=== PATIENT | male | born 1960 | race Caucasian/White ===

== ENCOUNTER 2021-10-30 16:01 | Outpatient (REF) | payer OTHER, SELFPAY ==
--- NOTE | ~2021-10-30 | XR_ITS ---
EXAMINATION: XR CHEST 2 VIEW CLINICAL INFORMATION: Cough COMPARISON: 09/08/2018 TECHNIQUE: PA and lateral views of the chest obtained. FINDINGS: The lungs are hyperinflated with flattening of the diaphragms and in increase in the retrosternal airspace indicative of underlying COPD. The lungs are clear. There are no pleural effusions. The cardiomediastinal silhouette is normal. XR/XR chest 2V IMPRESSION: COPD. No acute disease or interval change otherwise.
== END 2021-10-30 16:02 | disposition home or self-care (01) ==
LOC: HO.HMGCX 16:01
DX: R05.9 Cough, unspecified (principal)
CPT/HCPCS: 71046

== ENCOUNTER → 2022-02-03 12:58 | Outpatient (BNVA) | payer SELFPAY | PROVIDERS: Visit Provider Physician Assistant Medical | DX: Z02.79 Encounter for issue of other medical certificate (principal) ==

== ENCOUNTER 2022-06-08 11:07 | Outpatient (REF) | payer OTHER, SELFPAY ==
[2022-06-08 11:32] LABS: MANUAL DIFF FLAG NO
[2022-06-08 11:42] LABS: Basophils Absolute Auto 0.1 X10*3/uL (0.0-0.2); Eosinophils Absolute Auto 0.5 X10*3/uL (0.0-0.4); Eosinophils Percent Auto 5.9 % (0-4); Hematocrit 46.1 % (42.0-52.0); Hemoglobin 15.1 g/dl (14.0-18.0); Imm Gran Abs Auto 0.04 X10*3/uL (0.00-0.03); Imm Gran Pct Auto 0.5 % (0.0-0.4); Lymphocytes Absolute Auto 1.7 X10*3/uL (1.2-4.9); Lymphocytes Percent Auto 21.6 % (20-40); Mean Corpuscular HGB Conc 32.8 g/dl (31.0-36.0); Mean Corpuscular Hemoglobin 30.3 pg (27.0-33.0); Mean Corpuscular Volume 92.6 fL (80.0-98.0); Mean Platelet Volume 9.5 fL (9.4-12.4); Monocytes Absolute Auto 0.8 X10*3/uL (0.1-1.2); Monocytes Percent Auto 9.9 % (2-11); Neutrophils Absolute Auto 4.7 x10*3/uL (2.0-8.3); Neutrophils Percent Auto 61.1 % (45-73); Platelet Count 235 X10*3/uL (160-400); Red Blood Count 4.98 X10*6/uL (4.60-5.80); Red Cell Distribution Width 13.7 % (11.0-16.0); White Blood Count 7.7 X10*3/uL (4.8-10.8)
[2022-06-08 12:21] LABS: Alanine Aminotransferase 31 U/L (0-40); Albumin Level 4.6 g/dL (3.5-5.0); Alkaline Phosphatase 55 U/L (39-117); Anion Gap 12 (12-20); Aspartate Amino Transferase 20 U/L (5-37); Bilirubin Total 0.7 mg/dL (0.0-1.0); Blood Urea Nitrogen 16 mg/dL (9-16); Carbon Dioxide 29 mmol/L (22-29); Chloride 105 mmol/L (96-108); Cholesterol 261 mg/dL; Estimated Glomerular Filt Rate > 60; Glucose Random 87 mg/dL (60-115); HDL Cholesterol 55 mg/dL; LDL Cholesterol Calculated 181 mg/dl; Potassium 4.9 mmol/L (3.3-5.1); Sodium 141 mmol/L (135-145); Total Protein 7.3 g/dL (6.5-8.0); Triglycerides 129 mg/dL
[2022-06-08 12:41] LABS: PSA,Total (Free>4and<10) 0.32 ng/mL (0.00-4.00); TSH reflex Free T4 0.86 uIU/mL (0.32-4.0)
== END 2022-06-08 11:08 | disposition home or self-care (01) ==
LOC: HO.LAB 11:07
PROVIDERS: Visit Provider Nurse Practitioner Family
DX: Z13.220 Encounter for screening for lipoid disorders (principal); Z13.29 Encounter for screening for other suspected endocrine disorder; Z13.0 Encounter for screening for diseases of the blood and blood-forming organs and certain disorders involving the immune mechanism; Z12.5 Encounter for screening for malignant neoplasm of prostate; J44.9 Chronic obstructive pulmonary disease, unspecified
CPT/HCPCS: 36415; 80053; 80061; 84153; 84443; 85025

== ENCOUNTER 2022-06-11 13:53 | Outpatient (REF) | payer OTHER, SELFPAY ==
[2022-06-14 04:44] LABS: HBS Num1 0.27 mIU/mL (0-7.99); HBc Num1 0.07 S/CO (0.00-0.79); HBsAGNum1 0.28 S/CO (0.00-0.99); Hepatitis A Antibody IgM 0.14 Index (0-0.79); Hepatitis B Core Antibody Nonreactive (Nonreactive); Hepatitis B Surface Antigen Negative (Negative); ~HepC Num1 0.07 S/CO (0.00-0.79); ~Hepatitis A Antibody IgM Nonreactive (Nonreactive); ~Hepatitis B Surface Antibody NONREACTIVE (Nonreactive); ~Hepatitis C Antibody Nonreactive (Nonreactive)
== END 2022-06-11 13:54 | disposition home or self-care (01) ==
LOC: HO.LAB 13:53
PROVIDERS: Visit Provider Nurse Practitioner Family
DX: Z11.59 Encounter for screening for other viral diseases (principal)
CPT/HCPCS: 36415; 86704; 86706; 86709; 86803; 87340

== ENCOUNTER 2022-06-17 14:19 | Outpatient (REF) | payer OTHER, SELFPAY ==
--- NOTE | ~2022-06-17 | XR_ITS ---
EXAMINATION: XR LUMBOSACRAL SPINE CLINICAL INFORMATION: Lower back pain. COMPARISON: None available. TECHNIQUE: AP and lateral views of the lumbar spine and lateral view of the lumbosacral junction. FINDINGS: There is bony demineralization. Vertebral body heights and alignment are normal. The lumbar disc spaces are well-maintained. No acute fracture or spondylolisthesis is seen. There is mild spondylosis at L3-L4 and L4-L5. The posterior elements are intact. There is facet arthropathy at L5-S1. The paravertebral soft tissues are unremarkable. XR/XR lumbar spine 2-3V IMPRESSION: 1. No acute fracture or spondylolisthesis is seen. 2. The lumbar disc spaces are well-maintained. 3. There is mild spondylosis at L3-L4 and L4-L5. 4. There is facet arthropathy at L5-S1.
[2022-06-17 14:56] LABS: Estimated Average Glucose 114 mg/dL; Hemoglobin A1c % 5.6 %
[2022-06-19 04:48] LABS: Lyme Abs Screen <0.90 index
== END 2022-06-17 14:20 | disposition home or self-care (01) ==
LOC: HO.LAB 14:19
PROVIDERS: Visit Provider Nurse Practitioner Family
DX: M54.50 Low back pain, unspecified (principal)
CPT/HCPCS: 36415; 72100; 83036; 86617; 86618

== ENCOUNTER 2022-07-09 14:11 | Outpatient (REF) | payer OTHER, SELFPAY ==
--- NOTE | ~2022-07-09 | CT_ITS ---
EXAMINATION: LUNG CANCER SCREENING CT CHEST WITHOUT CONTRAST CLINICAL INFORMATION: Current smoker with 47 pack year history COMPARISON: CT chest dated 04/25/2018 TECHNIQUE: Multidetector volumetric CT imaging of the chest was obtained noncontrast using low dose screening CT technique. Axial thin section 0.625 mm reformations in soft tissue and lung windows were obtained. Sagittal and coronal reformations were obtained. Axial MIP images were also created and reviewed. This CT examination was performed using dose optimization techniques as appropriate, variously including the following: *Automated exposure control *Adjustment of mA and/or kV according to patient size (this includes techniques or standardized protocols for targeted exams where dose is matched to indication/reason for exam; i.e. extremities or head) *Use of iterative reconstruction technique TOTAL EXAM DLP: 57 mGy-cm FINDINGS: PULMONARY NODULES (see valdes images): No suspicious pulmonary nodules. There are a couple punctate nodules in the left lower lobe. LUNGS / PLEURA: Minimal emphysema. Diffuse mild bronchial wall thickening without bronchiectasis. No pleural effusion or pneumothorax. MEDIASTINUM / KENDAL: Heart normal in size without pericardial effusion. Great vessels normal caliber. No lymphadenopathy. Coronary calcifications present. Imaged thyroid gland unremarkable. CHEST WALL / AXILLA: Unremarkable. UPPER ABDOMEN: Simple cyst in the upper pole of left kidney is benign. No follow-up imaging recommended. OSSEOUS STRUCTURES: No acute or suspicious osseous abnormalities. CT/CT lung screening IMPRESSION: * No evidence of pulmonary malignancy. * There are no pulmonary nodules that meet criteria for short interval follow-up at this time. ASSESSMENT: Lung RADS category: 2. Benign appearance or behavior. Nodules with a very low likelihood of becoming a clinically active cancer due to size or lack of growth. Continue annual screening with low-dose CT in 12 months. Probability of malignancy less than 1%. RECOMMENDATION: Follow up low dose CT chest in 1 year.
== END 2022-07-09 14:12 | disposition home or self-care (01) ==
LOC: HO.CT 14:11
PROVIDERS: PCP Internal Medicine; Visit Provider Physician Assistant Medical
DX: Z12.2 Encounter for screening for malignant neoplasm of respiratory organs (principal); F17.210 Nicotine dependence, cigarettes, uncomplicated
CPT/HCPCS: 71271; G0296

== ENCOUNTER → 2022-07-29 08:48 | Outpatient (BNVA) | payer OTHER, SELFPAY | PROVIDERS: PCP Nurse Practitioner Family; Visit Provider Internal Medicine | DX: J44.9 Chronic obstructive pulmonary disease, unspecified (principal); F41.9 Anxiety disorder, unspecified; F17.210 Nicotine dependence, cigarettes, uncomplicated | CPT/HCPCS: 99202 ==

== ENCOUNTER 2022-07-30 08:28 | Outpatient (REF) | payer OTHER, SELFPAY ==
--- NOTE | 2022-07-30 09:29 | PFT_ITS ---
INDICATION: COPD. SPIROMETRY: FEV1 to FVC of 47% with an FEV1 of 2.05 L which is 47% predicted and an FVC of 4.38 L which is 75% predicted with a significant response to bronchodilators noted. Maximum voluntary ventilation 27% predicted. LUNG VOLUMES: Total lung capacity of 114% predicted with a residual volume of 206% predicted. DIFFUSION CAPACITY: DLCO 63% predicted. COMPARISONS: None. INTERPRETATION: There was an obstructive ventilatory defect consistent with severe COPD. There was a significant response to bronchodilators noted and also severe decrease in the maximum voluntary ventilatory secondary to deconditioning and also worsening dynamic inspiratory capacity. Lung volumes demonstrate significant air tapping due to the COPD and there is a mild diffusion impairment likely secondary to emphysema and/or the parenchymal lung conditions. Clinical correlation warranted. MD RANDY Turner/MODAbdulkadir / [id number]
== END 2022-07-30 08:29 | disposition home or self-care (01) ==
LOC: HO.RESP 08:28
PROVIDERS: PCP Nurse Practitioner Family; Visit Provider Internal Medicine
DX: J44.9 Chronic obstructive pulmonary disease, unspecified (principal); F17.210 Nicotine dependence, cigarettes, uncomplicated
CPT/HCPCS: 94060; 94727; 94729

== ENCOUNTER 2022-08-19 11:33 | Outpatient (AMB) | payer OTHER, SELFPAY ==
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
[2022-08-19 13:12] VITALS: BP 132/86; PULSE 77; TEMP 36.6; O2SAT 98
== END 2022-08-19 16:34 | disposition home or self-care (01) ==
PROVIDERS: PCP Nurse Practitioner Family; Visit Provider Physician Assistant
DX: M54.16 Radiculopathy, lumbar region (principal); V89.2XXA Person injured in unspecified motor-vehicle accident, traffic, initial encounter
CPT/HCPCS: 99213

== ENCOUNTER 2022-08-24 11:13 | Outpatient (AMB) | payer OTHER, SELFPAY ==
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
[2022-08-24 11:15] VITALS: BP 138/88; PULSE 84; O2SAT 96; BMI 27.7
== END 2022-08-24 11:58 | disposition home or self-care (01) ==
PROVIDERS: PCP Nurse Practitioner Family; Visit Provider Physician Assistant
DX: M54.50 Low back pain, unspecified (principal); R06.02 Shortness of breath
CPT/HCPCS: 99214

== ENCOUNTER 2022-08-24 12:05 | Outpatient (REF) | payer OTHER, SELFPAY ==
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
== END 2022-08-24 12:06 | disposition home or self-care (01) ==
LOC: HO.XRAY 12:05
PROVIDERS: PCP Nurse Practitioner Family; Visit Provider Physician Assistant
DX: M54.50 Low back pain, unspecified (principal); R06.02 Shortness of breath
CPT/HCPCS: 72100

== ENCOUNTER → 2022-08-30 14:49 | Outpatient (REF) | payer OTHER, SELFPAY ==
--- NOTE | 2022-08-30 14:54 | CA_ITS ---
Transthoracic Echocardiogram Patient (Last, First, Middle): Shyam Soto E Gender: Male Date of : 1960 Age: 62 Procedure Date: 08/30/2022 Procedure Type: Transthoracic Echocardiogram Location: OP Height: 187.96 cm Weight: 95.26 kg BSA: 2.22 m2 Heart Rate: bpm BP: 124 / 80 mmHg Combustion Analyst: Referring MD: Elinor ZAVALA [employer] Architect: Yayo Swan MD Symptoms: R06.02 - Shortness of breath Study Quality: Adequate ECG Rhythm: Sinus Conclusions: - 1. Normal LV systolic function with grade 1 diastolic dysfunction 2. Normal cardiac valvular Dopplers 3. Normal RV systolic pressure 4. No gross pericardial effusion Findings Left Ventricle Normal left ventricular size, thickness, and systolic function. The visually estimated ejection fraction is between 60-65%. Spectral Doppler is indicative of an impaired relaxation filling pattern. E/E prime ratio is <8, consistent with normal filling pressures. Evidence suggests grade I (mild) diastolic dysfunction. Right Ventricle Normal right ventricular cavity size and systolic function. Atria Both atria are normal in size. Interatrial shunt cannot be excluded. Aortic Valve Normal aortic valve structure and function. There is no aortic valve stenosis. There is no aortic valve regurgitation. Mitral Valve Normal mitral valve structure and function. There is trace mitral valve regurgitation. There is no mitral valve stenosis. Pulmonic Valve The pulmonic valve is likely normal. Tricuspid Valve Normal tricuspid valve structure. There is trace tricuspid valve regurgitation. The right ventricular systolic pressure is normal. The right ventricular systolic pressure is 22 mmHg. Normal right atrial pressure. There is no evidence of pulmonary hypertension. Great Vessels All visible segments of the aorta are normal in size. The pulmonary artery was not well visualized. Venous The inferior vena cava is normal in size and collapses greater than 50% with inspiration. Pericardium/Pleural There is no evidence of pericardial effusion. Prior Study Comparison No prior study available for comparison. Measurements 2D Linear Measurements IVSd: 1.39 0.6-0.9/0.6-1.0 cm LVIDd: 3.95 3.9-5.3/4.2-5.9 cm LVIDd Index: 1.78 2.4-3.2/2.2-3.1 cm/m2 LVIDs: 2.73 2.0-3.6 cm LVPWd: 1.32 0.7-1.1 cm Ao Root: 3.70 2.1-3.5 cm LA Diam: 2.70 2.7-3.8/3.0-4.0 cm LAIDs Index: 1.22 1.5-2.3 cm/m2 LV Mass: 243.13 67-162/88-224 g LV Mass Index: 109.52 43-95/49-115 g/m2 LVOT Diam: 2.30 3.0+(-)1.3 cm Mitral Valve MV Pk E: 0.46 MV PK A: 0.68 MV Decel Time: 179.00 E/A: 0.70 E'Lateral: 5.22 E'Medial: 6.96 E/E' Med: 6.70 E/E' Lat: 8.90 PHT: 53.00 MVA PHT: 4.15 Decel Mckinley: 2.58 Aortic Valve AoV Pk Emir: 1.17 AoV Mn Emir: 0.74 AoV VTI: 0.21 AoV Pk Grad: 5.00 Aov Mn Grad: 3.00 JEAN-PAUL Cont.VTI: 3.93 LVOT LVOT Pk Emir: 1.01 LVOT Mn Emir: 0.68 LVOT VTI: 0.20 LVOT Pk Grad: 4.00 LVOT Mn Grad: 2.00 LVOT Diam: 2.30 LVOT Area: 4.15 Diastolic Function MV Pk E: 0.46 MV Pk A: 0.68 E/A: 0.70 E'Medial: 6.96 E/E' Med: 6.70 E' Laterial: 5.22 E/E' Lat: 8.90 Right Ventricle TAPSE (mm): 32.00 TVS' Emir: 14.00 Tricuspid Valve TR Pk Emir: 2.18 TR Pk Grad: 19.00 RA Press: 3.00 RVSP: 22.00 Great Vessels Aorta Ao Root-2D: 3.70 2.0-3.7 cm Ao Asc: 4.00 2.1-3.4 cm Pulmonary Valve PV Pk Emir: 1.13 Peak PV Grad: 5.00 Updated in Other Vendor System with Status of Final Yayo Swan MD electronically signed on 08/31/2022 10:17:16 AM with status of Final
== END ==
LOC: HO.CARD 14:49
PROVIDERS: PCP Nurse Practitioner Family; Visit Provider Nurse Practitioner Family
DX: R06.02 Shortness of breath (principal)
CPT/HCPCS: 93306

== ENCOUNTER → 2022-08-30 14:54 | Outpatient (BNV) | payer OTHER, SELFPAY | PROVIDERS: PCP Nurse Practitioner Family; Visit Provider Internal Medicine Cardiovascular Disease | DX: I51.9 Heart disease, unspecified (principal); R06.02 Shortness of breath | CPT/HCPCS: 93306 ==

== ENCOUNTER 2022-09-10 09:58 | Outpatient (AMB) | payer OTHER, SELFPAY ==
[2022-09-10 10:03] VITALS: BP 134/88; PULSE 81; O2SAT 96; BMI 27.1
--- NOTE | 2022-09-10 10:03 | MHC.PC.OV ---
Vital Signs 09/10/22 10:03 Height 6 ft 2.5 in Weight 214 lb BMI 27.1 BP 134/88 Blood Pressure Location Lt brachial Position Sitting Pulse 81 Pulse Source Pulse Oximeter Temp Source Skin Pulse Oximetry (%) 96 Oxygen Delivery Method Room Air Intake Visit Reasons: Right eye surgery 09/15/22 and Left eye 09/29/22 Intake Note: Patient is here for a Pre-op for cataract surgery scheduled with on right eye 09/15 and left 09/29. 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: No Allergies formoterol [Bevespi Aerosphere] Allergy (Unknown, Verified 09/10/22 10:03) headaches and toothaches glycopyrrolate [Bevespi Aerosphere] Allergy (Unknown, Verified 09/10/22 10:03) headaches and toothaches trazodone Allergy (Unknown, Verified 09/10/22 10:03) Unknown No Known Allergies [No Known Allergies*] Allergy (Verified 09/10/22 10:03) Motrin Allergy (Unknown, Uncoded 09/10/22 10:03) Stomach Upset Tobacco use date assessed: 09/10/22 HPI HPI Comments History of Present Illness Details 62-year-old male past medical history significant for hyperlipidemia, COPD, ADHD, anxiety and lumbar back pain. Patient of [facility] presents today for preop appointment. For bilateral cataract surgery patient scheduled have the right eye completed on 09/15/2022 and left eye completed on 09/29/22 under local anesthesia. Patient denies any chest pain, palpitations and syncope. Does report some ongoing shortness of breath for which she is on Spiriva daily and uses albuterol as a rescue inhaler. Laboratory Tests 06/08/22 06/08/22 06/17/22 11:31 11:31 14:38 WBC 7.7 RBC 4.98 Hgb 15.1 Hct 46.1 MCV 92.6 MCH 30.3 MCHC 32.8 RDW 13.7 Plt Count 235 MPV 9.5 Immature Gran % (A uto) 0.5 H Neut % (Auto) 61.1 Lymph % (Auto) 21.6 Ripley % (Auto) 9.9 Eos % (Auto) 5.9 H Baso % (Auto) 1.0 Lymph # (Auto) 1.7 [place]ipley # (Auto) 0.8 Eos # (Auto) 0.5 H Baso # (Auto) 0.1 Abs Immat Gran (au to) 0.04 H Absolute Neuts (au to) 4.7 Absolute Nucleated RBC 0.000 Nucleated RBC % (a uto) 0.0 Sodium 141 Potassium 4.9 Chloride 105 Carbon Dioxide 29 Anion Gap 12 BUN 16 Creatinine 0.89 Estimated GFR > 60 Random Glucose 87 Estimat Average Gl ucose 114 Hemoglobin A1c % 5.6 Total Bilirubin 0.7 AST 20 ALT 31 Alkaline Phosphata se 55 Total Protein 7.3 Albumin 4.6 TSH 0.86 PFSH Medical History COPD (chronic obstructive pulmonary disease) Nicotine dependence, cigarettes, uncomplicated Tubular adenoma of colon (~2019) Surgical History History of colonoscopy History of esophagogastroduodenoscopy (EGD) History of hemorrhoidectomy Family History Mother Diabetes Father No problems noted. Brother No problems noted. Social History Housing: House Patient Tobacco Use Status: Former Tobacco user Quit Date: 07/27/22 Tobacco use type: Cigarette Cigarette Packs Per Day: 20 Cigarettes Per Day: 1 Years Smoked: (current smoker, onset 17yo, 1ppd x 45yrs, 45pyh)// Packs Per Year: 0 Packs per year/per ci.00 e-Cigarette/Vaping Use: Never Used service: No Current occupational status: unemployed and disabled Cognitive needs: No Hearing needs: No Vision needs: No Questionnaire Thrive Questionnaire Date Thrive assessed: 08/24/22 AUDIT C Alcohol Use Questionnaire (AUDIT-C) 1. How often do you have a drink containing alcohol?: Never 3. How often do you have six or more drinks on one occasion?: Never Total Score: 0 MELINDA-7 AMB Questionnaire MELINDA-7 Date MELINDA - 7 assessed: 08/24/22 Source: Developed by Drs. Hudson Correa, Mami Cordova, Alberto Crockett and colleagues, with an educational bobbi from [employer]. Review of Systems Const Denies chills, Denies fatigue, Denies fever(s) and Denies poor appetite Eyes Denies no additional complaints ENT Reports Normal hearing present Card Denies chest pain, Denies syncope, Denies rapid heart rate and Denies dyspnea Resp Denies cough and Denies dyspnea GI Denies change in stool character, Denies constipation, Denies diarrhea, Denies nausea and Denies vomiting Denies dysuria, Denies urinary frequency and Denies urinary urgency Neuro Reports Normal hearing present, Denies confusion and Denies syncope Psych Denies confusion Endo Denies fatigue Physical exam (Primary Care) Vital Signs: Last Vital Signs Pulse 81 09/10/22 10:03 BP 134/88 09/10/22 10:03 Pulse Ox 96 09/10/22 10:03 Oxygen Delivery Method Room Air 09/10/22 10:03 BMI result Body Mass Index 27.1 Tobacco/Smoking Status: Tobacco use Status Tobacco use date assessed 09/10/22 09/10/22 10:12 Patient Tobacco Use Status Former Tobacco user 09/10/22 10:12 Tobacco use type Cigarette 09/10/22 10:12 e-Cigarette/Vaping Use Never Used 09/10/22 10:12 Thrive Assessment: Date of Thrive Assessment Date Thrive assessed 08/24/22 09/10/22 10:12 Const General: No confusion Orientation/consciousness: No confusion HENMT Head: Yes normocephalic and Yes atraumatic Eyes Conjunctivae: conjunctivae normal Chest Chest palpation & inspection: normal inspection of the chest Resp Effort & Inspection: normal respiratory effort Auscultation: clear to auscultation bilaterally, no crackles, no rhonchi and no wheezes Cardio Rate: regular rate Rhythm: regular rhythm Heart sounds: S1 normal heart sound present and S2 normal heart sound present GI Inspection: Yes normal to inspection Neuro General: No confusion Cranial nerves: Yes Normal hearing present Extrem General: No edema Assessment and Plan Assessment & Plan (1) Preop examination: Code(s): Z01.818 - Encounter for other preprocedural examination Plan: Based on above examination and review of lab work patient is of average risk to undergo schedule cataract surgery. No further workup is needed at this time in patient to proceed with scheduled surgery. (2) COPD (chronic obstructive pulmonary disease): Comment: HE DOES HAVE CLINICAL FEATURES OF CHRONIC OBSTRUCTIVE PULMONARY DISEASE. I DID NOT SEE, ANY PFTS IN OUR SYSTEM. SO PULMONARY FUNCTION TEST IS ORDERED, TX : SPIRIVA RESPIMAT 2 INHALATION DAILY, ALBUTEROL MDI 2 PUFFS Q 6 HOURS P.R.N., BUT ONLY IF ANY WHEEZING ATTACKS, NOT TO USE JUST FOR EXERTIONAL DYSPNEA. Code(s): J44.9 - Chronic obstructive pulmonary disease, unspecified Plan: Continue on Spiriva daily and albuterol inhaler as needed. Continue to follow-up pulmonology. Plan Keep scheduled follow up with pcp. Coding Level of Care Code Est Pt Level 3 (66257) Diagnoses Preop examination Z01.818 COPD (chronic obstructive pulmonary disease) J44.9
== END 2022-09-10 10:36 | disposition home or self-care (01) ==
PROVIDERS: PCP Nurse Practitioner Family; Visit Provider Nurse Practitioner Family
DX: Z01.818 Encounter for other preprocedural examination (principal); J44.9 Chronic obstructive pulmonary disease, unspecified
CPT/HCPCS: 99213

== ENCOUNTER 2022-10-14 08:49 | Outpatient (REF) | payer OTHER, SELFPAY ==
--- NOTE | ~2022-10-14 | MR_ITS ---
MR LUMBAR SPINE WITHOUT CONTRAST CLINICAL INFORMATION: Low back pain. COMPARISON: Lumbar spine radiographs 08/24/2022. TECHNIQUE: MRI of the lumbar spine was obtained using routine sequences without contrast. FINDINGS: There are 5 nonrib-bearing lumbar-type vertebral bodies. Hypoplastic ribs the lowermost thoracic type segment. Chronic endplate Schmorl's nodes within the lower thoracic spine at the L1-L3 levels. Vertebral body heights overall maintained. There is disc desiccation at the L1-L2 and L3-L4 levels. There is moderate disc volume loss at L1-L2. The remaining disc volumes are preserved. There is no bone marrow edema. There are no acute fractures. Conus terminates at the T12-L1 level. There is bilateral perinephric stranding. Simple left upper pole renal cyst and small right renal cyst for which no further imaging follow-up is warranted. L1-L2: Posterior disc contour is normal. There is no central canal stenosis and there is no foraminal stenosis. L2-L3: Small annular disc bulge and moderate bilateral hypertrophic facet arthropathy. No central canal stenosis and no foraminal stenosis. L3-L4: Diffuse annular disc bulge and mild bilateral hypertrophic facet arthropathy. No central canal stenosis. Mild foraminal encroachment bilaterally. L4-L5: There is a diffuse annular disc bulge and there is moderate bilateral facet arthropathy and ligamentum flavum thickening. Mild narrowing of the central canal. Mild to moderate bilateral foraminal stenosis. L5-S1: There is a diffuse annular disc bulge and there is moderate bilateral hypertrophic facet arthropathy. There is no central canal stenosis. There is mild foraminal encroachment bilaterally. MR/MR lumbar spine wo con IMPRESSION: Mild to moderate lumbar spondylosis. No severe central canal stenosis and no severe foraminal stenosis within the lumbar spine.
== END 2022-10-14 08:50 | disposition home or self-care (01) ==
LOC: HO.MRI 08:49
PROVIDERS: PCP Nurse Practitioner Family; Visit Provider Physician Assistant
DX: M54.50 Low back pain, unspecified (principal)
CPT/HCPCS: 72148

== ENCOUNTER → 2022-10-18 13:25 | Outpatient (BNVA) | payer OTHER, SELFPAY | PROVIDERS: PCP Nurse Practitioner Family; Visit Provider Internal Medicine | DX: J44.9 Chronic obstructive pulmonary disease, unspecified (principal); F41.9 Anxiety disorder, unspecified; F17.210 Nicotine dependence, cigarettes, uncomplicated | CPT/HCPCS: 99212 ==

== ENCOUNTER 2022-10-18 13:31 | Outpatient (AMB) | payer OTHER, SELFPAY ==
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
[2022-10-18 13:31] VITALS: BP 130/74; PULSE 92; O2SAT 96; BMI 27.6
== END 2022-10-18 14:10 | disposition home or self-care (01) ==
PROVIDERS: PCP Nurse Practitioner Family; Visit Provider Internal Medicine
DX: J44.9 Chronic obstructive pulmonary disease, unspecified (principal); F17.210 Nicotine dependence, cigarettes, uncomplicated; F41.9 Anxiety disorder, unspecified
CPT/HCPCS: 99214

== ENCOUNTER → 2022-10-21 08:07 | Outpatient (REF) | payer OTHER, SELFPAY ==
--- NOTE | 2022-10-21 08:11 | CA_ITS ---
Acquisition Time: 2022-10-21 08:40:33 Total Exercise Time: 00:01:35 Test Indications: SOB, PREOP Medications: SEE H Protocol: FAUSTINO Max HR: 114 BPM 71% of Pred: 159 BPM Max BP: 164/088 mmHG Max Work Load: 3.8 METS Exercise stress test exercise 1 min 35 sec of Faustino protocol achieving 71% MPHR, with request to stop due to breathing difficulties. with moderate SOB, without chest discomfort, with normotensive response to exercise, with nondiagnositic EKGs. Nuclear testing not performed due to decreased workload/capacity. Breathing returned to normal with rest. Test reviewed with Dr. Nava. Message sent to PCP Armani Avelar Referred By: Armani Avelar Overread By: Herminia Vallejo
== END ==
LOC: HO.CARD 08:07
PROVIDERS: PCP Nurse Practitioner Family; Visit Provider Physician Assistant
DX: R06.02 Shortness of breath (principal)
CPT/HCPCS: 93017

== ENCOUNTER → 2022-10-21 08:11 | Outpatient (BNV) | payer OTHER, SELFPAY | PROVIDERS: PCP Nurse Practitioner Family; Visit Provider Nurse Practitioner | DX: R06.02 Shortness of breath (principal); Z01.818 Encounter for other preprocedural examination | CPT/HCPCS: 93016; 93018 ==

== ENCOUNTER 2022-10-26 10:28 | Outpatient (AMB) | payer OTHER, SELFPAY ==
[2022-10-26 10:31] VITALS: BP 142/98; PULSE 82; RESP 17; O2SAT 98; BMI 27.5
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
== END 2022-10-26 11:15 | disposition home or self-care (01) ==
PROVIDERS: PCP Physician Assistant; Visit Provider Physician Assistant
DX: J41.0 Simple chronic bronchitis (principal); M51.9 Unspecified thoracic, thoracolumbar and lumbosacral intervertebral disc disorder; F17.210 Nicotine dependence, cigarettes, uncomplicated; E78.2 Mixed hyperlipidemia
CPT/HCPCS: 99214

== ENCOUNTER 2023-01-11 11:06 | Outpatient (AMB) | payer OTHER, SELFPAY ==
[2023-01-11 11:13] VITALS: BP 140/90; PULSE 90; O2SAT 96; BMI 28.8
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
== END 2023-01-11 11:54 | disposition home or self-care (01) ==
PROVIDERS: PCP Physician Assistant; Visit Provider Internal Medicine
DX: J41.0 Simple chronic bronchitis (principal); F17.210 Nicotine dependence, cigarettes, uncomplicated; F41.9 Anxiety disorder, unspecified
CPT/HCPCS: 99214

== ENCOUNTER → 2023-01-11 11:06 | Outpatient (BNVA) | payer OTHER, SELFPAY | PROVIDERS: PCP Physician Assistant; Visit Provider Internal Medicine | DX: J41.0 Simple chronic bronchitis (principal); F41.9 Anxiety disorder, unspecified; F17.210 Nicotine dependence, cigarettes, uncomplicated | CPT/HCPCS: 99212 ==

== ENCOUNTER 2023-02-22 11:20 | Outpatient (AMB) | payer OTHER, SELFPAY ==
[2023-02-22 11:21] VITALS: BP 130/84; PULSE 82; O2SAT 96; BMI 28.6
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
== END 2023-02-22 11:56 | disposition home or self-care (01) ==
PROVIDERS: PCP Physician Assistant; Visit Provider Physician Assistant
DX: J41.0 Simple chronic bronchitis (principal); M51.9 Unspecified thoracic, thoracolumbar and lumbosacral intervertebral disc disorder; E78.2 Mixed hyperlipidemia; Z87.891 Personal history of nicotine dependence
CPT/HCPCS: 99214

== ENCOUNTER 2023-05-03 15:19 | Outpatient (AMB) | payer OTHER, SELFPAY ==
[2023-05-03 15:26] VITALS: BP 120/62; PULSE 100; O2SAT 95; BMI 29.2
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
== END 2023-05-03 15:54 | disposition home or self-care (01) ==
PROVIDERS: PCP Physician Assistant; Visit Provider Internal Medicine
DX: J44.1 Chronic obstructive pulmonary disease with (acute) exacerbation (principal); F17.210 Nicotine dependence, cigarettes, uncomplicated; F41.9 Anxiety disorder, unspecified
CPT/HCPCS: 99213

== ENCOUNTER → 2023-05-03 15:19 | Outpatient (BNVA) | payer OTHER, SELFPAY | PROVIDERS: PCP Physician Assistant; Visit Provider Internal Medicine | DX: J44.1 Chronic obstructive pulmonary disease with (acute) exacerbation (principal); F41.9 Anxiety disorder, unspecified; F17.210 Nicotine dependence, cigarettes, uncomplicated | CPT/HCPCS: 99212 ==

== ENCOUNTER 2023-06-02 10:53 | Outpatient (AMB) | payer OTHER, SELFPAY ==
[2023-06-02 11:22] VITALS: BP 130/80; PULSE 79; O2SAT 95; BMI 28.8
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
== END 2023-06-02 11:47 | disposition home or self-care (01) ==
PROVIDERS: PCP Physician Assistant; Visit Provider Internal Medicine
DX: J41.0 Simple chronic bronchitis (principal); R06.02 Shortness of breath; F41.9 Anxiety disorder, unspecified
CPT/HCPCS: 99213

== ENCOUNTER → 2023-06-02 10:53 | Outpatient (BNVA) | payer OTHER, SELFPAY | PROVIDERS: PCP Physician Assistant; Visit Provider Internal Medicine | DX: J41.0 Simple chronic bronchitis (principal); R06.02 Shortness of breath; F41.9 Anxiety disorder, unspecified | CPT/HCPCS: 99212 ==

== ENCOUNTER 2023-07-13 08:59 | Outpatient (REF) | payer OTHER, SELFPAY ==
--- NOTE | ~2023-07-13 | CT_ITS ---
EXAMINATION: CT LUNG SCREENING CLINICAL INFORMATION: Nicotine dependence, cigarettes, uncomplicated. The patient is a current smoker with a 47 pack-year history of smoking. COMPARISON: CT chest 07/09/2022 and 04/25/2018. TECHNIQUE: Multidetector volumetric CT imaging of the chest is performed on a Siemens SOMATOM Definition scanner without contrast using low dose technique. Additional 2D coronal and sagittal reformatted images and axial 3D maximum intensity projection (MIP) images are generated on the CT workstation. This CT examination was performed using dose optimization techniques as appropriate, variously including the following: *Automated exposure control *Adjustment of mA and/or kV according to patient size (this includes techniques or standardized protocols for targeted exams where dose is matched to indication/reason for exam; i.e. extremities or head) *Use of iterative reconstruction technique TOTAL EXAM DLP: 57 mGy-cm. CTDIvol: 1.47 mGy. FINDINGS: PULMONARY NODULES: Some unchanged pulmonary nodules are seen including a 3 mm left apical nodule (5:75 compare prior 5:103), a 2 mm left upper lobe nodule (5:207 compare prior 5:231), a 3 mm left lower lobe nodule (5:393 compare prior 5:435) and a 2 mm punctate nodule right lower lobe (5:427 compare prior 5:478). There are no new, increasing-sized or suspicious pulmonary nodules. LUNGS: Lungs bilaterally symmetrically expanded. There is mild diffuse emphysema with diffuse bronchial thickening, without bronchiectasis. No effusion or pneumothorax. Central airways patent. MEDIASTINUM: No mediastinal, hilar or axillary adenopathy or free fluid collection. CORONARY ARTERY CALCIFICATION: None visualized on this study. THYROID GLAND: Unremarkable to the extent seen. CARDIOVASCULAR STRUCTURES: Aortic and heart size normal. No pericardial effusion. CHEST WALL/AXILLA: Unremarkable. UPPER ABDOMEN: Included portions of the solid organs in the upper abdomen unremarkable on noncontrast imaging. A benign left upper pole 3.8 cm Bosniak class I renal cyst is noted which requires no additional imaging or follow up. No solid renal masses are seen. OSSEOUS STRUCTURES: No suspicious focal findings. CT/CT lung screening IMPRESSION: 1. No new or suspicious pulmonary nodules. 2. Mild emphysema and bronchial thickening. 3. Incidental findings (s category): No significant new incidental findings. ASSESSMENT: 1. Lung-RADS Category 2: Benign appearance or behavior of nodules. N/A RECOMMENDATION: Continued routine annual low-dose CT lung screening in 1 year is recommended. An order for CT CHEST LOW DOSE CANCER SCREENING ([id number]) can be placed.
== END 2023-07-13 09:00 | disposition home or self-care (01) ==
LOC: HO.CT 08:59
PROVIDERS: PCP Physician Assistant; Visit Provider Physician Assistant Medical
DX: Z12.2 Encounter for screening for malignant neoplasm of respiratory organs (principal); F17.210 Nicotine dependence, cigarettes, uncomplicated
CPT/HCPCS: 71271

== ENCOUNTER 2023-08-04 10:07 | Outpatient (REF) | payer OTHER, SELFPAY ==
[2023-08-04 11:28] LABS: Prostate Specific Antigen Scr 0.83 ng/mL (<0.05-4.0)
[2023-08-04 11:34] LABS: HBS Num1 0.49 mIU/mL (0-7.99); HBc Num1 0.08 S/CO (0.00-0.79); HBsAGNum1 0.27 S/CO (0.00-0.99); Hepatitis B Core Antibody Nonreactive (Nonreactive); Hepatitis B Surface Antigen Negative (Negative); ~HepC Num1 0.07 S/CO (0.00-0.79); ~Hepatitis B Surface Antibody NONREACTIVE (Nonreactive); ~Hepatitis C Antibody Nonreactive (Nonreactive)
== END 2023-08-04 10:08 | disposition home or self-care (01) ==
LOC: HO.LAB 10:07
PROVIDERS: PCP Physician Assistant; Visit Provider Physician Assistant
DX: Z11.3 Encounter for screening for infections with a predominantly sexual mode of transmission (principal); Z12.5 Encounter for screening for malignant neoplasm of prostate
CPT/HCPCS: 36415; 84153; 86704; 86706; 86803; 87340

== ENCOUNTER 2023-08-08 11:11 | Outpatient (AMB) | payer OTHER, SELFPAY ==
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
[2023-08-08 11:19] VITALS: BP 122/82; PULSE 88; O2SAT 96; BMI 28.0
== END 2023-08-08 12:16 | disposition home or self-care (01) ==
PROVIDERS: PCP Physician Assistant; Visit Provider Physician Assistant
DX: J41.0 Simple chronic bronchitis (principal); M51.9 Unspecified thoracic, thoracolumbar and lumbosacral intervertebral disc disorder; E78.2 Mixed hyperlipidemia; Z87.891 Personal history of nicotine dependence; K62.5 Hemorrhage of anus and rectum; R13.13 Dysphagia, pharyngeal phase
CPT/HCPCS: 99214

== ENCOUNTER 2023-08-08 12:23 | Outpatient (REF) | payer OTHER, SELFPAY ==
[2023-08-08 13:07] LABS: Hematocrit 41.4 % (42.0-52.0); Hemoglobin 13.7 g/dl (14.0-18.0); Mean Corpuscular HGB Conc 33.1 g/dl (31.0-36.0); Mean Corpuscular Hemoglobin 29.5 pg (27.0-33.0); Mean Corpuscular Volume 89.2 fL (80.0-98.0); Mean Platelet Volume 9.1 fL (9.4-12.4); Platelet Count 311 X10*3/uL (160-400); Red Blood Count 4.64 X10*6/uL (4.60-5.80); White Blood Count 7.5 X10*3/uL (4.8-10.8)
[2023-08-08 13:21] LABS: Alanine Aminotransferase 20 U/L (0-40); Albumin Level 4.6 g/dL (3.5-5.0); Alkaline Phosphatase 66 U/L (39-117); Anion Gap 13 (12-20); Aspartate Amino Transferase 21 U/L (5-37); Bilirubin Total 0.4 mg/dL (0.0-1.0); Blood Urea Nitrogen 17 mg/dL (9-16); Calcium 9.9 mg/dL (8.4-10.2); Carbon Dioxide 26 mmol/L (22-29); Chloride 107 mmol/L (96-108); Cholesterol 236 mg/dL (<200); Estimated Glomerular Filt Rate > 60; Glucose Fasting 104 mg/dL (60-99); Glucose Random 104 mg/dL (60-115); HDL Cholesterol 51 mg/dL (>40); Iron 84 mcg/dL (45-160); LDL Cholesterol Calculated 160 mg/dL (<100); Magnesium 2.1 mg/dL (1.6-2.6); Percent Iron Saturation 29 % (15-50); Potassium 4.4 mmol/L (3.3-5.1); Sodium 142 mmol/L (135-145); Total Iron Binding Capacity 287 mcg/dL (228-428); Total Protein 7.8 g/dL (6.5-8.0); Triglycerides 126 mg/dL (<150); Unsaturated Iron Binding 203 ug/dL
== END 2023-08-08 12:24 | disposition home or self-care (01) ==
LOC: HO.LAB 12:23
PROVIDERS: PCP Physician Assistant; Visit Provider Physician Assistant
DX: G62.9 Polyneuropathy, unspecified (principal); K62.5 Hemorrhage of anus and rectum; E78.2 Mixed hyperlipidemia; D50.9 Iron deficiency anemia, unspecified
CPT/HCPCS: 36415; 80048; 80053; 80061; 83540; 83735; 85027

== ENCOUNTER 2023-08-15 14:38 | Outpatient (AMB) | payer OTHER, SELFPAY ==
[2023-08-15 14:43] VITALS: BMI 28.0
--- NOTE | 2023-08-15 14:43 | MHC.OFFVIS ---
Vital Signs 08/15/23 14:43 Height 6 ft 2.5 in Weight 221 lb 5.999 oz BMI 28.0 Intake Visit Reasons: STAT Referral. Hemorrhoidal hemorrhaging. Intake Note: This patient presents for an assessment for Hemorrhoidal hemorrhaging. Patient c/o; reports no Process Safety Engineering Technologist Required: No Accompanied by: Self / Same As Patient Allergies formoterol [Bevespi Aerosphere] Allergy (Intermediate, Verified 08/17/23 13:32) headaches and toothaches glycopyrrolate [Bevespi Aerosphere] Allergy (Intermediate, Verified 08/17/23 13:32) headaches and toothaches trazodone Allergy (Intermediate, Verified 08/18/23 11:08) Anxiety ibuprofen [From Motrin] Allergy (Mild, Verified 08/17/23 13:32) Gastrointestinal Upset Medication List - Last Reconciled 08/15/23 by Dre Kidd MD acetaminophen 650 mg PO Q6H PRN acetaminophen 650 mg (2 x 325 mg) PO Q6H PRN albuterol sulfate 90 mcg/actuation (Ventolin HFA) 2 puffs inhalation Q4-6H 30 days cholecalciferol (vitamin D3) 50 mcg PO DAILY 90 days clonazepam 1 mg PO BID PRN docusate sodium (Colace) 100 mg PO BID 30 days ferrous sulfate 325 mg PO DAILY fluticasone furoate 200 mcg/actuation (Arnuity Ellipta) 1 inh inhalation DAILY 30 days fluticasone propionate 250 mcg/actuation 1 inh inhalation BID guaifenesin ER (Mucinex) 600 mg PO Q12H PRN 10 days magnesium oxide 250 mg PO BID 30 days nicotine 1 patch transdermal DAILY 28 days omega 2-awu-lkg-fish oil 300-1,000 mg (Fish Oil) 1 cap PO DAILY 90 days tiotropium bromide 2.5 mcg/actuation (Spiriva Respimat) 2 puffs inhalation DAILY 30 days zolpidem ER 12.5 mg PO BEDTIME PRN HPI HPI STAT Referral. Hemorrhoidal hemorrhaging.: Details: 63-year-old male here for bleeding hemorrhoids. He says that he had hemorrhoid surgery about 15 years ago. He says that he had complications from the surgery with a bad infection. He said that since then, he has had frequent bleeding, pain and swelling in his anus. He also says that he has this chronic yellowish discharge. He has had multiple anal procedures since then. He has had regular colonoscopies through Dr. Parr. He said he has had worsening bleeding which is bright red blood. He wants to schedule another colonoscopy as he said he is due for this He denies a significant family history of colon cancer. He says that frequently, he would notice large amounts of fresh bright blood with bowel movements. He wants to proceed with his colonoscopy in view of this frequent bleeding. [facility] Medical History (Updated 08/18/23 @ 11:07 by Zari Xie RN) COPD exacerbation Back pain Peripheral neuropathy Anxiety ADHD (attention deficit hyperactivity disorder) Bronchitis Bleeding hemorrhoids COPD exacerbation Tubular adenoma of colon (~2019) Nicotine dependence, cigarettes, uncomplicated COPD (chronic obstructive pulmonary disease) Surgical History History of hemorrhoidectomy History of esophagogastroduodenoscopy (EGD) History of colonoscopy Family History Mother Diabetes Father No problems noted. Brother No problems noted. Social History (Updated 08/18/23 @ 11:08 by Zari Xie RN) Housing: House Are you a primary home health care respiratory therapist to a significant other at home: No Do you presently have visiting nurse or other home services: No Patient Tobacco Use Status: Former Tobacco user Tobacco use type: Cigarette Cigarette Packs Per Day: 1 Cigarettes Per Day: 20.0 Years Smoked: 45 e-Cigarette/Vaping Use: Never Used Use of substances other than those prescribed or required for medical reasons: No Have you been hit, kicked, punched, or otherwise hurt by someone within the past year? If so, by whom?: No Are you DNR?: No Advance Directives: No (son is primary contact) Advance Directives Information Provided: No Advance Directives on File: No Recently lost weight without trying: No Eating poorly because of decreased appetite: No Nutrition Risks: No Nutritional Risk Poor oral hygiene: No (extracted molars) service: No Current occupational status: unemployed and disabled Cognitive needs: No Hearing needs: No Vision needs: No Review of Systems Const Denies chills and Denies fever(s) Card Denies chest pain, Denies dyspnea and Denies dyspnea on exertion Resp Denies cough, Denies dyspnea and Denies dyspnea on exertion GI Reports hematochezia and Denies change in bowel habits Denies hematuria and Denies difficulty urinating Musc Denies back pain and Denies limited range of motion Neuro Denies focal weakness and Denies convulsions Psych Denies depression and Denies mood swings Physical Exam Vital Signs: BMI result Body Mass Index 28.0 Const General: comfortable and no acute distress Orientation/consciousness: patient oriented x3 Neck Neck: Yes no lymphadenopathy Resp Auscultation: clear to auscultation bilaterally Cardio Rhythm: regular rhythm GI Other: Refusing anoscopy at this time Palpation (GI): Soft to palpation, nontender and no guarding Neuro General: patient oriented x3 Assessment & Plan Assessment & Plan (1) Bleeding hemorrhoids: Code(s): K64.9 - Unspecified hemorrhoids Category: Medical Plan: He states he has had a long history of bleeding hemorrhoids after a complicated hemorrhoid surgery about 15 years ago He says that this has been getting heavier the past 2 years. He also says he has due for a repeat colonoscopy. He says that the last [address] Parr but he does not want to return to the GI office He says he just want to proceed with a colonoscopy at this time. He refused anoscopy. I had a long discussion with him about the technique of colonoscopy. I reviewed the risks including but not limited to bleeding and perforation, as well as the benefits and alternatives He says he understands and wants to proceed. Review of his records from 2019 shows he had small polyps, hemorrhoids, and diverticulosis on colonoscopy. Coding Level of Care Code New Pt Level 3 (12035) Diagnoses Bleeding hemorrhoids K64.9
== END 2023-08-15 15:08 | disposition home or self-care (01) ==
PROVIDERS: PCP Physician Assistant; Visit Provider Surgery
DX: K64.9 Unspecified hemorrhoids (principal)
CPT/HCPCS: 99203

== ENCOUNTER → 2023-08-15 14:38 | Outpatient (BNVA) | payer OTHER, SELFPAY | PROVIDERS: PCP Physician Assistant; Visit Provider Surgery | DX: K64.9 Unspecified hemorrhoids (principal) | CPT/HCPCS: 99202 ==

== ENCOUNTER 2023-08-17 11:08 | Outpatient (AMB) | payer OTHER, SELFPAY ==
[2023-08-17 11:15] VITALS: BP 130/70; PULSE 85; O2SAT 96; BMI 28.1
--- NOTE | 2023-08-17 11:15 | A.OFFVIS_ITS ---
Vital Signs 08/17/23 11:15 Height 6 ft 2.5 in Weight 221 lb 9.033 oz BMI 28.1 BP 130/70 Blood Pressure Location Lt brachial Position Sitting Pulse 85 Pulse Source Pulse Oximeter Pulse Oximetry (%) 96 Oxygen Delivery Method Room Air Intake Visit Reasons: COPD Intake Note: pt is here for pre-op clearance but is stating he is having congested in chest that he cannot get it out, and sweats at night. Hotel Service Supervisor Required: No Allergies formoterol [Bevespi Aerosphere] Allergy (Unknown, Verified 08/17/23 11:20) headaches and toothaches glycopyrrolate [Bevespi Aerosphere] Allergy (Unknown, Verified 08/17/23 11:20) headaches and toothaches trazodone Allergy (Unknown, Verified 08/17/23 11:20) Unknown No Known Allergies [No Known Allergies*] Allergy (Verified 08/17/23 11:20) Motrin Allergy (Unknown, Uncoded 08/17/23 11:20) Stomach Upset Do you need a note to return to daycare/school/sports/work: No HPI HPI COPD: Details: This 63 years old gentleman a known case of chronic obstructive pulmonary disease with frequent bouts of acute bronchitis, Comes today for pulmonary evaluation as he would be undergoing colonoscopy on 08/25 . At this time he complains that for the last few weeks he is having increased chest congestion causing frequent cough, and urge to expectorates. He becomes short of breath after the bouts of cough. He is having rattling. Sounds in the chest He has no fever chills or chest pain. Currently using Flovent, and Serevent, with frequent use of Ventolin inhaler. He is still smoking 1-2 cigarettes a day. [facility] Medical History (Updated 08/17/23 @ 12:06 by Vargas Vega MD) Bronchitis Bleeding hemorrhoids COPD exacerbation Tubular adenoma of colon (~2019) Nicotine dependence, cigarettes, uncomplicated COPD (chronic obstructive pulmonary disease) Surgical History History of hemorrhoidectomy History of esophagogastroduodenoscopy (EGD) History of colonoscopy Family History Mother Diabetes Father No problems noted. Brother No problems noted. Social History Housing: House Patient Tobacco Use Status: Former Tobacco user Tobacco use type: Cigarette Cigarette Packs Per Day: 20 Cigarettes Per Day: 1 Years Smoked: (current smoker, onset 17yo, 1ppd x 45yrs, 45pyh)// e-Cigarette/Vaping Use: Never Used service: No Current occupational status: unemployed and disabled Cognitive needs: No Hearing needs: No Vision needs: No Review of Systems Const All systems reviewed & are unremarkable except as noted in HPI and below Eyes Reports no additional complaints ENT Reports no additional complaints Card Denies chest pain, Denies irregular heart rhythm, Denies leg edema and Denies lightheadedness Resp Reports as per HPI GI Reports no additional complaints Reports no additional complaints Musc Reports no additional complaints Skin/Breast Reports system reviewed and no additional complaints, except as documented Neuro Reports no additional complaints Psych Reports anxiety Endo Reports no additional complaints Chandra/Lymph Reports no additional complaints Aller/Immun Reports no additional complaints Physical Exam Vital Signs: Last Vital Signs Pulse 85 08/17/23 11:15 BP 130/70 08/17/23 11:15 Pulse Ox 96 08/17/23 11:15 Oxygen Delivery Method Room Air 08/17/23 11:15 BMI result Body Mass Index 28.1 Const General: healthy appearing, comfortable, no acute distress, alert and awake Orientation/consciousness: patient oriented x3 HEENT Head: Yes normal to inspection General nose exam: No nasal polyps present and No nasal discharge present Face and sinus: Yes sinuses nontender Mouth: oropharynx normal Throat: Yes posterior oropharynx normal Eyes General: appearance normal, both eyes and all related structures Neck Neck: Yes normal visual inspection, Yes no lymphadenopathy, Yes trachea midline and Yes no JVD Thyroid: Thyroid normal Chest Chest palpation & inspection: normal inspection of the chest and normal palpation of entire chest wall Resp Other: PERCUSSION NOTE IS RESONANT, BREATH SOUNDS ARE DISTANT WITH PROLONGED EXPIRATORY PHASE. HE DOES HAVE SCATTERED WHEEZES ON BOTH SIDES ESPECIALLY AT MID CHEST LEVEL. HE DOES GET BOUTS OF COUGH ON TAKING DEEP BREATH.. Cardio Palpation: normal PMI Rate: regular rate Rhythm: regular rhythm Heart sounds: no gallops and no murmurs Peripheral pulses: Peripheral pulses 2+ throughout GI Palpation (GI): Soft to palpation, nontender, No hepatosplenomegaly present and no masses Auscultation: normal bowel sounds Back/Spine/Pelvis Thoracic/Lumbar Spine: thoracic and lumbar spine normal to inspection Skin General skin exam: no rashes or lesions noted Neuro General: patient oriented x3 and no focal motor deficits Cranial nerves: Yes CN's II-XII intact bilaterally Extrem General: Yes normal to inspection, Yes no clubbing, cyanosis or edema and Yes no calf tenderness Psych Speech and movement: Normal speech and movement present Assessment & Plan Assessment & Plan (1) COPD exacerbation: Comment: THIS 63 YEARS OLD GENTLEMAN DOES HAVE HISTORY OF ASTHMA/COPD. PREVIOUSLY HAS BEEN TREATED WITH FLUVENT DISKUS 250 1 INHALATION B.I.D., AND VENTOLIN ON A P.R.N. BASIS. HE WAS DOING BETTER FOR A WHILE BUT NOW HE SEEMS TO HAVE ANOTHER ACUTE EXACERBATION, DUE TO BRONCHITIS. Code(s): J44.1 - Chronic obstructive pulmonary disease with (acute) exacerbation Category: Medical Plan: I WILL CHANGE FLOVENT DISKUS TO ADVAIR DISKUS 250-51 INHALATION B.I.D.. CONTINUE SPIRIVA RESPIMAT 2 INHALATIONS DAILY. PREDNISONE 20 MG B.I.D. FOR 5 DAYS. DOXYCYCLINE 100 B.I.D. FOR 10 DAYS . VENTOLIN 2 PUFFS Q 6 HOURS P.R.N. WILL RECHECK HIM IN 1 WEEK BEFORE I COULD CLEAR HIM FOR THE SURGICAL PROCEDURE. (2) Bronchitis: Comment: HE IS PRONE TO HAVE ACUTE BRONCHITIS FREQUENTLY, WHICH MAY BE DUE TO EPISODES OF ACUTE INFLAMMATORY PROCESS. Code(s): J40 - Bronchitis, not specified as acute or chronic Category: Medical Plan: WILL TREAT WITH A COURSE OF DOXYCYCLINE 100 B.I.D., EMPIRICALLY, SO THAT HE CAN BE CLEARED FOR ENDOSCOPY. (3) Nicotine dependence, cigarettes, uncomplicated: Comment: HISTORY OF SMOKING 1-2 PACKS A DAY FOR LAST 40-45 YEARS. He had try to quit, but went back to smoking. Claims that he smokes 1-2 cigarettes a day at present . Code(s): F17.210 - Nicotine dependence, cigarettes, uncomplicated Category: Medical Plan: Again counseled that he must quit completely, otherwise he will continue to. Have acute exacerbations He does participate in annual lung screening program . Medications: New fluticasone propion-salmeterol 250-50 mcg/dose 1 inh inhalation Q12H 60 ea 3RF copd 30 days prednisone 20 mg PO BID 10 tabs 0RF ac excerbation of copd 5 days doxycycline hyclate 100 mg PO BID 20 tabs 0RF bronchitis 10 days Coding Level of Care Code Est Pt Level 4 (02810) Diagnoses COPD exacerbation J44.1 Bronchitis J40 Nicotine dependence, cigarettes, uncomplicated F17.210
== END 2023-08-17 11:52 | disposition home or self-care (01) ==
PROVIDERS: PCP Physician Assistant; Visit Provider Internal Medicine
DX: J44.1 Chronic obstructive pulmonary disease with (acute) exacerbation (principal); J40 Bronchitis, not specified as acute or chronic; F17.210 Nicotine dependence, cigarettes, uncomplicated
CPT/HCPCS: 99214

== ENCOUNTER → 2023-08-17 11:08 | Outpatient (BNVA) | payer OTHER, SELFPAY | PROVIDERS: PCP Physician Assistant; Visit Provider Internal Medicine | DX: J44.1 Chronic obstructive pulmonary disease with (acute) exacerbation (principal); F17.210 Nicotine dependence, cigarettes, uncomplicated | CPT/HCPCS: 99212 ==

== ENCOUNTER 2023-08-24 15:22 | Outpatient (AMB) | payer OTHER, SELFPAY ==
[2023-08-24 15:29] VITALS: BP 120/72; PULSE 102; O2SAT 95; BMI 28.0
--- NOTE | 2023-08-24 15:29 | A.OFFVIS_ITS ---
Vital Signs 08/24/23 15:29 Height 6 ft 2.5 in Weight 221 lb BMI 28.0 BP 120/72 Blood Pressure Location Lt brachial Position Sitting Pulse 102 H Pulse Source Pulse Oximeter Pulse Oximetry (%) 95 Oxygen Delivery Method Room Air Intake Visit Reasons: copd Intake Note: pt is here for follow up to be cleared from colonoscopy. Bilingual Sales Consultant Required: No Allergies formoterol [Bevespi Aerosphere] Allergy (Intermediate, Verified 08/24/23 15:44) headaches and toothaches glycopyrrolate [Bevespi Aerosphere] Allergy (Intermediate, Verified 08/24/23 15:44) headaches and toothaches trazodone Allergy (Intermediate, Verified 08/24/23 15:44) Anxiety ibuprofen [From Motrin] Allergy (Mild, Verified 08/24/23 15:44) Gastrointestinal Upset Medication List - Last Reconciled 08/24/23 by Vargas Vega MD acetaminophen 650 mg PO Q6H PRN albuterol sulfate 90 mcg/actuation (Ventolin HFA) 2 puffs inhalation Q4-6H 30 days cholecalciferol (vitamin D3) 50 mcg PO DAILY 90 days clonazepam 1 mg PO BID PRN docusate sodium (Colace) 100 mg PO BID 30 days ferrous sulfate 325 mg PO DAILY fluticasone propion-salmeterol 250-50 mcg/dose 1 inh inhalation Q12H 30 days guaifenesin ER (Mucinex) 600 mg PO Q12H PRN 10 days magnesium oxide 250 mg PO BID 30 days nicotine 1 patch transdermal DAILY 28 days omega 0-vbs-whj-fish oil 300-1,000 mg (Fish Oil) 1 cap PO DAILY 90 days tiotropium bromide 2.5 mcg/actuation (Spiriva Respimat) 2 puffs inhalation DAILY 30 days zolpidem ER 12.5 mg PO BEDTIME PRN HPI HPI copd: Details: THIS 63 YEARS OLD GENTLEMAN WITH ASTHMA/COPD OVERLAP SYNDROME. HAS BEEN TREATED FOR THE ACUTE EXACERBATION PROBABLY DUE TO LOW-GRADE RHINOSINUSITIS, WITH A COURSE OF PREDNISONE AND DOXYCYCLINE. HE COMES TODAY FOR FOLLOW-UP . SAYS, THAT HE IS FEELING LIKE A MILLION DOLLAR, ( MUCH BETTER) HE USUALLY RESPONDS VERY QUICKLY TO PREDNISONE. TODAY HE CAME RUNNING. TO THE OFFICE WITHOUT ANY SHORTNESS OF BREATH HE HAS NO COUGH OR WHEEZING. PFSH Medical History (Updated 08/24/23 @ 15:52 by Vargas Vega MD) Asthma-COPD overlap syndrome COPD exacerbation Back pain Peripheral neuropathy Anxiety ADHD (attention deficit hyperactivity disorder) Bronchitis Bleeding hemorrhoids COPD exacerbation Tubular adenoma of colon (~2019) Nicotine dependence, cigarettes, uncomplicated COPD (chronic obstructive pulmonary disease) Surgical History History of hemorrhoidectomy History of esophagogastroduodenoscopy (EGD) History of colonoscopy Family History Mother Diabetes Father No problems noted. Brother No problems noted. Social History Housing: House Are you a primary respiratory care practitioner to a significant other at home: No Do you presently have visiting nurse or other home services: No Patient Tobacco Use Status: Former Tobacco user Tobacco use type: Cigarette Cigarette Packs Per Day: 1 Cigarettes Per Day: 20.0 Years Smoked: 45 e-Cigarette/Vaping Use: Never Used service: No Current occupational status: unemployed and disabled Cognitive needs: No Hearing needs: No Vision needs: No Review of Systems Const All systems reviewed & are unremarkable except as noted in HPI and below Eyes Reports no additional complaints ENT Reports no additional complaints Card Denies chest pain, Denies irregular heart rhythm, Denies leg edema and Denies lightheadedness Resp Reports as per HPI GI Reports no additional complaints Reports no additional complaints Musc Reports no additional complaints Skin/Breast Reports system reviewed and no additional complaints, except as documented Neuro Reports no additional complaints Psych Reports anxiety Endo Reports no additional complaints Chandra/Lymph Reports no additional complaints Aller/Immun Reports no additional complaints Physical Exam Vital Signs: Last Vital Signs Pulse 102 H 08/24/23 15:29 BP 120/72 08/24/23 15:29 Pulse Ox 95 08/24/23 15:29 Oxygen Delivery Method Room Air 08/24/23 15:29 BMI result Body Mass Index 28.0 Const General: healthy appearing, comfortable, no acute distress, alert and awake Orientation/consciousness: patient oriented x3 HEENT Head: Yes normal to inspection General nose exam: No nasal polyps present and No nasal discharge present Face and sinus: Yes sinuses nontender Mouth: oropharynx normal Throat: Yes posterior oropharynx normal Eyes General: appearance normal, both eyes and all related structures Neck Neck: Yes normal visual inspection, Yes no lymphadenopathy, Yes trachea midline and Yes no JVD Thyroid: Thyroid normal Chest Chest palpation & inspection: normal inspection of the chest and normal palpation of entire chest wall Resp Other: PERCUSSION NOTE IS RESONANT, BREATH SOUNDS ARE DISTANT WITH PROLONGED EXPIRATORY PHASE. BOTH LUNGS ARE VERY CLEAR TODAY AN WELL AERATED. NO WHEEZES OR CREPITATIONS ARE HEARD. Cardio Palpation: normal PMI Rate: regular rate Rhythm: regular rhythm Heart sounds: no gallops and no murmurs Peripheral pulses: Peripheral pulses 2+ throughout GI Palpation (GI): Soft to palpation, nontender, No hepatosplenomegaly present and no masses Auscultation: normal bowel sounds Back/Spine/Pelvis Thoracic/Lumbar Spine: thoracic and lumbar spine normal to inspection Skin General skin exam: no rashes or lesions noted Neuro General: patient oriented x3 and no focal motor deficits Cranial nerves: Yes CN's II-XII intact bilaterally Extrem General: Yes normal to inspection, Yes no clubbing, cyanosis or edema and Yes no calf tenderness Psych Speech and movement: Normal speech and movement present Assessment & Plan Assessment & Plan (1) Asthma-COPD overlap syndrome: Comment: HE HAS LONGSTANDING HISTORY OF COMBINATION OF ASTHMA AND COPD. ASTHMA IS MAINLY ALLERGIC IN TYPE. AND HIS COPD IS SECONDARY TO HIS LONG-TERM SMOKING. HE HAS BEEN TREATED FOR AN ACUTE EXACERBATION. HE FEELS MUCH BETTER. LUNGS ARE VERY CLEAR AT THIS TIME. Code(s): J44.89 - Other specified chronic obstructive pulmonary disease Category: Medical Plan: TX TO CONTINUE : FLUTICASONE-SALMETEROL 250-50 1 INHALATION B.I.D.. SPIRIVA RESPIMAT 2.5 2 INHALATIONS DAILY VENTOLIN HFA 2 PUFFS Q 4-6 HOURS ONLY P.R.N. MUCINEX 600 MG B.I.D. P.R.N. FOR COUGH (2) Anxiety: Comment: HE HAS AN, ANXIOUS PERSONALITY , ALSO HAS ADHD. RELATIVELY CALMER TODAY AND HAPPY. Code(s): F41.9 - Anxiety disorder, unspecified Category: Medical Plan: REASSURED ABOUT HIS LUNG CONDITION HE IS VERY POSITIVE AND HAPPY TODAY. (3) Nicotine dependence, cigarettes, uncomplicated: Comment: HISTORY OF SMOKING 1-2 PACKS A DAY FOR LAST 40-45 YEARS. He had try to quit, but went back to smoking. Claims that he smokes 1-2 cigarettes a day at present . Code(s): F17.210 - Nicotine dependence, cigarettes, uncomplicated Category: Medical Plan: AGAIN STRESSED THAT HE SHOULD QUIT SMOKING COMPLETELY. Plan CLEARANCE NOTE : THIS GENTLEMAN IS TO UNDERGO COLONOSCOPY. BECAUSE HE HAS HAD A VERY GOOD RESPONSE TO HIS TREATMENT, HIS RESPIRATORY STATUS IS GOOD AND STABLE. FROM PULMONARY POINT OF VIEW HE IS CLEARED FOR HIS PROCEDURE. IF HE DOES NEED DURING OR AFTER THE PROCEDURE THEN HE CAN USE VENTOLIN HFA 2 PUFFS OR CAN BE TREATED WITH THE NEBULIZED ALBUTEROL Q 4-6 HOURS P.R.N. Coding Level of Care Code Est Pt Level 3 (07209) Diagnoses Asthma-COPD overlap syndrome J44.89 Anxiety F41.9 Nicotine dependence, cigarettes, uncomplicated F17.210
== END 2023-08-24 15:43 | disposition home or self-care (01) ==
PROVIDERS: PCP Physician Assistant; Visit Provider Internal Medicine
DX: J44.89 Other specified chronic obstructive pulmonary disease (principal); F41.9 Anxiety disorder, unspecified; F17.210 Nicotine dependence, cigarettes, uncomplicated
CPT/HCPCS: 99213

== ENCOUNTER → 2023-08-24 15:22 | Outpatient (BNVA) | payer OTHER, SELFPAY | PROVIDERS: PCP Physician Assistant; Visit Provider Internal Medicine | DX: J44.89 Other specified chronic obstructive pulmonary disease (principal); F41.9 Anxiety disorder, unspecified; F17.210 Nicotine dependence, cigarettes, uncomplicated | CPT/HCPCS: 99212 ==

== ENCOUNTER 2023-08-26 09:24 | Day surgery (SDC) | payer OTHER, SELFPAY ==
[2023-08-18 11:03] VITALS: BMI 28.0
--- NOTE | 2023-08-24 13:12 | HO.ANESPROP2 ---
Documented by User: Chanda Sargent NP 08/25/23 08:53 HPI - Anesthesia Eval Consult details Narrative: 63yo M for Colonoscopy with possible polypectomy Pulmo cleared. Seen by pulmo 08/17/23 with acute bronchitis/copd exac and started on abx, prednisone. Re-eval by pulmo 08/24/23 with resolved symptoms. PMFSH Active Problems Active Problems: All Active Problems Dysphagia (Acute) Myalgia (Acute) Blood per rectum (Acute) Former smoker (Acute) Lumbar disc disease (Acute) SOB (shortness of breath) on exertion (Acute) Hyperlipidemia (Acute) Peripheral neuropathy (Acute) Lumbar back pain (Acute) ADHD (Acute) Anxiety (Acute) Bronchitis (Acute) Bleeding hemorrhoids (Acute) COPD exacerbation (Acute) COPD (chronic obstructive pulmonary disease) (Acute) Nicotine dependence, cigarettes, uncomplicated (Acute) Past Medical History Medical History (Updated 08/24/23 @ 15:52 by Vargas Vega MD) Asthma-COPD overlap syndrome COPD exacerbation Back pain Peripheral neuropathy Anxiety ADHD (attention deficit hyperactivity disorder) Bronchitis Bleeding hemorrhoids COPD exacerbation Tubular adenoma of colon (~2019) Nicotine dependence, cigarettes, uncomplicated COPD (chronic obstructive pulmonary disease) Family History Family History Mother Diabetes Father No problems noted. Brother No problems noted. Surgical History Surgical History History of hemorrhoidectomy History of esophagogastroduodenoscopy (EGD) History of colonoscopy Social History Social History Housing: House Are you a primary resident care provider to a significant other at home: No Do you presently have visiting nurse or other home services: No Patient Tobacco Use Status: Former Tobacco user Tobacco use type: Cigarette Cigarette Packs Per Day: 1 Cigarettes Per Day: 20.0 Years Smoked: 45 e-Cigarette/Vaping Use: Never Used Use of substances other than those prescribed or required for medical reasons: No Have you been hit, kicked, punched, or otherwise hurt by someone within the past year? If so, by whom?: No Are you DNR?: No Advance Directives: No Advance Directives Information Provided: Yes Advance Directives on File: No Recently lost weight without trying: No Eating poorly because of decreased appetite: No Nutrition Risks: No Nutritional Risk Poor oral hygiene: No (extracted molars) service: No Current occupational status: unemployed and disabled Cognitive needs: No Hearing needs: No Vision needs: No Meds Allergies Allergy/AdvReac Type Severity Reaction Status Date / Time formoterol Allergy Intermediate headaches Verified 08/24/23 15:44 [Bevespi Aerosphere] and toothaches glycopyrrolate Allergy Intermediate headaches Verified 08/24/23 15:44 [Bevespi Aerosphere] and toothaches trazodone Allergy Intermediate Anxiety Verified 08/24/23 15:44 ibuprofen [From Motrin] Allergy Mild Gastrointestinal Verified 08/24/23 15:44 Upset Home Medications ?Medication ?Instructions ?Recorded ?Confirmed ?Last Taken ?Type clonazepam 1 mg tablet 1 mg PO BID PRN Anxiety 10/30/21 08/18/23 08/26/23 History acetaminophen 325 mg tablet 650 mg PO Q6H PRN pain 08/08/23 08/18/23 Unknown History Exam Height,Weight and Vital Signs: Height 6 ft 2.5 in Weight 100.244 kg Pertinent Lab Results Pertinent Lab Results: Laboratory Tests 08/08/23 12:38 WBC 7.5 Hgb 13.7 L Hct 41.4 L Plt Count 311 D Sodium 142 Potassium 4.4 Chloride 107 Carbon Dioxide 26 BUN 17 H Creatinine 1.12 Narrative Narrative: CT lung screening 07/2023 IMPRESSION: 1. No new or suspicious pulmonary nodules. 2. Mild emphysema and bronchial thickening. 3. Incidental findings (s category): No significant new incidental findings. ECHO 2022 Conclusions: - 1. Normal LV systolic function with grade 1 diastolic dysfunction 2. Normal cardiac valvular Dopplers 3. Normal RV systolic pressure 4. No gross pericardial effusion Assessment and Plan Assessment Anesthesia Assessment: Chart Reviewed Documented by User: Dawit Malone MD 08/26/23 12:48 [facility] Past Medical History Medical History (Updated 08/24/23 @ 15:52 by Vargas Vega MD) Asthma-COPD overlap syndrome COPD exacerbation Back pain Peripheral neuropathy Anxiety ADHD (attention deficit hyperactivity disorder) Bronchitis Bleeding hemorrhoids COPD exacerbation Tubular adenoma of colon (~2019) Nicotine dependence, cigarettes, uncomplicated COPD (chronic obstructive pulmonary disease) Family History Family History Mother Diabetes Father No problems noted. Brother No problems noted. Family history of problems with anesthesia: No Surgical History Surgical History History of hemorrhoidectomy History of esophagogastroduodenoscopy (EGD) History of colonoscopy History of Problems with Anesthesia: No Social History Social History Housing: House Are you a primary resident care provider to a significant other at home: No Do you presently have visiting nurse or other home services: No Patient Tobacco Use Status: Former Tobacco user Tobacco use type: Cigarette Cigarette Packs Per Day: 1 Cigarettes Per Day: 20.0 Years Smoked: 45 e-Cigarette/Vaping Use: Never Used Use of substances other than those prescribed or required for medical reasons: No Have you been hit, kicked, punched, or otherwise hurt by someone within the past year? If so, by whom?: No Are you DNR?: No Advance Directives: No Advance Directives Information Provided: Yes Advance Directives on File: No Recently lost weight without trying: No Eating poorly because of decreased appetite: No Nutrition Risks: No Nutritional Risk Poor oral hygiene: No (extracted molars) service: No Current occupational status: unemployed and disabled Cognitive needs: No Hearing needs: No Vision needs: No Meds Allergies Allergy/AdvReac Type Severity Reaction Status Date / Time formoterol Allergy Intermediate headaches Verified 08/24/23 15:44 [Bevespi Aerosphere] and toothaches glycopyrrolate Allergy Intermediate headaches Verified 08/24/23 15:44 [Bevespi Aerosphere] and toothaches trazodone Allergy Intermediate Anxiety Verified 08/24/23 15:44 ibuprofen [From Motrin] Allergy Mild Gastrointestinal Verified 08/24/23 15:44 Upset Home Medications ?Medication ?Instructions ?Recorded ?Confirmed ?Last Taken ?Type clonazepam 1 mg tablet 1 mg PO BID PRN Anxiety 10/30/21 08/18/23 08/26/23 History acetaminophen 325 mg tablet 650 mg PO Q6H PRN pain 08/08/23 08/18/23 Unknown History Exam Airway Mallampati Class: II TM Dist: >3cm Neck ROM: Full Heart: ok. Lungs: ok. Signif COPD Assessment and Plan Assessment Anesthesia Assessment: Anesthesia Plan Discussed Final Anesthetic Review Family History of Problems with Anesthesia: No History of Problems with Anesthesia: No NPO: Yes ASA Class: III Final Preanesthetic Review: No Changes in Pt Med Stat, Meds/Allgs Chart Reviewed, Consent Obtained/Reviewed and Anes Risks/Benef Reviewed Patient Risk: Intermediate Procedure Risk: Low Anesthetic Plan Anesthetic Plan: MAC: and Agree w/ Assess. and Plan Disposition: Standard PACU
[2023-08-26 10:15] VITALS: BP 136/82; PULSE 78; RESP 20; TEMP 36.4; O2SAT 94; BMI 28.3
[2023-08-26] MEDS: Lactated Ringers 1,000 ML 100 ML IVCONT (10:40)
--- NOTE | 2023-08-26 11:54 | MHC.SHP ---
Pre-Procedural Eval Section A - 24 Hr Update-Section A only Date of Service: 08/26/23 The patient is an INPATIENT: No Changes since office visit: No Cold of Flu in the past 2 weeks, No New Medical Problems, No Changes in Medication and No Patient answered all questions The patient has been examined within 24 hours of the surgical procedure. The History & Physical has been completed within 30 days and I have reviewed it.: Yes Section B - Complete if H&P > 30 days Chief Complaint: Unspecified hemorrhoids Allergies: Allergies Allergy/AdvReac Type Severity Reaction Status Date / Time formoterol Allergy Intermediate headaches Verified 08/24/23 15:44 [Bevespi Aerosphere] and toothaches glycopyrrolate Allergy Intermediate headaches Verified 08/24/23 15:44 [Bevespi Aerosphere] and toothaches trazodone Allergy Intermediate Anxiety Verified 08/24/23 15:44 ibuprofen [From Motrin] Allergy Mild Gastrointestinal Verified 08/24/23 15:44 Upset Plan I have reviewed the history and physical and performed a pertinent physical examination on my patient. No changes have occurred unless specified. Time Spent With Patient Time: Total time managing care of this patient today ____ minutes.
--- NOTE | 2023-08-26 12:56 | P.OP_ITS ---
Operative Note Operative Note Date of Service: 08/26/23 Narrative: Preop diagnosis: Rectal bleeding Postop diagnosis: 1. Large internal external hemorrhoids 2. Occasional diverticulosis, diffusely Procedure: Colonoscopy Surgeon: Dre Kidd MD The patient is a 63-year-old male with frequent passage of bright blood per rectum. He does have known hemorrhoids. He wanted to proceed with a hemorrhoidectomy but I told him that it would be best to proceed with a colonoscopy 1st to rule out a more proximal source as his last colonoscopy had been relatively the while back He understood the technique of the planned procedure as well as the risks, b enefits, and alternatives The patient was brought to the operating room and placed in left lateral decubitus position under monitored anesthesia care. A surgical time-out was done. A full digital rectal exam was done and this did not reveal any significant anal lesions. The tip of the Olympus colonoscope was gently introduced through the anal orifice advanced with insufflation all the way to t he cecum. The cecum was intubated. The cecum was identified by visualization of the ileocecal valve as well as the appendiceal orifice. The cecal mucosa was unremarkable. The scope was gradually withdrawn with careful examination of the entire colonic mucosa being done with scope withdrawal. The patient had some segments of the colon with small amounts of formed stools. It was however unlikely that any lesion may have been missed. The rectum was reached and there were no lesions seen. There was note of large internal external hemorrhoids anal canal that appeared to bleed easily. The scope was then withdrawn completely with desufflation The patient tolerated procedure well. There were no immediate complications. In view of his suboptimal bowel prep, I would recommend a repeat colonoscopy in 5 years.
[2023-08-26 13:04] VITALS: BP 89/47; PULSE 58; RESP 18; TEMP 36.5; O2SAT 94
[2023-08-26 13:19] VITALS: BP 107/69; PULSE 61; RESP 18; TEMP 36.1; O2SAT 99
== END 2023-08-26 13:55 | disposition home or self-care (01) ==
PROVIDERS: PCP Physician Assistant; Visit Provider Surgery
PROC: 0DJD8ZZ Inspection of Lower Intestinal Tract, Via Natural or Artificial Opening Endoscopic (ICD-10-PCS; CPT 45378; principal; 2023-08-26 10:00)
DX: K62.5 Hemorrhage of anus and rectum (principal); Z86.010 Personal history of colon polyps; K57.30 Diverticulosis of large intestine without perforation or abscess without bleeding; K64.8 Other hemorrhoids; K64.4 Residual hemorrhoidal skin tags; J44.9 Chronic obstructive pulmonary disease, unspecified; Z79.51 Long term (current) use of inhaled steroids; Z79.899 Other long term (current) drug therapy; Z88.5 Allergy status to narcotic agent; Z88.8 Allergy status to other drugs, medicaments and biological substances; Z88.6 Allergy status to analgesic agent; Z79.890 Hormone replacement therapy; Z87.891 Personal history of nicotine dependence; Z56.0 Unemployment, unspecified
CPT/HCPCS: 45378; J2704; J3010

== ENCOUNTER → 2023-08-26 09:24 | Outpatient (BNV) | payer OTHER, SELFPAY | PROVIDERS: PCP Physician Assistant; Visit Provider Surgery | DX: K62.5 Hemorrhage of anus and rectum (principal); K64.9 Unspecified hemorrhoids; K57.90 Diverticulosis of intestine, part unspecified, without perforation or abscess without bleeding | CPT/HCPCS: 45378 ==

== ENCOUNTER 2023-09-08 09:37 | Outpatient (AMB) | payer OTHER, SELFPAY ==
--- NOTE | 2023-09-08 09:44 | A.OFFVIS_ITS ---
Vital Signs 09/08/23 09:48 Height 6 ft 2.5 in Weight 223 lb 5.252 oz BMI 28.3 Intake Visit Reasons: S/P colonoscopy Intake Note: This patient presents for a post-op follow-up status post colonoscopy. Pt c/o; reports no complaints. Colonoscopy-08/26/2023 Fishing Tool Operator Required: No Accompanied by: Self / Same As Patient Allergies formoterol [Bevespi Aerosphere] Allergy (Intermediate, Verified 09/08/23 09:48) headaches and toothaches glycopyrrolate [Bevespi Aerosphere] Allergy (Intermediate, Verified 09/08/23 09:48) headaches and toothaches trazodone Allergy (Intermediate, Verified 09/08/23 09:48) Anxiety ibuprofen [From Motrin] Allergy (Mild, Verified 09/08/23 09:48) Gastrointestinal Upset HPI HPI S/P colonoscopy: Details: He underwent colonoscopy because of rectal bleeding last 08/26/2023. He tolerated procedure well he currently denies significant complaints. He does have chronic problems with his hemorrhoids from swelling and discomfort and bleeding. He says that he had hemorrhoid surgery about 15 years ago which he described as ?botched?. He says that he needed another emergency surgery about 2 weeks after that because of sepsis. He says that his anus has not been the same since then he has had this chronic swelling, pain and bleeding from his other hemorrhoids. [facility] Medical History Asthma-COPD overlap syndrome COPD exacerbation Back pain Peripheral neuropathy Anxiety ADHD (attention deficit hyperactivity disorder) Bronchitis Bleeding hemorrhoids COPD exacerbation Tubular adenoma of colon (~2019) Nicotine dependence, cigarettes, uncomplicated COPD (chronic obstructive pulmonary disease) Surgical History History of colonoscopy (~08/26/23) History of hemorrhoidectomy History of esophagogastroduodenoscopy (EGD) History of colonoscopy Family History Mother Diabetes Father No problems noted. Brother No problems noted. Social History Housing: House Are you a primary memory care program resident to a significant other at home: No Do you presently have visiting nurse or other home services: No Patient Tobacco Use Status: Former Tobacco user Tobacco use type: Cigarette Cigarette Packs Per Day: 1 Cigarettes Per Day: 20.0 Years Smoked: 45 e-Cigarette/Vaping Use: Never Used service: No Current occupational status: unemployed and disabled Cognitive needs: No Hearing needs: No Vision needs: No Review of Systems Const Denies chills and Denies fever(s) Card Denies chest pain, Denies dyspnea and Denies dyspnea on exertion Resp Denies cough, Denies dyspnea and Denies dyspnea on exertion GI Reports hematochezia and Denies change in bowel habits Denies hematuria and Denies difficulty urinating Musc Denies back pain and Denies limited range of motion Neuro Denies focal weakness and Denies convulsions Psych Denies depression and Denies mood swings Physical Exam Const General: comfortable and no acute distress Resp Effort & Inspection: normal respiratory effort Cardio Rate: regular rate GI Other: Rectal exam shows external hemorrhoids as appear mildly edematous Palpation (GI): Soft to palpation and not firm Assessment & Plan Assessment & Plan (1) Bleeding hemorrhoids: Code(s): K64.9 - Unspecified hemorrhoids Category: Medical Plan: Status post colonoscopy. This showed external and external hemorrhoids. He has mild diffuse diverticulosis. His bleeding is likely from an outlet source with this hemorrhoids. He did reiterate that he had a bad hemorrhoid surgery about 15 years ago and had complications from this. I am going to try him on a steroid suppositories to help with the edema from his hemorrhoids. I am going to send him a prescription for Metamucil as well as he does complain of some very bowel movements. I have recommended repeating his colonoscopy in about 5 years because of the suboptimal bowel prep. Coding Level of Care Code Est Pt Level 2 (80044) Diagnoses Bleeding hemorrhoids K64.9
[2023-09-08 09:48] VITALS: BMI 28.3
== END 2023-09-08 09:56 | disposition home or self-care (01) ==
PROVIDERS: PCP Physician Assistant; Visit Provider Surgery
DX: K64.9 Unspecified hemorrhoids (principal)
CPT/HCPCS: 99213

== ENCOUNTER → 2023-09-08 09:37 | Outpatient (BNVA) | payer OTHER, SELFPAY | PROVIDERS: PCP Physician Assistant; Visit Provider Surgery | DX: K64.9 Unspecified hemorrhoids (principal) | CPT/HCPCS: 99212 ==

== ENCOUNTER 2023-09-28 10:52 | Outpatient (AMB) | payer OTHER, SELFPAY ==
--- NOTE | 2023-09-28 10:53 | A.OFFPC_ITS ---
Vital Signs 09/28/23 10:54 Height 6 ft 2.5 in Weight 220 lb 4 oz BMI 27.9 BP 112/82 Blood Pressure Location Lt brachial Position Sitting Pulse 87 Pulse Source Pulse Oximeter Pulse Oximetry (%) 98 Oxygen Delivery Method Room Air Intake Visit Reasons: follow up Intake Note: Pt is here to discuss medications. Silver Recovery Operator Required: No Accompanied by: Self / Same As Patient Allergies formoterol [Bevespi Aerosphere] Allergy (Intermediate, Verified 09/28/23 11:26) headaches and toothaches glycopyrrolate [Bevespi Aerosphere] Allergy (Intermediate, Verified 09/28/23 11:26) headaches and toothaches trazodone Allergy (Intermediate, Verified 09/28/23 11:26) Anxiety ibuprofen [From Motrin] Allergy (Mild, Verified 09/28/23 11:26) Gastrointestinal Upset Medication List - Last Reconciled 09/28/23 by Armani Avelar PA-C acetaminophen 650 mg PO Q6H PRN albuterol sulfate 90 mcg/actuation (Ventolin HFA) 2 puffs inhalation Q4-6H 30 days cholecalciferol (vitamin D3) 50 mcg PO DAILY 90 days clonazepam 1 mg PO BID PRN docusate sodium (Colace) 100 mg PO BID 30 days ferrous sulfate 325 mg PO DAILY fluticasone propion-salmeterol 250-50 mcg/dose 1 inh inhalation Q12H 30 days hydrocortisone 2.5% 1 appl MS TID 14 days hydrocortisone acetate (Anucort-HC) 25 mg MS BID PRN magnesium oxide 250 mg PO BID 30 days omega 7-zvd-tgq-fish oil 300-1,000 mg (Fish Oil) 1 cap PO DAILY 90 days psyllium husk (Metamucil) 1 tbsp PO DAILY tiotropium bromide 2.5 mcg/actuation (Spiriva Respimat) 2 puffs inhalation DAILY 30 days Tobacco use date assessed: 02/22/23 Dental Screening Dental Screen Date: 02/22/23 HPI follow up HPI Details Patient is a 63-year-old male with a past medical history asthma, COPD, hyperlipidemia, ADHD, anxiety and insomnia. Patient here today for follow-up visit. Recently had a falling out with his psych provider and now needs PCP to manage his mental health medications until he is able to reestablish care with a new psych provider. Also patient reports having daily allergies and would like to be evaluated by an medical lab director and get allergy testing. [facility] Medical History Asthma-COPD overlap syndrome COPD exacerbation Back pain Peripheral neuropathy Anxiety ADHD (attention deficit hyperactivity disorder) Bronchitis Bleeding hemorrhoids COPD exacerbation Tubular adenoma of colon (~2018) Nicotine dependence, cigarettes, uncomplicated COPD (chronic obstructive pulmonary disease) Surgical History History of colonoscopy (~08/26/23) History of hemorrhoidectomy History of esophagogastroduodenoscopy (EGD) History of colonoscopy Family History Mother Diabetes Father No problems noted. Brother No problems noted. Social History Housing: House Are you a primary home child care provider to a significant other at home: No Do you presently have visiting nurse or other home services: No Patient Tobacco Use Status: Former Tobacco user Tobacco use type: Cigarette Cigarette Packs Per Day: 1 Cigarettes Per Day: 20.0 Years Smoked: 45 e-Cigarette/Vaping Use: Never Used service: No Current occupational status: unemployed and disabled Cognitive needs: No Hearing needs: No Vision needs: No Questionnaire Thrive Questionnaire Date Thrive assessed: 02/22/23 MELINDA-7 AMB Questionnaire MELINDA-7 Date MELINDA - 7 assessed: 02/22/23 Source: Developed by Drs. Hudson Correa, Mami Cordova, Alberto Crockett and colleagues, with an educational bobbi from [employer]. Review of Systems Const Denies headache(s) Eyes Denies loss of vision ENT Denies vertigo, Denies dizziness, Denies headache(s) and Denies sore throat Card Denies chest pain, Denies leg edema and Denies lightheadedness Resp Denies cough, Denies hemoptysis and Denies wheezing GI Denies abdominal pain, Denies melena, Denies constipation, Denies diarrhea and Denies vomiting Denies dysuria, Denies urinary frequency and Denies urinary urgency Musc Denies arthralgias, Denies joint swelling, Denies numbness and Denies tingling Neuro Denies Abnormal speech present, Denies behavioral changes, Denies vertigo, Denies dizziness, Denies headache(s), Denies loss of vision, Denies memory loss, Denies numbness and Denies tingling Psych Denies anxiety, Denies behavioral changes, Denies depression, Denies memory loss and Denies panic attacks Chandra/Lymph Denies easy bleeding and Denies easy bruising Aller/Immun Denies wheezing Physical exam (Primary Care) Vital Signs: Last Vital Signs Pulse 87 09/28/23 10:54 BP 112/82 09/28/23 10:54 Pulse Ox 98 09/28/23 10:54 Oxygen Delivery Method Room Air 09/28/23 10:54 BMI result Body Mass Index 27.9 Tobacco/Smoking Status: Tobacco use Status Tobacco use date assessed 02/22/23 09/28/23 10:56 Patient Tobacco Use Status Former Tobacco user 09/28/23 10:56 Tobacco use type Cigarette 09/28/23 10:56 e-Cigarette/Vaping Use Never Used 09/28/23 10:56 Thrive Assessment: Date of Thrive Assessment Date Thrive assessed 02/22/23 09/28/23 10:56 Const General: healthy appearing, no acute distress, alert and awake Nutritional Appearance: well nourished Orientation/consciousness: oriented to person, oriented to place and oriented to time HENMT Ears: TM's normal bilaterally General nose exam: Normal nasal mucous membranes and turbinates present Eyes Conjunctivae: conjunctivae normal Sclerae: sclerae normal Pupils: Equal, round and reactive pupils present Neck Neck: Yes no lymphadenopathy and Yes no JVD Thyroid: Thyroid normal Carotids: no bruits Resp Effort & Inspection: normal respiratory effort and not tachypneic Auscultation: no crackles, no rales, no rhonchi and no wheezes Cardio Rate: regular rate Rhythm: regular rhythm Heart sounds: no murmurs and normal S1 and S2 GI Palpation (GI): Soft to palpation, nontender, no hepatomegaly and no splenomegaly Auscultation: normal bowel sounds Skin General skin exam: no rashes or lesions noted and dry skin Neuro General: oriented to person, oriented to place and oriented to time Cranial nerves: Yes Equal, round and reactive pupils present Speech: No Abnormal speech present Gait exam (Neuro): Normal gait present Motor exam (neuro): no tremor noted Extrem Right upper extremity: full ROM Left upper extremity: full ROM Right lower extremity: full ROM; no edema Left lower extremity: full ROM; no edema Psych Mental Status: mental status grossly normal Speech and movement: Normal speech and movement present Affect: normal affect Attitude: cooperative Thought process: Normal thought process present Assessment and Plan Assessment & Plan (1) Allergies: Code(s): T78.40XA - Allergy, unspecified, initial encounter Qualifiers: Encounter type: subsequent encounter Qualified Code(s): T78.40XD - Allergy, unspecified, subsequent encounter Plan: Patient interested in seeing an medical lab director for allergy testing. He feels at some of his pulmonary issues are related to allergies. He is interested in starting a new allergy medication as well thus will start Singulair daily. (2) Anxiety: Comment: HE HAS AN, ANXIOUS PERSONALITY , ALSO HAS ADHD. RELATIVELY CALMER TODAY AND HAPPY. Code(s): F41.9 - Anxiety disorder, unspecified Plan: Patient has a long history of anxiety and has been seeing psychiatric providers for many years. Has been on clonazepam 1 mg b.i.d. for quite some time. Unfortunately lost follow-up with his psych provider and now needs PCP to manage his mental health medication until he is able to establish care once again with a psych provider. (3) Insomnia: Code(s): G47.00 - Insomnia, unspecified Qualifiers: Insomnia type: primary Qualified Code(s): F51.01 - Primary insomnia Plan: As above Orders: Orders Resp Allergy Profile [facility] I 09/28/23 R05.9 - Cough, unspecified, T78.40XD - Allergy, unspecified, subsequent encounter IgE Antibody (Anti-IgE IgG) Today T78.40XD - Allergy, unspecified, subsequent encounter Referrals Allergy & Immunology Referral J40 - Bronchitis, not specified as acute or chronic, T78.40XD - Allergy, unspecified, subsequent encounter Medications: New montelukast 10 mg PO DAILY 90 days 90 tabs 1RF T78.40XD - Allergy, unspecified, subsequent encounter zolpidem ER 12.5 mg PO BEDTIME 30 days 30 tabs 1RF F51.01 - Primary insomnia Changed From clonazepam 1 mg PO BID PRN Anxiety F41.9 - Anxiety disorder, unspecified To clonazepam 1 mg PO BID 30 days 60 tabs 1RF Anxiety F41.9 - Anxiety disorder, unspecified Coding Level of Care Code Est Pt Level 4 (80954) Diagnoses Allergy, subsequent encounter T78.40XD Encounter type: subsequent encounter Anxiety F41.9 Primary insomnia F51.01 Insomnia type: primary
[2023-09-28 10:54] VITALS: BP 112/82; PULSE 87; O2SAT 98; BMI 27.9
== END 2023-09-28 11:50 | disposition home or self-care (01) ==
PROVIDERS: PCP Physician Assistant; Visit Provider Physician Assistant
DX: F51.01 Primary insomnia (principal); T78.40XD Allergy, unspecified, subsequent encounter; F41.9 Anxiety disorder, unspecified
CPT/HCPCS: 99214

== ENCOUNTER 2023-09-29 15:01 | Outpatient (REF) | payer OTHER, SELFPAY ==
[2023-10-01 04:23] LABS: Class Alternaria alternata 0; Class Aspergillus fumigatus 0; Class Bermuda Grass 0; Class Birch 0; Class Cat Dander 0; Class Cladosporium herbarum 0; Class Cockroach 2; Class Common Ragweed 0/1; Class Cottonwood 0; Class Derm. pterony 2; Class Dermatophagoides farinae 2; Class Dog Dander 0; Class Elm 0; Class Maple Box Elder 0; Class Mountain Cedar 0; Class Mouse Urine Protein 0; Class Mugwort 0; Class Oak 0; Class Penicillium crysogenum 0; Class Rough Pigweed 0; Class Sheep Sorrel 0; Class Sycamore 0; Class Timothy Grass 0; Class Walnut Tree 0; Class White Ash 0; Class White Mulberry 0; D001 IgE D pteronyssinus 1.04 kU/L; D002 - IgE D farinae 0.75 kU/L; E001 - IgE Cat Dander <0.10 kU/L; E005 - IgE Dog Dander <0.10 kU/L; E072-IgE Mouse Urine <0.10 kU/L; G002 IgE Bermuda Grass <0.10 kU/L; G006 - IgE Timothy Grass <0.10 kU/L; I006-IgE Cockroach, German 0.75 kU/L; Immunoglobulin E 1566 kU/L (<OR=114); M001 IgE Penicillium chrysogen <0.10 kU/L; M002 - IgE Cladosporium herbar <0.10 kU/L; M003 - IgE Aspergillus fumigat <0.10 kU/L; M006 - IgE Alternaria alternat <0.10 kU/L; T001 IgE Maple/Box Elder <0.10 kU/L; T003 IgE Common Silver Birch <0.10 kU/L; T006 - IgE Cedar, Mountain <0.10 kU/L; T007 - IgE Oak, White <0.10 kU/L; T008 IgE Elm, American <0.10 kU/L; T010 - IgE Walnut <0.10 kU/L; T011 - IgE Maple Leaf Sycamore <0.10 kU/L; T014 - IgE Cottonwood <0.10 kU/L; T015 - IgE Ash, White <0.10 kU/L; T070 - IgE White Mulberry <0.10 kU/L; W001 - IgE Ragweed, Short 0.11 kU/L; W006 - IgE Mugwort <0.10 kU/L; W014 IgE Pigweed, Common <0.10 kU/L; W018 IgE Sheep Sorrel <0.10 kU/L
[2023-10-11 18:19] LABS: IgE Antibody (Anti-IgE IgG) 90 ng/mL (<168)
== END 2023-09-29 15:02 | disposition home or self-care (01) ==
LOC: HO.LAB 15:01
PROVIDERS: PCP Physician Assistant; Visit Provider Physician Assistant
DX: R05.9 Cough, unspecified (principal); T78.40XD Allergy, unspecified, subsequent encounter
CPT/HCPCS: 36415; 82785; 83520; 86003

== ENCOUNTER 2023-10-18 11:36 | Outpatient (AMB) | payer OTHER, SELFPAY ==
[2023-10-18 11:43] VITALS: BP 136/80; PULSE 86; O2SAT 98
--- NOTE | 2023-10-18 11:43 | A.OFFPC_ITS ---
Vital Signs 10/18/23 11:43 Weight 215 lb 4 oz BP 136/80 Blood Pressure Location Lt brachial Position Sitting Pulse 86 Pulse Source Pulse Oximeter Pulse Oximetry (%) 98 Oxygen Delivery Method Room Air Intake Visit Reasons: 2 Month F/U Allergies formoterol [Bevespi Aerosphere] Allergy (Intermediate, Verified 10/18/23 11:55) headaches and toothaches glycopyrrolate [Bevespi Aerosphere] Allergy (Intermediate, Verified 10/18/23 11:55) headaches and toothaches trazodone Allergy (Intermediate, Verified 10/18/23 11:55) Anxiety ibuprofen [From Motrin] Allergy (Mild, Verified 10/18/23 11:55) Gastrointestinal Upset ferrous sulfate Adverse Reaction (Intermediate, Verified 10/18/23 12:01) Constipation Medication List - Last Reconciled 10/18/23 by Armani Avelar PA-C acetaminophen 650 mg PO Q6H PRN albuterol sulfate 90 mcg/actuation (Ventolin HFA) 2 puffs inhalation Q4-6H 30 days cholecalciferol (vitamin D3) 50 mcg PO DAILY 90 days clonazepam 1 mg PO BID 30 days docusate sodium (Colace) 100 mg PO BID 30 days fluticasone propion-salmeterol 250-50 mcg/dose 1 inh inhalation Q12H 30 days hydrocortisone 2.5% 1 appl LA TID 14 days hydrocortisone acetate (Anucort-HC) 25 mg LA BID PRN magnesium oxide 250 mg PO BID 30 days omega 8-rie-lvm-fish oil 300-1,000 mg (Fish Oil) 1 cap PO DAILY 90 days psyllium husk (Metamucil) 1 tbsp PO DAILY tiotropium bromide 2.5 mcg/actuation (Spiriva Respimat) 2 puffs inhalation DAILY 30 days zolpidem ER 12.5 mg PO BEDTIME 30 days Tobacco use date assessed: 02/22/23 Dental Screening Dental Screen Date: 02/22/23 HPI 2 Month F/U HPI Details Patient is a 63-year-old male with a past medical history asthma, COPD, hyperlipidemia, ADHD, anxiety and insomnia. Patient here today for follow-up visit. Recently had a falling out with his psych provider and now needs PCP to manage his mental health medications until he is able to reestablish care with a new psych provider. Asthma COPD overlap syndrome: Followed by pulmonology here in [place]. Patient continues on Spiriva and as needed use of albuterol inhaler with decent affect. Patient was also send for allergy testing which did show positive allergens to environmental allergies. He was started on Singulair 10 mg. Anemia: Likely secondary to GI blood loss. Has continuing bleeding hemorrhoids Reports having side effects for Iron supplement and has stopped the medication. He has been having some constipation and already deals with diverticulosis and bleeding internal hemorrhoids. .. Symptomatic hemorrhoids: Continues to report bleeding per rectum. Has seen rectal surgeon whom did do scope noting internal easily bleeding hemorrhoids. Advised on continuing stool softener, fiber supplementation. Will supply patient with rectal cream. Laboratory Tests 06/08/22 08/04/23 09/29/23 11:31 10:17 15:14 Eos # (Auto) 0.5 H PSA Screen 0.83 D. farinae Allrgen IgE 0.75 H D. pteronyssinus I gE Cl 1.04 H Common Ragweed All ergen 0.11 H IgE 1566 H [facility] Medical History Asthma-COPD overlap syndrome COPD exacerbation Back pain Peripheral neuropathy Anxiety ADHD (attention deficit hyperactivity disorder) Bronchitis Bleeding hemorrhoids COPD exacerbation Tubular adenoma of colon (~2018) Nicotine dependence, cigarettes, uncomplicated COPD (chronic obstructive pulmonary disease) Surgical History History of colonoscopy (~08/26/23) History of hemorrhoidectomy History of esophagogastroduodenoscopy (EGD) History of colonoscopy Family History Mother Diabetes Father No problems noted. Brother No problems noted. Social History Housing: House Are you a primary animal care attendant to a significant other at home: No Do you presently have visiting nurse or other home services: No Patient Tobacco Use Status: Former Tobacco user Tobacco use type: Cigarette Cigarette Packs Per Day: 1 Cigarettes Per Day: 20.0 Years Smoked: 45 e-Cigarette/Vaping Use: Never Used service: No Current occupational status: unemployed and disabled Cognitive needs: No Hearing needs: No Vision needs: No Questionnaire Thrive Questionnaire Date Thrive assessed: 02/22/23 MELINDA-7 AMB Questionnaire MELINDA-7 Date MELINDA - 7 assessed: 02/22/23 Source: Developed by Drs. Hudson Correa, Mami Cordova, Alberto Crockett and colleagues, with an educational bobbi from [employer]. Review of Systems Const Denies headache(s) Eyes Denies loss of vision ENT Denies vertigo, Denies dizziness, Denies headache(s) and Denies sore throat Card Denies chest pain, Denies leg edema and Denies lightheadedness Resp Denies cough, Denies hemoptysis and Denies wheezing GI Denies abdominal pain, Denies melena, Denies constipation, Denies diarrhea and Denies vomiting Denies dysuria, Denies urinary frequency and Denies urinary urgency Musc Denies arthralgias, Denies joint swelling, Denies numbness and Denies tingling Neuro Denies Abnormal speech present, Denies behavioral changes, Denies vertigo, Denies dizziness, Denies headache(s), Denies loss of vision, Denies memory loss, Denies numbness and Denies tingling Psych Denies anxiety, Denies behavioral changes, Denies depression, Denies memory loss and Denies panic attacks Chandra/Lymph Denies easy bleeding and Denies easy bruising Aller/Immun Denies wheezing Physical exam (Primary Care) Vital Signs: Last Vital Signs Pulse 86 10/18/23 11:43 BP 136/80 10/18/23 11:43 Pulse Ox 98 10/18/23 11:43 Oxygen Delivery Method Room Air 10/18/23 11:43 Tobacco/Smoking Status: Tobacco use Status Tobacco use date assessed 02/22/23 10/18/23 11:45 Patient Tobacco Use Status Former Tobacco user 10/18/23 11:45 Tobacco use type Cigarette 10/18/23 11:45 e-Cigarette/Vaping Use Never Used 10/18/23 11:45 Thrive Assessment: Date of Thrive Assessment Date Thrive assessed 02/22/23 10/18/23 11:45 Const General: healthy appearing, no acute distress, alert and awake Nutritional Appearance: well nourished Orientation/consciousness: oriented to person, oriented to place and oriented to time HENMT Ears: TM's normal bilaterally General nose exam: Normal nasal mucous membranes and turbinates present Eyes Conjunctivae: conjunctivae normal Sclerae: sclerae normal Pupils: Equal, round and reactive pupils present Neck Neck: Yes no lymphadenopathy and Yes no JVD Thyroid: Thyroid normal Carotids: no bruits Resp Effort & Inspection: normal respiratory effort and not tachypneic Auscultation: no crackles, no rales, no rhonchi and no wheezes Cardio Rate: regular rate Rhythm: regular rhythm Heart sounds: no murmurs and normal S1 and S2 GI Palpation (GI): Soft to palpation, nontender, no hepatomegaly and no splenomegaly Auscultation: normal bowel sounds Skin General skin exam: no rashes or lesions noted and dry skin Neuro General: oriented to person, oriented to place and oriented to time Cranial nerves: Yes Equal, round and reactive pupils present Speech: No Abnormal speech present Gait exam (Neuro): Normal gait present Motor exam (neuro): no tremor noted Extrem Right upper extremity: full ROM Left upper extremity: full ROM Right lower extremity: full ROM; no edema Left lower extremity: full ROM; no edema Psych Mental Status: mental status grossly normal Speech and movement: Normal speech and movement present Affect: normal affect Attitude: cooperative Thought process: Normal thought process present Assessment and Plan Assessment & Plan (1) Allergies: Code(s): T78.40XA - Allergy, unspecified, initial encounter Qualifiers: Encounter type: subsequent encounter Qualified Code(s): T78.40XD - Allergy, unspecified, subsequent encounter Plan: He does report having a mold issue in his apartment that he has been trying to get rid of. Patient has tried Singulair though felt too much of a dry mouth and lethargy. Does not use a allergy nasal spray at this time and is willing to try. He has been using [id number] allergy medication that he reports help some. Allergy testing does show environmental allergies and IgE testing is elevated. (2) Anemia: Code(s): D64.9 - Anemia, unspecified Qualifiers: Anemia type: iron deficiency Iron deficiency anemia type: chronic blood loss Qualified Code(s): D50.0 - Iron deficiency anemia secondary to blood loss (chronic) Plan: His anemia likely secondary to GI blood loss from his internal bleeding hemorrhoids. Advised on continuing Sitz baths, stool softening and fiber supplementation. Will supply patient with rectal cream to try to heal it external hemorrhoids. Did get a rectal suppository of steroid medication though reports it was much too expensive for him. (3) Bleeding hemorrhoids: Code(s): K64.9 - Unspecified hemorrhoids Plan: Has a above Orders: Orders Lipid Panel Today E78.2 - Mixed hyperlipidemia Comprehensive [place]. Panel Fast Today E78.2 - Mixed hyperlipidemia Complete Blood Count no Diff Today K62.5 - Hemorrhage of anus and rectum Medications: New triamcinolone acetonide administer into each nostril 1 spray intranasal BID 16.9 mL 2RF 30 days T78.40XD - Allergy, unspecified, subsequent encounter menthol-zinc oxide 0.44-20.6 % (Calmoseptine) 1 appl topical QID PRN 113 grams 3RF skin irritation 15 days D50.0 - Iron deficiency anemia secondary to blood loss (chronic), K64.9 - Unspecified hemorrhoids Refilled magnesium oxide 250 mg PO BID 60 tabs 4RF 30 days M79.10 - Myalgia, unspecified site tiotropium bromide 2.5 mcg/actuation (Spiriva Respimat) 2 puffs inhalation DAILY 4 grams 5RF COPD 30 days R06.02 - Shortness of breath Discontinued ferrous sulfate Discontinued Reason: Doctor's Order 325 mg PO DAILY 30 tabs 0RF D50.9 - Iron deficiency anemia, unspecified hydrocortisone acetate (Anucort-HC) Discontinued Reason: Doctor's Order 25 mg LA BID PRN 24 ea 2RF hemorrhoids Coding Level of Care Code Est Pt Level 4 (62737) Diagnoses Allergy, subsequent encounter T78.40XD Encounter type: subsequent encounter Iron deficiency anemia due to chronic blood loss D50.0 Anemia type: iron deficiency Iron deficiency anemia type: chronic blood loss Bleeding hemorrhoids K64.9
== END 2023-10-18 12:38 | disposition home or self-care (01) ==
PROVIDERS: PCP Physician Assistant; Visit Provider Physician Assistant
DX: J44.9 Chronic obstructive pulmonary disease, unspecified (principal); D50.0 Iron deficiency anemia secondary to blood loss (chronic); K64.9 Unspecified hemorrhoids
CPT/HCPCS: 99214

== ENCOUNTER 2024-01-17 11:28 | Outpatient (AMB) | payer OTHER, SELFPAY ==
[2024-01-17 11:33] VITALS: BP 126/80; PULSE 74; O2SAT 96; BMI 27.9
--- NOTE | 2024-01-17 11:33 | A.OFFPC_ITS ---
Vital Signs 01/17/24 11:33 Height 6 ft 2.5 in Weight 220 lb BMI 27.9 BP 126/80 Blood Pressure Location Lt brachial Position Sitting Pulse 74 Pulse Source Pulse Oximeter Pulse Oximetry (%) 96 Oxygen Delivery Method Room Air Intake Visit Reasons: 3 Month F/U Information Director Required: No Accompanied by: Self / Same As Patient Allergies formoterol [Bevespi Aerosphere] Allergy (Intermediate, Verified 01/17/24 12:17) headaches and toothaches glycopyrrolate [Bevespi Aerosphere] Allergy (Intermediate, Verified 01/17/24 12:17) headaches and toothaches trazodone Allergy (Intermediate, Verified 01/17/24 12:17) Anxiety ibuprofen [From Motrin] Allergy (Mild, Verified 01/17/24 12:17) Gastrointestinal Upset ferrous sulfate Adverse Reaction (Intermediate, Verified 01/17/24 12:17) Constipation Medication List - Last Reconciled 01/17/24 by Armani Avelar PA-C acetaminophen 650 mg PO Q6H PRN albuterol sulfate 90 mcg/actuation (Ventolin HFA) 2 puffs inhalation Q4-6H 30 days cholecalciferol (vitamin D3) 50 mcg PO DAILY 90 days clonazepam 1 mg PO BID 30 days docusate sodium (Colace) 100 mg PO BID 30 days fluticasone propion-salmeterol 250-50 mcg/dose 1 inh inhalation Q12H 90 days hydrocortisone 2.5% 1 appl MD TID 14 days magnesium oxide 250 mg PO BID 30 days menthol-zinc oxide 0.44-20.6 % (Calmoseptine) 1 appl topical QID PRN 15 days omega 9-gjt-vfh-fish oil 300-1,000 mg (Fish Oil) 1 cap PO DAILY 90 days psyllium husk (Metamucil) 1 tbsp PO DAILY tiotropium bromide 2.5 mcg/actuation (Spiriva Respimat) 2 puffs inhalation DAILY 30 days triamcinolone acetonide 1 spray intranasal BID 30 days zolpidem ER 12.5 mg PO BEDTIME 30 days Tobacco use date assessed: 02/22/23 Dental Screening Dental Screen Date: 02/22/23 HPI 3 Month F/U HPI Details Patient is a 63-year-old male with a past medical history asthma, COPD, hyperlipidemia, ADHD, anxiety and insomnia. Patient here today for follow-up visit. .. Asthma COPD overlap syndrome: He reports over the last week having a cough at times productive of sputum. Has not been able to clear lot of his sputum recently. He denies any fevers or chills.. Followed by pulmonology here in [place]. Patient continues on Spiriva and as needed use of albuterol inhaler with decent affect. Patient was also send for allergy testing which did show positive allergens to environmental allergies. He was started on Singulair 10 mg. .. Symptomatic hemorrhoids: Continues to report bleeding per rectum. Has seen rectal surgeon whom did do scope noting internal easily bleeding hemorrhoids. Advised on continuing stool softener, fiber supplementation. Will supply patient with rectal cream. .. Anxiety: Has establish care with a new mental health psych provider whom will take over prescribing his benzodiazepines. [facility] Medical History Asthma-COPD overlap syndrome COPD exacerbation Back pain Peripheral neuropathy Anxiety ADHD (attention deficit hyperactivity disorder) Bronchitis Bleeding hemorrhoids COPD exacerbation Tubular adenoma of colon (~2018) Nicotine dependence, cigarettes, uncomplicated COPD (chronic obstructive pulmonary disease) Surgical History History of colonoscopy (~08/26/23) History of hemorrhoidectomy History of esophagogastroduodenoscopy (EGD) History of colonoscopy Family History Mother Diabetes Father No problems noted. Brother No problems noted. Social History Housing: House Are you a primary medical care manager to a significant other at home: No Do you presently have visiting nurse or other home services: No Patient Tobacco Use Status: Former Tobacco user Tobacco use type: Cigarette Cigarette Packs Per Day: 1 Cigarettes Per Day: 20.0 Years Smoked: 45 e-Cigarette/Vaping Use: Never Used service: No Current occupational status: unemployed and disabled Cognitive needs: No Hearing needs: No Vision needs: No Questionnaire Thrive Questionnaire Date Thrive assessed: 02/22/23 MELINDA-7 AMB Questionnaire MELINDA-7 Date MELINDA - 7 assessed: 01/16/24 Source: Developed by Drs. Hudson Correa, Mami Cordova, Alberto Crockett and colleagues, with an educational bobbi from [employer]. Review of Systems Const Denies headache(s) Eyes Denies loss of vision ENT Denies vertigo, Denies dizziness, Denies headache(s) and Denies sore throat Card Denies chest pain, Denies leg edema and Denies lightheadedness Resp Reports cough, Denies hemoptysis and Denies wheezing GI Denies abdominal pain, Denies melena, Denies constipation, Denies diarrhea and Denies vomiting Denies dysuria, Denies urinary frequency and Denies urinary urgency Musc Denies arthralgias, Denies joint swelling, Denies numbness and Denies tingling Neuro Denies Abnormal speech present, Denies behavioral changes, Denies vertigo, Denies dizziness, Denies headache(s), Denies loss of vision, Denies memory loss, Denies numbness and Denies tingling Psych Denies anxiety, Denies behavioral changes, Denies depression, Denies memory loss and Denies panic attacks Chandra/Lymph Denies easy bleeding and Denies easy bruising Aller/Immun Denies wheezing Physical exam (Primary Care) Vital Signs: Last Vital Signs Pulse 74 01/17/24 11:33 BP 126/80 01/17/24 11:33 Pulse Ox 96 01/17/24 11:33 Oxygen Delivery Method Room Air 01/17/24 11:33 BMI result Body Mass Index 27.9 Tobacco/Smoking Status: Tobacco use Status Tobacco use date assessed 02/22/23 01/17/24 11:33 Patient Tobacco Use Status Former Tobacco user 01/17/24 11:33 Tobacco use type Cigarette 01/17/24 11:33 e-Cigarette/Vaping Use Never Used 01/17/24 11:33 Thrive Assessment: Date of Thrive Assessment Date Thrive assessed 02/22/23 01/17/24 11:33 Const General: healthy appearing, no acute distress, alert and awake Nutritional Appearance: well nourished Orientation/consciousness: oriented to person, oriented to place and oriented to time HENMT Ears: TM's normal bilaterally General nose exam: Normal nasal mucous membranes and turbinates present Eyes Conjunctivae: conjunctivae normal Sclerae: sclerae normal Pupils: Equal, round and reactive pupils present Neck Neck: Yes no lymphadenopathy and Yes no JVD Thyroid: Thyroid normal Carotids: no bruits Resp Effort & Inspection: normal respiratory effort and not tachypneic Auscultation: no crackles, no rales, no rhonchi and no wheezes Cardio Rate: regular rate Rhythm: regular rhythm Heart sounds: no murmurs and normal S1 and S2 GI Palpation (GI): Soft to palpation, nontender, no hepatomegaly and no splenomegaly Auscultation: normal bowel sounds Skin General skin exam: no rashes or lesions noted and dry skin Neuro General: oriented to person, oriented to place and oriented to time Cranial nerves: Yes Equal, round and reactive pupils present Speech: No Abnormal speech present Gait exam (Neuro): Normal gait present Motor exam (neuro): no tremor noted Extrem Right upper extremity: full ROM Left upper extremity: full ROM Right lower extremity: full ROM; no edema Left lower extremity: full ROM; no edema Psych Mental Status: mental status grossly normal Speech and movement: Normal speech and movement present Affect: normal affect Attitude: cooperative Thought process: Normal thought process present Coding Level of Care Code Est Pt Level 4 (06428) Diagnoses Asthma-COPD overlap syndrome J44.89 Anxiety F41.9 Assessment & Plan Assessment & Plan (1) Asthma-COPD overlap syndrome: Comment: HE HAS LONGSTANDING HISTORY OF COMBINATION OF ASTHMA AND COPD. ASTHMA IS MAINLY ALLERGIC IN TYPE. AND HIS COPD IS SECONDARY TO HIS LONG-TERM SMOKING. HE HAS BEEN TREATED FOR AN ACUTE EXACERBATION. HE FEELS MUCH BETTER. LUNGS ARE VERY CLEAR AT THIS TIME. Code(s): J44.89 - Other specified chronic obstructive pulmonary disease Category: Medical Plan: Seems to be having a COPD exacerbation due to his increased sputum production. Will supply patient with azithromycin to help clear secretions. --> of note he does admit to smoking cigarettes from time to time though in [facility] has stopped smoking. (2) Anxiety: Comment: HE HAS AN, ANXIOUS PERSONALITY , ALSO HAS ADHD. RELATIVELY CALMER TODAY AND HAPPY. Code(s): F41.9 - Anxiety disorder, unspecified Category: Medical Plan: As per HPI has establish with a mental health med provider whom will be taking over prescribing his mental health medications. He has some stress in his life due to personal issues and some financial issues as well. Medications: New azithromycin For 250 mg dose pack: take 500 mg today (day 1), then 250 mg for 4 days (days 2-5) PO 6 tabs 0RF J41.0 - Simple chronic bronchitis nicotine 1 patch transdermal DAILY 14 ea 0RF 14 days F17.200 - Nicotine depend ence, unspecified, uncomplicated, F17.210 - Nicotine dependence, cigarettes, uncomplicated nicotine 1 patch transdermal DAILY 14 ea 0RF 14 days F17.200 - Nicotine dependence, unspecified, uncomplicated, F17.210 - Nicotine dependence, cigarettes, uncomplicated miscellaneous medical supply 1 ea miscellaneous DAILY 1 ea 0RF 99 days J44.89 - Other specified chronic obstructive pulmonary disease
== END 2024-01-17 12:31 | disposition home or self-care (01) ==
PROVIDERS: PCP Physician Assistant; Visit Provider Physician Assistant
DX: J44.89 Other specified chronic obstructive pulmonary disease (principal); F41.9 Anxiety disorder, unspecified

== ENCOUNTER → 2024-01-17 11:28 | Outpatient (BNVA) | payer OTHER, SELFPAY | PROVIDERS: PCP Physician Assistant; Visit Provider Physician Assistant | DX: J44.89 Other specified chronic obstructive pulmonary disease (principal); F41.9 Anxiety disorder, unspecified | CPT/HCPCS: 99212 ==

== ENCOUNTER 2024-02-26 18:01 | Inpatient (IN) | payer OTHER, SELFPAY ==
--- NOTE | ~2024-02-26 | XR_ITS ---
CLINICAL HISTORY: dyspnea 1 view chest x-ray Comparison: 10/30/2021 Findings: No consolidation or effusion. Normal size heart. No acute fracture. IMPRESSION: 1. No acute findings. This document has been electronically signed by: Billy Beasley MD on 02/26/2024 20:12:04
--- NOTE | 2024-02-26 18:21 | ECG_ITS ---
Test Reason : dyspnea Blood Pressure : */* mmHG Vent. Rate : 90 BPM Atrial Rate : 90 BPM P-R Int : 154 ms QRS Dur : 98 ms QT Int : 368 ms P-R-T Axes : 80 52 75 degrees QTcB Int : 450 ms Normal sinus rhythm Normal ECG No previous ECGs available Referred By: Generic ED Physician Electronically Signed By: SUKH HORNE MD
[2024-02-26 18:23] VITALS: BP 162/91; BP 165/80; PULSE 89; PULSE 93; RESP 19; TEMP 37.1; O2SAT 93; O2SAT 95; BMI 29.5
[2024-02-26 18:36] VITALS: BP 165/80; PULSE 89; RESP 19; TEMP 37.1; O2SAT 95
[2024-02-26 18:37] LABS: MANUAL DIFF FLAG NO
[2024-02-26 18:38] LABS: Basophils Percent Auto 0.6 % (0-2); Eosinophils Percent Auto 0.3 % (0-4); Hematocrit 38.9 % (42.0-52.0); Hemoglobin 13.3 g/dl (14.0-18.0); Lymphocytes Absolute Auto 0.4 X10*3/uL (1.2-4.9); Lymphocytes Percent Auto 11.4 % (20-40); Mean Corpuscular HGB Conc 34.2 g/dl (31.0-36.0); Mean Corpuscular Hemoglobin 30.2 pg (27.0-33.0); Mean Corpuscular Volume 88.2 fL (80.0-98.0); Mean Platelet Volume 8.9 fL (9.4-12.4); Monocytes Absolute Auto 0.7 X10*3/uL (0.1-1.2); Monocytes Percent Auto 19.5 % (2-11); Neutrophils Absolute Auto 2.5 x10*3/uL (2.0-8.3); Neutrophils Percent Auto 68.2 % (45-73); Platelet Count 173 X10*3/uL (160-400); Red Blood Count 4.41 X10*6/uL (4.60-5.80); Red Cell Distribution Width 13.7 % (11.0-16.0); White Blood Count 3.6 X10*3/uL (4.8-10.8)
[2024-02-26 18:55] LABS: Alanine Aminotransferase 25 U/L (0-40); Albumin Level 4.5 g/dL (3.5-5.0); Alkaline Phosphatase 65 U/L (39-117); Anion Gap 13 (12-20); Aspartate Amino Transferase 35 U/L (5-37); Bilirubin Total 0.5 mg/dL (0.0-1.0); Blood Urea Nitrogen 12 mg/dL (9-16); Calcium 8.8 mg/dL (8.4-10.2); Carbon Dioxide 25 mmol/L (22-29); Chloride 104 mmol/L (96-108); Creatinine Clr Calc Pharmacy 115.4; Estimated Glomerular Filt Rate > 60; Glucose Random 110 mg/dL (60-115); Magnesium 1.9 mg/dL (1.6-2.6); Potassium 4.2 mmol/L (3.3-5.1); Sodium 138 mmol/L (135-145); Total Protein 7.6 g/dL (6.5-8.0)
--- NOTE | 2024-02-26 18:59 | ED_ITS ---
HPI - General Adult General Chief complaint: Dyspnea Stated complaint: diff breathing Time Seen by Provider: 02/26/24 18:31 Source: patient and EMS Mode of arrival: EMS Limitations: no limitations History of Present Illness ED Provider: Chuyita Byrne PA-C HPI narrative: Patient is a 64 year old assigned male at with a history of COPD, ADHD, anxiety, HLD, and anemia presenting to the emergency department today with increased shortness of breath. Patient states that over the last 3 days he has had worsening shortness of breath / difficulty breathing. Patient denies any dizziness, lightheadedness, abdominal pain, nausea, vomiting, fever, chills, blurry vision, double vision, loss of vision, chest pain, back pain, night sweats, pain with urination, increased urinary frequency, increased urinary urgency, blood in his urine or stool, syncope or a near syncopal episode, recent trauma or falls, bowel incontinence, bladder incontinence, or any other complaints at this time. Onset (ago): day(s) (3) Relieving factors: none Exacerbating factors: movement Associated symptoms: cough and shortness of breath Treatments prior to arrival: other (patient given 120mg Solu-Medrol, oxygen, and a breathing treatment by EMS [employer]) Related Data Previous Rx's ?Medication ?Instructions ?Recorded hydrocortisone 2.5 % topical cream 1 appl WI TID hemorrhoids 14 days 09/08/23 with perineal applicator #30 grams psyllium husk 3.4 gram/5.4 gram 1 tbsp PO DAILY #660 grams 09/08/23 oral powder (Metamucil) omega 5-xku-gzo-fish oil 300 1 cap PO DAILY 90 days #90 caps 09/24/23 mg-1,000 mg capsule,delayed release (Fish Oil) magnesium oxide 250 mg PO BID 30 days #60 tabs 10/18/23 menthol 0.44 %-zinc oxide 20.6 % 1 appl topical QID PRN skin 10/18/23 topical ointment (Calmoseptine) irritation 15 days #113 grams tiotropium bromide 2.5 2 puff inhalation DAILY COPD 30 10/18/23 mcg/actuation mist for inhalation days #4 grams (Spiriva Respimat) triamcinolone acetonide 55 mcg 1 spray intranasal BID 30 days 10/18/23 nasal spray aerosol #16.9 mL clonazepam 1 mg tablet 1 mg PO BID Anxiety 30 days #60 12/06/23 tabs zolpidem 12.5 mg tablet,extended 12.5 mg PO BEDTIME 30 days #30 tabs 12/06/23 release,multiphase fluticasone 250 mcg-salmeterol 50 1 inh inhalation Q12H copd 90 days 01/03/24 mcg/dose blistr powdr for #180 ea inhalation azithromycin 250 mg tablet See Rx Instructions PO .COMPLEX #6 01/17/24 tabs miscellaneous medical supply 1 ea miscellaneous DAILY 99 days 01/17/24 #1 ea nicotine 21 mg/24 hr daily 1 patch transdermal DAILY 14 days 01/17/24 transdermal patch #14 ea cholecalciferol (vitamin D3) 50 50 mcg PO DAILY 90 days #90 caps 01/25/24 mcg (2,000 unit) capsule docusate sodium 100 mg capsule 100 mg PO BID 90 days #180 caps 01/26/24 (Colace) albuterol sulfate 90 mcg/actuation 2 puff inhalation Q4-6H for 02/04/24 aerosol inhaler (Ventolin HFA) wheezing 30 days #18 ea acetaminophen 325 mg tablet 650 mg (2 x 325 mg) PO Q6H pain 30 02/13/24 days #240 tabs nicotine 14 mg/24 hr daily 1 patch transdermal DAILY 14 days 02/24/24 transdermal patch #14 ea Allergies Allergy/AdvReac Type Severity Reaction Status Date / Time formoterol Allergy Intermediate headaches Verified 02/26/24 18:36 [Bevespi Aerosphere] and toothaches glycopyrrolate Allergy Intermediate headaches Verified 02/26/24 18:36 [Bevespi Aerosphere] and toothaches trazodone Allergy Intermediate Anxiety Verified 02/26/24 18:36 ibuprofen [From Motrin] Allergy Mild Gastrointestinal Verified 02/26/24 18:36 Upset ferrous sulfate AdvReac Intermediate Constipatio Verified 02/26/24 18:36 n Review of Systems 2 Constitutional: Constitutional: Reports no additional constitutional complaints, Denies chills, Denies fever(s) and Denies night sweats Eyes: Eyes: Reports no additional eye complaints, Denies blurry vision, Denies change in vision, Denies diplopia, Denies eye discharge, Denies loss of vision and Denies eye pain ENT: Denies dizziness Cardiovascular: Cardiovascular: Reports no additional cardiovascular complaints, Denies chest pain, Denies lightheadedness, Denies Loss of Consciousness and Reports dyspnea Respiratory: Respiratory: Reports no additional respiratory complaints, Reports cough and Reports dyspnea Gastrointestinal: Gastrointestinal: Reports no additional gastrointestinal complaints, Denies abdominal pain, Denies melena, Denies hematochezia, Denies change in bowel habits and Denies change in stool character Genitourinary: Genitourinary: Reports no additional male genitourinary complaints, Denies hematuria, Denies oliguria, Denies difficulty urinating, Denies dysuria, Denies urinary frequency, Denies urinary hesitancy, Denies urinary incontinence and Denies urinary urgency Musculoskeletal: Musculoskeletal: Reports no additional musculoskeletal complaints, Denies numbness and Denies tingling Neurologic: Denies dizziness, Denies loss of vision, Denies numbness and Denies tingling Psychiatric: Psychiatric: Reports no additional psychiatric complaints Endocrine: Endocrine: Reports no additional endocrine complaints Hematologic/Lymphatic: Hematologic/Lymphatic: Reports no additional hematologic/lymphatic complaints Allergic/Immunologic: Allergic/Immunologic: Reports no additional allergic/immunologic complaints [facility] Past Medical History Attestation statement: The following information was validated with the patient. Source: old records reviewed and nursing notes reviewed Medical History Asthma-COPD overlap syndrome COPD exacerbation Back pain Peripheral neuropathy Anxiety ADHD (attention deficit hyperactivity disorder) Bronchitis Bleeding hemorrhoids COPD exacerbation Tubular adenoma of colon (~2018) Nicotine dependence, cigarettes, uncomplicated COPD (chronic obstructive pulmonary disease) Surgical History History of colonoscopy (~08/26/23) History of hemorrhoidectomy History of esophagogastroduodenoscopy (EGD) History of colonoscopy Family History Family History Mother Diabetes Father No problems noted. Brother No problems noted. Social History Social History Housing: House Are you a primary primary care pediatrician to a significant other at home: No Do you presently have visiting nurse or other home services: No Alcohol intake: current Alcohol intake frequency: holidays/special occasions only Patient Tobacco Use Status: Former Tobacco user Tobacco use type: Cigarette Cigarette Packs Per Day: 1 Cigarettes Per Day: 20.0 Years Smoked: 45 Smoked in Last 30 Days: Yes e-Cigarette/Vaping Use: Never Used Use of substances other than those prescribed or required for medical reasons: No Advance Directives: No Advance Directives Information Provided: No Do you have a plan to hurt others: No Plan service: No Current occupational status: unemployed and disabled Cognitive needs: No Hearing needs: No Vision needs: No Physical Exam ED Vital Signs: Vital Signs - 24 hr 02/26/24 18:23 02/26/24 18:36 02/26/24 19:59 Temperature 98.7 F 98.7 F Pulse Rate 89 89 Respiratory Rate 19 19 Blood Pressure 165/80 H 165/80 H Pulse Oximetry 95 95 86 L Oxygen Delivery Method Room Air Room Air 02/26/24 20:29 Temperature Pulse Rate 100 Respiratory Rate 20 Blood Pressure Pulse Oximetry Oxygen Delivery Method BMI result Body Mass Index 29.5 Const General: cooperative, no acute distress, alert and awake Nutritional Appearance: well nourished Orientation/consciousness: patient oriented x3 Limitations: no limitations HENMT Head: Yes normal to inspection and Yes atraumatic Ears: hearing grossly normal bilaterally and external ears normal General nose exam: Normal external nose present, no nasal discharge noted and no epistaxis Face and sinus: Yes normal facial exam, No abrasion and No laceration Mouth: Normal oral and palatal mucosa present, no drooling and no muffled voice Eyes General: appearance normal, both eyes and all related structures Periorbital: periorbital findings normal Eyelids: Yes eyelids normal Conjunctivae: conjunctivae normal Pupils: Equal, round and reactive pupils present EOM: EOMs intact bilaterally Neck Neck: Yes normal visual inspection, Yes full ROM and Yes no lymphadenopathy Chest Chest palpation & inspection: normal inspection of the chest Resp Effort & Inspection: able to speak in complete sentences and labored Auscultation: wheezes expiratory wheezes and scattered wheezes GI Inspection: Yes normal to inspection Neuro General: patient oriented x3 and moves all extremities Cranial nerves: Yes Equal, round and reactive pupils present Cognition (Neuro): normal cognition Extrem General: Yes normal to inspection, Yes full ROM and Yes capillary refill normal Psych Appearance: grossly normal Mental Status: mental status grossly normal Affect: normal affect Attitude: cooperative Thought process: Normal thought process present Thought content: Normal thought content present Insight: Good insight present (Psych) Medications Administered Generic Name Dose Route Start Last Admin Trade Name Aristeoq PRN Reason Stop Dose Admin Benzonatate 100 mg 02/26/24 20:31 02/26/24 21:41 Benzonatate 100 Mg Capsule PO 100 mg TID PRN Administration Cough Enoxaparin Sodium 40 mg 02/26/24 20:45 02/26/24 21:41 Enoxaparin Sodium 40 Mg/0.4 Ml Syringe SUBCUT 40 mg Q24H DIPAK Administration Azithromycin 500 mg/ Sodium 250 mls @ 125 mls/hr 02/26/24 20:10 02/26/24 20:34 Chloride IV 02/26/24 22:09 125 mls/hr ONCE ONE Administration Nicotine 14 mg 02/26/24 21:20 02/26/24 21:42 Nicotine 14 Mg Patch.Td24 TRANSDERMA Not Given DAILY DIPAK Oseltamivir Phosphate 75 mg 02/26/24 20:30 02/26/24 21:40 Oseltamivir Phosphate 75 Mg Capsule PO 03/02/24 08:31 75 mg Q12H DIPAK Administration Prednisone 40 mg 02/26/24 20:35 02/26/24 21:41 Prednisone 20 Mg Tablet PO 40 mg DAILY DIPAK Administration Discontinued Medications Generic Name Dose Route Start Last Admin Trade Name Alvarado PRN Reason Stop Dose Admin Acetaminophen 975 mg 02/26/24 19:40 02/26/24 19:48 Acetaminophen 325 Mg Tablet PO 02/26/24 19:41 975 mg ONCE ONE Administration Ceftriaxone Sodium 1 gm 02/26/24 20:10 02/26/24 20:35 Ceftriaxone Sodium 1 Gm Vial IVPUSH 02/26/24 20:11 1 gm ONCE ONE Administration Clonazepam 1 mg 02/26/24 21:14 02/26/24 21:40 Clonazepam 1 Mg Tablet PO 02/26/24 21:15 1 mg ONCE ONE Administration Albuterol Sulfate 5 mg/ 0 mg 02/26/24 20:25 02/26/24 20:28 Albuterol/Ipratropium 3 ml INHALE 02/26/24 20:26 7.5 each ONCE ONE Administration Magnesium Sulfate/Dextrose 1 gm in 100 mls @ 100 mls/hr 02/26/24 19:18 02/26/24 19:36 Magnesium Sulfate/D5w IV 02/26/24 20:17 100 mls/hr ONCE ONE Administration Medical Decision Making Medical Decision Making [facility] Narrative: Patient is a 64 year old assigned male at with a history of COPD, ADHD, anxiety, HLD, and anemia presenting to the emergency department today with increased shortness of breath. Patient's physical exam was as noted in the physical exam portion of this note. Patient's blood work was unremarkable. Patient's EKG was unremarkable. Patient's chest x-ray showed no acute process. Patient's Influenza test was positive. Patient was ambulated and desaturated down to 86% on room air. Patient was already given a breathing treatment and 120mg of Solu-medrol by EMS prior to arrival. I gave a gram of magnesium and had respiratory therapy implement the bronchodilator protocol. I spoke to the hospitalist who agreed to admission. Patient was given IV ceftriaxone and azithromycin. Patient's clinical presentation is most consistent with Influenza causing hypoxia in the setting of COPD. Patient's clinical presentation is not consistent with sepsis (@2009). I explained my physical exam findings as well as all test results to the patient. I answered all questions asked by the patient. Patient verbalized agreement and understanding with this treatment plan and admission. Differential Diagnosis Differential Diagnoses: The differential diagnosis associated with the presentation includes PNA Hypoxia Influenza Admission/Observation Consideration of admission/observation: Escalation of care including admission/observation considered Patient admitted as noted in the MDM Rationale portion of this note. Consult Healthcare Provider Management of the patient was discussed with: Hospitalist (agreed to admission as noted in the MDM Rationale portion of this note. ) Lab Data [facility] Lab Attestation statement: I reviewed the patient's lab results. My interpretation of these results are in the MDM Rationale portion of this note. 02/26/24 18:31 02/26/24 18:31 Labs: Lab Results 02/26/24 Range/Units 18:31 WBC 3.6 L (4.8-10.8) X10*3/uL RBC 4.41 L (4.60-5.80) X10*6/uL Hgb 13.3 L (14.0-18.0) g/dl Hct 38.9 L (42.0-52.0) % MCV 88.2 (80.0-98.0) fL MCH 30.2 (27.0-33.0) pg MCHC 34.2 (31.0-36.0) g/dl RDW 13.7 (11.0-16.0) % Plt Count 173 D (160-400) X10*3/uL MPV 8.9 L (9.4-12.4) fL Immature Gran % (Auto) 0.0 (0.0-0.4) % Neut % (Auto) 68.2 (45-73) % Lymph % (Auto) 11.4 L (20-40) % B[place] % (Auto) 19.5 H (2-11) % Eos % (Auto) 0.3 (0-4) % Baso % (Auto) 0.6 (0-2) % Lymph # (Auto) 0.4 L (1.2-4.9) X10*3/uL [place] # (Auto) 0.7 (0.1-1.2) X10*3/uL Eos # (Auto) 0.0 (0.0-0.4) X10*3/uL Baso # (Auto) 0.0 (0.0-0.2) X10*3/uL Abs Immat Gran (auto) 0.00 (0.00-0.03) X10*3/uL Absolute Neuts (auto) 2.5 (2.0-8.3) x10*3/uL Absolute Nucleated RBC 0.000 (0.0-0.012) X10*3/uL Nucleated RBC % (auto) 0.0 (0.0-0.2) /100WBC Sodium 138 (135-145) mmol/L Potassium 4.2 (3.3-5.1) mmol/L Chloride 104 (96-108) mmol/L Carbon Dioxide 25 (22-29) mmol/L Anion Gap 13 (12-20) BUN 12 (9-16) mg/dL Creatinine 0.89 (0.5-1.4) mg/dL Estim Creat Clear Calc 115.4 Estimated GFR > 60 Random Glucose 110 (60-115) mg/dL Calcium 8.8 D (8.4-10.2) mg/dL Magnesium 1.9 (1.6-2.6) mg/dL Total Bilirubin 0.5 (0.0-1.0) mg/dL AST 35 (5-37) U/L ALT 25 (0-40) U/L Alkaline Phosphatase 65 (39-117) U/L Troponin I High Sens < 2.7 (<3.5-35.0) ng/L B-Natriuretic Peptide 22 (<100) pg/mL Total Protein 7.6 (6.5-8.0) g/dL Albumin 4.5 (3.5-5.0) g/dL Influenza Type A (PCR) POSITIVE A (Negative) Influenza Type B (PCR) NEGATIVE (Negative) RSV RNA Qual (PCR) NEGATIVE (Negative) SARS-CoV-2 RNA (RT-PCR) NEGATIVE (Negative) Independent Interpretation I performed an independent interpretation of an: EKG and Plain X-Ray Interpretation: My interpretation is in agreement with the radiologist's impression of this imaging study. L CLINICAL HISTORY: dyspnea 1 view chest x-ray Comparison: 10/30/2021 Findings: No consolidation or effusion. Normal size heart. No acute fracture. IMPRESSION: 1. No acute findings. This document has been electronically signed by: Billy Beasley MD on 02/26/2024 20:12:04 Dictated By: Billy Beasley MD Signed By: Electronically signed by Billy Beasley MD 02/26/242012 Vent. Rate: 90 BPM Atrial Rate: 90 BPM P-R Int: 154 ms QRS Dur: 98 ms QT Int: 368 ms P-R-T Axes: 80 52 75 degrees QTcB Int: 450 ms Normal sinus rhythm Normal ECG No previous ECGs available DD/ 38 Radiology Impression Discussion of test interpretation with radiology: I have reviewed the radiologist's reading. Independent Historian Clinical information obtained from an independent historian. History obtained from or confirmed by: EMS (EMS provided additional history and confirmed the history provided by the patient.) Critical Care Time Critical Care Time Critical Care Time: Yes Total Critical Care Time: 36 Attestation: I spent 36 minutes of Critical Care Time with this patient. This does not include time spent on separately reported billable procedures. Discharge Plan Discharge Clinical Impression: Influenza, Hypoxia Patient Disposition: Admitted As Inpatient
[2024-02-26 19:01] LABS: B Type Natriuretic Peptide 22 pg/mL (<100)
[2024-02-26 19:03] LABS: Troponin-I High Sensitivity < 2.7 ng/L (<3.5-35.0)
[2024-02-26 19:16] LABS: Influenza A PCR POSITIVE (Negative); Influenza B PCR NEGATIVE (Negative); Resp Syncy Virus RNA Qual PCR NEGATIVE (Negative); SARS COV2 PCR INHOUSE NEGATIVE (Negative)
[2024-02-26] MEDS: Magnesium Sulfate/D5W 1 GM/100 ML PIGGYBACK IV (19:36)
[2024-02-26] MEDS: Acetaminophen 325 MG TABLET 975 MG PO (19:48)
[2024-02-26 19:59] VITALS: O2SAT 86
--- NOTE | 2024-02-26 20:02 | PC.NURSE ---
ELAINE Boogie saw patient at bedside. discussed flu positive status. ambulation trial performed with desaturation to 86% SpO2 and increased respiratory rate to 26. pt placed on 2L nasal cannula with improvement to 92%. pt sitting in bed in fowlers position eating sandwich. acetaminophen given for 8/10 headachr. call harrison in reach. IV Mg running
[2024-02-26] MEDS: Albuterol Sulfate 5 MG, Albuterol/Iprat 2.5/0.5MG 3 ML 3 ML INHALE (20:28)
[2024-02-26 20:29] VITALS: PULSE 100; RESP 20; O2SAT 93
[2024-02-26] MEDS: Azithromycin 500 MG in 0.9 % Sodium Chloride 250 ML 125 MG IV (20:34)
[2024-02-26] MEDS: cefTRIAXone sodium 1 GM VIAL IVPUSH (20:35)
[2024-02-26 20:45] VITALS: BP 113/75; PULSE 100; RESP 20; TEMP 36.9; O2SAT 93
--- NOTE | 2024-02-26 20:55 | MHC.EDTECH ---
This tech took over care of pt at 1900,rounded and introduced self to pt,vitals taken,lab drawn and sent to lab,belongings list completed,copy placed in chart,call harrison in reach
[2024-02-26 20:58] LABS: VBG Base Excess 0.1 mmol/L; VBG HCO3 23 mmol/L (22-26); VBG pCO2 33 mmHg; VBG pH 7.45 (7.32-7.43); VBG pO2 76 mmHg
[2024-02-26 21:02] LABS: Venous Blood Gas Refer to POC result
--- NOTE | 2024-02-26 21:12 | PM.IMHP ---
History of Present Illness Date of Service: 02/26/24 Chief Complaint: Dyspnea This is a 64-year-old male with pertinent history of asthma-COPD overlap syndrome not on home oxygen, mood disorder, insomnia, tobacco use disorder who presents to the emergency department for evaluation of dyspnea. Patient states his symptoms began 3 days prior to presentation. He has been having dyspnea which is worse with exertion. Also has been having wheezing which is not relieved with his home inhaler. The cough is with intermittent clear sputum production. No sick contacts. No fever, chills, chest pain, palpitations, abdominal pain, changes in urinary or bowel habits. In the emergency department, patient tested positive for influenza a infection. Wheezing despite multiple DuoNeb treatments. Also requiring 2 L supplemental oxygen. Review of Systems Constitutional: Constitutional: Reports fatigue, Reports malaise and Reports weakness Cardiovascular: Cardiovascular: Reports dyspnea on exertion Respiratory: Respiratory: Reports cough, Reports dyspnea on exertion and Reports wheezing Gastrointestinal: Gastrointestinal: Reports no additional gastrointestinal complaints Genitourinary: Genitourinary: Reports no additional male genitourinary complaints Neurologic: Reports weakness Endocrine: Endocrine: Reports fatigue Allergic/Immunologic: Allergic/Immunologic: Reports wheezing [facility] Medical History Asthma-COPD overlap syndrome COPD exacerbation Back pain Peripheral neuropathy Anxiety ADHD (attention deficit hyperactivity disorder) Bronchitis Bleeding hemorrhoids COPD exacerbation Tubular adenoma of colon (~2018) Nicotine dependence, cigarettes, uncomplicated COPD (chronic obstructive pulmonary disease) Family History Mother Diabetes Father No problems noted. Brother No problems noted. Surgical History History of colonoscopy (~08/26/23) History of hemorrhoidectomy History of esophagogastroduodenoscopy (EGD) History of colonoscopy Social History Housing: House Are you a primary career development director to a significant other at home: No Do you presently have visiting nurse or other home services: No Alcohol intake: current Alcohol intake frequency: holidays/special occasions only Patient Tobacco Use Status: Former Tobacco user Tobacco use type: Cigarette Cigarette Packs Per Day: 1 Cigarettes Per Day: 20.0 Years Smoked: 45 Smoked in Last 30 Days: Yes e-Cigarette/Vaping Use: Never Used Use of substances other than those prescribed or required for medical reasons: No Advance Directives: No Advance Directives Information Provided: No Do you have a plan to hurt others: No Plan service: No Current occupational status: unemployed and disabled Cognitive needs: No Hearing needs: No Vision needs: No Meds Allergies Allergy/AdvReac Type Severity Reaction Status Date / Time formoterol Allergy Intermediate headaches Verified 02/26/24 18:36 [Bevespi Aerosphere] and toothaches glycopyrrolate Allergy Intermediate headaches Verified 02/26/24 18:36 [Bevespi Aerosphere] and toothaches trazodone Allergy Intermediate Anxiety Verified 02/26/24 18:36 ibuprofen [From Motrin] Allergy Mild Gastrointestinal Verified 02/26/24 18:36 Upset ferrous sulfate AdvReac Intermediate Constipatio Verified 02/26/24 18:36 n Active Medications: Current Medications Acetaminophen (Acetaminophen 325 Mg Tablet) 650 mg PO Q6H PRN PRN Reason: Pain, Mild 1-3,fever,headache Albuterol/Ipratropium (Albuterol/Iprat 2.5/0.5mg 3 Ml Ampul.Neb) 3 ml INHALE Q4H PRN PRN Reason: Shortness of Breath/Wheezing Albuterol/Ipratropium (Albuterol/Iprat 2.5/0.5mg 3 Ml Ampul.Neb) 3 ml INHALE RQ4H WHILE AWAKE DIPAK Benzonatate (Benzonatate 100 Mg Capsule) 100 mg PO TID PRN PRN Reason: Cough Calcium Carbonate (Calcium Carbonate 750 Mg Tab.Chew) 750 mg PO Q4H PRN PRN Reason: Heartburn Enoxaparin Sodium (Enoxaparin Sodium 40 Mg/0.4 Ml Syringe) 40 mg SUBCUT Q24H DIPAK Azithromycin 500 mg/ Sodium (Chloride) 250 mls @ 125 mls/hr IV ONCE ONE Stop: 02/26/24 22:09 Last Admin: 02/26/24 20:34 Dose: 125 mls/hr Azithromycin 500 mg/ Sodium (Chloride) 250 mls @ 125 mls/hr IV Q24H DIPAK Magnesium Hydroxide (Milk Of Magnesia 30 Ml Oral.Susp) 30 ml PO DAILY PRN PRN Reason: Constipation Melatonin (Melatonin 3 Mg Tablet) 6 mg PO BEDTIME PRN PRN Reason: Insomnia Ondansetron HCl (Ondansetron Hcl 4 Mg/2 Ml Vial) 4 mg IVPUSH Q8H PRN PRN Reason: Nausea and Vomiting Oseltamivir Phosphate (Oseltamivir Phosphate 75 Mg Capsule) 75 mg PO Q12H DIPAK Stop: 03/02/24 08:31 Prednisone (Prednisone 20 Mg Tablet) 40 mg PO DAILY [facility] Sodium Chloride (0.9 % Sodium Chloride Flush 3 Ml Syringe) 3 ml IVFLUSH QSHIFT DIPAK Physical Exam Vital Signs and Narrative: Vital Signs: Last Vital Signs Temp 98.5 F 02/26/24 20:45 Pulse 100 02/26/24 20:45 Resp 20 02/26/24 20:45 BP 113/75 02/26/24 20:45 Pulse Ox 93 02/26/24 20:45 O2 Del Method Nasal Cannula 02/26/24 20:45 O2 Flow Rate 2 02/26/24 20:45 BMI result Body Mass Index 29.5 Middle-aged male lying in bed in mild distress on supplemental oxygen Neck supple, no JVD Regular rate and rhythm, S1-S2 heard Bilateral wheezing present Abdomen soft nontender, no guarding, no rigidity Patient is awake, alert and oriented to self, place, time and person ; no focal motor deficit Psych: Normal mood No pedal edema Results Labs 02/26/24 18:31 02/26/24 18:31 Labs: Laboratory Results - last 24 hr 02/26/24 02/26/24 18:31 20:53 MCV 88.2 MCH 30.2 MCHC 34.2 RDW 13.7 Plt Count 173 D MPV 8.9 L Immature Gran % (Auto) 0.0 Neut % (Auto) 68.2 Lymph % (Auto) 11.4 L [place] % (Auto) 19.5 H Eos % (Auto) 0.3 Baso % (Auto) 0.6 Lymph # (Auto) 0.4 L [place] # (Auto) 0.7 Eos # (Auto) 0.0 Baso # (Auto) 0.0 Abs Immat Gran (auto) 0.00 Absolute Neuts (auto) 2.5 Absolute Nucleated RBC 0.000 Nucleated RBC % (auto) 0.0 VBG pH 7.45 H VBG pCO2 33 VBG pO2 76 VBG HCO3 23 VBG O2 Saturation 97.0 VBG Base Excess 0.1 Anion Gap 13 Estim Creat Clear Calc 115.4 Estimated GFR > 60 Random Glucose 110 Calcium 8.8 D Magnesium 1.9 Total Bilirubin 0.5 AST 35 ALT 25 Alkaline Phosphatase 65 Troponin I High Sens < 2.7 B-Natriuretic Peptide 22 Total Protein 7.6 Albumin 4.5 Influenza Type A (PCR) POSITIVE A Influenza Type B (PCR) NEGATIVE RSV RNA Qual (PCR) NEGATIVE SARS-CoV-2 RNA (RT-PCR) NEGATIVE Assessment and Plan (1) Acute respiratory failure with hypoxia: Status: Acute (2) Asthma-COPD overlap syndrome: Status: Acute (3) Influenza A: Status: Acute Plan This is a 64-year-old male with pertinent history of asthma-COPD overlap syndrome not on home oxygen, mood disorder, insomnia, tobacco use disorder who presents to the emergency department for evaluation of dyspnea. #. Acute hypoxemic respiratory failure due to acute exacerbation of asthma-COPD overlap syndrome in the setting of Influenza A infection: Will admit patient with supplemental oxygen. Initiating scheduled and p.r.n. DuoNebs. Continue home inhalers. Initiating azithromycin for pleiotropic effect. Ordered systemic steroids and Tamiflu. #. Mood disorder: Continue home mood stabilizers #. Tobacco use disorder: NRT while in the hospital Med rec pending DVT prophylaxis: Lovenox Full code Admit as inpatient and will require two night minimum hospital stay for supplemental oxygen, systemic steroids (as above), which is not possible in a lesser acute setting. Quality Stroke Does the patient have a stroke diagnosis?: No VTE Prior VTE?: No VTE Risk Level:: Medical - moderate - high VTE Device Contraindication: Treatment Not Indicated VTE Drug Contraindication: N/A - Med Ordered
[2024-02-26] MEDS: clonazePAM 1 MG TABLET PO (21:40)
[2024-02-26] MEDS: Oseltamivir Phosphate 75 MG CAPSULE PO (21:40)
[2024-02-26] MEDS: Benzonatate 100 MG CAPSULE PO (21:41)
[2024-02-26] MEDS: predniSONE 20 MG TABLET 40 MG PO (21:41)
[2024-02-26] MEDS: Enoxaparin Sodium 40 MG/0.4 ML SYRINGE SUBCUT (21:41)
[2024-02-26] MEDS: Nicotine Polacrilex 2 MG GUM BUCCAL (22:14)
[2024-02-26] MEDS: traMADoL HCL 50 MG TABLET 25 MG PO (22:14)
[2024-02-26] MEDS: Albuterol/Iprat 2.5/0.5MG 3 ML AMPUL.NEB INHALE (22:28)
[2024-02-26 22:29] VITALS: PULSE 95; RESP 18; O2SAT 92
[2024-02-27] VITALS (15 sets, daily range): BP systolic 121–168; BP diastolic 68–80; PULSE 86–100; RESP 16–22; TEMP 36.3–37.3; O2SAT 89–95
--- NOTE | 2024-02-27 00:26 | PC.NURSE ---
pt adamntly refused using urinal or bedside commode. education attempted on wheezing, supplemental O2 requirement, and dypnsea. desat to 83% SpO2 on assessment. returned to bed and recovered back to 92% SpO2 on 2L
[2024-02-27] MEDS: 0.9 % Sodium Chloride Flush 3 ML SYRINGE IVFLUSH ×4 (00:31→20:19)
[2024-02-27] MEDS: Albuterol/Iprat 2.5/0.5MG 3 ML AMPUL.NEB INHALE ×6 (01:01→20:32)
[2024-02-27 05:25] LABS: Hematocrit 38.4 % (42.0-52.0); Hemoglobin 13.1 g/dl (14.0-18.0); Imm Gran Abs Auto 0.01 X10*3/uL (0.00-0.03); Imm Gran Pct Auto 0.4 % (0.0-0.4); Lymphocytes Absolute Auto 0.2 X10*3/uL (1.2-4.9); MANUAL DIFF FLAG SCAN; Mean Corpuscular HGB Conc 34.1 g/dl (31.0-36.0); Mean Corpuscular Volume 88.1 fL (80.0-98.0); Monocytes Absolute Auto 0.1 X10*3/uL (0.1-1.2); Monocytes Percent Auto 5.4 % (2-11); Neutrophils Absolute Auto 1.9 x10*3/uL (2.0-8.3); Neutrophils Percent Auto 85.2 % (45-73); Platelet Count 178 X10*3/uL (160-400); Red Blood Count 4.36 X10*6/uL (4.60-5.80); Red Cell Distribution Width 13.7 % (11.0-16.0); SCAN SMEAR FLAG 1
[2024-02-27 05:27] LABS: White Blood Count 2.2 X10*3/uL (4.8-10.8)
[2024-02-27] MEDS: Nicotine 14 MG PATCH.TD24 TRANSDERMA (05:39)
[2024-02-27 05:40] LABS: Anion Gap 15 (12-20); Blood Urea Nitrogen 14 mg/dL (9-16); Calcium 9.1 mg/dL (8.4-10.2); Carbon Dioxide 20 mmol/L (22-29); Chloride 106 mmol/L (96-108); Estimated Glomerular Filt Rate > 60; Glucose Random 172 mg/dL (60-115); Potassium 4.3 mmol/L (3.3-5.1); Sodium 137 mmol/L (135-145)
[2024-02-27 05:44] LABS: SLIDE REVIEW VERIFIED
--- NOTE | 2024-02-27 08:26 | PHA.MEDREC ---
Pharmacy Consult ? Medication Reconciliation Pharmacy has completed the medication reconciliation.
--- NOTE | 2024-02-27 09:45 | HO.PM.IMPN ---
Subjective Subjective Date of Service: 02/27/24 Interval History: seen and examined still feeling wheezy and sob CHING with min movement reports cough, headache, sinus pain Review of Systems Negative except HPI/interval history. Physical Exam Vital Signs: Vital Signs: Last Vital Signs Temp 99.1 F 02/27/24 09:42 Pulse 97 02/27/24 09:42 Resp 20 02/27/24 09:42 BP 151/70 H 02/27/24 09:42 Pulse Ox 94 02/27/24 09:42 O2 Del Method Nasal Cannula 02/27/24 09:42 O2 Flow Rate 2 02/27/24 09:42 BMI result Body Mass Index 29.5 Const: Other: General - no acute distress, appears comfortable Cardiovascular - regular rate and rhythm, S1-S2 Lungs - diffuse wheezing and rhonchi Abdomen - soft, nontender, no rebound or guarding Extremities - no edema bilaterally Neuro - awake and alert, no focal deficits Objective Data Active Medications Acetaminophen (Acetaminophen 325 Mg Tablet) 975 mg PO Q6H PRN PRN Reason: Pain, Mild 1-3,fever,headache Albuterol/Ipratropium (Albuterol/Iprat 2.5/0.5mg 3 Ml Ampul.Neb) 3 ml INHALE Q4H PRN PRN Reason: Shortness of Breath/Wheezing Last Admin: 02/27/24 05:24 Dose: 3 ml Documented By: VICKY Albuterol/Ipratropium (Albuterol/Iprat 2.5/0.5mg 3 Ml Ampul.Neb) 3 ml INHALE RQ4H WHILE AWAKE [facility] Last Admin: 02/27/24 07:29 Dose: 3 ml Documented By: AZEEM Benzonatate (Benzonatate 100 Mg Capsule) 100 mg PO TID PRN PRN Reason: Cough Last Admin: 02/26/24 21:41 Dose: 100 mg Documented By: KRISHNA Calcium Carbonate (Calcium Carbonate 750 Mg Tab.Chew) 750 mg PO Q4H PRN PRN Reason: Heartburn Enoxaparin Sodium (Enoxaparin Sodium 40 Mg/0.4 Ml Syringe) 40 mg SUBCUT Q24H [facility] Last Admin: 02/26/24 21:41 Dose: 40 mg Documented By: KRISHNA Azithromycin 500 mg/ Sodium (Chloride) 250 mls @ 125 mls/hr IV Q24H [facility] Magnesium Hydroxide (Milk Of Magnesia 30 Ml Oral.Susp) 30 ml PO DAILY PRN PRN Reason: Constipation Melatonin (Melatonin 3 Mg Tablet) 6 mg PO BEDTIME PRN PRN Reason: Insomnia Nicotine (Nicotine 14 Mg Patch.Td24) 14 mg TRANSDERMA DAILY [facility] Last Admin: 02/27/24 05:39 Dose: 14 mg Documented By: KRISHNA Nicotine Polacrilex (Nicotine Polacrilex 2 Mg Gum) 2 mg BUCCAL Q2H PRN PRN Reason: Nicotine Cravings Last Admin: 02/26/24 22:14 Dose: 2 mg Documented By: KRISHNA Ondansetron HCl (Ondansetron Hcl 4 Mg/2 Ml Vial) 4 mg IVPUSH Q8H PRN PRN Reason: Nausea and Vomiting Oseltamivir Phosphate (Oseltamivir Phosphate 75 Mg Capsule) 75 mg PO Q12H [facility] Stop: 03/02/24 08:31 Last Admin: 02/26/24 21:40 Dose: 75 mg Documented By: KRISHNA Prednisone (Prednisone 20 Mg Tablet) 40 mg PO DAILY [facility] Last Admin: 02/26/24 21:41 Dose: 40 mg Documented By: KRISHNA Sodium Chloride (0.9 % Sodium Chloride Flush 3 Ml Syringe) [facility] Last Admin: 02/27/24 00:31 Dose: 3 ml Documented By: BLADIMIR Tramadol HCl (Tramadol Hcl 50 Mg Tablet) 25 mg PO Q6H PRN PRN Reason: Pain, Severe (Pain Scale 7-10) Last Admin: 02/26/24 22:14 Dose: 25 mg Documented By: KRISHNA Labs 02/27/24 05:04 02/27/24 05:04 Labs: Laboratory Results - last 24 hr 02/26/24 02/26/24 02/27/24 18:31 20:53 05:04 MCV 88.2 88.1 MCH 30.2 30.0 MCHC 34.2 34.1 RDW 13.7 13.7 Plt Count 173 D 178 MPV 8.9 L 9.0 L Immature Gran % (Auto) 0.0 0.4 Neut % (Auto) 68.2 85.2 H Lymph % (Auto) 11.4 L 9.0 L [place] % (Auto) 19.5 H 5.4 Eos % (Auto) 0.3 0.0 Baso % (Auto) 0.6 0.0 Lymph # (Auto) 0.4 L 0.2 L [place] # (Auto) 0.7 0.1 Eos # (Auto) 0.0 0.0 Baso # (Auto) 0.0 0.0 Abs Immat Gran (auto) 0.00 0.01 Absolute Neuts (auto) 2.5 1.9 L Absolute Nucleated RBC 0.000 0.000 Nucleated RBC % (auto) 0.0 0.0 Smear Tech's Comments VERIFIED Smear Path Review SEE NOTE VBG pH 7.45 H VBG pCO2 33 VBG pO2 76 VBG HCO3 23 VBG O2 Saturation 97.0 VBG Base Excess 0.1 Anion Gap 13 15 Estim Creat Clear Calc 115.4 107.0 Estimated GFR > 60 > 60 Random Glucose 110 172 H Calcium 8.8 D 9.1 Magnesium 1.9 Total Bilirubin 0.5 AST 35 ALT 25 Alkaline Phosphatase 65 Troponin I High Sens < 2.7 B-Natriuretic Peptide 22 Total Protein 7.6 Albumin 4.5 Influenza Type A (PCR) POSITIVE A Influenza Type B (PCR) NEGATIVE RSV RNA Qual (PCR) NEGATIVE SARS-CoV-2 RNA (RT-PCR) NEGATIVE Assessment and Plan (1) Hypoxia: Status: Acute (2) Influenza: Status: Acute Plan This is a 64-year-old male with pertinent history of asthma-COPD overlap syndrome not on home oxygen, mood disorder, insomnia, tobacco use disorder who presents to the emergency department for evaluation of dyspnea. Acute hypoxemic respiratory failure due to acute exacerbation of asthma-COPD overlap syndrome due to Influenza A infection still with significant wheezing and O2 requirement solu-medrol 40mg BID updrafts PRN/scheduled zithromax tamiflu Mood continue baseline meds Tobacco use disorder: NRT while in the hospital DVT pptx - lovenox Full Code reason for continued hospitalization:pt with diffuse wheezing + supplemental oxygen requirement + dyspnea/hypoxia with min exertion Quality Stroke Does the patient have a stroke diagnosis?: No VTE Prior VTE?: No VTE Risk Level:: Medical - moderate - high VTE Device Contraindication: Treatment Not Indicated VTE Drug Contraindication: N/A - Med Ordered
[2024-02-27] MEDS: clonazePAM 1 MG TABLET PO ×2 (10:32→22:21)
[2024-02-27] MEDS: methylPREDNISolone Sod Succ 40 MG/ML VIAL IVPUSH ×2 (10:32→22:21)
[2024-02-27] MEDS: Oseltamivir Phosphate 75 MG CAPSULE PO ×2 (10:33→20:20)
[2024-02-27] MEDS: Acetaminophen 325 MG TABLET 975 MG PO (10:33)
--- NOTE | 2024-02-27 11:04 | MHC.CM.PN ---
Male 64 DX FLU A requiring 3LO2 via NC. Patient does not have supplemental oxygen at home. He is independent with ADLs. He has a cane uses it PRN. A referral has been sent to [facility] for home health rn and [employer]. DP New [facility] referral. Patient will arrange for transportation home.
[2024-02-27] MEDS: Benzonatate 100 MG CAPSULE PO (12:05)
[2024-02-27] MEDS: Azithromycin 500 MG in 0.9 % Sodium Chloride 250 ML 125 MG IV (20:19)
[2024-02-27] MEDS: Enoxaparin Sodium 40 MG/0.4 ML SYRINGE SUBCUT (20:20)
[2024-02-27] MEDS: Magnesium Oxide 400 MG TABLET 250 MG PO (20:21)
[2024-02-27] MEDS: Zolpidem Tartrate 5 MG TABLET PO (22:26)
[2024-02-28] VITALS (8 sets, daily range): BP systolic 123–133; BP diastolic 55–92; PULSE 69–98; RESP 16–20; TEMP 36.2–36.6; O2SAT 93–96; BMI 25.7
[2024-02-28] MEDS: Albuterol/Iprat 2.5/0.5MG 3 ML AMPUL.NEB INHALE ×2 (05:54→19:10)
[2024-02-28] MEDS: Nicotine 14 MG PATCH.TD24 TRANSDERMA (08:16)
[2024-02-28] MEDS: Magnesium Oxide 400 MG TABLET 250 MG PO ×2 (08:17→21:08)
[2024-02-28] MEDS: guaiFENesin LA 600 MG TAB.ER.12H 1200 MG PO ×2 (08:17→21:07)
[2024-02-28] MEDS: Cholecalciferol (Vitamin D3) 25 MCG TABLET 50 MCG PO (08:17)
[2024-02-28] MEDS: Oseltamivir Phosphate 75 MG CAPSULE PO ×2 (08:18→21:08)
[2024-02-28] MEDS: methylPREDNISolone Sod Succ 40 MG/ML VIAL IVPUSH ×2 (08:18→21:06)
[2024-02-28] MEDS: 0.9 % Sodium Chloride Flush 3 ML SYRINGE IVFLUSH ×2 (08:18→21:08)
[2024-02-28] MEDS: clonazePAM 1 MG TABLET PO ×2 (08:18→21:08)
[2024-02-28] MEDS: Benzonatate 100 MG CAPSULE PO ×2 (09:04→21:08)
--- NOTE | 2024-02-28 11:54 | P.PNIM_ITS ---
Subjective Subjective Date of Service: 02/28/24 Interval History: seen and examined slight improvement compared to yesterday stll with severe cough and wheezing reports lung pain from coughing Review of Systems Negative except HPI/interval history. Physical Exam 2 Vital Signs: Vital Signs: Last Vital Signs Temp 97.2 F 02/28/24 07:24 Pulse 80 02/28/24 07:24 Resp 16 02/28/24 07:24 BP 127/55 L 02/28/24 07:24 Pulse Ox 96 02/28/24 07:24 O2 Del Method Nasal Cannula 02/28/24 07:24 O2 Flow Rate 2 02/28/24 07:24 BMI result Body Mass Index 29.5 Const: Other: General - no acute distress, appears comfortable at rest, tachypnea with min exertion Cardiovascular - regular rate and rhythm, S1-S2 Lungs - diffuse wheezing Abdomen - soft, nontender, no rebound or guarding Extremities - no edema bilaterally Neuro - awake and alert, no focal deficits Objective Data Active Medications Acetaminophen (Acetaminophen 325 Mg Tablet) 975 mg PO Q6H PRN PRN Reason: Pain, Mild 1-3,fever,headache Last Admin: 02/27/24 10:33 Dose: 975 mg Documented By: ROBERT Albuterol/Ipratropium (Albuterol/Iprat 2.5/0.5mg 3 Ml Ampul.Neb) 3 ml INHALE Q4H PRN PRN Reason: Shortness of Breath/Wheezing Last Admin: 02/28/24 05:54 Dose: 3 ml Documented By: KASH Albuterol/Ipratropium (Albuterol/Iprat 2.5/0.5mg 3 Ml Ampul.Neb) 3 ml INHALE RQ4H WHILE AWAKE [facility] Last Admin: 02/28/24 11:20 Dose: Not Given Documented By: BRYANT Non-Admin Reason: Patient Refused Benzonatate (Benzonatate 100 Mg Capsule) 100 mg PO TID PRN PRN Reason: Cough Last Admin: 02/28/24 09:04 Dose: 100 mg Documented By: BURT Calcium Carbonate (Calcium Carbonate 750 Mg Tab.Chew) 750 mg PO Q4H PRN PRN Reason: Heartburn Clonazepam (Clonazepam 1 Mg Tablet) 1 mg PO BID PRN PRN Reason: Anxiety Last Admin: 02/28/24 08:18 Dose: 1 mg Documented By: BURT Enoxaparin Sodium (Enoxaparin Sodium 40 Mg/0.4 Ml Syringe) 40 mg SUBCUT Q24H [facility] Last Admin: 02/27/24 20:20 Dose: 40 mg Documented By: JERRY Guaifenesin (Guaifenesin La 600 Mg Tab.Er.12h) 1,200 mg PO BID [facility] Last Admin: 02/28/24 08:17 Dose: 1,200 mg Documented By: BURT Azithromycin 500 mg/ Sodium (Chloride) 250 mls @ 125 mls/hr IV Q24H [facility] Last Infusion: 02/27/24 22:34 Dose: Infused Documented By: JERRY Magnesium Hydroxide (Milk Of Magnesia 30 Ml Oral.Susp) 30 ml PO DAILY PRN PRN Reason: Constipation Magnesium Oxide (Magnesium Oxide 400 Mg Tablet) 250 mg PO BID [facility] Last Admin: 02/28/24 08:17 Dose: 250 mg Documented By: BURT Melatonin (Melatonin 3 Mg Tablet) 6 mg PO BEDTIME PRN PRN Reason: Insomnia Methylprednisolone Sodium Succinate (Methylprednisolone Sod Succ 40 Mg/Ml Vial) 40 mg IVPUSH Q12H [facility] Last Admin: 02/28/24 08:18 Dose: 40 mg Documented By: BURT Nicotine (Nicotine 14 Mg Patch.Td24) 14 mg TRANSDERMA DAILY [facility] Last Admin: 02/28/24 08:16 Dose: 14 mg Documented By: BURT Nicotine Polacrilex (Nicotine Polacrilex 2 Mg Gum) 2 mg BUCCAL Q2H PRN PRN Reason: Nicotine Cravings Last Admin: 02/26/24 22:14 Dose: 2 mg Documented By: KRISHNA Ondansetron HCl (Ondansetron Hcl 4 Mg/2 Ml Vial) 4 mg IVPUSH Q8H PRN PRN Reason: Nausea and Vomiting Oseltamivir Phosphate (Oseltamivir Phosphate 75 Mg Capsule) 75 mg PO Q12H [facility] Stop: 03/02/24 08:31 Last Admin: 02/28/24 08:18 Dose: 75 mg Documented By: BURT Sodium Chloride (0.9 % Sodium Chloride Flush 3 Ml Syringe) 3 ml IVFLUSH QSHIFT [facility] Last Admin: 02/28/24 08:18 Dose: 3 ml Documented By: BURT Tramadol HCl (Tramadol Hcl 50 Mg Tablet) 25 mg PO Q6H PRN PRN Reason: Pain, Severe (Pain Scale 7-10) Last Admin: 02/26/24 22:14 Dose: 25 mg Documented By: KRISHNA Vitamin D (Cholecalciferol (Vitamin D3) 25 Mcg Tablet) 50 mcg PO DAILY [facility] Last Admin: 02/28/24 08:17 Dose: 50 mcg Documented By: BURT Zolpidem Tartrate (Zolpidem Tartrate 5 Mg Tablet) 5 mg PO BEDTIME PRN PRN Reason: Insomnia Last Admin: 02/27/24 22:26 Dose: 5 mg Documented By: JERRY Labs 02/27/24 05:04 02/27/24 05:04 Assessment and Plan (1) Hypoxia: Status: Acute (2) Influenza: Status: Acute Plan This is a 64-year-old male with pertinent history of asthma-COPD overlap syndrome not on home oxygen, mood disorder, insomnia, tobacco use disorder who presents to the emergency department for evaluation of dyspnea. Acute hypoxemic respiratory failure due to acute exacerbation of asthma-COPD overlap syndrome due to Influenza A infection wean o2 as tolerated, on 2L this AM solu-medrol 40mg BID updrafts PRN/scheduled zithromax tamiflu cough meds Mood continue baseline meds Tobacco use disorder: NRT while in the hospital DVT pptx - lovenox Full Code reason for continued hospitalization:weaning of oxygen, transition to oral meds; if able to wean off o2, d/c anticipated next 24 hours Quality Stroke Does the patient have a stroke diagnosis?: No VTE Prior VTE?: No VTE Risk Level:: Medical - moderate - high VTE Device Contraindication: Treatment Not Indicated VTE Drug Contraindication: N/A - Med Ordered
[2024-02-28] MEDS: Azithromycin 500 MG in 0.9 % Sodium Chloride 250 ML 125 MG IV (21:03)
[2024-02-28] MEDS: Enoxaparin Sodium 40 MG/0.4 ML SYRINGE SUBCUT (21:06)
[2024-02-28] MEDS: Zolpidem Tartrate 5 MG TABLET PO (21:12)
[2024-02-29] MEDS: Benzonatate 100 MG CAPSULE PO (05:49)
[2024-02-29 07:04] VITALS: PULSE 69; RESP 16; O2SAT 96
[2024-02-29] MEDS: Albuterol/Iprat 2.5/0.5MG 3 ML AMPUL.NEB INHALE ×2 (07:04→11:15)
[2024-02-29] MEDS: Magnesium Oxide 400 MG TABLET 250 MG PO (07:34)
[2024-02-29] MEDS: clonazePAM 1 MG TABLET PO (07:34)
[2024-02-29] MEDS: Nicotine 14 MG PATCH.TD24 TRANSDERMA (07:34)
[2024-02-29] MEDS: guaiFENesin LA 600 MG TAB.ER.12H 1200 MG PO (07:34)
[2024-02-29] MEDS: Oseltamivir Phosphate 75 MG CAPSULE PO (07:35)
[2024-02-29] MEDS: Cholecalciferol (Vitamin D3) 25 MCG TABLET 50 MCG PO (07:35)
[2024-02-29] MEDS: 0.9 % Sodium Chloride Flush 3 ML SYRINGE IVFLUSH (07:40)
[2024-02-29 08:00] VITALS: BP 121/75; PULSE 87; RESP 18; TEMP 36.8; O2SAT 95
--- NOTE | 2024-02-29 10:39 | PC.RT ---
Pt set up with home nebulizer unit. signed and paperwork sent to [employer].
[2024-02-29] MEDS: methylPREDNISolone Sod Succ 40 MG/ML VIAL IVPUSH (10:43)
[2024-02-29 11:15] VITALS: PULSE 87; RESP 18; O2SAT 98
[2024-02-29 11:20] VITALS: BP 138/76; PULSE 81; RESP 18; TEMP 36.6; O2SAT 96
--- NOTE | 2024-02-29 11:48 | P.DS_ITS ---
DS: Providers Provider Date of Service: 02/29/24 Date of admission: 02/26/24 20:31 Date of discharge: 02/29/24 Primary care physician: Armani Avelar PA-C DS: Diagnosis Discharge Diagnosis (1) Hypoxia: Status: Acute (2) Influenza: Status: Acute (3) Acute respiratory failure with hypoxia: Status: Acute (4) Asthma-COPD overlap syndrome: Status: Acute DS: Summary Hospital Course Hospital Course: Admission note HPI This is a 64-year-old male with pertinent history of asthma-COPD overlap syndrome not on home oxygen, mood disorder, insomnia, tobacco use disorder who presents to the emergency department for evaluation of dyspnea. Patient states his symptoms began 3 days prior to presentation. He has been having dyspnea which is worse with exertion. Also has been having wheezing which is not relieved with his home inhaler. The cough is with intermittent clear sputum production. No sick contacts. No fever, chills, chest pain, palpitations, abdominal pain, changes in urinary or bowel habits. In the emergency department, patient tested positive for influenza a infection. Wheezing despite multiple DuoNeb treatments. Also requiring 2 L supplemental oxygen. Hospital course The patient was admitted for treatment of COPD exacerbation and acute hypoxemia secondary to Influenza A infection treated with IV steroids, Bronchodilator nebulizers and cough medicine along with Tamiflu and Azithromycin with good response over the course of hospital stay as patient was weaned off Oxygen and was able to ambulate on RA with no reported dyspnea. To be discharged home on Tamifle and new nebulizer machine with nebulizer treatment to use as needed along with tapering dose Prednisone and advised to quit smoking. Discharge plan Use nebulizer 3-4 times daily for the next 3 days then as needed Continue Tapering dose Prednisone as prescribed Finish 3 more days of Tamiflu Cough medicine as needed Quit smoking Time Attestation Discharge Coordination Time (in mins): 42 Quality: Safe Use of Opioids Does Pt have an Active Cancer Diagnosis on the Problem List?: No Quality: Stroke Does the patient have a stroke diagnosis?: No Physical Exam Vital Signs: Vital Signs: Last Vital Signs Temp 97.9 F 02/29/24 11:20 Pulse 81 02/29/24 11:20 Resp 18 02/29/24 11:20 BP 138/76 02/29/24 11:20 Pulse Ox 96 02/29/24 11:20 O2 Del Method Room Air 02/29/24 11:20 O2 Flow Rate 2 02/28/24 07:24 BMI result Body Mass Index 25.7 Const: Other: Constitutional : Awake, interactive, not in distress Neck : Normal inspection, Supple Cardiovascular : RRR, no JVP, no lower extremity edema Respiratory : good bilateral air entry, no crackles, scattered fine wheezes bilaterally Gastrointestinal: soft, lax, Normal bowel sounds, Non tender Skin : Warm, Dry Neurological : Alert & oriented x3, No focal deficit Discharge Plan Discharge Anticipated Discharge Date/Time: 02/29/24 11:42 Patient Disposition: Home, Self-Care Discharge Diagnosis: Influenza infection COPD exacerbation Referrals: Armani Avelar PA-C [Primary Care Provider] - 1 Week Discharge Medications: New ipratropium-albuterol 0.5 mg-3 mg(2.5 mg base)/3 mL Solution For Nebulization 3 ml inhalation Q4H PRN (Reason: Shortness Of Breath/Wheezing) Qty: 90 0RF oseltamivir [Tamiflu] 75 mg Capsule 75 mg PO Q12H Qty: 4 0RF Cough Relief 15 mg/5 mL liquid 15 mg PO Q8H PRN (Reason: cough) Qty: 118 1RF guaifenesin [Expectorant] 200 mg tablet 200 mg PO Q4H PRN (Reason: cough) Qty: 20 0RF prednisone 10 mg tablet See Taper PO DIRECTED Qty: 30 0RF Taper: Prednisone 40 mg daily for 3 Days and 0 Hour 30 mg daily for 3 Days and 0 Hour 20 mg daily for 3 Days and 0 Hour 10 mg daily for 3 Days and 0 Hour Rx Instructions: see taper instructions Continued omega 2-sow-syx-fish oil [Fish Oil] 300-1,000 mg capsule,delayed release(DR/EC) 1 cap PO DAILY 90 Days Qty: 90 1RF fluticasone propion-salmeterol 250-50 mcg/dose blister with device 1 inh inhalation Q12H 90 Days Qty: 180 3RF cholecalciferol (vitamin D3) 50 mcg (2,000 unit) capsule 50 mcg PO DAILY 90 Days Qty: 90 1RF albuterol sulfate [Ventolin HFA] 90 mcg/actuation HFA aerosol inhaler 2 puff inhalation Q4-6H 30 Days Qty: 18 3RF acetaminophen 325 mg tablet 650 mg PO Q6H 30 Days Qty: 240 3RF clonazepam 1 mg tablet 1 mg PO BID PRN (Reason: Anxiety) zolpidem 12.5 mg tablet,ext release multiphase 12.5 mg PO BEDTIME PRN (Reason: Insomnia) magnesium oxide 250 mg magnesium tablet 250 mg PO BID 30 Days Qty: 60 4RF menthol-zinc oxide [Calmoseptine] 0.44-20.6 % ointment 1 appl topical QID PRN (Reason: skin irritation) 15 Days Qty: 113 3RF Spiriva Respimat 2.5 mcg/actuation mist 2 puff inhalation DAILY 30 Days Qty: 4 5RF Discharge Orders: Discharge Order (Routine); Ordered 02/29/24 Ordered By: Alison Washington Diet: Advance to usual diet Activity on Discharge: As tolerated Stand Alone Forms: Patient Portal Discharge page Print Language: Setswana Care Plan Goals: Use nebulizer 3-4 times daily for the next 3 days then as needed Continue Tapering dose Prednisone as prescribed Finish 3 more days of Tamiflu Cough medicine as needed Quit smoking Health Concerns: Influenza COPD Plan of Treatment: Tamiflu nebulizer Assessment: as above
--- NOTE | 2024-02-29 11:53 | MHC.CM.PN ---
Addendum entered by Tamara Santos 02/29/24 13:33: Patient was not able to arrange transportation home. [facility] will provide transportation home via shuttle. A coupon was given to the patient. The trip is scheduled for 2pm. Original Note: Patient is discharged to home self care. He has arranged for private transport home.
--- NOTE | 2024-02-29 16:20 | PC.NURSE ---
Pt called the unit screaming at this life underwriter through the phone that his insurance will not pay for his cough syrup that was ordered. Attempted to calm and redirect patient that he needs to call his insurance company for his drug coverages. Pt appears manic on the phone call and can't not understand this life underwriter. He states that he only has three dollars to his name and can't afford mediations. This patient continues to yell and scream on the phone and threatened his primary RN today with his radio interference investigator. Then he abruptly hung up the phone.
== END 2024-02-29 13:52 | disposition home or self-care (01) | DRG 113 ==
LOC: HO.ED 19:05 → HO.EDOVER 20:52 → HO.S3 02-27 05:31
PROVIDERS: Physician Assistant Medical; Admitting Provider Student in an Organized Health Care Education/Training Program; Emergency Provider Internal Medicine; PCP Physician Assistant; Visit Provider Student in an Organized Health Care Education/Training Program
DX: J10.1 Influenza due to other identified influenza virus with other respiratory manifestations (principal); J44.1 Chronic obstructive pulmonary disease with (acute) exacerbation; F39 Unspecified mood [affective] disorder; J45.901 Unspecified asthma with (acute) exacerbation; F17.210 Nicotine dependence, cigarettes, uncomplicated; Z71.6 Tobacco abuse counseling; Z79.51 Long term (current) use of inhaled steroids; Z79.899 Other long term (current) drug therapy
CPT/HCPCS: 0241U; 36415; 71045; 80048; 80053; 82803; 83735; 83880; 84484; 85025; 93005; 94640; 99285; J0456; J0696; J1650; J2919; J3475

== ENCOUNTER → 2024-02-26 18:21 | Outpatient (BNV) | payer OTHER, SELFPAY | PROVIDERS: Admitting Provider Student in an Organized Health Care Education/Training Program; Emergency Provider Internal Medicine; PCP Physician Assistant; Visit Provider Internal Medicine Cardiovascular Disease | DX: R06.09 Other forms of dyspnea (principal) | CPT/HCPCS: 93010 ==

== ENCOUNTER → 2024-02-26 18:21 | Outpatient (BNV) | payer OTHER, SELFPAY | PROVIDERS: Admitting Provider Student in an Organized Health Care Education/Training Program; Emergency Provider Internal Medicine; PCP Physician Assistant; Visit Provider Radiology Diagnostic Radiology | DX: R06.00 Dyspnea, unspecified (principal) | CPT/HCPCS: 71045 ==

== ENCOUNTER → 2024-02-26 20:31 | Outpatient (BNV) | payer OTHER, SELFPAY | PROVIDERS: Admitting Provider Student in an Organized Health Care Education/Training Program; Emergency Provider Internal Medicine; PCP Physician Assistant; Visit Provider Student in an Organized Health Care Education/Training Program | DX: J96.01 Acute respiratory failure with hypoxia (principal); J44.89 Other specified chronic obstructive pulmonary disease; J10.1 Influenza due to other identified influenza virus with other respiratory manifestations | CPT/HCPCS: 99222; 99232; 99239 ==

== ENCOUNTER 2024-03-05 10:28 | Outpatient (AMB) | payer OTHER, SELFPAY ==
--- NOTE | 2024-03-05 10:45 | MHC.OFFVIS ---
Vital Signs 03/05/24 10:47 Height 6 ft 4 in Weight 219 lb 5.759 oz BMI 26.7 BP 140/80 H Blood Pressure Location Lt brachial Position Sitting Pulse 92 Pulse Source Pulse Oximeter Pulse Oximetry (%) 96 Oxygen Delivery Method Room Air Intake Visit Reasons: f/u HH Intake Note: pt is here for HH follow up and states he feels like he needs oxygen,, he cannot breath, stairs are a real challenge, if lying down, this causes an issue also. Steamtable Worker Required: No Allergies formoterol [Bevespi Aerosphere] Allergy (Intermediate, Verified 03/05/24 16:48) headaches and toothaches glycopyrrolate [Bevespi Aerosphere] Allergy (Intermediate, Verified 03/05/24 16:48) headaches and toothaches trazodone Allergy (Intermediate, Verified 03/05/24 16:48) Anxiety ibuprofen [From Motrin] Allergy (Mild, Verified 03/05/24 16:48) Gastrointestinal Upset ferrous sulfate Adverse Reaction (Intermediate, Verified 03/05/24 16:48) Constipation Medication List - Last Reconciled 03/05/24 by Vargas Vega MD acetaminophen 650 mg (2 x 325 mg) PO Q6H 30 days albuterol sulfate 90 mcg/actuation (Ventolin HFA) 2 puffs inhalation Q4-6H 30 days cholecalciferol (vitamin D3) 50 mcg PO DAILY 90 days clonazepam 1 mg PO BID PRN dextromethorphan HBr (Cough Relief) 15 mg (5 mL) PO Q8H PRN fluticasone propion-salmeterol 250-50 mcg/dose 1 inh inhalation Q12H 90 days guaifenesin (Expectorant) 200 mg PO Q4H PRN ipratropium-albuterol 0.5 mg-3 mg(2.5 mg base)/3 mL 3 mL inhalation Q4H PRN magnesium oxide 250 mg PO BID 30 days menthol-zinc oxide 0.44-20.6 % (Calmoseptine) 1 appl topical QID PRN 15 days nicotine (polacrilex) 2 mg buccal Q8H PRN 15 days omega 0-dlr-mcm-fish oil 300-1,000 mg (Fish Oil) 1 cap PO DAILY 90 days oseltamivir (Tamiflu) 75 mg PO Q12H prednisone See Taper mg PO DIRECTED tiotropium bromide 2.5 mcg/actuation (Spiriva Respimat) 2 puffs inhalation DAILY 30 days zolpidem ER 12.5 mg PO BEDTIME PRN Do you need a note to return to daycare/school/sports/work: No HPI HPI f/u HH: Details: THIS 64 YEARS OLD GENTLEMAN WITH ADVANCED CHRONIC OBSTRUCTIVE PULMONARY DISEASE, HAS BEEN TREATED FOR AN ACUTE EXACERBATION OF COPD, IN [facility] ON DISCHARGED ONLY 3 DAYS AGO. HE HAD INFLUENZA TYPE A INFECTION , WAS TREATED WITH A COURSE OF IV SOLU-MEDROL, OXYGEN SUPPLEMENTATION AND AT THE TIME OF DISCHARGE HE WAS WEANED OFF OXYGEN, 6 MINUTES WALK TEST TO WAS NEGATIVE FOR EXERCISE INDUCED HYPOXEMIA. HE WAS DISCHARGED ON A TAPERING DOSE OF PREDNISONE, 5 MG . HE IS DOWN TO 3 TABLETS A DAY TODAY. COMES IN TO THE OFFICE FOR FOLLOW-UP. FULL OF COMPLAINTS ABOUT THE RAMESH OF MEDICATION. COMPLAINS OF STILL BEING CONGESTED, HE THINKS HE NEEDS OXYGEN. BUT HE DENIES ANY FEVER OR CHILLS AND COUGH IS MOSTLY NONPRODUCTIVE. [facility] Medical History Asthma-COPD overlap syndrome COPD exacerbation Back pain Peripheral neuropathy Anxiety ADHD (attention deficit hyperactivity disorder) Bronchitis Bleeding hemorrhoids COPD exacerbation Tubular adenoma of colon (~2018) Nicotine dependence, cigarettes, uncomplicated COPD (chronic obstructive pulmonary disease) Surgical History History of colonoscopy (~08/26/23) History of hemorrhoidectomy History of esophagogastroduodenoscopy (EGD) History of colonoscopy Family History Mother Diabetes Father No problems noted. Brother No problems noted. Social History Household Members: None Housing: Apartment Are you a primary home care nurse to a significant other at home: No Do you presently have visiting nurse or other home services: No Alcohol intake: current Alcohol intake frequency: holidays/special occasions only Patient Tobacco Use Status: Current everyday Tobacco user Tobacco use type: Cigarette Cigarette Packs Per Day: 1 Cigarettes Per Day: 10 Years Smoked: 45 e-Cigarette/Vaping Use: Never Used service: No Current occupational status: unemployed and disabled Cognitive needs: No Hearing needs: No Vision needs: No Review of Systems Const All systems reviewed & are unremarkable except as noted in HPI and below Eyes Reports no additional complaints ENT Reports no additional complaints Card Denies chest pain, Denies irregular heart rhythm, Denies leg edema and Denies lightheadedness Resp Reports as per HPI GI Reports no additional complaints Reports no additional complaints Musc Reports no additional complaints Skin/Breast Reports system reviewed and no additional complaints, except as documented Neuro Reports no additional complaints Psych Reports anxiety Endo Reports no additional complaints Chandra/Lymph Reports no additional complaints Aller/Immun Reports no additional complaints Physical Exam Vital Signs: Last Vital Signs Pulse 92 03/05/24 10:47 BP 140/80 H 03/05/24 10:47 Pulse Ox 96 03/05/24 10:47 Oxygen Delivery Method Room Air 03/05/24 10:47 BMI result Body Mass Index 26.7 Const General: healthy appearing, comfortable, no acute distress, alert and awake Orientation/consciousness: patient oriented x3 HEENT Head: Yes normal to inspection General nose exam: No nasal polyps present and No nasal discharge present Face and sinus: Yes sinuses nontender Mouth: oropharynx normal Throat: Yes posterior oropharynx normal Eyes General: appearance normal, both eyes and all related structures Neck Neck: Yes normal visual inspection, Yes no lymphadenopathy, Yes trachea midline and Yes no JVD Thyroid: Thyroid normal Chest Chest palpation & inspection: normal inspection of the chest and normal palpation of entire chest wall Resp Other: PERCUSSION NOTE IS RESONANT, BREATH SOUNDS ARE DISTANT WITH PROLONGED EXPIRATORY PHASE. BOTH LUNGS ARE CLEAR EXCEPT A FEW SCATTERED INSPIRATORY WHEEZES IN THE UPPER PART OF THE CHEST. Cardio Palpation: normal PMI Rate: regular rate Rhythm: regular rhythm Heart sounds: no gallops and no murmurs Peripheral pulses: Peripheral pulses 2+ throughout GI Palpation (GI): Soft to palpation, nontender, No hepatosplenomegaly present and no masses Auscultation: normal bowel sounds Back/Spine/Pelvis Thoracic/Lumbar Spine: thoracic and lumbar spine normal to inspection Skin General skin exam: no rashes or lesions noted Neuro General: patient oriented x3 and no focal motor deficits Cranial nerves: Yes CN's II-XII intact bilaterally Extrem General: Yes normal to inspection, Yes no clubbing, cyanosis or edema and Yes no calf tenderness Psych Appearance: grossly normal and well kempt Speech and movement: Normal speech and movement present Affect: Anxious affect present Results Reviewed Results Reviewed: COURSE IN THE HOSPITAL IS REVIEWED. CHEST X-RAY WAS NEGATIVE FOR PNEUMONIA. Assessment & Plan Assessment & Plan (1) Asthma-COPD overlap syndrome: Comment: HE HAS LONGSTANDING HISTORY OF COMBINATION OF ASTHMA AND COPD. ASTHMA IS MAINLY ALLERGIC IN TYPE. AND HIS COPD IS SECONDARY TO HIS LONG-TERM SMOKING. HE HAS BEEN TREATED FOR AN ACUTE EXACERBATION. STILL NOT FEELING BETTER, CLAIMS OF FEELING CONGESTED. HE WAS INSISTENT THAT HE WAS LOW ON OXYGEN. HOWEVER THE O2 SAT IN THE OFFICE WAS BETWEEN 94-96%. WHEN HE CAME WALKING TO THE OFFICE THE O2 SAT WAS STILL IN MID 90S. Code(s): J44.89 - Other specified chronic obstructive pulmonary disease Category: Medical Plan: EXPLAINED TO HIM THAT HIS O2 SAT WAS OKAY. ADVISED TO CONTINUE PREDNISONE TAPER PRESCRIBED FROM THE HOSPITAL. NO NEED OF ANY. ADDITIONAL ANTIBIOTIC AT THIS TIME CONTINUE IPRATROPIUM-ALBUTEROL SOLUTION IN THE NEBULIZER 3 TIMES A DAY FLUTICASONE-SALMETEROL 250-51 INHALATION B.I.D.. MAY USE GUAIFENESIN EXPECTORANT 200 MG Q.4 HOURS P.R.N. (2) Influenza A: Comment: HE CHECKED POSITIVE FOR INFLUENZA A SO HIS ACUTE EXACERBATION WAS THOUGHT TO BE DUE TO ACUTE VIRAL INFECTION Code(s): J10.1 - Influenza due to other identified influenza virus with other respiratory manifestations Category: Medical Plan: HE HAS BEEN TREATED WITH A COURSE OF TAMIFLU. (3) COPD (chronic obstructive pulmonary disease): Comment: HE DOES HAVE RELATIVELY SEVERE OBSTRUCTIVE AIRWAY DISORDER, WITH GOOD RESPONSe to 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 SEE UNDER ASTHMA COPD OVERLAP SYNDROME Code(s): J44.9 - Chronic obstructive pulmonary disease, unspecified Category: Medical Qualifiers: COPD type: chronic bronchitis Chronic bronchitis type: simple Qualified Code(s): J41.0 - Simple chronic bronchitis Plan: ABOVE (4) Nicotine dependence, cigarettes, uncomplicated: Comment: HISTORY OF SMOKING 1-2 PACKS A DAY FOR LAST 40-45 YEARS. He had tried to quit, but went back to smoking. Claims that he smokes 1-2 cigarettes a day at present . Code(s): F17.210 - Nicotine dependence, cigarettes, uncomplicated Category: Medical Plan: Again advise that he should try to quit completely Coding Level of Care Code Est Pt Level 3 (05248) Diagnoses Asthma-COPD overlap syndrome J44.89 Influenza A J10.1 Simple chronic bronchitis J41.0 COPD type: chronic bronchitis Chronic bronchitis type: simple Nicotine dependence, cigarettes, uncomplicated F17.210
[2024-03-05 10:47] VITALS: BP 140/80; PULSE 92; O2SAT 96; BMI 26.7
--- OUTSIDE RECORDS SUMMARY | 2024-03-05 15:11 | XMS_ITS | Encounter Summary ---
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
--- OUTSIDE RECORDS SUMMARY | 2024-03-05 15:11 | XMS_ITS | Encounter Summary ---
Author Organization [facility] Address [facility] [place] [address] Care Team Providers Care Virtual Assistant Name Role Phone Lobito Garcia MD Primary Care Provider Soledad vailable Encounter Details Date Type Department Care Team Description 12/26/2018 Release of Information Medical Records [address] [place] [id number] Abstract, Provider Social History Tobacco Use Types Packs/Day Years Used Date Smoking Tobacco: Never Assessed Sex Assigned at Date Recorded Not on file documented as of this encounter Plan of Treatment Not on file documented as of this encounter Visit Diagnoses Not on filedocumented in this encounter Care Teams Virtual Assistant Relationship Specialty Start Date End Date Lobito Garcia MD PCP - General Internal Medicine 11/22/18 documented as of this encounter
== END 2024-03-05 11:26 | disposition home or self-care (01) ==
PROVIDERS: PCP Physician Assistant; Visit Provider Internal Medicine
DX: J44.89 Other specified chronic obstructive pulmonary disease (principal); J10.1 Influenza due to other identified influenza virus with other respiratory manifestations; F17.210 Nicotine dependence, cigarettes, uncomplicated
CPT/HCPCS: 99213

== ENCOUNTER → 2024-03-05 10:28 | Outpatient (BNVA) | payer OTHER, SELFPAY | PROVIDERS: PCP Physician Assistant; Visit Provider Internal Medicine | DX: J41.0 Simple chronic bronchitis (principal); J10.1 Influenza due to other identified influenza virus with other respiratory manifestations; F17.210 Nicotine dependence, cigarettes, uncomplicated; Z99.81 Dependence on supplemental oxygen | CPT/HCPCS: 99212 ==

== ENCOUNTER 2024-03-08 14:42 | Outpatient (AMB) | payer OTHER, SELFPAY ==
--- NOTE | 2024-03-08 14:44 | MHC.OFFVIS ---
Vital Signs 03/08/24 14:47 Height 6 ft 4 in Weight 219 lb 5.759 oz BMI 26.7 BP not taken reason Medical Reason Intake Visit Reasons: Bleeding hemorrhoids, lots of pain Intake Note: This patient presents for bleeding hemorrhoids, pain. Pt c/o; pain, unable to sit, rectal bleeding. Solicitor Patent Required: No Accompanied by: Self / Same As Patient Allergies formoterol [Bevespi Aerosphere] Allergy (Intermediate, Verified 03/08/24 14:48) headaches and toothaches glycopyrrolate [Bevespi Aerosphere] Allergy (Intermediate, Verified 03/08/24 14:48) headaches and toothaches trazodone Allergy (Intermediate, Verified 03/08/24 14:48) Anxiety ibuprofen [From Motrin] Allergy (Mild, Verified 03/08/24 14:48) Gastrointestinal Upset ferrous sulfate Adverse Reaction (Intermediate, Verified 03/08/24 14:48) Constipation HPI HPI Bleeding hemorrhoids, lots of pain: Details: 64-year-old male here for follow-up for bleeding hemorrhoids. He is well known to me. I had done his colonoscopy last August, because of his bleeding hemorrhoids. He does have a history of hemorrhoidectomy in the remote past says this was ?botched? and had to go back to the operating room because of sepsis. He did not want the surgery last year. However, he mentioned that he has been having more bleeding the past few months. He also says that his hemorrhoids have been progressively getting worse with regards to pain. She says that they were very swollen a few weeks ago and he was in severe pain. He says that this has improved some although he describes pain still especially with sitting down He had describes frequent bleeding with his bowel movements. He said he has been miserable for the past few weeks. He does have significant COPD and was in the hospital because of exacerbation from February 25 to February 28. He says he follows Dr. Vega for his lung issues. [facility] Medical History Asthma-COPD overlap syndrome COPD exacerbation Back pain Peripheral neuropathy Anxiety ADHD (attention deficit hyperactivity disorder) Bronchitis Bleeding hemorrhoids COPD exacerbation Tubular adenoma of colon (~2019) Nicotine dependence, cigarettes, uncomplicated COPD (chronic obstructive pulmonary disease) Surgical History History of colonoscopy (~08/26/23) History of hemorrhoidectomy History of esophagogastroduodenoscopy (EGD) History of colonoscopy Family History Mother Diabetes Father No problems noted. Brother No problems noted. Social History Household Members: None Housing: Apartment Are you a primary career placement specialist to a significant other at home: No Do you presently have visiting nurse or other home services: No Alcohol intake: current Alcohol intake frequency: holidays/special occasions only Patient Tobacco Use Status: Current everyday Tobacco user Tobacco use type: Cigarette Cigarette Packs Per Day: 1 Cigarettes Per Day: 10 Years Smoked: 45 e-Cigarette/Vaping Use: Never Used service: No Current occupational status: unemployed and disabled Cognitive needs: No Hearing needs: No Vision needs: No Review of Systems Const Denies chills and Denies fever(s) Card Denies chest pain, Reports dyspnea and Denies dyspnea on exertion Resp Reports cough, Reports dyspnea and Denies dyspnea on exertion GI Reports hematochezia and Denies change in bowel habits Denies hematuria and Denies difficulty urinating Musc Denies back pain and Denies limited range of motion Neuro Denies focal weakness and Denies convulsions Psych Denies depression and Denies mood swings Physical Exam Const Other: Appears uncomfortable Resp Other: Has diffuse wheezing Cardio Rate: regular rate GI Other: Rectal exam shows swollen hemorrhoids on both the left and right side, tender so digital exam and anoscopy was deferred Palpation (GI): Soft to palpation Assessment & Plan Assessment & Plan (1) Bleeding hemorrhoids: Code(s): K64.9 - Unspecified hemorrhoids Category: Medical Plan: He is well known to me for his hemorrhoid issues. He did not want to proceed with hemorrhoidectomy last year because he was anxious about having pain postop. He also has had a bad experience with the hemorrhoidectomy about 15 years ago. He now is he is here for the same hemorrhoid issues. However, he says he has been miserable the past few weeks because of pain, swelling as well as bleeding. He now wants to proceed with hemorrhoidectomy. I explained the technique of this procedure. I had a long discussion with him about the risks including but not limited to bleeding, infections, postop pain, as well as the benefits and alternatives. He says he is still familiar with the procedure. He does describe having a postop infection 15 years ago after his hemorrhoidectomy. He does have significant wheezing. He is going to be seen by his primary care physician this Tuesday. Coding Level of Care Code Est Pt Level 3 (06805) Diagnoses Bleeding hemorrhoids K64.9
[2024-03-08 14:47] VITALS: BMI 26.7
--- OUTSIDE RECORDS SUMMARY | 2024-03-08 18:37 | XMS_ITS | Clinical Summary ---
Author Organization [facility] Address [address] [place] [address] Care Team Providers Care Safety Relief Valve Technician Name Role Phone Lobito Garcia MD Primary Care Provider Soledad vailable Allergies No known active allergies Medications Medication Sig Dispensed Refills Start Date End Date Status Ventolin HFA 108 (90 Base) MCG/ACT Aero Soln 0 11/11/2022 Active Cholecalciferol (Vitamin D3) 50 MCG (2000 UT) Cap Take 1 Capsule by mouth daily. 0 10/26/2022 Active clonazepam (KLONOPIN) 1 MG tablet 0 10/29/2022 Active cyclobenzaprine (FLEXERIL) 10 MG tablet TAKE 1 TABLET BY MOUTH AT BEDTIME FOR MUSCLE SPASM FOR 15 DAYS 0 10/20/2022 Active Flovent Diskus 250 MCG/ACT AEROSOL POWDER,BREATH ACTIVATED 0 11/11/2022 Active ketorolac (ACULAR) 0.5 % ophthalmic solution INSTILL 1 DROP IN LEFT EYE 4 TIMES A DAY BEGIN 6 HOURS AFTER CATARACT SURGERY,THEN USE UNTIL EMPTYY 0 09/22/2022 Active lidocaine (LIDODERM) 5 % APPLY 1 PATCH TOPICALLY DAILY LEAVE ON MOST PAINFUL AREA FOR UP TO 12 HOURS 0 08/23/2022 Active meloxicam (MOBIC) 15 MG tablet 0 11/11/2022 Active omega-3 acid ethyl esters (LOVAZA) 1 g capsule TAKE 1 CAPSULE BY MOUTH EVERY DAY FOR 90 DAYS 0 10/26/2022 Active trimethoprim-polymy concetta b (POLYTRIM) ophthalmic solution PLEASE SEE ATTACHED FOR DETAILED DIRECTIONS 0 09/22/2022 Active prednisoLONE acetate (PRED FORTE) 1 % ophthalmic suspension INSTILL 1 DROP IN LEFT EYE 4 TIMES A DAY,BEGIN 6 HOURS AFTER CATARACT SURGERY,THEN USE UNTIL EMPTY 0 09/22/2022 Active Spiriva Respimat 2.5 MCG/ACT Aero Soln 0 11/09/2022 Active zolpidem (AMBIEN CR) 12.5 MG CR tablet 0 10/29/2022 Active nicotine (NICODERM CQ) 21 MG/24HR APPLY 1 PATCH TRANSDERMALLY DAILY FOR 28 DAYS 0 10/18/2022 Active Social History Tobacco Use Types Packs/Day Years Used Date Smoking Tobacco: Every Day Cigarettes Smokeless Tobacco: Never Tobacco Cessation:Ready to Q uit: Not Asked; Counseling Given: Not Answered Alcohol Use Standard Drinks/Week Comments Yes 0 (1 standard drink = 0.6 oz pur e alcohol) Sex Assigned at Date Recorded Not on file Last Filed Vital Signs Vital Sign Reading Time Taken Comments Blood Pressure 118/64 11/17/2022 12:18 PM EDT Pulse 77 11/17/2022 12:18 PM EDT Temperature - - Respiratory Rate - - Oxygen Saturation 96% 11/17/2022 12:18 PM EDT Inhaled Oxygen Concentration - - Weight 99.3 kg (219 lb) 11/17/2022 12:18 PM EDT Height 190.5 cm (6' 3 ) 11/17/2022 12:18 PM EDT Body Mass Index 27.37 11/17/2022 12:18 PM EDT Plan of Treatment Health Maintenance Due Date Last Done Comments Covid-19 Vaccine (#1) 1961 HEPATITIS C SCREENING 1979 TOBACCO CHECK/ADVISE 1979 DTAP/TDAP/TD (1 - Tdap) 01/22/1980 CHOLESTEROL SCREENING 1981 BASELINE HEALTH EXAM 40-64 2001 COLON CANCER SCREENING 2011 SHINGLES VACCINE (1 of 2) 2011 INFLUENZA (#1) 2023 11/21/2018 BMI CHECK/ADVISE 02/08/2024 DEPRESSION SCREENING/FOLLOWUP 02/08/2024 SOCIAL NEEDS SCREENING 02/08/2024 PNEUMOCOCCAL VACCINE FOR HIGH RISK PATIENTS (#1) 01/21 Care Teams Safety Relief Valve Technician Relationship Specialty Start Date End Date Lobito Garcia MD PCP - General Internal Medicine 11/22/18
--- OUTSIDE RECORDS SUMMARY | 2024-03-08 18:37 | XMS_ITS | Encounter Summary ---
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
--- OUTSIDE RECORDS SUMMARY | 2024-03-08 18:37 | XMS_ITS | Encounter Summary ---
Author Organization [facility] Address [facility] [place] [address] Care Team Providers Care Commercial Representative Name Role Phone Lobito Garcia MD Primary Care Provider Soledad vailable Encounter Details Date Type Department Care Team Description 12/26/2018 Release of Information Medical Records [address] [place] [id number] Abstract, Provider Social History Tobacco Use Types Packs/Day Years Used Date Smoking Tobacco: Never Assessed Sex Assigned at Date Recorded Not on file documented as of this encounter Plan of Treatment Not on file documented as of this encounter Visit Diagnoses Not on filedocumented in this encounter Care Teams Commercial Representative Relationship Specialty Start Date End Date Lobito Garcia MD PCP - General Internal Medicine 11/22/18 documented as of this encounter
== END 2024-03-08 15:19 | disposition home or self-care (01) ==
LOC: HO.HGS 14:42
PROVIDERS: PCP Physician Assistant; Visit Provider Surgery
DX: K64.9 Unspecified hemorrhoids (principal)
CPT/HCPCS: 99213

== ENCOUNTER → 2024-03-08 14:42 | Outpatient (BNVA) | payer OTHER, SELFPAY | PROVIDERS: PCP Physician Assistant; Visit Provider Surgery | DX: K64.9 Unspecified hemorrhoids (principal) | CPT/HCPCS: 99212 ==

== ENCOUNTER 2024-03-12 08:41 | Outpatient (AMB) | payer OTHER, SELFPAY ==
[2024-03-12 08:49] VITALS: BP 144/78; PULSE 81; O2SAT 94; BMI 27.1
--- NOTE | 2024-03-12 08:49 | A.OFFPC_ITS ---
Vital Signs 03/12/24 08:49 Height 6 ft 4 in Weight 223 lb BMI 27.1 BP 144/78 H Blood Pressure Location Lt brachial Position Sitting Pulse 81 Pulse Source Pulse Oximeter Pulse Oximetry (%) 94 Oxygen Delivery Method Room Air Intake Visit Reasons: [facility] [place] Allergies formoterol [Bevespi Aerosphere] Allergy (Intermediate, Verified 03/12/24 09:02) headaches and toothaches glycopyrrolate [Bevespi Aerosphere] Allergy (Intermediate, Verified 03/12/24 09:02) headaches and toothaches trazodone Allergy (Intermediate, Verified 03/12/24 09:02) Anxiety ibuprofen [From Motrin] Allergy (Mild, Verified 03/12/24 09:02) Gastrointestinal Upset ferrous sulfate Adverse Reaction (Intermediate, Verified 03/12/24 09:02) Constipation Medication List - Last Reconciled 03/12/24 by Armani Avelar PA-C acetaminophen 650 mg (2 x 325 mg) PO Q6H 30 days albuterol sulfate 90 mcg/actuation (Ventolin HFA) 2 puffs inhalation Q4-6H 30 days [Cane As directed] cholecalciferol (vitamin D3) 50 mcg PO DAILY 90 days [Clamp on tub rail As directed] clonazepam 1 mg PO BID PRN dextromethorphan HBr (Cough Relief) 15 mg (5 mL) PO Q8H PRN fluticasone propion-salmeterol 250-50 mcg/dose 1 inh inhalation Q12H 90 days guaifenesin (Expectorant) 200 mg PO Q4H PRN ipratropium-albuterol 0.5 mg-3 mg(2.5 mg base)/3 mL 3 mL inhalation Q4H PRN [large size adult pull ups As directed] magnesium oxide 250 mg PO BID 30 days menthol-zinc oxide 0.44-20.6 % (Calmoseptine) 1 appl topical QID PRN 15 days nicotine (polacrilex) 2 mg buccal Q8H PRN 15 days omega 6-wrk-hnd-fish oil 300-1,000 mg (Fish Oil) 1 cap PO DAILY 90 days oseltamivir (Tamiflu) 75 mg PO Q12H prednisone See Taper mg PO DIRECTED [shower chair As directed] sitz bath As directed tiotropium bromide 2.5 mcg/actuation (Spiriva Respimat) 2 puffs inhalation DAILY 30 days tramadol 50 mg PO Q6H PRN [wall grab bar As directed] zolpidem ER 12.5 mg PO BEDTIME PRN Tobacco use date assessed: 03/12/24 Dental Screening Dental Screen Date: 03/12/24 Did you have a dental visit in the last 12 months?: Yes Did you have a dental problem in the last 6 months where you did not have access to dental care?: No Was dental information given to patient?: Patient has dentist [facility] 02/25 HPI Details Patient is a 63-year-old male here today for hospital discharge follow- up. with a past medical history asthma, COPD, hyperlipidemia, ADHD, anxiety and insomnia. Patient here today for follow-up visit. .. Asthma COPD overlap syndrome: Patient recently admitted to [facility] acute COPD exacerbation and hypoxia due to influenza a infection. He clinically improved with treatment in the hospital. Started on Tamiflu. He was discharged with prednisone taper. Unfortunately still smoking a few cigarettes per day and has found it very difficult to quit. Unfortunately prednisone taper as increased his anxiety and anger. 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 He will need clearance for rectal surgery .. Symptomatic hemorrhoids: The patient reports chronic bleeding and significant discomfort associated with hemorrhoids, resulting in considerable disruption to daily activities. The hemorrhoidal disease has progressed over time, and previous interventions have proven ineffective, necessitating referral for a surgical hemorrhoidectomy. The patient describes the pain as extremely severe, affecting his ability to sit or perform basic activities comfortably. .. Anxiety: He is now seeing a psychiatrist whom is managing his mental health medications at this time. [facility] Medical History Asthma-COPD overlap syndrome COPD exacerbation Back pain Peripheral neuropathy Anxiety ADHD (attention deficit hyperactivity disorder) Bronchitis Bleeding hemorrhoids COPD exacerbation Tubular adenoma of colon (~2018) Nicotine dependence, cigarettes, uncomplicated COPD (chronic obstructive pulmonary disease) Surgical History History of colonoscopy (~08/26/23) History of hemorrhoidectomy History of esophagogastroduodenoscopy (EGD) History of colonoscopy Family History Mother Diabetes Father No problems noted. Brother No problems noted. Social History Household Members: None Housing: Apartment Are you a primary career development associate to a significant other at home: No Do you presently have visiting nurse or other home services: No Alcohol intake: current Alcohol intake frequency: holidays/special occasions only Patient Tobacco Use Status: Current everyday Tobacco user Tobacco use type: Cigarette Cigarette Packs Per Day: 1 Cigarettes Per Day: 10 Years Smoked: 45 e-Cigarette/Vaping Use: Never Used service: No Current occupational status: unemployed and disabled Cognitive needs: No Hearing needs: No Vision needs: No Questionnaire PHQ-9 Over the last 2 weeks, how often have you been bothered by any of the following problems? 1. Little interest or pleasure in doing things: not at all 2. Feeling down, depressed, or hopeless: not at all 3. Trouble falling or staying asleep, or sleeping too much: not at all 4. Feeling tired or having little energy: not at all 5. Poor appetite or overeating: not at all 6. Feeling bad about yourself - or that you are a failure or have let yourself or your family down: not at all 7. Trouble concentrating on things, such as reading the newspaper or watching television: not at all 8. Moving or speaking so slowly that other people could have noticed. Or the opposite - being so fidgety or restless that you have been moving around a lot more than usual: not at all 9. Thoughts that you would be better off or of hurting yourself in some way: not at all Total score: 0 Depression Screening Interpretation: Negative Depression Screening Done: Yes 55094 - PHQ-9 Billing: Yes Source: Developed by Drs. Hudson Correa, Mami Cordova, Alberto Crockett and colleagues, with an educational bobbi from [employer]. Thrive Questionnaire Date Thrive assessed: 03/12/24 I am a: Patient What is your living situation today?: I have a steady place to live Within the past 12 months, did the food you bought not last and you didn't have the money to get more?: Never true Within the past 12 months, did you worry whether your food would run out before you got money to buy more?: Never true Do you have trouble paying for medicines?: No Do you have trouble getting transportation to medical appointments?: No Do you have trouble paying your heating and electricity bill?: No Do you have trouble taking care of your child, family member or friend?: No Do you have trouble with day-to-day activities such as bathing, preparing meals, shopping, managing finances, etc.?: No Are you currently unemployed and looking for a job?: No Are you interested in more education?: No Currently or been in a relationship where the following occur: No concerns reported THRIVE Score: 0 AUDIT C Alcohol Use Questionnaire (AUDIT-C) 1. How often do you have a drink containing alcohol?: Never 3. How often do you have six or more drinks on one occasion?: Never Total Score: 0 MELINDA-7 AMB Questionnaire MELINDA-7 Date MELINDA - 7 assessed: 03/12/24 Feeling nervous, anxious, or on edge: 0 = Not at all Not being able to stop or control worryin = Not at all Worrying too much about different things: 0 = Not at all Trouble relaxin = Not at all Being so restless that it is hard to sit still: 0 = Not at all Becoming easily annoyed or irritable: 0 = Not at all Feeling afraid as if something awful might happen: 0 = Not at all Total MELINDA-7 score (0-4 normal; 5-9 mild; 10-14 moderate; 15-21 severe): 0 Source: Developed by Drs. Hudson Correa, Mami Cordova, Alberto Crockett and colleagues, with an educational bobbi from [employer]. MELINDA-7 Assessment Billing MELINDA-7 Assessment Tool: MELINDA-7 Assessment 76272 Review of Systems Const Denies headache(s) Eyes Denies loss of vision ENT Denies vertigo, Denies dizziness, Denies headache(s) and Denies sore throat Card Denies chest pain, Denies leg edema and Denies lightheadedness Resp Denies cough, Denies hemoptysis and Denies wheezing GI Denies abdominal pain, Denies melena, Denies constipation, Denies diarrhea and Denies vomiting Denies dysuria, Denies urinary frequency and Denies urinary urgency Musc Denies arthralgias, Denies joint swelling, Denies numbness and Denies tingling Neuro Denies Abnormal speech present, Denies behavioral changes, Denies vertigo, Denies dizziness, Denies headache(s), Denies loss of vision, Denies memory loss, Denies numbness and Denies tingling Psych Denies anxiety, Denies behavioral changes, Denies depression, Denies memory loss and Denies panic attacks Chandra/Lymph Denies easy bleeding and Denies easy bruising Aller/Immun Denies wheezing Physical exam (Primary Care) Vital Signs: Last Vital Signs Pulse 81 03/12/24 08:49 BP 144/78 H 03/12/24 08:49 Pulse Ox 94 03/12/24 08:49 Oxygen Delivery Method Room Air 03/12/24 08:49 BMI result Body Mass Index 27.1 Tobacco/Smoking Status: Tobacco use Status Tobacco use date assessed 03/12/24 03/12/24 08:57 Patient Tobacco Use Status Current everyday Tobacco 03/12/24 08:57 Tobacco use type Cigarette 03/12/24 08:57 e-Cigarette/Vaping Use Never Used 03/12/24 08:57 Are you ready to quit: No Tobacco cessation counseling provided: Yes Items discussed: Nicotine replacement and QuitWorks Relapse Prevention: discussed the importance of a supportive environment, discussed negative mood or depression after quitting, weight gain after smoking is common and discussed dietary, exercise and/or lifestyle changes Number of minutes spent counselin CPT code: 37396 - 4-10 Minutes PHQ-9: PHQ-9 Score PHQ-9: Total score 0 03/12/24 09:04 Depression Screening Interpretation: Negative Thrive Assessment: Date of Thrive Assessment Date Thrive assessed 03/12/24 03/12/24 08:57 Currently or been in a relationship where the following occur: No concerns reported Const General: healthy appearing, no acute distress, alert and awake Nutritional Appearance: well nourished Orientation/consciousness: oriented to person, oriented to place and oriented to time HENMT Ears: TM's normal bilaterally General nose exam: Normal nasal mucous membranes and turbinates present Eyes Conjunctivae: conjunctivae normal Sclerae: sclerae normal Pupils: Equal, round and reactive pupils present Neck Neck: Yes no lymphadenopathy and Yes no JVD Thyroid: Thyroid normal Carotids: no bruits Resp Effort & Inspection: normal respiratory effort and not tachypneic Auscultation: no crackles, no rales, no rhonchi and no wheezes Cardio Rate: regular rate Rhythm: regular rhythm Heart sounds: no murmurs and normal S1 and S2 GI Palpation (GI): Soft to palpation, nontender, no hepatomegaly and no splenomegaly Auscultation: normal bowel sounds Skin General skin exam: no rashes or lesions noted and dry skin Neuro General: oriented to person, oriented to place and oriented to time Cranial nerves: Yes Equal, round and reactive pupils present Speech: No Abnormal speech present Gait exam (Neuro): Normal gait present Motor exam (neuro): no tremor noted Extrem Right upper extremity: full ROM Left upper extremity: full ROM Right lower extremity: full ROM; no edema Left lower extremity: full ROM; no edema Psych Mental Status: mental status grossly normal Speech and movement: Normal speech and movement present Affect: normal affect Attitude: cooperative Thought process: Normal thought process present Coding Level of Care Code Est Pt Level 4 (17633) Diagnoses Hospital discharge follow-up Z09 Asthma-COPD overlap syndrome J44.89 Anxiety F41.9 Tobacco use disorder F17.200 Pre-op evaluation Z01.818 Additional Codes MELINDA-7 Assessment Billing - MELINDA-7 Assessment Tool: MELINDA-7 Assessment 59532 ([id number]) PHQ-9 - 29670 - PHQ-9 Billing: Yes ([id number]) Vital Signs *Quality* - CPT code: 85301 - 4-10 Minutes ([id number]) Assessment & Plan Assessment & Plan (1) Hospital discharge follow-up: Code(s): Z09 - Encounter for follow-up examination after completed treatment for conditions other than malignant neoplasm Category: Medical Plan: As scheduled (2) Asthma-COPD overlap syndrome: Comment: HE HAS LONGSTANDING HISTORY OF COMBINATION OF ASTHMA AND COPD. ASTHMA IS MAINLY ALLERGIC IN TYPE. AND HIS COPD IS SECONDARY TO HIS LONG-TERM SMOKING. HE HAS BEEN TREATED FOR AN ACUTE EXACERBATION. STILL NOT FEELING BETTER, CLAIMS OF FEELING CONGESTED. HE WAS INSISTENT THAT HE WAS LOW ON OXYGEN. HOWEVER THE O2 SAT IN THE OFFICE WAS BETWEEN 94-96%. WHEN HE CAME WALKING TO THE OFFICE THE O2 SAT WAS STILL IN MID 90S. Code(s): J44.89 - Other specified chronic obstructive pulmonary disease Category: Medical Plan: As per HPI patient recently admitted for COPD exacerbation secondary to viral influenza infection. He has finished full course of Tamiflu and now on prednisone taper. He reports he feels well from a pulmonary standpoint. Physical exam today though any labored breathing, wheezing or crackles. --> of note he does admit to smoking cigarettes from time to time though in general has stopped smoking. (3) Anxiety: Comment: HE HAS AN, ANXIOUS PERSONALITY , ALSO HAS ADHD. RELATIVELY CALMER TODAY AND HAPPY. Code(s): F41.9 - Anxiety disorder, unspecified Category: Medical Plan: As per HPI has establish with a mental health med provider whom will be taking over prescribing his mental health medications. He has some stress in his life due to personal issues and some financial issues as well. (4) Tobacco use disorder: Code(s): F17.200 - Nicotine dependence, unspecified, uncomplicated Category: Medical Plan: Patient does admit to smoking a few cigarettes still. Has access to nicotine patches and nicotine lozenges. Has tried Chantix in the past with resolution of his smoking for about a year though had side effects of increasing her. (5) Pre-op evaluation: Code(s): Z01.818 - Encounter for other preprocedural examination Category: Medical Plan: Patient's presentations today's seems to be stable. Lung sounds are clear without any notable wheeze or crackles. Will send for chest x-ray to confirm no pulmonary infiltrate prior to surgery. From a PCP point of view he is medically clear for elective rectal surgery. Orders: Orders XR chest 2V Today J41.0 - Simple chronic bronchitis Medications: Discontinued oseltamivir (Tamiflu) Discontinued Reason: Doctor's Order 75 mg PO Q12H 4 caps 0RF
--- OUTSIDE RECORDS SUMMARY | 2024-03-12 09:02 | XMS_ITS | Clinical Summary ---
Author Organization [facility] Address [address] [place] [address] Care Team Providers Care Business Development Professional Name Role Phone Lobito Garcia MD Primary [...] HIGH RISK PATIENTS (#1) 01/21 Care Teams Business Development Professional Relationship Specialty Start Date End Date Lobito Garcia MD PCP - General Internal Medicine 11/22/18
--- OUTSIDE RECORDS SUMMARY | 2024-03-12 09:02 | XMS_ITS | Encounter Summary ---
Author Organization [facility] Address [facility] [place] [address] Care Team Providers Care Engraver Apprentice Decorative Name Role Phone Lobito Garcia MD Primary Care Provider Soledad vailable Encounter Details Date Type Department Care Team Description 12/26/2018 Release of Information Medical Records [address] [place] [id number] Abstract, Provider Social History Tobacco Use Types Packs/Day Years Used Date Smoking Tobacco: Never Assessed Sex Assigned at Date Recorded Not on file documented as of this encounter Plan of Treatment Not on file documented as of this encounter Visit Diagnoses Not on filedocumented in this encounter Care Teams Engraver Apprentice Decorative Relationship Specialty Start Date End Date Lobito Garcia MD PCP - General Internal Medicine 11/22/18 documented as of this encounter
== END 2024-03-12 09:31 | disposition home or self-care (01) ==
PROVIDERS: PCP Physician Assistant; Visit Provider Physician Assistant
DX: Z09 Encounter for follow-up examination after completed treatment for conditions other than malignant neoplasm (principal); J44.89 Other specified chronic obstructive pulmonary disease; F41.9 Anxiety disorder, unspecified; F17.200 Nicotine dependence, unspecified, uncomplicated; Z01.818 Encounter for other preprocedural examination

== ENCOUNTER → 2024-03-12 08:41 | Outpatient (BNVA) | payer OTHER, SELFPAY | PROVIDERS: PCP Physician Assistant; Visit Provider Physician Assistant | DX: Z09 Encounter for follow-up examination after completed treatment for conditions other than malignant neoplasm (principal); J44.89 Other specified chronic obstructive pulmonary disease; F41.9 Anxiety disorder, unspecified; F17.200 Nicotine dependence, unspecified, uncomplicated; Z71.6 Tobacco abuse counseling | CPT/HCPCS: 96127; 99212 ==

== ENCOUNTER → 2024-03-14 10:55 | Outpatient (BNVA) | payer OTHER, SELFPAY | PROVIDERS: PCP Physician Assistant; Visit Provider Internal Medicine | DX: J44.1 Chronic obstructive pulmonary disease with (acute) exacerbation (principal); J40 Bronchitis, not specified as acute or chronic; F17.210 Nicotine dependence, cigarettes, uncomplicated | CPT/HCPCS: 99212 ==

== ENCOUNTER 2024-03-16 08:16 | Day surgery (SDC) | payer OTHER, SELFPAY ==
[2024-03-16] VITALS (9 sets, daily range): BP systolic 117–159; BP diastolic 67–84; PULSE 65–83; RESP 16–18; TEMP 36.3–36.4; O2SAT 95–99; BMI 29.6; BMI 29.7
--- OUTSIDE RECORDS SUMMARY | 2024-03-16 08:34 | XMS_ITS | Encounter Summary ---
Author Organization [facility] Address [facility] [place] [address] Care Team Providers Care Store Clerk Name Role Phone Lobito Garcia MD Primary Care Provider Soledad vailable Encounter Details Date Type Department Care Team Description 12/26/2018 Release of Information Medical Records [address] [place] [id number] Abstract, Provider Social History Tobacco Use Types Packs/Day Years Used Date Smoking Tobacco: Never Assessed Sex Assigned at Date Recorded Not on file documented as of this encounter Plan of Treatment Not on file documented as of this encounter Visit Diagnoses Not on filedocumented in this encounter Care Teams Store Clerk Relationship Specialty Start Date End Date Lobito Garcia MD PCP - General Internal Medicine 11/22/18 documented as of this encounter
--- OUTSIDE RECORDS SUMMARY | 2024-03-16 08:34 | XMS_ITS | Clinical Summary ---
Author Organization [facility] Address [address] [place] [address] Care Team Providers Care Marketing Pr Intern Name Role Phone Lobito Garcia MD Primary [...] HIGH RISK PATIENTS (#1) 01/21 Care Teams Marketing Pr Intern Relationship Specialty Start Date End Date Lobito Garcia MD PCP - General Internal Medicine 11/22/18
--- OUTSIDE RECORDS SUMMARY | 2024-03-16 08:34 | XMS_ITS | Encounter Summary ---
Author Organization [facility] Address [address] [place] [address] Care Team Providers Care Supervisor Tank House Name Role Phone Lobito Garcia MD Primary Care Provider Soledad vailable Reason for Visit * Reason Onset Date Comments Medical Records 12/01/2022 Encounter Details Date Type Department Care Team Description 12/01/2022 Telephone Cardio [facility] [address] [place] [address] Lobito Garcia MD Medical Records Social History Tobacco Use Types Packs/Day Years Used Date Smoking Tobacco: Every Day Cigarettes Smokeless Tobacco: Never Alcohol Use Standard Drinks/Week Comments Yes 0 (1 standard drink = 0.6 oz pur e alcohol) Sex Assigned at Date Recorded Not on file COVID-19 Exposure Response Date Recorded In the last 10 days, have yo u been in contact with someone who was confirmed or suspected to have Coronavirus/COVID-19? No / Unsure 11/17/2022 12:05 PM EDT documented as of this encounter Miscellaneous Notes * Telephone Encounter - Meli Hernandez - 12/01/2022 4:23 PM EDT Medical Records Request Caller: Calling from: [facility] Requesting provider's first & last name: Dr Armani Avelar Direct Phone Number or Ext: [phone] What records are being requested: Nuclear Stress Test How far back: 11/17/2022 What is it for: Dr Avelar Needed by: documented in this encounter Plan of Treatment Not on file documented as of this encounter Visit Diagnoses Not on filedocumented in this encounter Care Teams Supervisor Tank House Relationship Specialty Start Date End Date Lobito Garcia MD PCP - General Internal Medicine 11/22/18 documented as of this encounter
[2024-03-16] MEDS: Lactated Ringers 1,000 ML 100 ML IVCONT (08:54)
--- NOTE | 2024-03-16 09:26 | P.CONAN_ITS ---
Documented by User: Chanda Sargent NP 03/14/24 14:47 HPI - Anesthesia Eval Consult details Narrative: 64yo M for EUA,Hemorrhoidectomy Pulmo optimized. Follows [facility] pulmo for COPD/Asthma. Recent exac requiring abx/prednisone. Acute symptoms resolved per 03/14/24 pulmo office visit PMF Active Problems Active Problems: All Active Problems Bleeding external hemorrhoids (Acute) Pre-op evaluation (Acute) Hospital discharge follow-up (Acute) Tobacco use disorder (Acute) Anemia (Acute) Insomnia (Acute) Allergies (Acute) Dysphagia (Acute) Myalgia (Acute) Blood per rectum (Acute) Former smoker (Acute) Lumbar disc disease (Acute) SOB (shortness of breath) on exertion (Acute) Hyperlipidemia (Acute) Peripheral neuropathy (Acute) Lumbar back pain (Acute) ADHD (Acute) Anxiety (Acute) Bronchitis (Acute) Bleeding hemorrhoids (Acute) COPD exacerbation (Acute) COPD (chronic obstructive pulmonary disease) (Acute) Nicotine dependence, cigarettes, uncomplicated (Acute) Past Medical History Medical History Asthma-COPD overlap syndrome COPD exacerbation Back pain Peripheral neuropathy Anxiety ADHD (attention deficit hyperactivity disorder) Bronchitis Bleeding hemorrhoids COPD exacerbation Tubular adenoma of colon (~2018) Nicotine dependence, cigarettes, uncomplicated COPD (chronic obstructive pulmonary disease) Family History Family History Mother Diabetes Father No problems noted. Brother No problems noted. Family history of problems with anesthesia: No Surgical History Surgical History History of colonoscopy (~08/26/23) History of hemorrhoidectomy History of esophagogastroduodenoscopy (EGD) History of colonoscopy History of Problems with Anesthesia: No Social History Social History Household Members: None Housing: Apartment Are you a primary healthcare risk control consultant to a significant other at home: No Do you presently have visiting nurse or other home services: No Alcohol intake: current Alcohol intake frequency: does not drink Patient Tobacco Use Status: Current everyday Tobacco user Tobacco use type: Cigarette Cigarette Packs Per Day: 1 Cigarettes Per Day: 10 Years Smoked: 45 e-Cigarette/Vaping Use: Never Used Are you DNR?: No Advance Directives: No Advance Directives Information Provided: Yes service: No Current occupational status: unemployed and disabled Cognitive needs: No Hearing needs: No Vision needs: No Meds Allergies Allergy/AdvReac Type Severity Reaction Status Date / Time No Known Allergies Allergy Verified 03/16/24 08:48 Home Medications ?Medication ?Instructions ?Recorded ?Confirmed ?Last Taken ?Type clonazepam 1 mg tablet 1 mg PO BID PRN Anxiety 02/27/24 03/14/24 Unknown History Exam Pertinent Lab Results Pertinent Lab Results: Laboratory Tests 02/27/24 05:04 WBC 2.2 L Hgb 13.1 L Hct 38.4 L Plt Count 178 Sodium 137 Potassium 4.3 Chloride 106 Carbon Dioxide 20 L BUN 14 Creatinine 0.96 Narrative Narrative: EKG 02/2024 Vent. Rate : 90 BPM Atrial Rate : 90 BPM P-R Int : 154 ms QRS Dur : 98 ms QT Int : 368 ms P-R-T Axes : 80 52 75 degrees QTcB Int : 450 ms Normal sinus rhythm Normal ECG No previous ECGs available Assessment and Plan Assessment Anesthesia Assessment: Chart Reviewed Final Anesthetic Review Family History of Problems with Anesthesia: No History of Problems with Anesthesia: No Documented by User: Rosalee Rosales DO 03/16/24 09:28 [facility] Past Medical History Medical History Asthma-COPD overlap syndrome COPD exacerbation Back pain Peripheral neuropathy Anxiety ADHD (attention deficit hyperactivity disorder) Bronchitis Bleeding hemorrhoids COPD exacerbation Tubular adenoma of colon (~2018) Nicotine dependence, cigarettes, uncomplicated COPD (chronic obstructive pulmonary disease) Family History Family History Mother Diabetes Father No problems noted. Brother No problems noted. Family history of problems with anesthesia: No Surgical History Surgical History History of colonoscopy (~08/26/23) History of hemorrhoidectomy History of esophagogastroduodenoscopy (EGD) History of colonoscopy History of Problems with Anesthesia: No Social History Social History Household Members: None Housing: Apartment Are you a primary healthcare risk control consultant to a significant other at home: No Do you presently have visiting nurse or other home services: No Alcohol intake: current Alcohol intake frequency: does not drink Patient Tobacco Use Status: Current everyday Tobacco user Tobacco use type: Cigarette Cigarette Packs Per Day: 1 Cigarettes Per Day: 10 Years Smoked: 45 e-Cigarette/Vaping Use: Never Used Are you DNR?: No Advance Directives: No Advance Directives Information Provided: Yes service: No Current occupational status: unemployed and disabled Cognitive needs: No Hearing needs: No Vision needs: No Meds Allergies Allergy/AdvReac Type Severity Reaction Status Date / Time No Known Allergies Allergy Verified 03/16/24 08:48 Home Medications ?Medication ?Instructions ?Recorded ?Confirmed ?Last Taken ?Type clonazepam 1 mg tablet 1 mg PO BID PRN Anxiety 02/27/24 03/14/24 Unknown History Exam Exam Date and Time: 03/16/24 0920 Height,Weight and Vital Signs: Height 6 ft Weight 99.23 kg Vital Signs Temperature 97.4 F 03/16/24 08:37 Pulse Rate 83 03/16/24 08:37 Respiratory Rate 18 03/16/24 08:37 Blood Pressure 159/84 H 03/16/24 08:37 Pulse Oximetry 95 03/16/24 08:37 Oxygen Delivery Method Room Air 03/16/24 08:37 Temperature 97.4 F 03/16/24 08:37 Pulse Rate 83 03/16/24 08:37 Respiratory Rate 18 03/16/24 08:37 Blood Pressure 159/84 H 03/16/24 08:37 Pulse Oximetry 95 03/16/24 08:37 Oxygen Delivery Method Room Air 03/16/24 08:37 Airway Mallampati Class: II TM Dist: >3cm Neck ROM: Full Loose/Missing/Broken Teeth: Yes (several missing teeth) Heart: S1S2 Lungs: CTAB Assessment and Plan Assessment Anesthesia Assessment: Anesthesia Plan Discussed and Chart Reviewed Final Anesthetic Review Family History of Problems with Anesthesia: No History of Problems with Anesthesia: No NPO: Yes ASA Class: III Final Preanesthetic Review: No Changes in Pt Med Stat, Meds/Allgs Chart Reviewed, Consent Obtained/Reviewed and Anes Risks/Benef Reviewed Patient Risk: Intermediate Procedure Risk: Low Anesthetic Plan Anesthetic Plan: GA and Agree w/ Assess. and Plan Disposition: Standard PACU
--- NOTE | 2024-03-16 09:32 | MHC.SHP ---
Pre-Procedural Eval Section A - 24 Hr Update-Section A only Date of Service: 03/16/24 The patient is an INPATIENT: No Changes since office visit: No Cold of Flu in the past 2 weeks, No New Medical Problems, No Changes in Medication and No Patient answered all questions The patient has been examined within 24 hours of the surgical procedure. The History & Physical has been completed within 30 days and I have reviewed it.: Yes Section B - Complete if H&P > 30 days Chief Complaint: Unspecified hemorrhoids Allergies: Allergies Allergy/AdvReac Type Severity Reaction Status Date / Time No Known Allergies Allergy Verified 03/16/24 08:48 Plan I have reviewed the history and physical and performed a pertinent physical examination on my patient. No changes have occurred unless specified. Time Spent With Patient Time: Total time managing care of this patient today ____ minutes.
--- NOTE | 2024-03-16 10:34 | P.OP_ITS ---
Operative Note Operative Note Date of Service: 03/16/24 Narrative: Preop diagnosis: Bleeding hemorrhoids, internal and external Postop diagnosis: The same Procedure: Exam under anesthesia, hemorrhoidectomy x2 columns Surgeon: Dre Kidd MD The patient is a 64-year-old male who has a long history of bleeding hemorrhoids along with swelling and pain. He did have a previous hemorrhoidectomy in the remote past another institution In view of symptoms he wanted to proceed with hemorrhoidectomy. He understood the technique of the planned procedure as well as the risks, benefits, and alternatives. He was brought to the operating room. He was placed in prone tanya-knife p osition under general anesthesia via laryngeal mask airway. The buttocks were retracted with wide tape laterally. The perianal area was prepped and draped usual sterile fashion. A surgical time-out was done. The patient received Cefotan 2 g IV preoperatively. I infiltrated the perianal area with lidocaine 1%. Examination of the anal orifice revealed 2 large hemorrhoidal columns, mostly external on the left and the right. I inserted the Sindy Delgado retractor. I examined the anal canal circumferentially. Again large mixed hemorrhoidal columns internal external there were seen on both the left and right side. There were no lesions. There was no fissure or ulceration. I applied a Knott grasper on the hemorrhoidal column on the left to retract this out in the field. I made a fbeprt-dd-rrcmn stitch with a chromic 3-0 at its pedicle past the dentate line. I made an incision around this hemorrhoidal column to the perianal skin with a blade 15. I excised this hemorrhoidal column above the plane of the sphincters along this incision with fine scissors. I closed this incision with a running chromic 3-0 stitch. I applied nzeixf-ph-xxzgg chromic 3-0 sutures to oozing areas. Hemostasis was confirmed . I repeated the procedure on the hemorrhoidal column on the right side. Again this was a bulky internal and external hemorrhoidal column. I made a ibtivd-nv-qbpmg stitch at the pedicle with a chromic 3-0. I made an incision around this column to the perianal skin. I excised this above the plane of the sphincters with scissors along this incision and closed the incision with a running chromic 3-0 stitch. I again applied wimnks-mq-tjodz chromic 3-0 sutures for oozing areas. Once hemostasis was confirmed, I proceeded to infiltrate the perianal area generously with Marcaine 0.5% for postop analgesia. The procedure was completed. The patient tolerated the procedure well. There were no immediate complications. Initial and final counts of sponges and instruments were correct. Estimated blood loss about 50 cc. The patient was extubated without difficulty and transferred to the recovery room with stable vital signs.
[2024-03-16] MEDS: fentaNYL citrate/PF 100 MCG/2 ML VIAL 50 MCG IVPUSH ×2 (11:00→11:05)
== END 2024-03-16 12:02 | disposition home or self-care (01) ==
PROVIDERS: PCP Physician Assistant; Visit Provider Surgery
PROC: (CPT 46260; principal; 2024-03-16 09:50)
DX: K64.8 Other hemorrhoids (principal); K64.4 Residual hemorrhoidal skin tags; J44.1 Chronic obstructive pulmonary disease with (acute) exacerbation; F17.210 Nicotine dependence, cigarettes, uncomplicated; G62.9 Polyneuropathy, unspecified; F90.9 Attention-deficit hyperactivity disorder, unspecified type; F41.9 Anxiety disorder, unspecified; Z79.51 Long term (current) use of inhaled steroids; Z79.899 Other long term (current) drug therapy; Z88.6 Allergy status to analgesic agent; Z88.8 Allergy status to other drugs, medicaments and biological substances; Z98.890 Other specified postprocedural states
CPT/HCPCS: 46260; 88304; J1100; J1885; J2003; J2250; J2405; J2704; J3010

== ENCOUNTER → 2024-03-16 08:16 | Outpatient (BNV) | payer OTHER, SELFPAY | PROVIDERS: PCP Physician Assistant; Visit Provider Surgery | DX: K64.9 Unspecified hemorrhoids (principal) | CPT/HCPCS: 46260 ==

== ENCOUNTER 2024-03-29 11:14 | Outpatient (AMB) | payer OTHER, SELFPAY ==
--- NOTE | 2024-03-29 11:15 | A.OFFVIS_ITS ---
Intake Visit Reasons: S/P EUA, hemorrhoidectomy Intake Note: This patient presents for status post EUA, hemorrhoidectomy. Pt c/o; pain. Outside Sales Representative Insurance Required: No Accompanied by: Self / Same As Patient Allergies No Known Allergies Allergy (Verified 03/29/24 11:21) HPI HPI S/P EUA, hemorrhoidectomy: Details: He underwent hemorrhoidectomy x2 columns last 03/16/2024 for bleeding hemorrhoids. He tolerated the procedure well. He says he continues to have postop pain from the surgical site but this is slowly getting better. [facility] Medical History Asthma-COPD overlap syndrome COPD exacerbation Back pain Peripheral neuropathy Anxiety ADHD (attention deficit hyperactivity disorder) Bronchitis Bleeding hemorrhoids COPD exacerbation Tubular adenoma of colon (~2018) Nicotine dependence, cigarettes, uncomplicated COPD (chronic obstructive pulmonary disease) Surgical History History of hemorrhoidectomy (~03/16/24) History of colonoscopy (~08/26/23) History of hemorrhoidectomy History of esophagogastroduodenoscopy (EGD) History of colonoscopy Family History Mother Diabetes Father No problems noted. Brother No problems noted. Social History Household Members: None Housing: Apartment Are you a primary animal caretaker to a significant other at home: No Do you presently have visiting nurse or other home services: No Alcohol intake: current Alcohol intake frequency: does not drink Patient Tobacco Use Status: Current everyday Tobacco user Tobacco use type: Cigarette Cigarette Packs Per Day: 1 Cigarettes Per Day: 10 Years Smoked: 45 e-Cigarette/Vaping Use: Never Used service: No Current occupational status: unemployed and disabled Cognitive needs: No Hearing needs: No Vision needs: No Review of Systems Const Denies chills and Denies fever(s) Card Denies chest pain Resp Denies cough GI Denies abdominal pain Physical Exam Const Other: Walks with a cane General: no acute distress Resp Other: Says he has asthma Effort & Inspection: normal respiratory effort Cardio Rate: regular rate GI Other: Rectal exam shows the hemorrhoidectomy sites to be healing well, not infected Palpation (GI): Soft to palpation and not firm Assessment & Plan Assessment & Plan (1) Bleeding hemorrhoids: Code(s): K64.9 - Unspecified hemorrhoids Category: Medical Plan: Status post hemorrhoidectomy. Hemorrhoidectomy sites are healing well. His path report shows benign hemorrhoidal tissue. He says he continues to have postop pain although this is getting better. I will see him again in the office in about 2 weeks therefore. He says that he had talked to a nurse navigator who told him to stop taking the pain medications that I had prescribed and he is not happy about this. I did assure him that he can continue taking the pain medications prescribed on a p.r.n. basis. Coding Level of Care Code Global (22206) Diagnoses Bleeding hemorrhoids K64.9
== END 2024-03-29 11:29 | disposition home or self-care (01) ==
PROVIDERS: PCP Physician Assistant; Visit Provider Surgery
DX: K64.9 Unspecified hemorrhoids (principal)
CPT/HCPCS: 99024

== ENCOUNTER → 2024-03-29 11:14 | Outpatient (BNVA) | payer OTHER, SELFPAY | PROVIDERS: PCP Physician Assistant; Visit Provider Surgery | DX: K64.9 Unspecified hemorrhoids (principal) | CPT/HCPCS: 99212 ==

== ENCOUNTER 2024-04-05 19:47 | Emergency (ER) | payer OTHER, SELFPAY ==
--- NOTE | ~2024-04-05 | XR_ITS ---
CLINICAL HISTORY: Pneumonia? Coughing 1 view chest x-ray Comparison: CR/FL - XR CHEST 1V - 02/26/24 19:01 EST Findings: No consolidation or effusion. Heart size is normal. No acute fracture. IMPRESSION: 1. No acute findings. This document has been electronically signed by: Jorge Live MD on 04/05/2024 20:47:55
[2024-04-05 19:57] VITALS: BP 160/70; PULSE 100; O2SAT 97
[2024-04-05 19:58] VITALS: BP 148/90; PULSE 87; RESP 16; TEMP 36.8; O2SAT 96; BMI 27.1
--- NOTE | 2024-04-05 20:05 | ECG_ITS ---
Test Reason : SOB Blood Pressure : */* mmHG Vent. Rate : 80 BPM Atrial Rate : 80 BPM P-R Int : 158 ms QRS Dur : 94 ms QT Int : 374 ms P-R-T Axes : 82 33 71 degrees QTcB Int : 431 ms Normal sinus rhythm Normal ECG When compared with ECG of 26-Feb-2024 18:39, No significant change was found Referred By: Adam Bishop Electronically Signed By: Amadou Vang
--- NOTE | 2024-04-05 20:06 | ED.GENADULT ---
HPI - General Adult General Chief complaint: Dyspnea Stated complaint: diff breathing History of Present Illness HPI narrative: Patient left before completion of treatment by ED provider. Related Data Home Medications ?Medication ?Instructions ?Recorded ?Confirmed clonazepam 1 mg tablet 1 mg PO BID PRN Anxiety 02/27/24 03/14/24 Previous Rx's ?Medication ?Instructions ?Recorded omega 4-fwa-rkl-fish oil 300 1 cap PO DAILY 90 days #90 caps 09/24/23 mg-1,000 mg capsule,delayed release (Fish Oil) magnesium oxide 250 mg PO BID 30 days #60 tabs 10/18/23 tiotropium bromide 2.5 2 puff inhalation DAILY COPD 30 10/18/23 mcg/actuation mist for inhalation days #4 grams (Spiriva Respimat) fluticasone 250 mcg-salmeterol 50 1 inh inhalation Q12H copd 90 days 01/03/24 mcg/dose blistr powdr for #180 ea inhalation cholecalciferol (vitamin D3) 50 50 mcg PO DAILY 90 days #90 caps 01/25/24 mcg (2,000 unit) capsule albuterol sulfate 90 mcg/actuation 2 puff inhalation Q4-6H for 02/04/24 aerosol inhaler (Ventolin HFA) wheezing 30 days #18 ea acetaminophen 325 mg tablet 650 mg (2 x 325 mg) PO Q6H pain 30 02/13/24 days #240 tabs dextromethorphan HBr 15 mg/5 mL 15 mg (5 mL) PO Q8H PRN cough #118 02/29/24 oral liquid (Cough Relief) mL ipratropium 0.5 mg-albuterol 3 mg 3 ml inhalation Q4H PRN Shortness 02/29/24 (2.5 mg base)/3 mL nebulization Of Breath/Wheezing #90 mL soln Cane #1 ea 03/09/24 Clamp on tub rail #1 ea 03/09/24 shower chair #1 ea 03/09/24 sitz bath #1 ea 03/09/24 wall grab bar #1 ea 03/09/24 docusate sodium 100 mg capsule 100 mg PO BID #60 caps 03/16/24 (Colace) large size adult pull ups #240 ea 03/21/24 ibuprofen 600 mg tablet 600 mg PO Q6H PRN pain #25 tabs 03/30/24 oxycodone 5 mg tablet 5 mg PO Q4H PRN pain #15 tabs 03/30/24 hydrocortisone 1 %-pramoxine 1 % 1 appl MS QID 14 days #10 grams 04/01/24 rectal foam (Proctofoam HC) Allergies Allergy/AdvReac Type Severity Reaction Status Date / Time No Known Allergies Allergy Verified 04/05/24 20:03 [facility] Past Medical History Medical History Asthma-COPD overlap syndrome COPD exacerbation Back pain Peripheral neuropathy Anxiety ADHD (attention deficit hyperactivity disorder) Bronchitis Bleeding hemorrhoids COPD exacerbation Tubular adenoma of colon (~2018) Nicotine dependence, cigarettes, uncomplicated COPD (chronic obstructive pulmonary disease) Surgical History History of hemorrhoidectomy (~03/16/24) History of colonoscopy (~08/26/23) History of hemorrhoidectomy History of esophagogastroduodenoscopy (EGD) History of colonoscopy Family History Family History Mother Diabetes Father No problems noted. Brother No problems noted. Social History Social History Household Members: None Housing: Apartment Are you a primary career services coordinator to a significant other at home: No Do you presently have visiting nurse or other home services: No Alcohol intake: current Alcohol intake frequency: does not drink Patient Tobacco Use Status: Current everyday Tobacco user Tobacco use type: Cigarette Cigarette Packs Per Day: 1 Cigarettes Per Day: 10 Years Smoked: 45 e-Cigarette/Vaping Use: Never Used Advance Directives: No Advance Directives Information Provided: No Do you have a plan to hurt others: No Plan service: No Current occupational status: unemployed and disabled Cognitive needs: No Hearing needs: No Vision needs: No Physical Exam ED Vital Signs: Vital Signs - 24 hr 04/05/24 19:58 Temperature 98.3 F Pulse Rate 87 Respiratory Rate 16 Blood Pressure 148/90 H Pulse Oximetry 96 Oxygen Delivery Method Room Air BMI result Body Mass Index 27.1 Course Course Course Narrative: RME: 64-year-old male presents to ED for shortness of breath, fever, nasal congestion, and coughing. Patient recently had cold surgery 2 weeks ago. Patient refused albuterol treatment from ambulance. Labs EKG chest x-ray ordered Medical Decision Making Lab Data 04/05/24 20:21 04/05/24 20:21 Labs: Lab Results 04/05/24 Range/Units 20:21 WBC 6.3 (4.8-10.8) X10*3/uL RBC 4.44 L (4.60-5.80) X10*6/uL Hgb 13.1 L (14.0-18.0) g/dl Hct 39.3 L (42.0-52.0) % MCV 88.5 (80.0-98.0) fL MCH 29.5 (27.0-33.0) pg MCHC 33.3 (31.0-36.0) g/dl RDW 13.8 (11.0-16.0) % Plt Count 264 D (160-400) X10*3/uL MPV 8.3 L (9.4-12.4) fL Immature Gran % (Auto) 0.5 H (0.0-0.4) % Neut % (Auto) 57.0 (45-73) % Lymph % (Auto) 25.8 (20-40) % Sterling % (Auto) 10.8 (2-11) % Eos % (Auto) 4.8 H (0-4) % Baso % (Auto) 1.1 (0-2) % Lymph # (Auto) 1.6 (1.2-4.9) X10*3/uL Sterling # (Auto) 0.7 (0.1-1.2) X10*3/uL Eos # (Auto) 0.3 (0.0-0.4) X10*3/uL Baso # (Auto) 0.1 (0.0-0.2) X10*3/uL Abs Immat Gran (auto) 0.03 (0.00-0.03) X10*3/uL Absolute Neuts (auto) 3.6 (2.0-8.3) x10*3/uL Absolute Nucleated RBC 0.000 (0.0-0.012) X10*3/uL Nucleated RBC % (auto) 0.0 (0.0-0.2) /100WBC PT 9.9 L (10.9-12.4) SEC INR 0.9 (0.9-1.1) APTT 43.4 H (26.0-36.8) SEC Sodium 140 (135-145) mmol/L Potassium 4.2 (3.3-5.1) mmol/L Chloride 107 (96-108) mmol/L Carbon Dioxide 25 (22-29) mmol/L Anion Gap 12 (12-20) BUN 19 H (9-16) mg/dL Creatinine 0.74 (0.5-1.4) mg/dL Estim Creat Clear Calc 125.4 Estimated GFR > 60 Random Glucose 95 (60-115) mg/dL Calcium 9.3 (8.4-10.2) mg/dL Total Bilirubin 0.2 (0.0-1.0) mg/dL AST 25 (5-37) U/L ALT 30 (0-40) U/L Alkaline Phosphatase 68 (39-117) U/L Troponin I High Sens < 2.7 (<3.5-35.0) ng/L B-Natriuretic Peptide 13 (<100) pg/mL Total Protein 7.3 (6.5-8.0) g/dL Albumin 4.2 (3.5-5.0) g/dL Influenza Type A (PCR) NEGATIVE (Negative) Influenza Type B (PCR) NEGATIVE (Negative) RSV RNA Qual (PCR) NEGATIVE (Negative) SARS-CoV-2 RNA (RT-PCR) NEGATIVE (Negative) Discharge Plan Discharge Clinical Impression: SOB (shortness of breath) on exertion Patient Disposition: Left W/O Completing Treatment Prescriptions: No Action omega 0-hqp-xvq-fish oil [Fish Oil] 300-1,000 mg capsule,delayed release(DR/EC) 1 cap PO DAILY 90 Days Qty: 90 1RF fluticasone propion-salmeterol 250-50 mcg/dose blister with device 1 inh inhalation Q12H 90 Days Qty: 180 3RF cholecalciferol (vitamin D3) 50 mcg (2,000 unit) capsule 50 mcg PO DAILY 90 Days Qty: 90 1RF albuterol sulfate [Ventolin HFA] 90 mcg/actuation HFA aerosol inhaler 2 puff inhalation Q4-6H 30 Days Qty: 18 3RF acetaminophen 325 mg tablet 650 mg PO Q6H 30 Days Qty: 240 3RF (DME) Cane See Rx Instructions .Route .MEDSUPPLY Qty: 1 0RF Rx Instructions: As directed ([facility] [place]) Clamp on tub rail See Rx Instructions .Route .MEDSUPPLY Qty: 1 0RF Rx Instructions: As directed ([facility] [place]) wall grab bar See Rx Instructions .Route .MEDSUPPLY Qty: 1 0RF Rx Instructions: As directed ([facility] [place]) shower chair See Rx Instructions .Route .MEDSUPPLY Qty: 1 0RF Rx Instructions: As directed ([facility] [place]) sitz bath Kit See Rx Instructions .Route Qty: 1 2RF Rx Instructions: As directed ([facility] [place]) large size adult pull ups See Rx Instructions .Route .MEDSUPPLY Qty: 240 3RF Rx Instructions: As directed Proctofoam HC 1-1 % foam 1 appl MS QID 14 Days Qty: 10 3RF clonazepam 1 mg tablet 1 mg PO BID PRN (Reason: Anxiety) ipratropium-albuterol 0.5 mg-3 mg(2.5 mg base)/3 mL Solution For Nebulization 3 ml inhalation Q4H PRN (Reason: Shortness Of Breath/Wheezing) Qty: 90 0RF Cough Relief 15 mg/5 mL liquid 15 mg PO Q8H PRN (Reason: cough) Qty: 118 1RF docusate sodium [Colace] 100 mg capsule 100 mg PO BID Qty: 60 2RF magnesium oxide 250 mg magnesium tablet 250 mg PO BID 30 Days Qty: 60 4RF Spiriva Respimat 2.5 mcg/actuation mist 2 puff inhalation DAILY 30 Days Qty: 4 5RF ibuprofen 600 mg tablet 600 mg PO Q6H PRN (Reason: pain) Qty: 25 0RF oxycodone 5 mg tablet 5 mg PO Q4H PRN (Reason: pain) Qty: 15 0RF Rx Instructions: Partial Fill upon patient request. Discharge Date/Time: 04/05/24 23:12
--- NOTE | 2024-04-05 20:06 | PC.NURSE ---
Addendum entered by Ana Medrano 04/05/24 20:29: pt also offered a mask and refused. Original Note: pt refused to go to the waiting room, no s/s of distress, pt sat 96% on room air. pt states he will walk home, pt angry overtalking staff, waiting outside.
[2024-04-05 20:26] LABS: MANUAL DIFF FLAG NO
[2024-04-05 20:27] LABS: Basophils Absolute Auto 0.1 X10*3/uL (0.0-0.2); Basophils Percent Auto 1.1 % (0-2); Eosinophils Absolute Auto 0.3 X10*3/uL (0.0-0.4); Eosinophils Percent Auto 4.8 % (0-4); Hematocrit 39.3 % (42.0-52.0); Hemoglobin 13.1 g/dl (14.0-18.0); Imm Gran Abs Auto 0.03 X10*3/uL (0.00-0.03); Imm Gran Pct Auto 0.5 % (0.0-0.4); Lymphocytes Absolute Auto 1.6 X10*3/uL (1.2-4.9); Lymphocytes Percent Auto 25.8 % (20-40); Mean Corpuscular HGB Conc 33.3 g/dl (31.0-36.0); Mean Corpuscular Hemoglobin 29.5 pg (27.0-33.0); Mean Corpuscular Volume 88.5 fL (80.0-98.0); Mean Platelet Volume 8.3 fL (9.4-12.4); Monocytes Absolute Auto 0.7 X10*3/uL (0.1-1.2); Monocytes Percent Auto 10.8 % (2-11); Neutrophils Absolute Auto 3.6 x10*3/uL (2.0-8.3); Platelet Count 264 X10*3/uL (160-400); Red Blood Count 4.44 X10*6/uL (4.60-5.80); Red Cell Distribution Width 13.8 % (11.0-16.0); White Blood Count 6.3 X10*3/uL (4.8-10.8)
[2024-04-05 20:32] LABS: INTERNATIONAL NORM RATIO 0.9 (0.9-1.1); Prothrombin Time 9.9 SEC (10.9-12.4)
[2024-04-05 20:35] LABS: Partial Thromboplastin Time 43.4 SEC (26.0-36.8)
[2024-04-05 20:40] LABS: Alanine Aminotransferase 30 U/L (0-40); Albumin Level 4.2 g/dL (3.5-5.0); Alkaline Phosphatase 68 U/L (39-117); Anion Gap 12 (12-20); Aspartate Amino Transferase 25 U/L (5-37); Bilirubin Total 0.2 mg/dL (0.0-1.0); Blood Urea Nitrogen 19 mg/dL (9-16); Calcium 9.3 mg/dL (8.4-10.2); Carbon Dioxide 25 mmol/L (22-29); Chloride 107 mmol/L (96-108); Creatinine Clr Calc Pharmacy 125.4; Estimated Glomerular Filt Rate > 60; Glucose Random 95 mg/dL (60-115); Potassium 4.2 mmol/L (3.3-5.1); Sodium 140 mmol/L (135-145); Total Protein 7.3 g/dL (6.5-8.0)
[2024-04-05 20:46] LABS: B Type Natriuretic Peptide 13 pg/mL (<100)
[2024-04-05 20:47] LABS: Troponin-I High Sensitivity < 2.7 ng/L (<3.5-35.0)
[2024-04-05 21:04] LABS: Influenza A PCR NEGATIVE (Negative); Influenza B PCR NEGATIVE (Negative); Resp Syncy Virus RNA Qual PCR NEGATIVE (Negative); SARS COV2 PCR INHOUSE NEGATIVE (Negative)
--- NOTE | 2024-04-05 22:04 | PC.NURSE ---
pt is getting upset in the waiting room saying that we are not treating him and that he has bug bites behind his neck. pt wants a uber to take him to another hospital. pt told he has not been seen and that we will not suppy him with a uber that he himself can call for a uber. pt yelling out lound in waiting room and insulting staff. Security is aware of the pt on arrival.
--- NOTE | 2024-04-05 22:37 | PC.NURSE ---
pt has a plan to be arrested to get a ride home. pt called the police department security aware.
--- NOTE | 2024-04-05 22:56 | PC.NURSE ---
pt was being rude to staff, security present and police called. pt was taken by the police off hospital property. pt was talking in full sentences, no sob noted. no cough noted. pt was offered cleaning wipes for his bottom that he stated he needed to wipe. pt refused, overtalking staff and police at this time. pt is alert and oriented x4.
--- OUTSIDE RECORDS SUMMARY | 2024-04-05 23:03 | XMS_ITS | Clinical Summary ---
Author Organization [facility] Address [address] [place] [address] Care Team Providers Care [place] Name Role Phone Lobito Garcia MD Primary [...] HIGH RISK PATIENTS (#1) 01/21 Care Teams Kai[place]aere Relationship Specialty Start Date End Date Lobito Garcia MD PCP - General Internal Medicine 11/22/18
--- OUTSIDE RECORDS SUMMARY | 2024-04-05 23:03 | XMS_ITS | Encounter Summary ---
Author Organization [facility] Address [address] [place] [address] Care Team Providers Care Loading Unit Operator Name Role Phone Lobito Garcia MD Primary Care Provider Soledad vailable Reason for Visit * Reason Onset Date Comments Medical Records 12/01/2022 Encounter Details Date Type Department Care Team Description 12/01/2022 Telephone Cardio PVC [facility] [address] [place] [address] Lobito Garcia MD Medical Records [...] EDT Medical Records Request Caller: Calling from: [facility] Requesting provider's first & last name: Dr Armain Avelar Direct Phone Number or Ext: [phone] What records are being requested: Nuclear Stress Test How far back: 11/17/2022 What is it for: Dr Avelar Needed by: documented in this encounter Plan of Treatment Not on file documented as of this encounter Visit Diagnoses Not on filedocumented in this encounter Care Teams Loading Unit Operator Relationship Specialty Start Date End Date Lobito Garcia MD PCP - General Internal Medicine 11/22/18 documented as of this encounter
== END 2024-04-05 23:12 | disposition left against medical advice (07) ==
PROVIDERS: Physician Assistant; Emergency Provider Emergency Medicine
DX: R06.02 Shortness of breath (principal); R05.9 Cough, unspecified; R50.9 Fever, unspecified; J45.909 Unspecified asthma, uncomplicated; F17.210 Nicotine dependence, cigarettes, uncomplicated; Z03.818 Encounter for observation for suspected exposure to other biological agents ruled out
CPT/HCPCS: 0241U; 36415; 71045; 80053; 83880; 84484; 85025; 85610; 85730; 93005; 99283

== ENCOUNTER → 2024-04-05 20:04 | Outpatient (BNV) | payer OTHER, SELFPAY | PROVIDERS: Visit Provider Radiology Diagnostic Radiology | DX: J18.9 Pneumonia, unspecified organism (principal) | CPT/HCPCS: 71045 ==

== ENCOUNTER → 2024-04-05 20:05 | Outpatient (BNV) | payer OTHER, SELFPAY | PROVIDERS: Emergency Provider Emergency Medicine; Visit Provider Internal Medicine Cardiovascular Disease | DX: R06.02 Shortness of breath (principal) | CPT/HCPCS: 93010 ==

== ENCOUNTER 2024-04-16 13:50 | Outpatient (AMB) | payer OTHER, SELFPAY ==
--- NOTE | 2024-04-16 13:52 | A.OFFPC_ITS ---
Vital Signs 04/16/24 13:53 Height 6 ft 4 in Weight 222 lb BMI 27.0 BP 160/90 H Blood Pressure Location Lt brachial Position Sitting Pulse 89 Pulse Source Pulse Oximeter Pulse Oximetry (%) 96 Oxygen Delivery Method Room Air Intake Visit Reasons: f/u COPD General Medical Practitioner Required: No Accompanied by: Self / Same As Patient Allergies No Known Allergies Allergy (Verified 04/16/24 14:08) Medication List - Last Reconciled 04/16/24 by Armani Avelar PA-C acetaminophen 650 mg (2 x 325 mg) PO Q6H 30 days albuterol sulfate 90 mcg/actuation (Ventolin HFA) 2 puffs inhalation Q4-6H 30 days [Cane As directed] cholecalciferol (vitamin D3) 50 mcg PO DAILY 90 days [Clamp on tub rail As directed] clonazepam 1 mg PO BID PRN dextromethorphan HBr (Cough Relief) 15 mg (5 mL) PO Q8H PRN docusate sodium (Colace) 100 mg PO BID fluticasone propion-salmeterol 250-50 mcg/dose 1 inh inhalation Q12H 90 days hydrocortisone-pramoxine 1-1 % (Proctofoam HC) 1 appl MT QID 14 days ibuprofen 600 mg PO Q6H PRN ipratropium-albuterol 0.5 mg-3 mg(2.5 mg base)/3 mL 3 mL inhalation Q4H PRN [large size adult pull ups As directed] magnesium oxide 250 mg PO BID 30 days omega 0-yiq-zxs-fish oil 300-1,000 mg (Fish Oil) 1 cap PO DAILY 90 days [shower chair As directed] sitz bath As directed tiotropium bromide 2.5 mcg/actuation (Spiriva Respimat) 2 puffs inhalation DAILY 30 days [wall grab bar As directed] Tobacco use date assessed: 03/12/24 Dental Screening Dental Screen Date: 03/12/24 HPI f/u COPD HPI Details Patient is a 64-year-old male here today for follow-up. with a past medical history asthma, COPD, hyperlipidemia, ADHD, anxiety and insomnia. Concern--> He details a persistent struggle with respiratory effort, exacerbated by known allergies, and emphasizes difficulty in breathing relieved only partially by existing medications. The history of deviated nasal septum, coupled with chronic allergic presentations, compounds his respiratory difficulty. He does admit to history of nasal cocaine use that may have destroyed his nasal septum. He also has had many trauma to his nose. He has seen an epic director and underwent allergy testing which he does have a lot of environmental allergies. He was advised on starting nasal spray. He is somewhat interested in seeing an ENT for evaluation and possible surgical fix of his nasal septum. .. Asthma COPD overlap syndrome: Continues follow up with [facility]. He unfortunately continues to smoke a few cigarettes per day. He does understand he needs to quit smoking. He continues on maintenance inhaler which has been helpful. He does report often having exacerbations which she relates also to his anxiety as well. PLAN: He is willing to try prednisone 10-20 mg during times of COPD exacerbations to help try to reduce hospitalization. .. Symptomatic hemorrhoids: He has recently underwent a hemorrhoidectomy which he is recovering well from though still does have scant rectal mucus discharge. .. Anxiety: He is now seeing a psychiatrist whom is managing his mental health medications at this time. [facility] Medical History Asthma-COPD overlap syndrome COPD exacerbation Back pain Peripheral neuropathy Anxiety ADHD (attention deficit hyperactivity disorder) Bronchitis Bleeding hemorrhoids COPD exacerbation Tubular adenoma of colon (~2018) Nicotine dependence, cigarettes, uncomplicated COPD (chronic obstructive pulmonary disease) Surgical History History of hemorrhoidectomy (~03/16/24) History of colonoscopy (~08/26/23) History of hemorrhoidectomy History of esophagogastroduodenoscopy (EGD) History of colonoscopy Family History Mother Diabetes Father No problems noted. Brother No problems noted. Social History Household Members: None Housing: Apartment Are you a primary live in caregiver to a significant other at home: No Do you presently have visiting nurse or other home services: No Alcohol intake: current Alcohol intake frequency: does not drink Patient Tobacco Use Status: Current everyday Tobacco user Tobacco use type: Cigarette Cigarette Packs Per Day: 1 Cigarettes Per Day: 10 Years Smoked: 45 e-Cigarette/Vaping Use: Never Used [place] [employer] service: No Current occupational status: unemployed and disabled Cognitive needs: No Hearing needs: No Vision needs: No Questionnaire Thrive Questionnaire Date Thrive assessed: 03/12/24 MELINDA-7 AMB Questionnaire MELINDA-7 Date MELINDA - 7 assessed: 03/12/24 Source: Developed by Drs. Hudson Correa, Mami Cordova, Alberto Crockett and colleagues, with an educational bobbi from [employer]. Review of Systems Const Denies headache(s) Eyes Denies loss of vision ENT Denies vertigo, Denies dizziness, Denies headache(s) and Denies sore throat Card Denies chest pain, Denies leg edema and Denies lightheadedness Resp Denies cough, Denies hemoptysis and Denies wheezing GI Denies abdominal pain, Denies melena, Denies constipation, Denies diarrhea and Denies vomiting Denies dysuria, Denies urinary frequency and Denies urinary urgency Musc Denies arthralgias, Denies joint swelling, Denies numbness and Denies tingling Neuro Denies Abnormal speech present, Denies behavioral changes, Denies vertigo, Denies dizziness, Denies headache(s), Denies loss of vision, Denies memory loss, Denies numbness and Denies tingling Psych Denies anxiety, Denies behavioral changes, Denies depression, Denies memory loss and Denies panic attacks Chandra/Lymph Denies easy bleeding and Denies easy bruising Aller/Immun Denies wheezing Physical exam (Primary Care) Vital Signs: Last Vital Signs Pulse 89 04/16/24 13:53 BP 160/90 H 04/16/24 13:53 Pulse Ox 96 04/16/24 13:53 Oxygen Delivery Method Room Air 04/16/24 13:53 BMI result Body Mass Index 27.0 Tobacco/Smoking Status: Tobacco use Status Tobacco use date assessed 03/12/24 04/16/24 14:04 Patient Tobacco Use Status Current everyday Tobacco 04/16/24 14:04 Tobacco use type Cigarette 04/16/24 14:04 e-Cigarette/Vaping Use Never Used 04/16/24 14:04 Are you ready to quit: No Tobacco cessation counseling provided: Yes Items discussed: Nicotine replacement Relapse Prevention: discussed the importance of a supportive environment, discussed negative mood or depression after quitting, weight gain after smoking is common and discussed dietary, exercise and/or lifestyle changes Number of minutes spent counselin CPT code: 51286 - 4-10 Minutes Thrive Assessment: Date of Thrive Assessment Date Thrive assessed 03/12/24 04/16/24 14:04 Const General: healthy appearing, no acute distress, alert and awake Nutritional Appearance: well nourished Orientation/consciousness: oriented to person, oriented to place and oriented to time HENMT Ears: TM's normal bilaterally General nose exam: Normal nasal mucous membranes and turbinates present Eyes Conjunctivae: conjunctivae normal Sclerae: sclerae normal Pupils: Equal, round and reactive pupils present Neck Neck: Yes no lymphadenopathy and Yes no JVD Thyroid: Thyroid normal Carotids: no bruits Resp Effort & Inspection: normal respiratory effort and not tachypneic Auscultation: no crackles, no rales, no rhonchi and no wheezes Cardio Rate: regular rate Rhythm: regular rhythm Heart sounds: no murmurs and normal S1 and S2 GI Palpation (GI): Soft to palpation, nontender, no hepatomegaly and no splenomegaly Auscultation: normal bowel sounds Skin General skin exam: no rashes or lesions noted and dry skin Neuro General: oriented to person, oriented to place and oriented to time Cranial nerves: Yes Equal, round and reactive pupils present Speech: No Abnormal speech present Gait exam (Neuro): Normal gait present Motor exam (neuro): no tremor noted Extrem Right upper extremity: full ROM Left upper extremity: full ROM Right lower extremity: full ROM; no edema Left lower extremity: full ROM; no edema Psych Mental Status: mental status grossly normal Speech and movement: Normal speech and movement present Affect: normal affect Attitude: cooperative Thought process: Normal thought process present Coding Level of Care Code Est Pt Level 4 (36559) Diagnoses Asthma-COPD overlap syndrome J44.89 Anxiety F41.9 Tobacco use disorder F17.200 Status post hemorrhoidectomy Z98.890; Z87.19 Deviated nasal bridge J34.2 Additional Codes Vital Signs *Quality* - CPT code: 19408 - 4-10 Minutes ([id number]) Assessment & Plan Assessment & Plan (1) Asthma-COPD overlap syndrome: Comment: HE HAS LONGSTANDING HISTORY OF COMBINATION OF ASTHMA AND COPD. ASTHMA IS MAINLY ALLERGIC IN TYPE. AND HIS COPD IS SECONDARY TO HIS LONG-TERM SMOKING. HE HAS BEEN TREATED FOR AN ACUTE EXACERBATION. STILL NOT FEELING BETTER, CLAIMS OF FEELING CONGESTED. HE WAS INSISTENT THAT HE WAS LOW ON OXYGEN. HOWEVER THE O2 SAT IN THE OFFICE WAS BETWEEN 94-96%. WHEN HE CAME WALKING TO THE OFFICE THE O2 SAT WAS STILL IN MID 90S. Code(s): J44.89 - Other specified chronic obstructive pulmonary disease Category: Medical Plan: COPD management includes use of a nebulizer and inhalers, with consideration for prednisone use during exacerbations. The plan emphasizes monitoring symptoms and adjusting the regimen as required. --> of note he does admit to smoking cigarettes from time to time though in general has stopped smoking. (2) Anxiety: Comment: HE HAS AN, ANXIOUS PERSONALITY , ALSO HAS ADHD. RELATIVELY CALMER TODAY AND HAPPY. Code(s): F41.9 - Anxiety disorder, unspecified Category: Medical Plan: As per HPI has establish with a mental health med provider whom will be taking over prescribing his mental health medications. He has some stress in his life due to personal issues and some financial issues as well. (3) Tobacco use disorder: Code(s): F17.200 - Nicotine dependence, unspecified, uncomplicated Category: Medical Plan: Patient does admit to smoking a few cigarettes still. Has access to nicotine patches and nicotine lozenges. Has tried Chantix in the past with resolution of his smoking for about a year though had side effects of increasing her. (4) Status post hemorrhoidectomy: Code(s): Z98.890 - Other specified postprocedural states; Z87.19 - Personal history of other diseases of the digestive system Category: Surgical Plan: The current focus is on conservative management post-surgery and further consult regarding unresolved symptomatology and potential interventions. (5) Deviated nasal bridge: Code(s): J34.2 - Deviated nasal septum Category: Medical Plan: Consideration for ENT referral to assess potential structural interventions to manage nasal breathing difficulties. Orders: Referrals Ear/Nose/Throat Referral J34.2 - Deviated nasal septum Medications: New azelastine administer into each nostril 1 spray intranasal BID 30 mL 1RF 30 days J30.9 - Allergic rhinitis, unspecified, J34.2 - Deviated nasal septum prednisone 20 mg (2 x 10 mg) PO DAILY 20 tabs 0RF 10 days J41.0 - Simple chronic bronchitis Refilled tiotropium bromide 2.5 mcg/actuation (Spiriva Respimat) 2 puffs inhalation DAILY 4 grams 5RF COPD 30 days R06.02 - Shortness of breath
[2024-04-16 13:53] VITALS: BP 160/90; PULSE 89; O2SAT 96; BMI 27.0
== END 2024-04-16 14:44 | disposition home or self-care (01) ==
PROVIDERS: PCP Physician Assistant; Visit Provider Physician Assistant
DX: J44.89 Other specified chronic obstructive pulmonary disease (principal); F41.9 Anxiety disorder, unspecified; F17.200 Nicotine dependence, unspecified, uncomplicated; Z98.890 Other specified postprocedural states; Z87.19 Personal history of other diseases of the digestive system; J34.2 Deviated nasal septum

== ENCOUNTER → 2024-04-16 13:50 | Outpatient (BNVA) | payer OTHER, SELFPAY | PROVIDERS: PCP Physician Assistant; Visit Provider Physician Assistant | DX: J44.89 Other specified chronic obstructive pulmonary disease (principal); F41.9 Anxiety disorder, unspecified; J34.2 Deviated nasal septum; F17.200 Nicotine dependence, unspecified, uncomplicated; Z71.6 Tobacco abuse counseling; Z98.890 Other specified postprocedural states; Z87.19 Personal history of other diseases of the digestive system | CPT/HCPCS: 99212 ==

== ENCOUNTER 2024-04-26 11:01 | Outpatient (AMB) | payer OTHER, SELFPAY ==
[2024-04-26 11:04] VITALS: BMI 27.0
--- NOTE | 2024-04-26 11:04 | A.OFFVIS_ITS ---
Vital Signs 04/26/24 11:04 Height 6 ft 4 in Weight 222 lb 0.017 oz BMI 27.0 Intake Visit Reasons: 2 week follow up S/P EUA, hemorrhoidectomy Intake Note: This patient presents for two week follow-up status pot EUA, hemorrhoidectomy. Pt c/o; reports no complaints. Lead Java Developer Architect Required: No Accompanied by: Self / Same As Patient Allergies No Known Allergies Allergy (Verified 04/26/24 11:07) HPI HPI 2 week follow up S/P EUA, hemorrhoidectomy: Details: He is here for follow-up after hemorrhoidectomy last March, . He says he now feels much better. He is happy with the outcome. He says that his bowel movements are much improved. He denies any pain or bleeding. Feels well overall. [facility] Medical History Asthma-COPD overlap syndrome COPD exacerbation Back pain Peripheral neuropathy Anxiety ADHD (attention deficit hyperactivity disorder) Bronchitis Bleeding hemorrhoids COPD exacerbation Tubular adenoma of colon (~2018) Nicotine dependence, cigarettes, uncomplicated COPD (chronic obstructive pulmonary disease) Surgical History History of hemorrhoidectomy (~03/16/24) History of colonoscopy (~08/26/23) History of hemorrhoidectomy History of esophagogastroduodenoscopy (EGD) History of colonoscopy Family History Mother Diabetes Father No problems noted. Brother No problems noted. Social History Household Members: None Housing: Apartment Are you a primary youth career specialist to a significant other at home: No Do you presently have visiting nurse or other home services: No Alcohol intake: current Alcohol intake frequency: does not drink Patient Tobacco Use Status: Current everyday Tobacco user Tobacco use type: Cigarette Cigarette Packs Per Day: 1 Cigarettes Per Day: 10 Years Smoked: 45 e-Cigarette/Vaping Use: Never Used service: No Current occupational status: unemployed and disabled Cognitive needs: No Hearing needs: No Vision needs: No Review of Systems Const Denies chills and Denies fever(s) Physical Exam Vital Signs: BMI result Body Mass Index 27.0 Const Other: Looks well General: comfortable and no acute distress Resp Effort & Inspection: normal respiratory effort GI Other: Rectal exam shows the hemorrhoidectomy sites to be well healed, no evidence of any infection, no discharge, no tenderness Assessment & Plan Assessment & Plan (1) Bleeding hemorrhoids: Code(s): K64.9 - Unspecified hemorrhoids Category: Medical Plan: Status post hemorrhoidectomy. He says he has happy with the outcome now. He denies any problems anymore with his rectum. He no longer sees any significant bleeding. He denies any pain. His hemorrhoidectomy sites are well healed I advised him on avoiding straining and constipation. I recommended taking fiber supplements like Metamucil He can follow up on a p.r.n. basis Coding Level of Care Code Global (63312) Diagnoses Bleeding hemorrhoids K64.9
--- OUTSIDE RECORDS SUMMARY | 2024-04-26 13:00 | XMS_ITS | Clinical Summary ---
Author Organization [facility] Address [address] [place] [address] Care Team Providers Care Advertising Assistant Manager Name Role Phone Lobito Garcia MD Primary [...] HIGH RISK PATIENTS (#1) 01/21 Care Teams Advertising Assistant Manager Relationship Specialty Start Date End Date Lobito Garcia MD PCP - General Internal Medicine 11/22/18
== END 2024-04-26 11:12 | disposition home or self-care (01) ==
LOC: HO.HGS 11:02
PROVIDERS: PCP Physician Assistant; Visit Provider Surgery
DX: K64.9 Unspecified hemorrhoids (principal)
CPT/HCPCS: 99024

== ENCOUNTER → 2024-04-26 11:01 | Outpatient (BNVA) | payer OTHER, SELFPAY | PROVIDERS: PCP Physician Assistant; Visit Provider Surgery | DX: Z09 Encounter for follow-up examination after completed treatment for conditions other than malignant neoplasm (principal); Z87.19 Personal history of other diseases of the digestive system; Z98.890 Other specified postprocedural states | CPT/HCPCS: 99212 ==

== ENCOUNTER 2024-05-23 09:26 | Outpatient (AMB) | payer OTHER, SELFPAY ==
[2024-05-23 09:45] VITALS: BP 140/84; PULSE 80; O2SAT 96; BMI 28.2
--- NOTE | 2024-05-23 09:45 | A.OFFVIS_ITS ---
Vital Signs 05/23/24 09:45 Height 6 ft 4 in Weight 231 lb 7.766 oz BMI 28.2 BP 140/84 H Blood Pressure Location Lt brachial Position Sitting Pulse 80 Pulse Source Pulse Oximeter Pulse Oximetry (%) 96 Oxygen Delivery Method Room Air Intake Visit Reasons: Asthma/COPD Intake Note: pt is here for follow up and states his breathing is okay, but he does have heart problems, pt needs refill on spirvia, and ventolin hfa Department Mgr Required: No Allergies No Known Allergies Allergy (Verified 05/23/24 10:19) Medication List - Last Reconciled 05/23/24 by Vargas Vega MD acetaminophen 650 mg (2 x 325 mg) PO Q6H 30 days albuterol sulfate 90 mcg/actuation (Ventolin HFA) 2 puffs inhalation Q4-6H 30 days azelastine 1 spray intranasal BID 30 days [Cane As directed] cholecalciferol (vitamin D3) 50 mcg PO DAILY 90 days [Clamp on tub rail As directed] clonazepam 1 mg PO BID PRN dextromethorphan HBr (Cough Relief) 15 mg (5 mL) PO Q8H PRN docusate sodium (Colace) 100 mg PO BID fluticasone propion-salmeterol 250-50 mcg/dose 1 inh inhalation Q12H 90 days hydrocortisone 2.5% 1 appl topical BID PRN hydrocortisone-pramoxine 1-1 % (Proctofoam HC) 1 appl VT QID 14 days ibuprofen 600 mg PO Q6H PRN ipratropium-albuterol 0.5 mg-3 mg(2.5 mg base)/3 mL 3 mL inhalation Q4H PRN [large size adult pull ups As directed] magnesium oxide 250 mg PO BID 30 days omega 0-snb-odj-fish oil 300-1,000 mg (Fish Oil) 1 cap PO DAILY 90 days [shower chair As directed] sitz bath As directed tiotropium bromide 2.5 mcg/actuation (Spiriva Respimat) 2 puffs inhalation DAILY 30 days [wall grab bar As directed] Do you need a note to return to daycare/school/sports/work: No HPI HPI Asthma/COPD: Details: THIS 64 YEARS OLD GENTLEMAN IS HERE FOR FOLLOW-UP AFTER 3 MONTHS. HE HAS BEEN RELATIVELY STABLE. DID HAVE 1 VISIT IN THE EMERGENCY ROOM AFTER I SAW HIM LAST TIME. CONTINUES TO USE ADVAIR 250-51 INHALATION B.I.D. AND SPIRIVA RESPIMAT 2 INHALATIONS DAILY. USES ALBUTEROL AT LEASE ONCE OR TWICE A DAY. HE ADMITS THAT RESPIRATORY GARCIA HE IS DOING BETTER. HOWEVER HE IS STILL ANXIOUS BECAUSE HE GETS SHORT OF BREATH WHEN HE STARTS WALKING. HE STILL SMOKES ABOUT 4-5 CIGARETTES A DAY. HE ADMITS THAT HE HAS SOMEWHAT ANXIOUS AND COMPULSIVE BEHAVIOR. HIS MAIN DISCUSSION WAS ABOUT SHORTNESS OF BREATH WHEN HE STARTS WALKING, AND HE IS FULLY CONVINCED THAT HE HAS SILENT ATRIAL FIBRILLATION. THOUGH HE HAS BEEN CHECKED BY CARDIOLOGY AT [facility] AND HERE AT AND ATRIAL FIBRILLATION HAS NOT BEEN DETECTED. ANYWAY OVERALL HE IS DOING BETTER THAN BEFORE AND SEEMS TO BE MORE STABLE. [facility] Medical History Asthma-COPD overlap syndrome COPD exacerbation Back pain Peripheral neuropathy Anxiety ADHD (attention deficit hyperactivity disorder) Bronchitis Bleeding hemorrhoids COPD exacerbation Tubular adenoma of colon (~2018) Nicotine dependence, cigarettes, uncomplicated COPD (chronic obstructive pulmonary disease) Surgical History History of hemorrhoidectomy (~03/16/24) History of colonoscopy (~08/26/23) History of hemorrhoidectomy History of esophagogastroduodenoscopy (EGD) History of colonoscopy Family History Mother Diabetes Father No problems noted. Brother No problems noted. Social History Household Members: None Housing: Apartment Are you a primary home care specialist to a significant other at home: No Do you presently have visiting nurse or other home services: No Alcohol intake: current Alcohol intake frequency: does not drink Patient Tobacco Use Status: Current everyday Tobacco user Tobacco use type: Cigarette Cigarette Packs Per Day: 0.25 Cigarettes Per Day: 4 Years Smoked: 45 e-Cigarette/Vaping Use: Never Used service: No Current occupational status: unemployed and disabled Cognitive needs: No Hearing needs: No Vision needs: No Review of Systems Const All systems reviewed & are unremarkable except as noted in HPI and below Eyes Reports no additional complaints ENT Reports no additional complaints Card Denies chest pain, Denies irregular heart rhythm, Denies leg edema and Denies lightheadedness Resp Reports as per HPI GI Reports no additional complaints Reports no additional complaints Musc Reports no additional complaints Skin/Breast Reports system reviewed and no additional complaints, except as documented Neuro Reports no additional complaints Psych Reports anxiety Endo Reports no additional complaints Chandra/Lymph Reports no additional complaints Aller/Immun Reports no additional complaints Physical Exam Vital Signs: Last Vital Signs Pulse 80 05/23/24 09:45 BP 140/84 H 05/23/24 09:45 Pulse Ox 96 05/23/24 09:45 Oxygen Delivery Method Room Air 05/23/24 09:45 BMI result Body Mass Index 28.2 Const General: healthy appearing, comfortable, no acute distress, alert and awake Orientation/consciousness: patient oriented x3 HEENT Head: Yes normal to inspection General nose exam: No nasal polyps present and No nasal discharge present Face and sinus: Yes sinuses nontender Mouth: oropharynx normal Throat: Yes posterior oropharynx normal Eyes General: appearance normal, both eyes and all related structures Neck Neck: Yes normal visual inspection, Yes no lymphadenopathy, Yes trachea midline and Yes no JVD Thyroid: Thyroid normal Chest Chest palpation & inspection: normal inspection of the chest, normal palpation of entire chest wall and no tenderness Resp Other: PERCUSSION NOTE IS RESONANT, BREATH SOUNDS ARE DISTANT WITH PROLONGED EXPIRATORY PHASE. BOTH LUNGS ARE CLEAR. THERE ARE NO RESIDUAL CREPITATIONS OR WHEEZES. Cardio Palpation: normal PMI Rate: regular rate Rhythm: regular rhythm Heart sounds: no gallops and no murmurs Peripheral pulses: Peripheral pulses 2+ throughout GI Palpation (GI): Soft to palpation, nontender, No hepatosplenomegaly present and no masses Auscultation: normal bowel sounds Back/Spine/Pelvis Thoracic/Lumbar Spine: thoracic and lumbar spine normal to inspection Skin General skin exam: no rashes or lesions noted Neuro General: patient oriented x3 and no focal motor deficits Cranial nerves: Yes CN's II-XII intact bilaterally Extrem General: Yes normal to inspection, Yes no clubbing, cyanosis or edema and Yes no calf tenderness Psych Appearance: grossly normal and well kempt Speech and movement: Normal speech and movement present Affect: Anxious affect present Assessment & Plan Assessment & Plan (1) COPD (chronic obstructive pulmonary disease): Comment: HE DOES HAVE RELATIVELY SEVERE OBSTRUCTIVE AIRWAY DISORDER, WITH GOOD RESPONSe to 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 CURRENTLY DOING WELL WITH USE OF THE CURRENT REGIMEN. SEE BELOW. Code(s): J44.9 - Chronic obstructive pulmonary disease, unspecified Category: Medical Qualifiers: COPD type: chronic bronchitis Chronic bronchitis type: simple Qualified Code(s): J41.0 - Simple chronic bronchitis Plan: ADVAIR 250-51 INHALATION B.I.D. SPIRIVA RESPIMAT 2.5 . 2 INHALATIONS DAILY ALBUTEROL HFA 2 PUFFS Q 6 HOURS P.R.N. I DID DISCUSS WITH HIM IF HE WOULD LIKE TO JOIN PULMONARY REHAB PROGRAM AND HE SAY IS NO HE DOES NOT NEED THAT. (2) Nicotine dependence, cigarettes, uncomplicated: Comment: HISTORY OF SMOKING 1-2 PACKS A DAY FOR LAST 40-45 YEARS. He had tried to quit, but went back to smoking. Claims that he smokes 5-6 cigarettes a day at present . Code(s): F17.210 - Nicotine dependence, cigarettes, uncomplicated Category: Medical Plan: I DISCUSSED WITH HIM AND TOLD HIM THAT THIS SEEMS TO BE HIS MAIN PROBLEM. HE NEEDS TO COME OFF SMOKING OR AT LEAST CUT IT DOWN TO 1 OR 2 CIGARETTES A DAY. (3) Anxiety: Comment: HE HAS AN, ANXIOUS PERSONALITY , ALSO HAS ADHD. RELATIVELY CALMER TODAY AND HAPPY. Code(s): F41.9 - Anxiety disorder, unspecified Category: Medical Plan: I DISCUSSED WITH HIM ABOUT ONGOING SHORTNESS OF BREATH ON EXERTION. IT IS PARTLY CONTRIBUTED BY HIS ANXIOUS PERSONALITY . AND ADHD HE UNDERSTANDS. I ENCOURAGED HIM TO START WALKING SLOW AND ALSO TRY TO DO SOME RELAXING EXERCISES. Coding Level of Care Code Est Pt Level 3 (71026) Diagnoses Simple chronic bronchitis J41.0 COPD type: chronic bronchitis Chronic bronchitis type: simple Nicotine dependence, cigarettes, uncomplicated F17.210 Anxiety F41.9
--- OUTSIDE RECORDS SUMMARY | 2024-05-23 10:22 | XMS_ITS | Clinical Summary ---
Author Organization [facility] Address [address] [place] [address] Care Team Providers Care Machine Clipper Name Role Phone Lobito Garcia MD Primary [...] 2011 SHINGLES VACCINE (1 of 2) 2011 BMI CHECK/ADVISE 02/08/2024 DEPRESSION SCREENING/FOLLOWUP 02/08/2024 SOCIAL NEEDS SCREENING 02/08/2024 INFLUENZA (Season Ended) 2024 11/21/2018 PNEUMOCOCCAL VACCINE FOR HIGH RISK PATIENTS (#1) 01/21 Care Teams Machine Clipper Relationship Specialty Start Date End Date Lobito Garcia MD PCP - General Internal Medicine 11/22/18
--- OUTSIDE RECORDS SUMMARY | 2024-05-23 10:23 | XMS_ITS | Encounter Summary ---
Author Organization [facility] Address [address] [place] [address] Care Team Providers Care Support Assistant Name Role Phone Lobito Garcia MD Primary Care Provider Soledad vailable Reason for Visit * Reason Onset Date Comments Medical Records 12/01/2022 Encounter Details Date Type Department Care Team Description 12/01/2022 Telephone Cardio [facility] [address] [place] [address] Lobito Garcia MD Medical Records [...] EDT Medical Records Request Caller: Calling from: [facility] Requesting provider's first & last name: Dr Armani Avelar Direct Phone Number or Ext: [phone] What records are being requested: Nuclear Stress Test How far back: 11/17/2022 What is it for: Dr Avelar Needed by: documented in this encounter Plan of Treatment Not on file documented as of this encounter Visit Diagnoses Not on filedocumented in this encounter Care Teams Support Assistant Relationship Specialty Start Date End Date Lobito Garcia MD PCP - General Internal Medicine 11/22/18 documented as of this encounter
== END 2024-05-23 10:10 | disposition home or self-care (01) ==
LOC: HO.HPS 09:27
PROVIDERS: PCP Physician Assistant; Visit Provider Internal Medicine
DX: J41.0 Simple chronic bronchitis (principal); F17.210 Nicotine dependence, cigarettes, uncomplicated; F41.9 Anxiety disorder, unspecified
CPT/HCPCS: 99213

== ENCOUNTER → 2024-05-23 09:26 | Outpatient (BNVA) | payer OTHER, SELFPAY | PROVIDERS: PCP Physician Assistant; Visit Provider Internal Medicine | DX: J41.0 Simple chronic bronchitis (principal); F41.9 Anxiety disorder, unspecified; F17.210 Nicotine dependence, cigarettes, uncomplicated | CPT/HCPCS: 99212 ==

== ENCOUNTER 2024-07-17 07:21 | Outpatient (REF) | payer OTHER, SELFPAY ==
--- NOTE | ~2024-07-17 | CT_ITS ---
EXAMINATION: CT LUNG SCREENING HISTORY: F17.210 - Nicotine dependence, cigarettes, uncomplicated TECHNIQUE: Low dose axial images were obtained from the sternal notch to upper abdomen without IV contrast per standard departmental protocol. Sagittal and coronal reformatted images were also obtained and reviewed. One or more of the following techniques was used for dose reduction: Automated exposure control, adjustment of the mA and/or kV according to patient size, use of iterative reconstruction technique. DLP: 51 mGy-cm COMPARISON: There are no prior studies available for comparison. FINDINGS: Lung nodules: There is a 3 mm linear nodule at the right lung apex (series 4, image 13) which is new from the prior study. Additional 3-4 mm nodules at the left lung apex (series 4, images 12 and 17) are also new. There is an irregularly shaped 13 x 8 mm nodule in the left upper lobe (series 4, image 51) which is new. Again seen are 3 mm nodules in the left upper lobe (series 4, image 41) and in the left lower lobe (series 4, image 71). Emphysema: mild Coronary Calcification: none Aortic Arch Calcification: mild Potentially Significant Incidentals : none Additional Chest Findings: There is no pleural or pericardial effusion. No mediastinal or axillary lymphadenopathy is identified. Visualized upper abdomen: The visualized portions of the liver, spleen, and adrenals have an unremarkable unenhanced appearance. There is a probable 3.7 cm cyst at the upper pole of the left kidney. CT/CT lung screening IMPRESSION: Multiple new nodules are seen in the left upper lobe, the largest of which measures 13 x 8 mm and is irregular in shape. Findings were sent to Jacki Meléndez by secure text message on 07/17/2024 at 8:12 AM. LUNG-RADS ASSESSMENT: Lung-RADS 4B: Very Suspicious MANAGEMENT: PET/CT or Tissue Sampling or 1 month LDCT Category S: N/A Electronically signed by: Hudson Cazares MD 07/17/2024 08:14 AM EDT
[2024-07-17 08:21] LABS: Hematocrit 44.5 % (42.0-52.0); Hemoglobin 14.6 g/dl (14.0-18.0); Mean Corpuscular HGB Conc 32.8 g/dl (31.0-36.0); Mean Corpuscular Hemoglobin 28.6 pg (27.0-33.0); Mean Corpuscular Volume 87.3 fL (80.0-98.0); Mean Platelet Volume 9.2 fL (9.4-12.4); Platelet Count 240 X10*3/uL (160-400); White Blood Count 5.8 X10*3/uL (4.8-10.8)
[2024-07-17 08:55] LABS: Alanine Aminotransferase 26 U/L (0-40); Albumin Level 4.7 g/dL (3.5-5.0); Alkaline Phosphatase 65 U/L (39-117); Anion Gap 8 (12-20); Aspartate Amino Transferase 25 U/L (5-37); Bilirubin Total 0.4 mg/dL (0.0-1.0); Blood Urea Nitrogen 16 mg/dL (9-16); Calcium 9.6 mg/dL (8.4-10.2); Carbon Dioxide 31 mmol/L (22-29); Chloride 106 mmol/L (96-108); Cholesterol 248 mg/dL (<200); Estimated Glomerular Filt Rate > 60; Glucose Fasting 99 mg/dL (60-99); HDL Cholesterol 48 mg/dL (>40); LDL Cholesterol Calculated 169 mg/dL (<100); Potassium 4.3 mmol/L (3.3-5.1); Sodium 141 mmol/L (135-145); Total Protein 7.3 g/dL (6.5-8.0); Triglycerides 157 mg/dL (<150)
[2024-07-18 20:13] LABS: Class Alternaria alternata 0; Class Aspergillus fumigatus 0; Class Bermuda Grass 0; Class Birch 0; Class Cat Dander 0; Class Cladosporium herbarum 0; Class Cockroach 1; Class Common Ragweed 0/1; Class Cottonwood 0; Class Derm. pterony 2; Class Dermatophagoides farinae 1; Class Dog Dander 0/1; Class Elm 0; Class Maple Box Elder 0; Class Mountain Cedar 0; Class Mouse Urine Protein 0/1; Class Mugwort 0; Class Oak 0; Class Penicillium crysogenum 0; Class Rough Pigweed 0; Class Sheep Sorrel 0; Class Sycamore 0; Class Timothy Grass 0; Class Walnut Tree 0; Class White Ash 0; Class White Mulberry 0; D001 IgE D pteronyssinus 0.74 kU/L; D002 - IgE D farinae 0.68 kU/L; E001 - IgE Cat Dander <0.10 kU/L; E005 - IgE Dog Dander 0.11 kU/L; E072-IgE Mouse Urine 0.29 kU/L; G002 IgE Bermuda Grass <0.10 kU/L; G006 - IgE Timothy Grass <0.10 kU/L; I006-IgE Cockroach, German 0.57 kU/L; Immunoglobulin E 942 kU/L (<OR=114); M001 IgE Penicillium chrysogen <0.10 kU/L; M002 - IgE Cladosporium herbar <0.10 kU/L; M003 - IgE Aspergillus fumigat <0.10 kU/L; M006 - IgE Alternaria alternat <0.10 kU/L; T001 IgE Maple/Box Elder <0.10 kU/L; T003 IgE Common Silver Birch <0.10 kU/L; T006 - IgE Cedar, Mountain <0.10 kU/L; T007 - IgE Oak, White <0.10 kU/L; T008 IgE Elm, American <0.10 kU/L; T010 - IgE Walnut <0.10 kU/L; T011 - IgE Maple Leaf Sycamore <0.10 kU/L; T014 - IgE Cottonwood <0.10 kU/L; T015 - IgE Ash, White <0.10 kU/L; T070 - IgE White Mulberry <0.10 kU/L; W001 - IgE Ragweed, Short 0.14 kU/L; W006 - IgE Mugwort <0.10 kU/L; W014 IgE Pigweed, Common <0.10 kU/L; W018 IgE Sheep Sorrel <0.10 kU/L
== END 2024-07-17 07:22 | disposition home or self-care (01) ==
LOC: HO.CT 07:21
PROVIDERS: Absent Provider Physician Assistant; PCP Physician Assistant; Visit Provider Physician Assistant Medical
DX: Z12.2 Encounter for screening for malignant neoplasm of respiratory organs (principal); F17.210 Nicotine dependence, cigarettes, uncomplicated; R91.8 Other nonspecific abnormal finding of lung field; J44.89 Other specified chronic obstructive pulmonary disease; F41.9 Anxiety disorder, unspecified; R07.9 Chest pain, unspecified; E78.2 Mixed hyperlipidemia; R05.9 Cough, unspecified; K62.5 Hemorrhage of anus and rectum; T78.40XD Allergy, unspecified, subsequent encounter
CPT/HCPCS: 36415; 71271; 80053; 80061; 82785; 85027; 86003; 99212

== ENCOUNTER → 2024-07-17 07:24 | Outpatient (BNV) | payer OTHER, SELFPAY | PROVIDERS: Absent Provider Physician Assistant; PCP Physician Assistant; Visit Provider Radiology Diagnostic Radiology | DX: F17.210 Nicotine dependence, cigarettes, uncomplicated (principal) | CPT/HCPCS: 71271 ==

== ENCOUNTER 2024-07-17 08:16 | Outpatient (AMB) | payer OTHER, SELFPAY ==
--- NOTE | 2024-07-17 08:18 | A.OFFPC_ITS ---
Vital Signs 07/17/24 08:19 Height 6 ft 2.21 in Weight 230 lb 2 oz BMI 29.4 BP 130/80 Blood Pressure Location Lt brachial Position Sitting Pulse 79 Pulse Source Pulse Oximeter Temp 97.1 F Temp Source Temporal Artery Scan Pulse Oximetry (%) 98 Oxygen Delivery Method Room Air Intake Visit Reasons: f/u COPD Intake Note: Patient is here to follow up on COPD. Advice Line Rn Required: No Associate Professor Of Management: Not Required per policy Accompanied by: Self / Same As Patient Allergies clonidine Adverse Reaction (Intermediate, Verified 07/17/24 08:31) Dizziness Medication List - Last Reconciled 07/17/24 by Armani Avelar PA-C acetaminophen 650 mg (2 x 325 mg) PO Q6H 30 days albuterol sulfate 90 mcg/actuation (Ventolin HFA) 2 puffs inhalation Q4-6H 30 days azelastine 1 spray intranasal BID 30 days [Cane As directed] cholecalciferol (vitamin D3) 50 mcg PO DAILY 90 days [Clamp on tub rail As directed] clonazepam 1 mg PO BID PRN dextromethorphan HBr (Cough Relief) 15 mg (5 mL) PO Q8H PRN docusate sodium (Colace) 100 mg PO BID fluticasone propion-salmeterol 250-50 mcg/dose 1 inh inhalation Q12H 90 days hydrocortisone 2.5% 1 appl topical BID PRN hydrocortisone-pramoxine 1-1 % (Proctofoam HC) 1 appl DC QID 14 days ibuprofen 600 mg PO Q6H PRN ipratropium-albuterol 0.5 mg-3 mg(2.5 mg base)/3 mL 3 mL inhalation Q4H PRN [large size adult pull ups As directed] magnesium oxide 250 mg PO BID 30 days nicotine 1 patch transdermal Q24H 28 days nicotine 1 patch transdermal DAILY 28 days omega [id number]-[id number]-fish oil 300-1,000 mg (Fish Oil) 1 cap PO DAILY 90 days [shower chair As directed] sitz bath As directed tiotropium bromide 2.5 mcg/actuation (Spiriva Respimat) 2 puffs inhalation DAILY 30 days [wall grab bar As directed] Tobacco use date assessed: 07/17/24 Dental Screening Dental Screen Date: 03/12/24 HPI f/u COPD HPI Details Patient is a 64-year-old male here today for follow-up. with a past medical history asthma, COPD, hyperlipidemia, ADHD, anxiety and insomnia. Concern--> Shyam continues to complain of persistent chest pain and findings from a recent CT scan showing pulmonary nodules. The chest pain is localized primarily to the left side and has been ongoing for a few years, worsening with certain movements. He expresses concern about a potential cardiac origin, despite having normal results on a previous cardiac stress test in 2022. Additionally, breathing difficulties are notable, which introduce suspicion about pulmonary involvement. The CT scan indicates multiple irregular nodules in the left upper lung, raising concern for possibly serious pathology, prompting a consideration for biopsy to assess cause. .. Asthma COPD overlap syndrome: Continues follow up with [facility]. He unfortunately continues to smoke a few cigarettes per day. He does u nderstand he needs to quit smoking. He continues on maintenance inhaler which has been helpful. He does report often having exacerbations which she relates also to his anxiety as well. .. Anxiety: He is now seeing a psychiatrist whom is managing his mental health medications at this time. .. Hyperlipidemia: Most recent labs showing elevated total cholesterol and LDL. We did discuss the need to start statin therapy though he declines. He does understand he needs to eat much better as he has a diet follow of fried fatty foods and snacks. He does report often being bloated and is willing to start using a regimen of fiber [facility] Medical History (Updated 07/17/24 @ 09:45 by Armani Avelar PA-C) Asthma-COPD overlap syndrome COPD exacerbation Back pain Peripheral neuropathy Anxiety ADHD (attention deficit hyperactivity disorder) Bronchitis Bleeding hemorrhoids Tubular adenoma of colon (~2018) Nicotine dependence, cigarettes, uncomplicated COPD (chronic obstructive pulmonary disease) Surgical History History of hemorrhoidectomy (~03/16/24) History of colonoscopy (~08/26/23) History of hemorrhoidectomy History of esophagogastroduodenoscopy (EGD) History of colonoscopy Family History Mother Diabetes Father No problems noted. Brother No problems noted. Social History Household Members: None Housing: Apartment Are you a primary career coach to a significant other at home: No Do you presently have visiting nurse or other home services: No Alcohol intake: current Alcohol intake frequency: does not drink Patient Tobacco Use Status: Current everyday Tobacco user Tobacco use type: Cigarette Cigarette Packs Per Day: 0.25 Cigarettes Per Day: 4 Years Smoked: 45 e-Cigarette/Vaping Use: Never Used Second Hand Smoke Exposure: Yes service: No Current occupational status: unemployed and disabled Cognitive needs: No Hearing needs: No Vision needs: No Questionnaire PHQ-9 Over the last 2 weeks, how often have you been bothered by any of the following problems? 1. Little interest or pleasure in doing things: more than half the days 2. Feeling down, depressed, or hopeless: more than half the days Source: Developed by Drs. Hudson Correa, Mami Cordova, Alberto Crockett and colleagues, with an educational bobbi from [email or web address]. Thrive Questionnaire Date Thrive assessed: 03/12/24 MELINDA-7 AMB Questionnaire MELINDA-7 Date MELINDA - 7 assessed: 03/12/24 Source: Developed by Drs. Hudson Correa, Mami Cordova, Alberto Crockett and colleagues, with an educational bobbi from [email or web address]. Review of Systems Const Denies headache(s) Eyes Denies loss of vision ENT Denies vertigo, Denies dizziness, Denies headache(s) and Denies sore throat Card Denies chest pain, Denies leg edema and Denies lightheadedness Resp Denies cough, Denies hemoptysis and Denies wheezing GI Denies abdominal pain, Denies melena, Denies constipation, Denies diarrhea and Denies vomiting Denies dysuria, Denies urinary frequency and Denies urinary urgency Musc Denies arthralgias, Denies joint swelling, Denies numbness and Denies tingling Neuro Denies Abnormal speech present, Denies behavioral changes, Denies vertigo, Denies dizziness, Denies headache(s), Denies loss of vision, Denies memory loss, Denies numbness and Denies tingling Psych Denies anxiety, Denies behavioral changes, Denies depression, Denies memory loss and Denies panic attacks Chandra/Lymph Denies easy bleeding and Denies easy bruising Aller/Immun Denies wheezing Physical exam (Primary Care) Vital Signs: Last Vital Signs Temp 97.1 F 07/17/24 08:19 Pulse 79 07/17/24 08:19 BP 130/80 07/17/24 08:19 Pulse Ox 98 07/17/24 08:19 Oxygen Delivery Method Room Air 07/17/24 08:19 BMI result Body Mass Index 29.4 Tobacco/Smoking Status: Tobacco use Status Tobacco use date assessed 07/17/24 07/17/24 08:26 Patient Tobacco Use Status Current everyday Tobacco 07/17/24 08:26 Tobacco use type Cigarette 07/17/24 08:26 e-Cigarette/Vaping Use Never Used 07/17/24 08:26 Thrive Assessment: Date of Thrive Assessment Date Thrive assessed 03/12/24 07/17/24 08:26 Const General: healthy appearing, no acute distress, alert and awake Nutritional Appearance: well nourished Orientation/consciousness: oriented to person, oriented to place and oriented to time HENMT Ears: TM's normal bilaterally General nose exam: Normal nasal mucous membranes and turbinates present Eyes Conjunctivae: conjunctivae normal Sclerae: sclerae normal Pupils: Equal, round and reactive pupils present Neck Neck: Yes no lymphadenopathy and Yes no JVD Thyroid: Thyroid normal Carotids: no bruits Resp Effort & Inspection: normal respiratory effort and not tachypneic Auscultation: no crackles, no rales, no rhonchi and no wheezes Cardio Rate: regular rate Rhythm: regular rhythm Heart sounds: no murmurs and normal S1 and S2 GI Palpation (GI): Soft to palpation, nontender, no hepatomegaly and no splenomegaly Auscultation: normal bowel sounds Skin General skin exam: no rashes or lesions noted and dry skin Neuro General: oriented to person, oriented to place and oriented to time Cranial nerves: Yes Equal, round and reactive pupils present Speech: No Abnormal speech present Gait exam (Neuro): Normal gait present Motor exam (neuro): no tremor noted Extrem Right upper extremity: full ROM Left upper extremity: full ROM Right lower extremity: full ROM; no edema Left lower extremity: full ROM; no edema Psych Mental Status: mental status grossly normal Speech and movement: Normal speech and movement present Affect: normal affect Attitude: cooperative Thought process: Normal thought process present Coding Level of Care Code Est Pt Level 4 (11710) Diagnoses Mass of left lung R91.8 Asthma-COPD overlap syndrome J44.89 Anxiety F41.9 Tobacco use disorder F17.200 Chest pain at rest R07.9 Mixed hyperlipidemia E78.2 Hyperlipidemia type: mixed hyperlipidemia Assessment & Plan Assessment & Plan (1) Mass of left lung: Comment: (13 x [address] on 07/17/24 LDCT - will review at 07/20 conference) Code(s): R91.8 - Other nonspecific abnormal finding of lung field Category: Medical Plan: Noticed suspicious mass in the left upper lobe noted on recent CT scan, patient does report pain in his left chest. Advised to continue to follow up pulmonology recommendations on perhaps tissue sampling or PET scanning. Unfortunately continues to smoke and has a difficult time not smoking. Has tried medications and nicotine replacement though have not been effective. Currently has a nicotine patch on at this moment. (2) Asthma-COPD overlap syndrome: Comment: HE HAS LONGSTANDING HISTORY OF COMBINATION OF ASTHMA AND COPD. ASTHMA IS MAINLY ALLERGIC IN TYPE. AND HIS COPD IS SECONDARY TO HIS LONG-TERM SMOKING. HE HAS BEEN TREATED FOR AN ACUTE EXACERBATION. STILL NOT FEELING BETTER, CLAIMS OF FEELING CONGESTED. HE WAS INSISTENT THAT HE WAS LOW ON OXYGEN. HOWEVER THE O2 SAT IN THE OFFICE WAS BETWEEN 94-96%. WHEN HE CAME WALKING TO THE OFFICE THE O2 SAT WAS STILL IN MID 90S. Code(s): J44.89 - Other specified chronic obstructive pulmonary disease Category: Medical Plan: He reports his asthma and COPD have not been well managed. He feels there is something wrong. Judging by patient's recent CT scan there were some concerns for abnormal nodules. You will continue his current maintenance inhaler and albuterol inhaler at this time and follow up with pulmonology. (3) Anxiety: Comment: HE HAS AN, ANXIOUS PERSONALITY , ALSO HAS ADHD. RELATIVELY CALMER TODAY AND HAPPY. Code(s): F41.9 - Anxiety disorder, unspecified Category: Medical Plan: As per HPI has establish with a mental health med provider whom will be taking over prescribing his mental health medications. He has some stress in his life due to personal issues and some financial issues as well. (4) Tobacco use disorder: Code(s): F17.200 - Nicotine dependence, unspecified, uncomplicated Category: Medical Plan: Patient does admit to smoking a few cigarettes still. Has access to nicotine patches and nicotine lozenges. Has tried Chantix in the past with resolution of his smoking for about a year though had side effects of increasing her. (5) Chest pain at rest: Code(s): R07.9 - Chest pain, unspecified Category: Medical Plan: As above, patient has not had a nuclear stress test done at [facility] in 2022 which did not show signs of ischemia with an estimated EF of 67%. (6) Hyperlipidemia: Code(s): E78.5 - Hyperlipidemia, unspecified Category: Medical Qualifiers: Hyperlipidemia type: mixed hyperlipidemia Qualified Code(s): E78.2 - Mixed hyperlipidemia Plan: Patient's most recent lipid panel showing elevated total cholesterol and LDL. We did discuss the need to start statin therapy to reduce his cardiovascular risk though he adamantly declines at this time. We did discuss perhaps doing his fiber supplement to reduce his abdominal bloating and perhaps reduce some of his cholesterol as well. He does understand he eats poorly and does need a change his dietary habits. Goal LDL is to be below 130 Medications: New cyclobenzaprine 10 mg PO BEDTIME 30 days 30 tabs 1RF R07.9 - Chest pain, unspecified guaifenesin ER (Mucinex) 600 mg PO BID 30 days 60 tabs 1RF J41.0 - Simple chronic bronchitis psyllium husk (Metamucil) mix into at least 8 oz of water or juice before administering 1 tbsp PO DAILY 30 days PRN 660 grams 1RF constipation K59.00 - Constipation, unspecified, K62.5 - Hemorrhage of anus and rectum
[2024-07-17 08:19] VITALS: BP 130/80; PULSE 79; TEMP 36.2; O2SAT 98; BMI 29.4
== END 2024-07-17 09:07 | disposition home or self-care (01) ==
LOC: HO.HMCH 08:17
PROVIDERS: PCP Physician Assistant; Visit Provider Physician Assistant
DX: R91.8 Other nonspecific abnormal finding of lung field (principal); J44.89 Other specified chronic obstructive pulmonary disease; F41.9 Anxiety disorder, unspecified; F17.200 Nicotine dependence, unspecified, uncomplicated; R07.9 Chest pain, unspecified; E78.2 Mixed hyperlipidemia

== ENCOUNTER 2024-09-24 09:39 | Outpatient (AMB) | payer OTHER, SELFPAY ==
[2024-09-24 09:48] VITALS: BP 140/82; PULSE 78; O2SAT 97; BMI 29.4
--- NOTE | 2024-09-24 09:48 | A.OFFVIS_ITS ---
Vital Signs 09/24/24 09:48 Height 6 ft 2.21 in Weight 230 lb 6.129 oz BMI 29.4 BP 140/82 H Blood Pressure Location Lt brachial Position Sitting Pulse 78 Pulse Source Pulse Oximeter Pulse Oximetry (%) 97 Oxygen Delivery Method Room Air Intake Visit Reasons: Asthma/COPD Intake Note: pt is here for follow up and states his breathing is still not good, he is still being worked up by Dr. Benavidez. Input Output Clerk Required: No Allergies clonidine Adverse Reaction (Intermediate, Verified 09/24/24 10:17) Dizziness cyclobenzaprine (From Flexeril) Adverse Reaction (Intermediate, Verified 09/24/24 10:17) Dry mouth Medication List - Last Reconciled 09/24/24 by Vargas Vega MD acetaminophen 650 mg (2 x 325 mg) PO Q6H 30 days albuterol sulfate 90 mcg/actuation (Ventolin HFA) 2 puffs inhalation Q4-6H 30 days azelastine 1 spray intranasal BID 30 days baclofen 10 mg PO BID 7 days [Cane As directed] cholecalciferol (vitamin D3) 50 mcg PO DAILY 90 days [Clamp on tub rail As directed] clonazepam 1 mg PO BID PRN dextromethorphan HBr (Cough Relief) 15 mg (5 mL) PO Q8H PRN docusate sodium (Colace) 100 mg PO BID fluticasone propion-salmeterol 250-50 mcg/dose 1 inh inhalation Q12H 90 days guaifenesin ER (Mucinex) 600 mg PO BID 30 days hydrocortisone 2.5% 1 appl topical BID PRN hydrocortisone-pramoxine 1-1 % (Proctofoam HC) 1 appl VA QID 14 days ibuprofen 600 mg PO Q6H PRN ipratropium-albuterol 0.5 mg-3 mg(2.5 mg base)/3 mL 3 mL inhalation Q4H PRN [large size adult pull ups As directed] magnesium oxide 250 mg PO BID 30 days nicotine 1 patch transdermal Q24H 28 days nicotine 1 patch transdermal DAILY 28 days omega 2-wyg-upn-fish oil 300-1,000 mg (Fish Oil) 1 cap PO DAILY 90 days psyllium husk (Metamucil) 1 tbsp PO DAILY PRN 30 days [shower chair As directed] sitz bath As directed tiotropium bromide 2.5 mcg/actuation (Spiriva Respimat) 2 puffs inhalation DAILY 30 days [wall grab bar As directed] Do you need a note to return to daycare/school/sports/work: No HPI HPI Asthma/COPD: Details: THIS 64 YEARS OLD GENTLEMAN IS HERE FOR FOLLOW-UP AFTER 4 MONTHS. DURING THE PAST 4 MONTHS HE DID HAVE LOW-DOSE CT SCAN OF THE CHEST, WHICH SHOWED A NEW PULMONARY NODULE IN THE LEFT UPPER LOBE 8X13 MM IN ADDITION TO A FEW OLD PULMONARY NODULES. PATIENT WAS REFERRED TO THORACIC SURGEON, DR. MICHELLE BENAVIDEZ , AT [facility]. HE UNDERWENT NAVIGATIONAL BRONCHOSCOPY AND BRONCHIAL WASHINGS, WHICH SHOWED A FEW ATYPICAL CELLS BUT NOT CLEAR CUT NEOPLASM OF THE LUNG. HE IS BEING WATCHED VERY CLOSELY AND WOULD HAVE A REPEAT SHORT-TERM CT SCAN AGAIN. FAR COPD IS CONCERNED THAT SEEM TO BE RELATIVELY STABLE. HE IS STILL SMOKING 1-2 CIGARETTES A DAY. COMPLAINS OF COUGH AND LOT OF MUCUS ESPECIALLY IN THE MORNING HOURS. AND HE GETS SHORT OF BREATH ON MODERATE AMOUNT OF EXERTION. CURRENTLY USING ADVAIR DISKUS 250-51 INHALATION B.I.D. AND ALSO SPIRIVA RESPIMAT 2 INHALATIONS DAILY. HE USES THE IPRATROPIUM-ALBUTEROL SOLUTION IN THE NEBULIZER ONLY RARELY . HIS ANXIETY LEVEL IS LESS THAN BEFORE. [facility] Medical History Asthma-COPD overlap syndrome COPD exacerbation Back pain Peripheral neuropathy Anxiety ADHD (attention deficit hyperactivity disorder) Bronchitis Bleeding hemorrhoids Tubular adenoma of colon (~2018) Nicotine dependence, cigarettes, uncomplicated COPD (chronic obstructive pulmonary disease) Surgical History History of hemorrhoidectomy (~03/16/24) History of colonoscopy (~08/26/23) History of hemorrhoidectomy History of esophagogastroduodenoscopy (EGD) History of colonoscopy Family History Mother Diabetes Father No problems noted. Brother No problems noted. Social History Household Members: None Housing: Apartment Are you a primary progressive care nurse to a significant other at home: No Do you presently have visiting nurse or other home services: No Alcohol intake: current Alcohol intake frequency: does not drink Patient Tobacco Use Status: Current everyday Tobacco user Tobacco use type: Cigarette Cigarette Packs Per Day: 0.25 Cigarettes Per Day: 4 Years Smoked: 45 e-Cigarette/Vaping Use: Never Used Second Hand Smoke Exposure: Yes service: No Current occupational status: unemployed and disabled Cognitive needs: No Hearing needs: No Vision needs: No Review of Systems Const All systems reviewed & are unremarkable except as noted in HPI and below Eyes Reports no additional complaints ENT Reports no additional complaints Card Denies chest pain, Denies irregular heart rhythm, Denies leg edema and Denies lightheadedness Resp Reports as per HPI GI Reports no additional complaints Reports no additional complaints Musc Reports no additional complaints Skin/Breast Reports system reviewed and no additional complaints, except as documented Neuro Reports no additional complaints Psych Reports anxiety Endo Reports no additional complaints Chandra/Lymph Reports no additional complaints Aller/Immun Reports no additional complaints Physical Exam Vital Signs: Last Vital Signs Pulse 78 09/24/24 09:48 BP 140/82 H 09/24/24 09:48 Pulse Ox 97 09/24/24 09:48 Oxygen Delivery Method Room Air 09/24/24 09:48 BMI result Body Mass Index 29.4 Const General: healthy appearing, comfortable, no acute distress, alert and awake Orientation/consciousness: patient oriented x3 HEENT Head: Yes normal to inspection General nose exam: No nasal polyps present and No nasal discharge present Face and sinus: Yes sinuses nontender Mouth: oropharynx normal Throat: Yes posterior oropharynx normal Eyes General: appearance normal, both eyes and all related structures Neck Neck: Yes normal visual inspection, Yes no lymphadenopathy, Yes trachea midline and Yes no JVD Thyroid: Thyroid normal Chest Chest palpation & inspection: normal inspection of the chest, normal palpation of entire chest wall and no tenderness Resp Other: PERCUSSION NOTE IS RESONANT, BREATH SOUNDS ARE DISTANT WITH PROLONGED EXPIRATORY PHASE. BOTH LUNGS ARE CLEAR. THERE ARE NO RESIDUAL CREPITATIONS OR WHEEZES. Cardio Palpation: normal PMI Rate: regular rate Rhythm: regular rhythm Heart sounds: no gallops and no murmurs Peripheral pulses: Peripheral pulses 2+ throughout GI Palpation (GI): Soft to palpation, nontender, No hepatosplenomegaly present and no masses Auscultation: normal bowel sounds Back/Spine/Pelvis Thoracic/Lumbar Spine: thoracic and lumbar spine normal to inspection Skin General skin exam: no rashes or lesions noted Neuro General: patient oriented x3 and no focal motor deficits Cranial nerves: Yes CN's II-XII intact bilaterally Extrem General: Yes normal to inspection, Yes no clubbing, cyanosis or edema and Yes no calf tenderness Psych Appearance: grossly normal and well kempt Speech and movement: Normal speech and movement present Affect: Anxious affect present Results Reviewed Results Reviewed: NOTES FROM [facility], REGARDING NAVIGATIONAL BRONCHOSCOPY, REVIEWED . Assessment & Plan Assessment & Plan (1) COPD (chronic obstructive pulmonary disease): Comment: HE DOES HAVE RELATIVELY SEVERE OBSTRUCTIVE AIRWAY DISORDER, WITH GOOD RESPONSe to 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 CURRENTLY DOING WELL WITH USE OF THE CURRENT REGIMEN. SEE BELOW. Code(s): J44.9 - Chronic obstructive pulmonary disease, unspecified Category: Medical Qualifiers: COPD type: chronic bronchitis Chronic bronchitis type: simple Qualified Code(s): J41.0 - Simple chronic bronchitis Plan: CONTINUE TO USE ADVAIR DISKUS 250-51 INHALATION B.I.D. AND SPIRIVA RESPIMAT 2.5 MG 2 INHALATIONS DAILY. FOR INCREASED SYMPTOMS SUCH COUGH AND WHEEZING, MAY USE IPRATROPIUM-ALBUTEROL SOLUTION IN THE NEBULIZER Q 4-6 HOURS P.R.N.. MAY USE MUCINEX ER 600 MG B.I.D. P.R.N. FOR INCREASED COUGH. (2) Nicotine dependence, cigarettes, uncomplicated: Comment: (1-2ppd x 40+yrs, now 1/4ppd - 50+PYH), claims that currently he has reduced to 1-2 cigarettes a day. Code(s): F17.210 - Nicotine dependence, cigarettes, uncomplicated Category: Medical Plan: Explained to him that he needs to quit smoking completely. As long as he continues to smoke even 1 or 2 cigarettes a day he is prone to have increased cough and shortness of breath. (3) Bronchitis: Comment: HE IS PRONE TO HAVE ACUTE BRONCHITIS FREQUENTLY, WHICH MAY BE DUE TO EPISODES OF ACUTE INFLAMMATORY PROCESS. This definitely related to his smoking. Code(s): J40 - Bronchitis, not specified as acute or chronic Category: Medical Plan: Instructed that he needs to quit smoking completely . (4) Mass of left lung: Comment: (13 x [address] on 07/17/24 LDCT - was reviewed at multidisciplinary committee, and referred for thoracic surgery consult and workup by Dr. Rockwell at [facility]. The results from navigational bronchoscopy were equivocal, showing some atypical cells but no definite cancer. He is being followed very closely. Code(s): R91.8 - Other nonspecific abnormal finding of lung field Category: Medical Plan: Patient is going to have a short term repeat CT scan. He is being followed closely by the Thoracic surgery service . (5) Anxiety: Comment: HE HAS AN, ANXIOUS PERSONALITY , ALSO HAS ADHD. RELATIVELY CALMER TODAY Code(s): F41.9 - Anxiety disorder, unspecified Category: Medical Plan: Had a good discussion about his condition, and that. Does help to alleviate his anxiety Coding Level of Care Code Est Pt Level 3 (04600) Diagnoses Simple chronic bronchitis J41.0 COPD type: chronic bronchitis Chronic bronchitis type: simple Nicotine dependence, cigarettes, uncomplicated F17.210 Bronchitis J40 Mass of left lung R91.8 Anxiety F41.9
--- OUTSIDE RECORDS SUMMARY | 2024-09-24 10:15 | XMS_ITS | Encounter Summary ---
Author Organization [facility] Address [address] [place] [address] Care Team Providers Care Senior Benefits Analyst Name Role Phone Lobito Garcia MD Primary Care Provider [phone] Encounter Details Date Type Department Care Team (Late Contact Info) Description 09/19/2024 Telephone Thoracic Surgery - [address] [place] [address] Nohelia Ordaz, YUKI Social History Tobacco Use Types Packs/Day Years Used Date Smoking Tobacco: Some Days Cigarettes Smokeless Tobacco: Never Alcohol Use Standard Drinks/Week Comments Not Currently 0 (1 standard drink = 0.6 oz pur e alcohol) Interpersonal Safety Answer Date Record ed Physical Abuse 08/31/2024 Verbal Abuse 08/31/2024 Sex and Gender Information Value Date Recorded Sex Assigned at Not on file Legal Sex Male 2:02 PM EST Gender Identity Not on file Sexual Orientation Not on file documented as of this encounter Progress Notes * Nohelia Ordaz RN - 09/19/2024 11:19 AM EDT Spoke to patient and he does not have any medications to hold for this procedure. He does know thathe will be NPO midnight the night before his procedure. He will arrive @ 10:30 to the 3rd floor on 09/27. He does know that he needs a ride to and from the hospital due to being under anesthesia. documented in this encounter Plan of Treatment Upcoming Encounters Date Type Department Care Team (Late st Contact Info) Description 10/03/2024 8:20 AM EDT Office Visit [facility] [address] [place] [address] Greg Key MD [address] [place] [address] [address] [place] [address] documented as of this encounter Visit Diagnoses Not on filedocumented in this encounter Additional Health Concerns Infection Onset Date Last Indicated Resolved Time Tuberculosis Rule-Out 08/31/2024 08/31/2024 documented as of this encounter Care Teams Senior Benefits Analyst Relationship Specialty Start Date End Date Lobito Garcia MD [facility] [address] [place] [address] [address] [place] [address] PCP - General Internal Medicine 11/22/18 documented as of this encounter
== END 2024-09-24 10:17 | disposition home or self-care (01) ==
LOC: HO.HPS 09:40
PROVIDERS: PCP Physician Assistant; Visit Provider Internal Medicine
DX: J41.0 Simple chronic bronchitis (principal); F17.210 Nicotine dependence, cigarettes, uncomplicated; J40 Bronchitis, not specified as acute or chronic; R91.8 Other nonspecific abnormal finding of lung field; F41.9 Anxiety disorder, unspecified
CPT/HCPCS: 99213

== ENCOUNTER → 2024-09-24 09:39 | Outpatient (BNVA) | payer OTHER, SELFPAY | PROVIDERS: PCP Physician Assistant; Visit Provider Internal Medicine | DX: J44.9 Chronic obstructive pulmonary disease, unspecified (principal); F17.210 Nicotine dependence, cigarettes, uncomplicated; R91.8 Other nonspecific abnormal finding of lung field; F41.9 Anxiety disorder, unspecified | CPT/HCPCS: 99212 ==

== ENCOUNTER 2024-10-17 09:06 | Outpatient (AMB) | payer OTHER, SELFPAY ==
--- NOTE | 2024-10-17 09:10 | MHC.PC.OV ---
Vital Signs 10/17/24 09:11 Height 6 ft 2.21 in Weight 225 lb 6 oz BMI 28.8 BP 134/82 Blood Pressure Location Lt brachial Position Sitting Respiration 18 Pulse 80 Pulse Source Pulse Oximeter Temp 97.1 F Temp Source Temporal Artery Scan Pulse Oximetry (%) 97 Oxygen Delivery Method Room Air Intake Visit Reasons: f/u COPD Licensed Occupational Therapist Required: No Accompanied by: Self / Same As Patient Allergies clonidine Adverse Reaction (Intermediate, Verified 10/17/24 09:28) Dizziness cyclobenzaprine (From Flexeril) Adverse Reaction (Intermediate, Verified 10/17/24 09:28) Dry mouth Medication List - Last Reconciled 10/17/24 by Armani Avelar PA-C acetaminophen 650 mg (2 x 325 mg) PO Q6H 30 days albuterol sulfate 90 mcg/actuation (Ventolin HFA) 2 puffs inhalation Q4-6H 30 days azelastine 1 spray intranasal BID 30 days [Cane As directed] cholecalciferol (vitamin D3) 50 mcg PO DAILY 90 days [Clamp on tub rail As directed] clonazepam 1 mg PO BID PRN dextromethorphan HBr (Cough Relief) 15 mg (5 mL) PO Q8H PRN fluticasone propion-salmeterol 250-50 mcg/dose 1 inh inhalation Q12H 90 days guaifenesin ER (Mucinex) 600 mg PO BID 30 days hydrocortisone 2.5% 1 appl topical BID PRN hydrocortisone-pramoxine 1-1 % (Proctofoam HC) 1 appl LA QID 14 days ibuprofen 600 mg PO Q6H PRN ipratropium-albuterol 0.5 mg-3 mg(2.5 mg base)/3 mL 3 mL inhalation Q4H PRN [large size adult pull ups As directed] magnesium oxide 250 mg PO BID 30 days nicotine 1 patch transdermal Q24H 28 days nicotine 1 patch transdermal DAILY 28 days omega [id number] oil 300-1,000 mg (Fish Oil) 1 cap PO DAILY 90 days psyllium husk (Metamucil) 1 tbsp PO DAILY PRN 30 days [shower chair As directed] sitz bath As directed tiotropium bromide 2.5 mcg/actuation (Spiriva Respimat) 2 puffs inhalation DAILY 30 days [wall grab bar As directed] Tobacco use date assessed: 10/17/24 Dental Screening Dental Screen Date: 10/17/24 Did you have a dental visit in the last 12 months?: No Did you have a dental problem in the last 6 months where you did not have access to dental care?: No Was dental information given to patient?: No HPI f/u COPD HPI Details Patient is a 64-year-old male here today for follow-up. with a past medical history asthma, COPD, hyperlipidemia, ADHD, anxiety and insomnia. Concern--> Pulmonary nodule: The patient has a history of a pulmonary nodule, which was initially concerning but has not shown growth over time. A biopsy was performed, revealing benign lung tissue with atypical cells but no malignancy. The patient opted for surveillance rather than further invasive procedures due to the stability of the nodule. .. Shortness of breath: Has been connected with a conference center coordinator at [facility]. He will be sent for CT angiogram and an echocardiogram for further evaluation. Of note he does have elevated total cholesterol and LDL. We did discuss perhaps starting statin therapy to reduce his cardiovascular risk though will like to hold off on work on dietary modifications, will recheck fasting lipids in 3 months and if LDL above 130 will consider starting statin therapy. .. Asthma COPD overlap syndrome: Continues follow up with [facility]. Reports lately having some wheeze and shortness of breath. He unfortunately continues to smoke a few cigarettes per day. He does understand he needs to quit smoking. He continues on maintenance inhaler which has been helpful. He does report often having exacerbations which she relates also to his anxiety as well. PLAN: Will supply patient with a prednisone taper due to his recent wheeze and shortness of breath. ? COPD exacerbation .. Allergies: Willing to restart Singulair which has helped him in the past with his allergies. .. Anxiety: He is now seeing a psychiatrist whom is managing his mental health medications at this time. .. Hyperlipidemia: Most recent labs showing elevated total cholesterol and LDL. We did discuss the need to start statin therapy though he declines. He does understand he needs to eat much better as he has a diet follow of fried fatty foods and snacks. He does report often being bloated and is willing to start using a regimen of fiber [facility] Medical History Asthma-COPD overlap syndrome COPD exacerbation Back pain Peripheral neuropathy Anxiety ADHD (attention deficit hyperactivity disorder) Bronchitis Bleeding hemorrhoids Tubular adenoma of colon (~2019) Nicotine dependence, cigarettes, uncomplicated COPD (chronic obstructive pulmonary disease) Surgical History History of hemorrhoidectomy (~03/16/24) History of colonoscopy (~08/26/23) History of hemorrhoidectomy History of esophagogastroduodenoscopy (EGD) History of colonoscopy Family History Mother Diabetes Father No problems noted. Brother No problems noted. Social History Household Members: None Housing: Apartment Are you a primary adult care provider to a significant other at home: No Do you presently have visiting nurse or other home services: No Alcohol intake: current Alcohol intake frequency: does not drink Patient Tobacco Use Status: Current everyday Tobacco user Tobacco use type: Cigarette Cigarette Packs Per Day: 0.25 Cigarettes Per Day: 4 Years Smoked: 45 e-Cigarette/Vaping Use: Never Used Second Hand Smoke Exposure: Yes service: No Current occupational status: unemployed and disabled Cognitive needs: No Hearing needs: No Vision needs: No Questionnaire PHQ-9 Over the last 2 weeks, how often have you been bothered by any of the following problems? 1. Little interest or pleasure in doing things: more than half the days 2. Feeling down, depressed, or hopeless: more than half the days Source: Developed by Drs. Hudson Correa, Mami Cordova, Alberto Crockett and colleagues, with an educational bobbi from [employer]. Thrive Questionnaire Date Thrive assessed: 10/17/24 I am a: Patient What is your living situation today?: I have a steady place to live Within the past 12 months, did the food you bought not last and you didn't have the money to get more?: Never true Within the past 12 months, did you worry whether your food would run out before you got money to buy more?: Never true Do you have trouble paying for medicines?: No Do you have trouble getting transportation to medical appointments?: No Do you have trouble paying your heating and electricity bill?: No Do you have trouble taking care of your child, family member or friend?: No Do you have trouble with day-to-day activities such as bathing, preparing meals, shopping, managing finances, etc.?: No Are you currently unemployed and looking for a job?: No Are you interested in more education?: No Currently or been in a relationship where the following occur: No concerns reported THRIVE Score: 0 AUDIT C Alcohol Use Questionnaire (AUDIT-C) 1. How often do you have a drink containing alcohol?: Never 3. How often do you have six or more drinks on one occasion?: Never Total Score: 0 MELINDA-7 AMB Questionnaire MELINDA-7 Date MELINDA - 7 assessed: 10/17/24 Feeling nervous, anxious, or on edge: 0 = Not at all Not being able to stop or control worryin = Not at all Worrying too much about different things: 0 = Not at all Trouble relaxin = Not at all Being so restless that it is hard to sit still: 0 = Not at all Becoming easily annoyed or irritable: 0 = Not at all Feeling afraid as if something awful might happen: 0 = Not at all Total MELINDA-7 score (0-4 normal; 5-9 mild; 10-14 moderate; 15-21 severe): 0 Source: Developed by Drs. Hudson Corera, Mami Codrova, Alberto Crockett and colleagues, with an educational bobbi from [employer]. MELINDA-7 Assessment Billing MELINDA-7 Assessment Tool: MELINDA-7 Assessment 19866 Review of Systems Const Denies headache(s) Eyes Denies loss of vision ENT Denies vertigo, Denies dizziness, Denies headache(s) and Denies sore throat Card Denies chest pain, Denies leg edema, Denies lightheadedness and Reports dyspnea Resp Denies cough, Denies hemoptysis, Reports dyspnea and Reports wheezing GI Denies abdominal pain, Denies melena, Denies constipation, Denies diarrhea and Denies vomiting Denies dysuria, Denies urinary frequency and Denies urinary urgency Musc Denies arthralgias, Denies joint swelling, Denies numbness and Denies tingling Neuro Denies Abnormal speech present, Denies behavioral changes, Denies vertigo, Denies dizziness, Denies headache(s), Denies loss of vision, Denies memory loss, Denies numbness and Denies tingling Psych Denies anxiety, Denies behavioral changes, Denies depression, Denies memory loss and Denies panic attacks Chandra/Lymph Denies easy bleeding and Denies easy bruising Aller/Immun Reports wheezing Physical exam (Primary Care) Vital Signs: Last Vital Signs Temp 97.1 F 10/17/24 09:11 Pulse 80 10/17/24 09:11 Resp 18 10/17/24 09:11 BP 134/82 10/17/24 09:11 Pulse Ox 97 10/17/24 09:11 Oxygen Delivery Method Room Air 10/17/24 09:11 BMI result Body Mass Index 28.8 Tobacco/Smoking Status: Tobacco use Status Tobacco use date assessed 10/17/24 10/17/24 09:25 Patient Tobacco Use Status Current everyday Tobacco 10/17/24 09:25 Tobacco use type Cigarette 10/17/24 09:25 e-Cigarette/Vaping Use Never Used 10/17/24 09:25 Thrive Assessment: Date of Thrive Assessment Date Thrive assessed 10/17/24 10/17/24 09:25 Currently or been in a relationship where the following occur: No concerns reported Const General: healthy appearing, no acute distress, alert and awake Nutritional Appearance: well nourished Orientation/consciousness: oriented to person, oriented to place and oriented to time HENMT Ears: TM's normal bilaterally General nose exam: Normal nasal mucous membranes and turbinates present Eyes Conjunctivae: conjunctivae normal Sclerae: sclerae normal Pupils: Equal, round and reactive pupils present Neck Neck: Yes no lymphadenopathy and Yes no JVD Thyroid: Thyroid normal Carotids: no bruits Resp Effort & Inspection: normal respiratory effort and not tachypneic Auscultation: no crackles, no rales, rhonchi and wheezes Cardio Rate: regular rate Rhythm: regular rhythm Heart sounds: no murmurs and normal S1 and S2 GI Palpation (GI): Soft to palpation, nontender, no hepatomegaly and no splenomegaly Auscultation: normal bowel sounds Skin General skin exam: no rashes or lesions noted and dry skin Neuro General: oriented to person, oriented to place and oriented to time Cranial nerves: Yes Equal, round and reactive pupils present Speech: No Abnormal speech present Gait exam (Neuro): Normal gait present Motor exam (neuro): no tremor noted Extrem Right upper extremity: full ROM Left upper extremity: full ROM Right lower extremity: full ROM; no edema Left lower extremity: full ROM; no edema Psych Mental Status: mental status grossly normal Speech and movement: Normal speech and movement present Affect: normal affect Attitude: cooperative Thought process: Normal thought process present Coding Level of Care Code Est Pt Level 4 (47359) Diagnoses Asthma-COPD overlap syndrome J44.89 Anxiety F41.9 Tobacco use disorder F17.200 Chest pain at rest R07.9 Mixed hyperlipidemia E78.2 Hyperlipidemia type: mixed hyperlipidemia Allergy, subsequent encounter T78.40XD Encounter type: subsequent encounter Additional Codes MELINDA-7 Assessment Billing - MELINDA-7 Assessment Tool: MELINDA-7 Assessment [id number] ([id number]) Assessment & Plan Assessment & Plan (1) Asthma-COPD overlap syndrome: Comment: HE HAS LONGSTANDING HISTORY OF COMBINATION OF ASTHMA AND COPD. ASTHMA IS MAINLY ALLERGIC IN TYPE. AND HIS COPD IS SECONDARY TO HIS LONG-TERM SMOKING. HE HAS BEEN TREATED FOR AN ACUTE EXACERBATION. STILL NOT FEELING BETTER, CLAIMS OF FEELING CONGESTED. HE WAS INSISTENT THAT HE WAS LOW ON OXYGEN. HOWEVER THE O2 SAT IN THE OFFICE WAS BETWEEN 94-96%. WHEN HE CAME WALKING TO THE OFFICE THE O2 SAT WAS STILL IN MID 90S. Code(s): J44.89 - Other specified chronic obstructive pulmonary disease Category: Medical Plan: He reports his asthma and COPD have not been well managed. He feels there is something wrong. Judging by patient's recent CT scan there were some concerns for abnormal nodules. You will continue his current maintenance inhaler and albuterol inhaler at this time and follow up with pulmonology. (2) Anxiety: Comment: HE HAS AN, ANXIOUS PERSONALITY , ALSO HAS ADHD. RELATIVELY CALMER TODAY Code(s): F41.9 - Anxiety disorder, unspecified Category: Medical Plan: As per HPI has establish with a mental health med provider whom will be taking over prescribing his mental health medications. He has some stress in his life due to personal issues and some financial issues as well. (3) Tobacco use disorder: Code(s): F17.200 - Nicotine dependence, unspecified, uncomplicated Category: Medical Plan: Patient does admit to smoking a few cigarettes still. Has access to nicotine patches and nicotine lozenges. Has tried Chantix in the past with resolution of his smoking for about a year though had side effects of increasing her. (4) Chest pain at rest: Code(s): R07.9 - Chest pain, unspecified Category: Medical Plan: As above, patient has not had a nuclear stress test done at [facility] in 2022 which did not show signs of ischemia with an estimated EF of 67%. He has establish care with Cardiology at [facility] and will be sent for cardiac testing including echocardiogram and CTA chest. (5) Hyperlipidemia: Code(s): E78.5 - Hyperlipidemia, unspecified Category: Medical Qualifiers: Hyperlipidemia type: mixed hyperlipidemia Qualified Code(s): E78.2 - Mixed hyperlipidemia Plan: Patient's most recent lipid panel showing elevated total cholesterol and LDL. We did discuss the need to start statin therapy to reduce his cardiovascular risk though he adamantly declines at this time. We did discuss perhaps doing his fiber supplement to reduce his abdominal bloating and perhaps reduce some of his cholesterol as well. He does understand he eats poorly and does need a change his dietary habits. Goal LDL is to be below 130 (6) Allergies: Code(s): T78.40XA - Allergy, unspecified, initial encounter Category: Medical Qualifiers: Encounter type: subsequent encounter Qualified Code(s): T78.40XD - Allergy, unspecified, subsequent encounter Plan: Willing to restart Singulair for his allergy type symptoms. Orders: Orders Complete Blood Count no Diff Today J41.0 - Simple chronic bronchitis Comprehensive [facility]. Panel Fast Today E78.2 - Mixed hyperlipidemia Prostate Specific Antigen Scr Today E78.2 - Mixed hyperlipidemia, Z12.5 - Encounter for screening for malignant neoplasm of prostate Lipid Panel Today E78.2 - Mixed hyperlipidemia Medications: New nicotine (polacrilex) 4 mg buccal Q8H PRN 81 ea 3RF nicotine cravings 30 days F17.210 - Nicotine dependence, cigarettes, uncomplicated montelukast (Singulair) 10 mg PO BEDTIME 90 tabs 2RF 90 days T78.40XD - Allergy, unspecified, subsequent encounter prednisone take 3 tabs x 3 days, take 2 tabs x 3 days, take 1 tab x 3 days 10 mg PO DIRECTED 18 tabs 0RF 9 days J41.0 - Simple chronic bronchitis
[2024-10-17 09:11] VITALS: BP 134/82; PULSE 80; RESP 18; TEMP 36.2; O2SAT 97; BMI 28.8
--- OUTSIDE RECORDS SUMMARY | 2024-10-17 10:46 | XMS_ITS | Clinical Summary ---
Author Organization [facility] [address] [facility] Address [address] [place] [address] Phone Care Team Providers Care Supply Chain Coordinator Name Role Phone Lobito Garcia MD Primary Care Provider [phone] Allergies Active Allergy Reactions Criticality Noted Date Comments House Dust Mite 08/22/2024 Medications zolpidem (Ambien) 5 mg tablet Take by mouth. 05/11/19 14 Active Spiriva Respimat 2.5 mcg/actuation inhalation spray 11/10/19 23 Active Advair Diskus 250-50 mcg/dose diskus inhaler INHALE 1 PUFF EVERY 12 HOURS FOR COPD FOR 90 DAYS 05/30/19 25 Active clonazePAM (KlonoPIN) 1 mg tablet Take 1 tablet (1 mg total) by mouth 2 (two) times a day if needed for anxiety. Active acetaminophen (TYLENOL) 325 mg tablet Take by mouth every 6 (six) hours if needed for mild pain. Active ipratropium-al buteroL (DUONEB) 0.5-2.5 mg/3 mL nebulizer solution USE 1 VIAL VIA NEBULIZER EVERY 4 HOURS NEEDED FOR SHORTNESS OF BREATH/WHEEZI NG 02/28/19 25 025 Discontinued Active Problems Problem Noted Date Diagnosed Date Other chest pain 10/03/2024 Assessment & Plan (10/04/2024 1:07 PM EDT): The patient came for evaluation due to episodes of chest pain. Description of symptoms: Atypical Risk factors for CAD: Current smoker Previous testing: Nuclear stress test in 2022 which did not show any evidence of ischemia or infarct Management plan: 1. Ischemic evaluation with a cardiac CT. The use of a cardiac CT scan is recommended by the 2021 chest pain guidelines for evaluation of patients with stable chest pain, no known CAD, and increased risk for the presence of coronary artery disease (level 1 age recommendation). 2. Also, will order an echocardiogram to rule out any structural heart disease that may be contributing to the patient's symptoms: 3. Will order a lipid panel to evaluate the patient's lipid control. Orders: CT Angio Heart w 3D Imaging/Function; Future Transthoracic echocardiogram (TTE) complete with PRN contrast, bubble, strain, and 3D order panel; Future perflutren lipid microsphere (DEFINITY) 1.3 mL in sodium chloride 0.9% 8.7 mL injection Lipid panel; Future SOB (shortness of breath) 10/01/2024 Pulmonary nodule 08/22/2024 Assessment & Plan (09/06/2024 12:20 PM EDT): Mr. Melgoza is a 64-year-old male who was found to have a new spiculated 13 x 8 mm pulmonary nodule within the left upper lobe on screening CAT scan at [facility]. Navigational bronchoscopy with biopsy of the left upper lobe pulmonary nodule reveals a few atypical cells, but ultimately nondiagnostic. The left upper lobe bronchial washings and brushings were negative for malignant cells. The biopsies of right paratracheal and subcarinal lymph nodes were negative for malignant cells with good sampling. I discussed the pathology with the patient at length. The left upper lobe pulmonary nodule showed atypical cells, but not diagnostic of cancer. Patient had many questions about possible etiologies of his pulmonary nodule, possible workup, and possible treatments of which I answered to the best of my ability. I told the patient that I do still have a moderate to high degree of suspicion that his left upper lobe does in fact represents a lung cancer, although I have not confirmed this as of yet. I told him that the presence of atypical cells on his biopsy raises the suspicion. Given the location of his nodule within the left upper lobe more than likely this would require at least left upper lobe trisegmentectomy to remove it for diagnostic, and possible therapeutic purposes. I discussed this as an option with the patient, but also gave him the option to rebiopsy it with a navigational bronchoscopy. The other option I discussed was observing this with ongoing CT scans the next of which I would order to be in 3 months. After a long discussion ultimately patient decided to rebiopsy it with a navigational bronchoscopy. I will set this up for the patient as well as a follow-up visit following that procedure to go over those results. The patient was also concerned that he might have heart problems due to his shortness of breath. I told him that I would send him a referral to cardiology for consultation, which will also be helpful as surgical resection is a possibility should this turnaround engineer to be an early stage lung cancer. Risks, benefits, and alternative discussed with the patient at length during this visit. Told patient to call should he have any questions or concerns, otherwise we will touch base with him regarding timing of his procedure. We will need a follow-up chest CT as his last one was done July 17, 2022 at [facility] and we need a scan within 30 days of a navigational bronchoscopy procedure. Encounters Date Type Department Care Team Description 10/05/2024 10:00 AM EDT Ancillary Procedure [facility] - [facility] [address] [place] [phone] Other chest pain 10/04/[address] [place] [phone] Javon Key MD 10/04/[address] [place] [phone] Javon Key MD 10/03/2024 8:20 AM EDT Office Visit [address] [place] [phone] Javon Key MD Other chest pain (Primary Dx); Pulmonary nodule; SOB (shortness of breath) 09/19/2024 Telephone Thoracic Surgery - [place] [address] [facility] [address] [place] [phone] Nohelia Ordaz RN 09/14/2024 11:16 AM EDT - 09/14/2024 11:59 PM EDT Hospital Encounter [facility] CT Scan [address] [place] [phone] Pulmonary nodule Discharge Disposition: Home or Self Care 09/07/2024 Telephone Thoracic Surgery [facility] 299 [facility] [address] [place] [phone] Chanda Morgan [place] 09/06/2024 9:30 AM EDT Office Visit Thoracic Surgery [facility] [address] [phone] Elidia Garcias PA Pulmonary nodule (Primary Dx) 09/05/2024 Telephone Thoracic Surgery [facility] [address] [phone] Rosemarie Pa [place] 08/31/2024 11:30 AM EDT - 08/31/2024 1:30 PM EDT Surgery [facility] Main OR [address] [place] [phone] Megan Starr MD Navigation bronchoscopy/EBUS with biopsies [[id number] (CPT ) +5 more] 08/31/2024 11:20 AM EDT Anesthesia Event [facility] Main OR [address] [place] [phone] Adrian Thompson MD Chang, Ling, CRNA 08/31/2024 9:56 AM EDT - 08/31/2024 3:27 PM EDT Hospital Encounter [facility] Main OR [address] [place] [phone] Megan Starr MD Pulmonary nodule Discharge Disposition: Home or Self Care 08/31/2024 7:15 AM EDT - 08/31/2024 11:59 PM EDT Hospital Encounter [facility] Xray [address] [place] [phone] Pain Discharge Disposition: Home or Self Care 08/29/2024 12:30 PM EDT Ancillary Procedure Pulmonolgy - [place] [address] [facility] [address] [place] [phone] Pulmonary nodule 08/27/2024 Telephone Thoracic Surgery [facility] 299 [facility] [address] [place] [phone] Nohelia Ordaz RN 08/24/2024 Telephone Thoracic Surgery - [place] [address] [facility] [address] [place] [address] Rosemarie Pa [place] 08/22/2024 2:00 PM EDT Consult Thoracic Surgery - [place] [address] [facility] [address] [place] [address] Megan Starr MD Pulmonary nodule (Primary Dx) from Last 3 Months Surgical History Surgery Date Site/Laterality Comments OTHER SURGICAL HISTORY bowel resection x3 CATARACT EXTRACTION OTHER SURGICAL HISTORY 08/31/2024 N/A Navigational Bronch EBUS Medical History Medical History Date Comments COPD (chronic obstructive pulmonary disease) ([facility] V24, [facility] V28) Asthma Diverticulitis Pulmonary nodule Diverticulosis hx of Anxiety Seizures ([facility] V24, [facility] V28) hx Arthritis Joint pain multiple Social History Tobacco Use Types Packs/Day Years Used Date Smoking Tobacco: Some Days Cigarettes Smokeless Tobacco: Never Tobacco Cessation:Ready to Q uit: Not Asked; Counseling Given: Not Answered Alcohol Use Standard Drinks/Week Comments Not Currently 0 (1 standard drink = 0.6 oz pur e alcohol) Interpersonal Safety Answer Date Record ed Physical Abuse 08/31/2024 Verbal Abuse 08/31/2024 Sex and Gender Information Value Date Recorded Sex Assigned at Not on file Legal Sex Male 2:02 PM EST Gender Identity Not on file Sexual Orientation Not on file Obstetrics History Last Filed Vital Signs Vital Sign Reading Time Taken Comments Blood Pressure 138/80 10/05/2024 10:02 AM EDT Pulse 75 10/03/2024 8:01 AM EDT Temperature 36.7 C (98.1 F) 09/06/2024 9:15 AM EDT Respiratory Rate 14 09/06/2024 9:15 AM EDT Oxygen Saturation 95% 10/03/2024 8:01 AM EDT Inhaled Oxygen Concentration - - Weight 104 kg (230 lb) 10/05/2024 10:02 AM EDT Height 190.5 cm (6' 3 ) 10/05/2024 10:02 AM EDT Body Mass Index 28.75 10/05/2024 10:02 AM EDT Plan of Treatment Upcoming Encounters Date Type Department Care Team (Late st Contact Info) Description 12/14/2024 10:30 AM EST Appointment [facility] CT Scan [address] [place] [address] Health Maintenance Due Date Last Done Comments DTaP,Tdap,and Td Vaccines (1 - Tdap) 01/22/1980 Pneumococcal Vaccine: 50+ Years (1 of 2 - PCV) 01/22/1980 Zoster Vaccines (1 of 2) 2011 Colorectal Cancer Screening: Colonoscopy 03/08/2023 HIV Screening 03/08/2023 Hepatitis C Screening 03/08/2023 Social Influencers of Health Screening 03/08/2023 Depression Screening 02/08/2024 COVID-19 Vaccine (4 - 2024-2 6 season) 2024 12/01/2021, 08/20/2020, 08/06/2020 Influenza Vaccine (#1) 2024 , 11/21/2018 Cholesterol Screening (Lipid Panel) 10/03/2029 10/03/2024 RSV Immunization Adult Patients (1 - 1-dose 75+ series) 01/22/2036 HIB Vaccines Aged Out No longer eligi ble based on patient's age to complete this topic HPV Vaccines Aged Out No longer eligi ble based on patient's age to complete this topic Hepatitis A Vaccines Aged Out No long er eligible based on patient's age to complete this topic Hepatitis B Vaccines Aged Out No long er eligible based on patient's age to complete this topic IPV Vaccines Aged Out No longer eligi ble based on patient's age to complete this topic MMR Vaccines Aged Out No longer eligi ble based on patient's age to complete this topic Meningococcal ACWY Vaccine Aged Out N o longer eligible based on patient's age to complete this topic Meningococcal B Vaccine Aged Out No l onger eligible based on patient's age to complete this topic RSV Immunization Patients Under 20 months Aged Out No longer eligible b ased on patient's age to complete this topic Varicella Vaccines Aged Out No longer eligible based on patient's age to complete this topic Procedures Procedure Name Priority Date/Time Associated Diagnosis Comments LIPID PANEL Routine 10/03/2024 9:09 AM EDT Other chest pain ECG 12-LEAD Routine 10/03/2024 8:25 AM EDT Pulmonary nodule SOB (shortness of breath) CT CHEST WO CONTRAST Routine 09/14/2024 11:30 AM EDT Pulmonary nodule XR CHEST 1 VIEW STAT 08/31/2024 2:26 PM EDT XR CHEST 1 VIEW Routine 08/31/2024 12:05 PM EDT Pain ..CONCENTRATION Routine 08/31/2024 12:01 PM EDT Pulmonary nodule ACID FAST BACILLI STAIN Routine 08/31/2024 12:01 PM EDT Pulmonary nodule CULTURE BRONCHIAL WITH GRAM STAIN Routine 08/31/2024 12:01 PM EDT Pulmonary nodule CULTURE FUNGUS, OTHER THAN SKIN HAIR OR NAILS Routine 08/31/2024 12:01 PM EDT Pulmonary nodule CULTURE, AFB AND SMEAR WITH REFLEX TO IDENTIFICATION AND SUSCEPTIBILITY Routine 08/31/2024 12:01 PM EDT Pulmonary nodule FINE NEEDLE ASPIRATION Routine 08/31/2024 11:59 AM EDT Pulmonary nodule TH AN ENDOTRACHEAL(NO CHARGE) Routine 08/31/2024 11:38 AM EDT IA CORE NDL BX LNG/MED PERQ 08/31/2024 11:20 AM EDT Pulmonary nodule Case Notes C-ARM IA BRONCHOSCOPY INCL FLUORO GUIDANCE W BRONCHIAL/ENDOBRONCHI AL BX SGL/MULT 08/31/2024 11:20 AM EDT Pulmonary nodule Case Notes C-ARM IA BRONCHOSCOPY RIGID/FLEXIBLE W/TRANSBRONCHIAL LUNG BIOPSY(S) SINGLE LOBE 08/31/2024 11:20 AM EDT Pulmonary nodule Case Notes C-ARM IA BRONCHOSCOPY RIGID/FLEXIBLE COMPUTER ASSISTED IMAGE GUIDED NAVIGATION 08/31/2024 11:20 AM EDT Pulmonary nodule Case Notes C-ARM IA BRONCHOSCOPY INCL FLUOROSCOPIC GUID W EBUS DURING PERIPHERAL LESION 08/31/2024 11:20 AM EDT Pulmonary nodule Case Notes C-ARM IA BRONCHOSCOPY INCL FLUROSCOPIC GUIDANCE W PLCMNT FIDUCIAL MARKER SGL/MULT 08/31/2024 11:20 AM EDT Pulmonary nodule Case Notes C-ARM PULMONARY FUNCTION TESTING Routine 08/29/2024 1:17 PM EDT Pulmonary nodule PROCEDURAL ECG Routine 08/28/2024 10:40 AM EDT Pulmonary nodule ABO RH Routine 08/28/2024 10:24 AM EDT Pulmonary nodule ANTIBODY SCREEN Routine 08/28/2024 10:24 AM EDT Pulmonary nodule PROTHROMBIN TIME WITH INR Routine 08/28/2024 10:24 AM EDT Pulmonary nodule ACTIVATED PARTIAL THROMBOPLASTIN TIME Routine 08/28/2024 10:24 AM EDT Pulmonary nodule CBC WITH AUTO DIFFERENTIAL Routine 08/28/2024 10:24 AM EDT Pulmonary nodule BASIC METABOLIC PANEL Routine 08/28/2024 10:24 AM EDT Pulmonary nodule CBC AND DIFFERENTIAL Routine 08/28/2024 10:24 AM EDT Pulmonary nodule from Last 3 Months Results * (ABNORMAL) Lipid panel (10/03/2024 9:09 AM EDT) Cholesterol Total 247(H) 100 - 199 mg/dL [facility] 1 Triglycerides 102 0 - 149 mg/dL [facility] 1 HDL Cholesterol 50 >39 mg/dL [facility] 1 VLDL Cholesterol Calculated 18 5 - 40 mg/dL [facility] 1 LDL Chol Calc (NIH) 179(H) 0 - 99 mg/dL [facility] 1 Blood Venous blood specimen / Unknown 10/03/2024 9:09 AM EDT 10/03/2024 Narrative [facility] 1 - 10/04/2024 3:06 AM EDT Performed at: [address] [facility] [id number] Grief Counsellor: Mandy Harden MD, Phone: [phone] us Javon Key MD LAB BLOOD ORDERABLES F inal Result Performing Organization Address City/[facility] Co de Phone Number [facility] 1 * ECG 12 lead (10/03/2024 8:25 AM EDT) Ventricular Rate ECG 75 BPM [facility] Atrial Rate 75 BPM [facility] P-R Interval 162 ms GEMUSE QRS Duration 98 ms GEMUSE Q-T Interval 378 ms GEMUSE QTc 422 ms GEMUSE P Wave [place] 83 degrees GEMUSE R [place] 69 degrees GEMUSE T [place] 85 degrees GEMUSE ECG Interpretation Normal sinus rhythm Normal ECG When compared with ECG of 28-AUG-2024 10:40, No significant change was found Confirmed by JAVON KEY ([id number]) on 10/04/2024 1:03:34 PM GEMUSE 10/03/2024 8:25 AM EDT 10/04/2024 1:03 PM EDT Javon Key MD ECG ORDERABLES Final Result Performing Organization Address [facility] de Phone Number [facility] * CT Chest wo Contrast (09/14/2024 11:30 AM EDT) Anatomical Region Laterality Modality Body Computed Tomogra phy 09/19/2024 1:12 PM EDT Impressions 09/19/2024 1:21 PM EDT An elongated nodule in the left upper lobe has decreased in size compared with 07/13/2024. A few other small pulmonary nodules are unchanged. Punctate nonobstructing right upper pole renal calculus. -------- FINAL REPORT -------- Dictated By: Sam Cardoso Dictated Date: 09/19/2024 13:12 ET Assigned Physician: Sam Cardoso Reviewed and Electronically Signed By: Sam Cardoso Signed Date: 09/19/2024 13:21 ET Workstation ID: [id number] Transcribed By: Self Edit Transcribed Date: 09/19/2024 13:12 ET Narrative 09/19/2024 1:21 PM EDT PROCEDURE: CT of the chest without intravenous contrast. TECHNIQUE: CT of the chest without intravenous contrast administration. Coronal and sagittal reformats and MIP reconstructions were created. Dose length product: 685 mGy-cm. HISTORY: Left upper lobe pulmonary nodule. Navigational bronchoscopy planning. COMPARISON: 07/17/2024. FINDINGS: LUNGS/PLEURA: There are 2 very small right posterolateral tracheal diverticula near the thoracic inlet. A nodular filling defect in the left posterior trachea just below the thoracic inlet is new since the previous study. This is probably aspirated debris. Irregular pleural parenchymal scarring at the lung apices. Mild centrilobular emphysema. There are several small nodules at the left apex which are unchanged. An elongated left upper lobe nodule (series 3, image 111) measures 9 x 4 mm, previously 13 x 7 mm. Stable 5 mm nodule in the central left upper lobe, series 3 image 91. A 3 mm nodule in the superior segment of the left lower lobe, image 128, is unchanged. A small focus of scarring in the inferior lingula is unchanged. No pleural effusion or pneumothorax. MEDIASTINUM/KENDAL: No mediastinal mass or lymphadenopathy. No appreciable hilar lymphadenopathy on limited noncontrast evaluation. VASCULATURE: Normal caliber pulmonary arteries. Mild degenerative changes of the aorta and great vessels. CARDIAC: Normal heart size. Mild aortic annular calcification. No coronary artery calcification. CHEST WALL: No axillary or supraclavicular lymphadenopathy. LIMITED ABDOMEN: Bilateral renal cortical cysts. Punctate nonobstructing right upper pole renal calculus. Small low-attenuation lesions in the left hepatic lobe which are probably cysts. BONES: Mild degenerative changes of the spine and shoulders. Procedure Note Sam Cardoso MD - 09/19/2024 PROCEDURE: CT of the chest without intravenous contrast. TECHNIQUE: CT of the chest without intravenous contrast administration.Coronal and sagittal reformats and MIP reconstructions were created. Dose length product: 685 mGy-cm. HISTORY: Left upper lobe pulmonary nodule. Navigational bronchoscopyplanning. COMPARISON: 07/17/2024. FINDINGS: LUNGS/PLEURA: There are 2 very small right posterolateral trachealdiverticula near the thoracic inlet. A nodular filling defect in the leftposterior trachea just below the thoracic inlet is new since the previousstudy. This is probably aspirated debris. Irregular pleural parenchymal scarring at the lung apices. Mildcentrilobular emphysema. There are several small nodules at the leftapex which are unchanged. An elongated left upper lobe nodule (series 3,image 111) measures 9 x 4 mm, previously 13 x 7 mm. Stable 5 mm nodulein the central left upper lobe, series 3 image 91. A 3 mm nodule in thesuperior segment of the left lower lobe, image 128, is unchanged. A smallfocus of scarring in the inferior lingula is unchanged. No pleuraleffusion or pneumothorax. MEDIASTINUM/KENDAL: No mediastinal mass or lymphadenopathy. No appreciablehilar lymphadenopathy on limited noncontrast evaluation. VASCULATURE: Normal caliber pulmonary arteries. Mild degenerative changesof the aorta and great vessels. CARDIAC: Normal heart size. Mild aortic annular calcification. Nocoronary artery calcification. CHEST WALL: No axillary or supraclavicular lymphadenopathy. LIMITED ABDOMEN: Bilateral renal cortical cysts. Punctate nonobstructingright upper pole renal calculus. Small low-attenuation lesions in theleft hepatic lobe which are probably cysts. BONES: Mild degenerative changes of the spine and shoulders. IMPRESSION: An elongated nodule in the left upper lobe has decreased in size comparedwith 07/13/2024. A few other small pulmonary nodules are unchanged. Punctate nonobstructing right upper pole renal calculus. -------- FINAL REPORT -------- Dictated By: Sam Cardoso Dictated Date: 09/19/2024 13:12 ET Assigned Physician: Sam Cardoso Reviewed and Electronically Signed By: Sam Cardoso Signed Date: 09/19/2024 13:21 ET Workstation ID: [id number] Transcribed By: Self Edit Transcribed Date: 09/19/2024 13:12 ET us Elidia HENRY IMG CT PROCEDURES Final Resul t * XR Chest 1 View (08/31/2024 2:26 PM EDT) Only the most recent of2 resultswithin the time period is included. Anatomical Region Laterality Modality Body Radiographic Maci ging 08/31/2024 4:09 PM EDT Impressions 08/31/2024 4:10 PM EDT FINDINGS/IMPRESSION: No pneumothorax status post bronchoscopy with biopsy. Lungs are hyperinflated without consolidation or effusion. Normal heart size without congestive heart failure. -------- FINAL REPORT -------- Dictated By: Trino Sheldon Dictated Date: 08/31/2024 16:09 ET Assigned Physician: Trino Sheldon Reviewed and Electronically Signed By: Trino Sheldon Signed Date: 08/31/2024 16:10 ET Workstation ID: [id number] Transcribed By: Self Edit Transcribed Date: 08/31/2024 16:09 ET Narrative 08/31/2024 4:10 PM EDT XR CHEST 1 VIEW INDICATION: lung biopsy TECHNIQUE: XR CHEST 1 VIEW COMPARISON: No priors available. Procedure Note Trino Sheldon MD - 08/31/2024 XR CHEST 1 VIEW INDICATION: lung biopsy TECHNIQUE: XR CHEST 1 VIEW COMPARISON: No priors available. IMPRESSION: FINDINGS/IMPRESSION: No pneumothorax status post bronchoscopy with biopsy.Lungs are hyperinflated without consolidation or effusion. Normal heartsize without congestive heart failure. -------- FINAL REPORT -------- Dictated By: Trino Sheldon Dictated Date: 08/31/2024 16:09 ET Assigned Physician: Trino Sheldon Reviewed and Electronically Signed By: Trino Sheldon Signed Date: 08/31/2024 16:10 ET Workstation ID: [id number] Transcribed By: Self Edit Transcribed Date: 08/31/2024 16:09 ET Megan Starr MD IMG XR PROCEDURES Final Result * Culture bronchial with gram stain (08/31/2024 12:01 PM EDT) Bronchial Culture No pathogens isolated. 09/03/2024 9:37 AM EDT [facility] Gram Stain Result No polymorphonuclear leukocytes, No epithelial cells, and No organisms noted 09/03/2024 9:37 AM EDT [facility] Wash Structure of upper lobe of left lung / Unknown 08/31/2024 12:01 PM EDT 08/31/2024 1:03 PM EDT Comment:R/o for tb only, not symptomatic us Megan Starr MD LAB MICROBIOLOGY - GENERAL ORDER WEI Final Result Performing Organization Address City/[facility]/ZIP Co de Phone Number [facility] [address] [place] [address], [place] [phone] * Culture fungus, other than skin hair or nails (08/31/2024 12:01 PM EDT) Culture, Fungus Negative for Fungus after 4 Weeks 10/01/2024 8:24 AM EDT [facility] Wash Structure of upper lobe of left lung / Unknown 08/31/2024 12:01 PM EDT 08/31/2024 1:03 PM EDT Comment:R/o for tb only, not symptomatic Megan Starr MD LAB MICROBIOLOGY - GENERAL ORDER WEI Final Result Performing Organization Address [facility] Co de Phone Number [facility] [address] [place] [address], [place] [phone] * Concentration (08/31/2024 12:01 PM EDT) AFB Concentration Performed 025 3:05 PM EDT [facility] Wash Structure of upper lobe of left lung / Unknown 08/31/2024 12:01 PM EDT 08/31/2024 1:03 PM EDT Narrative [facility] - 10/15/2024 3:05 PM EDT Performed at: 01 - [facility] [address] [id number] Grief Counsellor: Mandy Harden MD, Phone: [phone] Megan Starr MD LAB BLOOD ORDERABLES Edited Resu lt - Final [facility] * Culture, afb and smear with reflex to identification and susceptibility (08/31/2024 12:01 PM EDT) AFB Specimen Processing Concentration 10/15/2024 3:05 PM EDT [facility] Acid Fast Smear Negative 10/15/2024 3:05 PM EDT [facility] Acid Fast Culture Negative 10/15/2024 3:05 PM EDT [facility] Comment:No acid fast bacilli isolated after 6 weeks. Wash Structure of upper lobe of left lung / Unknown 08/31/2024 12:01 PM EDT 08/31/2024 1:03 PM EDT Comment:R/o for tb only, not symptomatic Narrative [facility] - 10/15/2024 3:05 PM EDT Performed at: 01 - [facility] [address] [id number] Grief Counsellor: Mandy Harden MD, Phone: [phone] Megan Starr MD LAB MICROBIOLOGY - GENERAL ORDER WEI Final Result [facility] * Acid fast bacilli stain (08/31/2024 12:01 PM EDT) Pathologist [facility] AFB Stain Result No Acid fast bacilli seen on direct smear (Fuchsin method, 1000x) No Acid Fast Bacilli seen on direct smear 08/31/2024 9:18 PM EDT [facility] Wash Structure of upper lobe of left lung / Unknown 08/31/2024 12:01 PM EDT 08/31/2024 1:03 PM EDT us Megan Starr MD LAB MICROBIOLOGY - GENERAL ORDER WEI Final Result [facility] [address] [place] [address], [place] [phone] * Fine needle aspiration (08/31/2024 11:59 AM EDT) Pathologist [facility] Final Diagnosis A. Lung, Left Upper Lobe, fine needle aspiration, (ThinPrep, cell block): FEW ATYPICAL CELLS, NON-DIAGNOSTIC B. Mediastinum, right paratracheal lymph node, fine needle aspiration, (ThinPrep, cell block): Negative for malignant cells. Benign lymph node elements present. C. Mediastinum, subcarinal lymph node, fine needle aspiration, (ThinPrep, cell block): Negative for malignant cells. Benign lymph node elements present. D. Lung, Left Upper Lobe, Bronchial brushing, (ThinPrep, cell block): Negative for malignant cells. E. Lung, Left Upper Lobe, Bronchial washing: (ThinPrep, cell block): Negative for malignant cells. 09/04/2024 9:07 AM [facility] Specimen A Adequacy Satisfactory for evaluation 09/04/2024 9:07 AM [facility] Specimen B Adequacy Satisfactory for evaluation 09/04/2024 9:07 AM [facility] Specimen C Adequacy Satisfactory for evaluation 09/04/2024 9:07 AM [facility] Specimen D Adequacy Satisfactory for evaluation 09/04/2024 9:07 AM [facility] Specimen E Adequacy Satisfactory for evaluation 09/04/2024 9:07 AM [facility] Gross Description A. Lung, Left Upper Lobe, left upper lobe lung nodule: Received in Cytolyt 30 ml of clear fluid; 1 ThinPrep, 1 Cellient block B. Mediastinum, right paratracheal lymph node: Received in Cytolyt 30 ml of clear fluid; 1 ThinPrep, 1 Cellient block C. Mediastinum, subcarinal lymph node: Received in Cytolyt 30 ml of pink fluid; 1 ThinPrep, 1 Cell block Cell block in formalin @07:30, total formalin fixation time 13.5 hours. D. Lung, Left Upper Lobe, Bronchial brushing: Received in Cytolyt 30 ml of pink fluid; 1 ThinPrep, 1 Cellient block E. Lung, Left Upper Lobe, Bronchial washing: Received 50 ml of cloudy fluid; 1 ThinPrep, 1 Cellblock Specimen was split 1/2 cytolyt, 1/2 formalin Formalin fixation 9.5 put in formalin at 1130 09/04/2024 9:07 AM EDT [facility] Disclaimer Unless otherwise specified, all tissue is 10% NB formalin fixed and paraffin embedded. Technical cytopathology services provided by [facility], at [address] [place] [address] (IA # [id number]/Beatrice Bess MD, Director Manufacturing Engineering.) 09/04/2024 9:07 AM EDT [facility] Fine Needle Aspirate Structure of upper lobe of left lung / Unknown 08/31/2024 11:59 AM EDT 09/03/2024 7:02 AM EDT Specimen obtained by fine needle aspiration procedure (specimen) Mediastinal structure / Unknown 08/31/2024 12:13 PM EDT 09/03/2024 7:02 AM EDT Specimen obtained by fine needle aspiration procedure (specimen) Mediastinal structure / Unknown 08/31/2024 12:17 PM EDT 09/03/2024 7:02 AM EDT Specimen obtained by fine needle aspiration procedure (specimen) Structure of upper lobe of left lung / Unknown 08/31/2024 12:17 PM EDT 09/03/2024 7:02 AM EDT Specimen obtained by fine needle aspiration procedure (specimen) Structure of upper lobe of left lung / Unknown 08/31/2024 12:17 PM EDT 09/03/2024 7:02 AM EDT us Megan Starr MD LAB PATHOLOGY ORDERABLES Final R esult [facility]) [facility] [address] [place] [address], * TH AN ENDOTRACHEAL(NO CHARGE) (08/31/2024 11:38 AM EDT) Narrative Madeleine Hernández CRNA - 08/31/2024 11:38 AM EDT Madeleine Hernández CRNA 08/31/2024 11:39 AM General Information and Staff Patient location during procedure: OR Performed by: Madeleine Hernández CRNA Authorized by: Kirit Evans MD Intubation Additional Comments Intubated by Dr. Evans Airway not difficult Urgency: elective Final Airway Details Successful airway: ETT Cuffed: yes Successful intubation technique: direct laryngoscopy Facilitating devices/methods: intubating stylet Blade: Luke ETT size (mm): 9.0 Cormack-Lehane Classification: grade IIa - partial view of glottis Placement verified by: chest auscultation and capnometry Measured from: lips ETT to lips (cm): 22 Number of attempts at approach: 2 Ventilation between attempts: BVM Number of other approaches attempted: 0Final airway type: endotracheal airway Indications and Patient Condition Indications for airway management: anesthesia and airway protection Spontaneous ventilation: present Sedation level: Yes Preoxygenated: yes Soft Tissue Damage: No Dentition Unchanged: Yes Patient position: neutral MILS maintained throughout Mask difficulty assessment: 2 - vent by mask + OA or adjuvant +/- NMBA Start Time: 08/31/2024 11:29 AMStop Time: 08/31/2024 11:29 AM Kirit Evans MD ANESTHESIA ORDERABLES Final Re sult * Pulmonary function testing: Carbon Monoxide Diffusing Capacity, Nitrogen Wash Out, Spirometry with Bronchodilator (08/29/2024 1:17 PM EDT) Impressions Frederick Ayala MD - 08/29/2024 1:17 PM EDT Pulmonary function test interpretation. Spirometry done today reveals FEV1 of 2.16 which is 52% of the predicted value, FVC is 4.04 which is 73% of the predicted value, FEV1 to FVC ratio of 71% of the predicted value, there is no bronchodilator response. Flow loops consistent with obstructive pattern. Static lung volumes are elevated [id number]. Diffusion lung capacity is moderately reduced remain moderately reduced after correction for alveolar volume. This study is consistent with moderate degree of emphysema for which clinical correlation is advised. Megan Starr MD PFT ORDERABLES Final Result * ECG 12 lead - Procedural (No Charge) (08/28/2024 10:40 AM EDT) Ventricular Rate ECG 79 BPM GEMUSE Atrial Rate 79 BPM GEMUSE P-R Interval 154 ms GEMUSE QRS Duration 92 ms GEMUSE Q-T Interval 372 ms GEMUSE QTc 426 ms GEMUSE P Wave [place] 72 degrees GEMUSE R [place] 50 degrees GEMUSE T [place] 74 degrees GEMUSE ECG Interpretation Normal sinus rhythm Normal ECG When compared with ECG of 13-FEB-2013 02:53, No significant change was found Confirmed by JAVON KEY ([id number]) on 08/29/2024 3:38:17 PM GEMUSE 08/28/2024 10:4 0 AM EDT 08/29/2024 3:38 PM EDT us Megan Starr MD ECG ORDERABLES Final Result GEMUSE * CBC auto differential (08/28/2024 10:24 AM EDT) WBC 6.2 4.8 - 10.8 K/mcL LAB HEMETOLOGY METHOD 08/28/2024 11:05 AM [facility] RBC 5.00 4.50 - 5.50 M/mcL LAB HEMETOLOGY METHOD 08/28/2024 11:05 AM [facility] Hemoglobin 14.5 13.5 - 17.5 g/dL LAB HEMETOLOGY METHOD 08/28/2024 11:05 AM [facility] Hematocrit 44.6 42.0 - 54.0 % LAB HEMETOLOGY METHOD 08/28/2024 11:05 AM [facility] MCV 88.7 79.0 - 98.0 FL LAB HEMETOLOGY METHOD 08/28/2024 11:05 AM [facility] MCH 28.8 27.0 - 32.0 pcg LAB HEMETOLOGY METHOD 08/28/2024 11:05 AM [facility] MCHC 32.5 32.0 - 37.0 g/dL LAB HEMETOLOGY METHOD 08/28/2024 11:05 AM [facility] RDW 13.3 11.0 - 15.0 % LAB HEMETOLOGY METHOD 08/28/2024 11:05 AM [facility] Platelets 252 130 - 400 K/mcL LAB HEMETOLOGY METHOD 08/28/2024 11:05 AM [facility] MPV 9.2 7.0 - 11.0 FL LAB HEMETOLOGY METHOD 08/28/2024 11:05 AM [facility] NRBC 0.0 <1.0 % LAB HEMETOLOGY METHOD 08/28/2024 11:05 AM [facility] NRBC Absolute 0.00 <0.10 K/mcL LAB HEMETOLOGY METHOD 08/28/2024 11:05 AM [facility] Neutrophils Relative 62.2 % LAB HEMETOLOGY METHOD 08/28/2024 11:05 AM [facility] Lymphocytes Relative 21.6 % LAB HEMETOLOGY METHOD 08/28/2024 11:05 AM [facility] Monocytes Relative 10.1 % LAB HEMETOLOGY METHOD 08/28/2024 11:05 AM [facility] Eosinophils Relative 5.0 % LAB HEMETOLOGY METHOD 08/28/2024 11:05 AM [facility] Basophils Relative 0.8 % LAB HEMETOLOGY METHOD 08/28/2024 11:05 AM [facility] Immature Granulocytes Relative 0.3 % LAB HEMETOLOGY METHOD 08/28/2024 11:05 AM [facility] Neutrophils Absolute 3.82 1.50 - 7.00 K/mcL LAB HEMETOLOGY METHOD 08/28/2024 11:05 AM [facility] Lymphocytes Absolute 1.33 1.00 - 5.00 K/mcL LAB HEMETOLOGY METHOD 08/28/2024 11:05 AM EDT [facility] Monocytes Absolute 0.62 0.20 - 1.00 K/mcL LAB HEMETOLOGY METHOD 08/28/2024 11:05 AM EDT [facility] Eosinophils Absolute 0.31 0.00 - 0.50 K/mcL LAB HEMETOLOGY METHOD 08/28/2024 11:05 AM EDT [facility] Basophils Absolute 0.05 0.00 - 0.20 K/mcL LAB HEMETOLOGY METHOD 08/28/2024 11:05 AM EDT [facility] Immature Granulocytes Absolute 0.02 0.00 - 0.03 K/mcL LAB HEMETOLOGY METHOD 08/28/2024 11:05 AM EDT [facility] Blood Venous blood specimen / Unknown Venipuncture / Unknown 08/28/2024 10:24 AM EDT 08/28/2024 10:54 AM EDT us Megan Starr MD LAB BLOOD ORDERABLES Final Resul t [facility] [address] [place] [address], [place] [phone] * ABO Rh (08/28/2024 10:24 AM EDT) ABO Group O 08/28/2024 3:14 PM EDT [facility] Rh Type Positive 08/28/2024 3:14 PM EDT [facility] Blood Venous blood specimen / Unknown Venipuncture / Unknown 08/28/2024 10:24 AM EDT 08/28/2024 10:53 AM EDT us Megan Starr MD LAB BLOOD BANK TEST ORDERABLES F inal Result [facility] [address] [place] [address], [place] [phone] * (ABNORMAL) Activated partial thromboplastin time (08/28/2024 10:24 AM EDT) [facility] aPTT 51.1(H) 24.1 - 39.3 sec LAB COAGULATION METHOD 08/28/2024 11:14 AM EDT [facility] Blood Venous blood specimen / Unknown Venipuncture / Unknown 08/28/2024 10:24 AM EDT 08/28/2024 10:54 AM EDT us Megan Starr MD LAB BLOOD ORDERABLES Final Resul t Performing Organization Address [facility]/ZIP Co de Phone Number [facility] [address] [place] [address], [place] [phone] * Prothrombin time with INR (08/28/2024 10:24 AM EDT) [facility] Protime 11.4 10.6 - 13.9 sec LAB COAGULATION METHOD 08/28/2024 11:06 AM EDT [facility] INR 0.9 LAB COAGULATION METHOD 08/28/2024 11:06 AM EDT [facility] Blood Venous blood specimen / Unknown Venipuncture / Unknown 08/28/2024 10:24 AM EDT 08/28/2024 10:54 AM EDT us Megan Starr MD LAB BLOOD ORDERABLES Final Resul t [facility] [address] [place] [address], [place] [phone] * Antibody screen (08/28/2024 10:24 AM EDT) [facility] Antibody Screen Negative 08/28/2024 2:32 PM EDT [facility] Blood Venous blood specimen / Unknown Venipuncture / Unknown 08/28/2024 10:24 AM EDT 08/28/2024 10:53 AM EDT us Megan Starr MD LAB BLOOD BANK TEST ORDERABLES F inal Result [facility] [address] [place] [address], [place] [phone] * (ABNORMAL) Basic metabolic panel (08/28/2024 10:24 AM EDT) Sodium 138 133 - 145 mmol/L LAB CHEMISTRY METHOD 08/28/2024 11:44 AM [facility] Potassium 4.4 3.5 - 5.5 mmol/L LAB CHEMISTRY METHOD 08/28/2024 11:44 AM [facility] Chloride 104 96 - 110 mmol/L LAB CHEMISTRY METHOD 08/28/2024 11:44 AM [facility] CO2 29 21 - 32 mmol/L LAB CHEMISTRY METHOD 08/28/2024 11:44 AM [facility] Anion Gap 5 3 - 11 LAB CHEMISTRY METHOD 08/28/2024 11:44 AM [facility] Glucose 116(H) 70 - 100 mg/dL LAB CHEMISTRY METHOD 08/28/2024 11:44 AM [facility] BUN 15 5 - 25 mg/dL LAB CHEMISTRY METHOD 08/28/2024 11:44 AM [facility] Creatinine 1.03 0.70 - 1.30 mg/dL LAB CHEMISTRY METHOD 08/28/2024 11:44 AM [facility] eGFR 82 >=60 mL/min/1. 73m2 LAB CHEMISTRY METHOD 08/28/2024 11:44 AM [facility] Comment:Calculation based on the Chronic Kidney Disease Epidemiology Collaboration (CKD-EPI) equation refit without adjustment for race. BUN/Creatinine Ratio 14.6 LAB CHEMISTRY METHOD 08/28/2024 11:44 AM [facility] Calcium 9.9 8.5 - 10.5 mg/dL LAB CHEMISTRY METHOD 08/28/2024 11:44 AM EDT [facility] Blood Venous blood specimen / Unknown Venipuncture / Unknown 08/28/2024 10:24 AM EDT 08/28/2024 10:54 AM EDT us Megan Starr MD LAB BLOOD ORDERABLES Final Resul t [facility] [address] [place] [address], [place] [phone] from Last 3 Months Insurance [facility] [place] [address] Care Teams Supply Chain Coordinator Relationship Specialty Start Date End Date Lobito Garcia MD [facility] [address] [place] [address] [address] [facility] [place] [address] PCP - General Internal Medicine 11/22/18
== END 2024-10-17 10:16 | disposition home or self-care (01) ==
LOC: HO.HMCH 09:07
PROVIDERS: PCP Physician Assistant; Visit Provider Physician Assistant
DX: J44.89 Other specified chronic obstructive pulmonary disease (principal); F41.9 Anxiety disorder, unspecified; F17.200 Nicotine dependence, unspecified, uncomplicated; R07.9 Chest pain, unspecified; E78.2 Mixed hyperlipidemia; T78.40XD Allergy, unspecified, subsequent encounter

== ENCOUNTER → 2024-10-17 09:06 | Outpatient (BNVA) | payer OTHER, SELFPAY | PROVIDERS: PCP Physician Assistant; Visit Provider Physician Assistant | DX: J41.0 Simple chronic bronchitis (principal); R91.1 Solitary pulmonary nodule; R06.02 Shortness of breath; F41.9 Anxiety disorder, unspecified; E78.5 Hyperlipidemia, unspecified; F17.210 Nicotine dependence, cigarettes, uncomplicated; R07.9 Chest pain, unspecified; E78.2 Mixed hyperlipidemia; T78.40XD Allergy, unspecified, subsequent encounter; X58.XXXD Exposure to other specified factors, subsequent encounter | CPT/HCPCS: 96127; 99212 ==

== ENCOUNTER 2024-12-27 09:26 | Outpatient (AMB) | payer OTHER, SELFPAY ==
[2024-12-27 09:34] VITALS: BP 120/72; PULSE 74; O2SAT 97; BMI 30.3
--- NOTE | 2024-12-27 09:34 | MHC.OFFVIS ---
Vital Signs 12/27/24 09:34 Height 6 ft 2.21 in Weight 236 lb 15.951 oz BMI 30.3 BP 120/72 Blood Pressure Location Lt brachial Position Sitting Pulse 74 Pulse Source Pulse Oximeter Pulse Oximetry (%) 97 Oxygen Delivery Method Room Air Intake Visit Reasons: asthma/copd Intake Note: pt is here for follow up and states he feels like he has phlegm stuck in his throat all the time, constantly spitting up, thick, white keeps him up all night. Client Relations Associate Required: No Clinic Clerk: Clinic Clerk offered & declined Allergies clonidine Adverse Reaction (Intermediate, Verified 12/27/24 09:47) Dizziness cyclobenzaprine (From Flexeril) Adverse Reaction (Intermediate, Verified 12/27/24 09:47) Dry mouth Medication List - Last Reconciled 12/27/24 by Vargas Vega MD acetaminophen 650 mg (2 x 325 mg) PO Q6H 30 days albuterol sulfate 90 mcg/actuation (Ventolin HFA) 2 puffs inhalation Q4-6H 30 days azelastine 1 spray intranasal BID 30 days [Cane As directed] cholecalciferol (vitamin D3) 50 mcg PO DAILY 90 days [Clamp on tub rail As directed] clonazepam 1 mg PO BID PRN dextromethorphan HBr (Cough Relief) 15 mg (5 mL) PO Q8H PRN dextromethorphan polistirex ER (Delsym 12 hour) 10 mL PO Q12H PRN 10 days fluticasone propion-salmeterol 250-50 mcg/dose 1 inh inhalation Q12H 90 days guaifenesin ER (Mucinex) 600 mg PO BID 30 days hydrocortisone 2.5% 1 appl topical BID PRN hydrocortisone-pramoxine 1-1 % (Proctofoam HC) [address] QID 14 days ibuprofen 600 mg PO Q6H PRN ipratropium-albuterol 0.5 mg-3 mg(2.5 mg base)/3 mL 3 mL inhalation Q4H PRN [large size adult pull ups As directed] magnesium oxide 250 mg PO BID 30 days montelukast (Singulair) 10 mg PO BEDTIME 90 days nicotine 1 patch transdermal Q24H 28 days nicotine 1 patch transdermal DAILY 28 days nicotine (polacrilex) 4 mg buccal Q8H PRN 30 days omega 2-grh-ham-fish oil 300-1,000 mg (Fish Oil) 1 cap PO DAILY 90 days prednisone 10 mg PO DIRECTED 9 days psyllium husk (Metamucil) 1 tbsp PO DAILY PRN 30 days [shower chair As directed] sitz bath As directed tiotropium bromide 2.5 mcg/actuation (Spiriva Respimat) 2 puffs inhalation DAILY 30 days [wall grab bar As directed] Do you need a note to return to daycare/school/sports/work: No HPI HPI asthma/copd: Details: LISA Mcmahon 64 YEARS OLD GENTLEMAN IS HERE FOR ROUTINE FOLLOW-UP FOR HIS COPD. HE HAS ONGOING SYMPTOM OF NASAL CONGESTION, POSTNASAL DISCHARGE, FREQUENT BOUTS OF COUGH, AND LOT OF MUCUS. HE SAY IS HE FINALLY QUIT SMOKING, WHEN I ASKED HIM SINCE WHEN, HE SAID JUST 1 WEEK. IS AMAZING THAT HE SAY IS THAT DURING THE PAST 1 WEEK AFTER HE HAS NOT SMOKED HIS COUGH IS LESS. WE WENT THROUGH THE WHOLE DISCUSSION AND MANY OF THE AGENTS THAT WERE PRESCRIBED HE DOES NOT LIKE OR TOLERATE. SUCH A LAST IN NASAL SPRAY HE SAY IS HE DOES NOT LIKE. COUGH MEDICINES [id number] HE HAS TO PAY [id number] AND HE DOES NOT LIKE IT. HE DOES USE ADVAIR AND SPIRIVA. REGULARLY. HE DOES HAVE NEBULIZER WITH IPRATROPIUM-ALBUTEROL SOLUTION BUT HE SAY IS HE DOES NOT LIKE TO USE IT. OVERALL HE IS DEFINITELY LOOKING BETTER, AND HE DID CLAIM THAT HE FEELS BETTER. FOR THE PULMONARY NODULE HE IS BEING FOLLOWED BY THORACIC SURGERY, DR. MICHELLE GREGORY AT [facility]. [facility] Medical History (Updated 12/27/24 @ 10:09 by Vargas Vega MD) Allergic rhinitis Asthma-COPD overlap syndrome COPD exacerbation Back pain Peripheral neuropathy Anxiety ADHD (attention deficit hyperactivity disorder) Bronchitis Bleeding hemorrhoids Tubular adenoma of colon (~2019) Nicotine dependence, cigarettes, uncomplicated COPD (chronic obstructive pulmonary disease) Surgical History History of hemorrhoidectomy (~03/16/24) History of colonoscopy (~08/26/23) History of hemorrhoidectomy History of esophagogastroduodenoscopy (EGD) History of colonoscopy Family History Mother Diabetes Father No problems noted. Brother No problems noted. Social History Household Members: None Housing: Apartment Are you a primary transitional care liaison to a significant other at home: No Do you presently have visiting nurse or other home services: No Alcohol intake: current Alcohol intake frequency: does not drink Patient Tobacco Use Status: Former Tobacco user Tobacco use type: Cigarette Years Smoked: 45 e-Cigarette/Vaping Use: Never Used Second Hand Smoke Exposure: Yes service: No Current occupational status: unemployed and disabled Cognitive needs: No Hearing needs: No Vision needs: No Review of Systems Const All systems reviewed & are unremarkable except as noted in HPI and below Eyes Reports no additional complaints ENT Reports no additional complaints Card Denies chest pain, Denies irregular heart rhythm, Denies leg edema and Denies lightheadedness Resp Reports as per HPI GI Reports no additional complaints Reports no additional complaints Musc Reports no additional complaints Skin/Breast Reports system reviewed and no additional complaints, except as documented Neuro Reports no additional complaints Psych Reports anxiety Endo Reports no additional complaints Chandra/Lymph Reports no additional complaints Aller/Immun Reports no additional complaints Physical Exam Vital Signs: Last Vital Signs Pulse 74 12/27/24 09:34 BP 120/72 12/27/24 09:34 Pulse Ox 97 12/27/24 09:34 Oxygen Delivery Method Room Air 12/27/24 09:34 BMI result Body Mass Index 30.3 Const General: healthy appearing, comfortable, no acute distress, alert and awake Orientation/consciousness: patient oriented x3 HEENT Head: Yes normal to inspection General nose exam: No nasal polyps present and No nasal discharge present Face and sinus: Yes sinuses nontender Mouth: oropharynx normal Throat: Yes posterior oropharynx normal Eyes General: appearance normal, both eyes and all related structures Neck Neck: Yes normal visual inspection, Yes no lymphadenopathy, Yes trachea midline and Yes no JVD Thyroid: Thyroid normal Chest Chest palpation & inspection: normal inspection of the chest, normal palpation of entire chest wall and no tenderness Resp Other: PERCUSSION NOTE IS RESONANT, BREATH SOUNDS ARE DISTANT WITH PROLONGED EXPIRATORY PHASE. BOTH LUNGS ARE CLEAR. THERE ARE NO RESIDUAL CREPITATIONS OR WHEEZES. Cardio Palpation: normal PMI Rate: regular rate Rhythm: regular rhythm Heart sounds: no gallops and no murmurs Peripheral pulses: Peripheral pulses 2+ throughout GI Palpation (GI): Soft to palpation, nontender, No hepatosplenomegaly present and no masses Auscultation: normal bowel sounds Back/Spine/Pelvis Thoracic/Lumbar Spine: thoracic and lumbar spine normal to inspection Skin General skin exam: no rashes or lesions noted Neuro General: patient oriented x3 and no focal motor deficits Cranial nerves: Yes CN's II-XII intact bilaterally Extrem General: Yes normal to inspection, Yes no clubbing, cyanosis or edema and Yes no calf tenderness Psych Appearance: grossly normal and well kempt Speech and movement: Normal speech and movement present Affect: Anxious affect present Assessment & Plan Assessment & Plan (1) COPD (chronic obstructive pulmonary disease): Comment: HE DOES HAVE RELATIVELY SEVERE OBSTRUCTIVE AIRWAY DISORDER, WITH GOOD RESPONSe to 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 CURRENTLY DOING WELL WITH USE OF THE CURRENT REGIMEN. SEE BELOW. Code(s): J44.9 - Chronic obstructive pulmonary disease, unspecified Category: Medical Qualifiers: COPD type: chronic bronchitis Chronic bronchitis type: simple Qualified Code(s): J41.0 - Simple chronic bronchitis Plan: ADVAIR 250-51 INHALATION B.I.D. SPIRIVA RESPIMAT 2 INHALATIONS DAILY IN THE MORNING IPRATROPIUM-ALBUTEROL SOLUTION IN THE NEBULIZER Q 4-6 HOURS P.R.N. ALBUTEROL HFA 2 PUFFS Q 4-6 HOURS PRN FOR OUTDOORS MUCINEX ER 600 MG B.I.D. ( HE IS NOT USING IT CURRENTLY BECAUSE OF THE RAMESH ISSUE) (2) Nicotine dependence, cigarettes, uncomplicated: Comment: (1-2ppd x 40+yrs, now 1/4ppd - 50+PYH), claims that currently he has reduced to 1-2 cigarettes a day. FINALLY HE HAS QUIT COMPLETELY SINCE 1 WEEK AGO. Code(s): F17.210 - Nicotine dependence, cigarettes, uncomplicated Category: Medical Plan: I COMMENDED HIM FOR STOPPING THE CIGARETTES COMPLETELY. HAD A GOOD TALK WITH HIM AND ENCOURAGED HIM TO STAY SMOKE FREE. (3) Mass of left lung: Comment: (13 x [address] on 07/17/24 LDCT - was reviewed at multidisciplinary committee, and referred for thoracic surgery consult and workup by Dr. Rockwell at [facility]. The results from navigational bronchoscopy were equivocal, showing some atypical cells but no definite cancer. He is being followed very closely. Code(s): R91.8 - Other nonspecific abnormal finding of lung field Category: Medical Plan: CONTINUE FOLLOW-UP WITH THORACIC SURGERY AT [facility] (4) Anxiety: Comment: HE HAS AN, ANXIOUS PERSONALITY , ALSO HAS ADHD. RELATIVELY CALMER TODAY . Code(s): F41.9 - Anxiety disorder, unspecified Category: Medical Plan: AGAIN REASSURED AND ADVISED HIM TO SIT DOWN AND TAKE SOME DEEP BREATHS IF HE BECOMES ANXIOUS (5) Allergic rhinitis: Comment: HE HAS CHRONIC PERINEAL ALLERGIC RHINITIS. USES ANTIHISTAMINICS ONLY PRN Code(s): J30.9 - Allergic rhinitis, unspecified Category: Medical Plan: CONTINUE TO USE MONTELUKAST 10 MG DAILY. USE STEAM INHALATIONS PRN. Coding Level of Care Code Est Pt Level 3 (20961) Diagnoses Simple chronic bronchitis J41.0 COPD type: chronic bronchitis Chronic bronchitis type: simple Nicotine dependence, cigarettes, uncomplicated F17.210 Mass of left lung R91.8 Anxiety F41.9 Allergic rhinitis J30.9
--- OUTSIDE RECORDS SUMMARY | 2024-12-27 12:59 | XMS_ITS | Clinical Summary ---
Author Organization [facility] Address [address] [place] [address] Care Team Providers Care System Designer Name Role Phone Lobito Garcia MD Primary [...] SCREENING/FOLLOWUP 02/08/2024 SOCIAL NEEDS SCREENING 02/08/2024 INFLUENZA (#1) 2024 11/21/2018 PNEUMOCOCCAL VACCINE FOR HIGH RISK PATIENTS (#1) 01/21 Care Teams System Designer Relationship Specialty Start Date End Date Lobito Garcia MD PCP - General Internal Medicine 11/22/18
--- OUTSIDE RECORDS SUMMARY | 2024-12-27 12:59 | XMS_ITS | Encounter Summary ---
Author Organization [facility] Address [address] [place] [address] Care Team Providers Care Milk Drier Name Role Phone Lobito Garcia MD Primary Care Provider Soledad vailable Encounter Details Date Type Department Care Team Description 10/26/2022 Sausage Mixer Report Medical Records [address] [place] [id number] [employer] Social History Tobacco Use Types Packs/Day Years Used Date Smoking Tobacco: Never Assessed Sex Assigned at Date Recorded Not on file documented as of this encounter Plan of Treatment Not on file documented as of this encounter Visit Diagnoses Not on filedocumented in this encounter Care Teams Milk Drier Relationship Specialty Start Date End Date Lobito Garcia MD PCP - General Internal Medicine 11/22/18 documented as of this encounter
--- OUTSIDE RECORDS SUMMARY | 2024-12-27 13:00 | XMS_ITS | Encounter Summary ---
Author Organization [facility] Address [address] [place] [address] Care Team Providers Care Swimming Pool Salesperson Name Role Phone Lobito Garcia MD Primary Care Provider Soledad vailable Reason for Visit * Reason Onset Date Comments Medical Records 12/01/2022 Encounter Details Date Type Department Care Team Description 12/01/2022 Telephone [facility] [address] [place] [address] Lobito Garcia MD Medical Records [...] EDT Medical Records Request Caller: Calling from: [facility] Requesting provider's first & last name: Dr Armani Avelar Direct Phone Number or Ext: [phone] What records are being requested: Nuclear Stress Test How far back: 11/17/2022 What is it for: Dr Avelar Needed by: documented in this encounter Plan of Treatment Not on file documented as of this encounter Visit Diagnoses Not on filedocumented in this encounter Care Teams Swimming Pool Salesperson Relationship Specialty Start Date End Date Lobito Garcia MD PCP - General Internal Medicine 11/22/18 documented as of this encounter
== END 2024-12-27 11:47 | disposition home or self-care (01) ==
LOC: HO.HPS 09:27
PROVIDERS: PCP Physician Assistant; Visit Provider Internal Medicine
DX: J41.0 Simple chronic bronchitis (principal); F17.210 Nicotine dependence, cigarettes, uncomplicated; R91.8 Other nonspecific abnormal finding of lung field; F41.9 Anxiety disorder, unspecified; J30.9 Allergic rhinitis, unspecified
CPT/HCPCS: 99213

== ENCOUNTER → 2024-12-27 09:26 | Outpatient (BNVA) | payer OTHER, SELFPAY | PROVIDERS: PCP Physician Assistant; Visit Provider Internal Medicine | DX: J41.0 Simple chronic bronchitis (principal); R91.8 Other nonspecific abnormal finding of lung field; F17.210 Nicotine dependence, cigarettes, uncomplicated; F41.9 Anxiety disorder, unspecified; J30.9 Allergic rhinitis, unspecified | CPT/HCPCS: 99212 ==

== ENCOUNTER 2025-01-07 12:50 | Outpatient (REF) | payer OTHER, SELFPAY ==
[2025-01-07 13:50] LABS: Hematocrit 43.4 % (42.0-52.0); Hemoglobin 14.3 g/dl (14.0-18.0); Mean Corpuscular HGB Conc 32.9 g/dl (31.0-36.0); Mean Corpuscular Hemoglobin 28.8 pg (27.0-33.0); Mean Corpuscular Volume 87.5 fL (80.0-98.0); NRBC Abs Auto 0.000 X10*3/uL (0.0-0.012); NRBC Pct Auto 0.0 /100WBC (0.0-0.2); Platelet Count 234 X10*3/uL (160-400); Red Blood Count 4.96 X10*6/uL (4.60-5.80); White Blood Count 6.3 X10*3/uL (4.8-10.8)
[2025-01-07 14:20] LABS: Alanine Aminotransferase 27 U/L (0-40); Albumin Level 4.6 g/dL (3.5-5.0); Alkaline Phosphatase 59 U/L (39-117); Anion Gap 12 (12-20); Aspartate Amino Transferase 23 U/L (5-37); Blood Urea Nitrogen 19 mg/dL (9-16); Calcium 9.5 mg/dL (8.4-10.2); Carbon Dioxide 28 mmol/L (22-29); Chloride 106 mmol/L (96-108); Cholesterol 254 mg/dL (<200); Estimated Glomerular Filt Rate > 60; HDL Cholesterol 45 mg/dL (>40); Potassium 4.7 mmol/L (3.3-5.1); Sodium 141 mmol/L (135-145); Total Protein 7.1 g/dL (6.5-8.0); Triglycerides 111 mg/dL (<150)
--- OUTSIDE RECORDS SUMMARY | 2025-01-07 16:26 | XMS_ITS | Clinical Summary ---
Author Organization [facility] [address] [facility] Address [address] [place] [address] Phone Care Team Providers Care Agriculture Laboratory Technician Name Role Phone Lobito Garcia MD Primary Care Provider [phone]- [phone] Allergies Active Allergy Reactions Criticality Noted Date Comments House Dust Mite 08/22/2024 Medications zolpidem (Ambien) 5 mg tablet Take by mouth. 05/10/2013 Active Spiriva Respimat 2.5 mcg/actuation inhalation spray 11/09/2022 Ac tive Advair Diskus 250-50 mcg/dose diskus inhaler INHALE 1 PUFF EVERY 12 HOURS FOR COPD FOR 90 DAYS 05/29/2024 Active clonazePAM (KlonoPIN) 1 mg tablet Take 1 tablet (1 mg total) by mouth 2 (two) times a day if needed for anxiety. Active acetaminophen (TYLENOL) 325 mg tablet Take by mouth every 6 (six) hours if needed for mild pain. Active Active Problems Problem Noted Date Diagnosed Date [...] cardiac CT scan is recommended by the 2020 chest pain guidelines for evaluation of patients [...] 10/01/2024 Pulmonary nodule 08/22/2024 Assessment & Plan (12/19/2024 10:18 AM EST): Mr. Soto is a 64 y.o. male part of the lung cancer screening program at [facility] who had a CT scan done in July 17, 2024 showing a new, spiculated, irregular nodule measuring 13 x 8 mm within the left upper lobe. The patient was seen by Dr. Starr consultation where ultimately decision for navigational bronchoscopy and EBUS for biopsy on August 31, 2024 at which point he had a navigational bronchoscopy with biopsy of the left upper lobe pulmonary nodule, and EBUS with biopsy of multiple lymph node stations which was negative for malignancy. His past [address] scans 1 from 3 months ago as well as his most recent chest CT scan performed in December 2024 shows that the nodule in question in the left upper lobe continues to decrease in size lending more credence to a benign process. He was instructed that we will follow-up with a 6-month LDCT scan which will be due in June 2025 and have a visit at the thoracic surgery department thereafter to discuss results. Assessment & Plan (09/06/2024 12:20 PM EDT): Mr. Soto is a 64-year-old male who was found to have a new spiculated 13 x 8 mm pulmonary nodule within the left upper lobe on screening CAT scan at [facility]. Navigational bronchoscopy with biopsy of the left [...] surgical resection is a possibility should this turner off to be an early stage lung cancer. Risks, benefits, and alternative discussed with the patient at length during this visit. Told patient to call should he have any questions or concerns, otherwise we will touch base with him regarding timing of his procedure. We will need a follow-up chest CT as his last one was done July 17, 2022 at [facility] and we need a scan within 30 days of a navigational bronchoscopy procedure. Encounters Date Type Department Care Team Description 12/19/2024 10:30 AM EST Office Visit Thoracic Surgery - [place] [address] [place] [id number] [place] Pulmonary nodule (Primary Dx) 12/18/2024 Telephone [facility] [address] [facility] [address] [place] [address] Greg Key MD 12/18/2024 Telephone [facility] [address] [facility] [address] [place] [address] Greg Key MD 12/14/2024 10:15 AM EST - 12/14/2024 11:59 PM EST Hospital Encounter [facility] CT Scan [address] [place] [address] Pulmonary nodule Discharge Disposition: Home or Self Care 11/27/2024 Results Follow-Up [facility] [address] [place] [phone] Greg Key MD from Last 3 Months Surgical History Surgery Date Site/Laterality Comments OTHER SURGICAL HISTORY bowel resection x3 CATARACT EXTRACTION OTHER SURGICAL HISTORY 08/31/2024 N/A Navigational Bronch EBUS Medical History Medical History Date Comments COPD (chronic obstructive pulmonary disease) (CM S/HCC V24, [facility] V28) Asthma Diverticulitis Pulmonary nodule Diverticulosis hx of Anxiety Seizures ([facility] V24, [facility] V28) hx Arthritis Joint pain multiple Social History Tobacco Use Types Packs/Day Years Used Date Smoking Tobacco: Some Days Cigarettes Smokeless Tobacco: Never Tobacco Cessation:Ready to Q uit: Not Asked; Counseling Given: Not Answered Alcohol Use Standard Drinks/Week Comments Not Currently 0 (1 standard drink = 0.6 oz pur e alcohol) Interpersonal Safety Answer Date Record ed Physical Abuse Unrecognized value 08/31/2024 Verbal Abuse Unrecognized value 08/31/2024 Sex and Gender Information Value Date Recorded Sex Assigned at Not on file Legal Sex Male 2:02 PM EST Gender Identity Not on file Sexual Orientation Not on file Obstetrics History Last Filed Vital Signs Vital Sign Reading Time Taken Comments Blood Pressure 164/79 12/19/2024 10:32 AM EST Pulse 76 12/19/2024 10:32 AM EST Temperature 36.7 C (98 F) 12/19/2024 10:32 AM EST Respiratory Rate 18 12/19/2024 10:32 AM EST Oxygen Saturation 96% 12/19/2024 10:32 AM EST Inhaled Oxygen Concentration - - Weight 105 kg (232 lb) 12/19/2024 10:32 AM EST Height 193 cm (6' 4 ) 12/19/2024 10:32 AM EST Body Mass Index 28.24 12/19/2024 10:32 AM EST Plan of Treatment Health Maintenance Due Date Last Done Comments Colorectal Cancer Screening: Colonoscopy 1961 DTaP,Tdap,and Td Vaccines (1 - Tdap) 01/22/1980 Pneumococcal Vaccine: 50+ Years (1 of 2 - PCV) 01/22/1980 Zoster Vaccines (1 of 2) 2011 HIV Screening 03/08/2023 Hepatitis C Screening 03/08/2023 [...] Procedure Name Priority Date/Time Associated Diagnosis Comments CT CHEST WO CONTRAST Routine 12/14/2024 10:47 AM EST Pulmonary nodule LIPID PANEL Routine 10/03/2024 9:09 AM EDT Other chest pain from Last 3 Months or Most Recently Relevant to Health Maintenance Results * CT Chest wo Contrast (12/14/2024 10:47 AM EST) Anatomical Region Laterality Modality Body Computed Tomogra phy 12/17/2024 4:28 PM EST Impressions 12/17/2024 4:38 PM EST Interval decrease in size of a small elongated nodule in the anterior left upper lobe, suspected to represent a focus of small airways mucus plugging given the morphology. A few other scattered small nodules are unchanged. -------- FINAL REPORT -------- Dictated By: Sam Cardoso Dictated Date: 12/17/2024 16:28 ET Assigned Physician: Sam Cardoso Reviewed and Electronically Signed By: Sam Cardoso Signed Date: 12/17/2024 16:38 ET Workstation ID: [id number] Transcribed By: Self Edit Transcribed Date: 12/17/2024 16:28 ET Narrative 12/17/2024 4:38 PM EST PROCEDURE: CT of the chest without intravenous contrast. TECHNIQUE: CT of the chest without intravenous contrast administration. Coronal and sagittal reformats and MIP reconstructions were created. Dose length product: 900 mGy-cm. HISTORY: Lung nodule, > 8mm COMPARISON: 09/14/2024. FINDINGS: LUNGS/PLEURA: 2 very small right posterior tracheal diverticula near the thoracic inlet. Trace aspirated debris in the trachea. Mild diffuse bronchial wall thickening. Mild scarring at the apices. Mild centrilobular emphysema. An elongated nodule in the left upper lobe, series 4, image 92, is slightly smaller, measuring 2 mm in thickness, previously 3 mm. This is suspected to represent a focus of small airways mucus plugging given the morphology. Scattered other nodules, measuring up to 5 mm in diameter, are unchanged. No pleural effusion or pneumothorax. MEDIASTINUM/KENDAL: No mediastinal mass or lymphadenopathy. No appreciable hilar lymphadenopathy on limited noncontrast evaluation. VASCULATURE: Normal caliber pulmonary arteries. Mild atherosclerotic calcifications of the aorta and great vessels. CARDIAC: Normal heart size. No coronary artery calcification. CHEST WALL: No axillary or supraclavicular lymphadenopathy. LIMITED ABDOMEN: Stable scattered small low-attenuation liver lesions, probably cysts. 4.1 cm left upper pole renal cortical cyst. BONES: Mild degenerative changes of the spine and shoulders. Procedure Note Sam Cardoso MD - 12/17/2024 PROCEDURE: CT of the chest without intravenous contrast. TECHNIQUE: CT of the chest without intravenous contrast administration.Coronal and sagittal reformats and MIP reconstructions were created. Dose length product: 900 mGy-cm. HISTORY: Lung nodule, > 8mm COMPARISON: 09/14/2024. FINDINGS: LUNGS/PLEURA: 2 very small right posterior tracheal diverticula near thethoracic inlet. Trace aspirated debris in the trachea. Mild diffusebronchial wall thickening. Mild scarring at the apices. Mildcentrilobular emphysema. An elongated nodule in the left upper lobe, series 4, image 92, isslightly smaller, measuring 2 mm in thickness, previously 3 mm. This issuspected to represent a focus of small airways mucus plugging given themorphology. Scattered other nodules, measuring up to 5 mm in diameter, are unchanged.No pleural effusion or pneumothorax. MEDIASTINUM/KENDAL: No mediastinal mass or lymphadenopathy. No appreciablehilar lymphadenopathy on limited noncontrast evaluation. VASCULATURE: Normal caliber pulmonary arteries. Mild atheroscleroticcalcifications of the aorta and great vessels. CARDIAC: Normal heart size. No coronary artery calcification. CHEST WALL: No axillary or supraclavicular lymphadenopathy. LIMITED ABDOMEN: Stable scattered small low-attenuation liver lesions,probably cysts. 4.1 cm left upper pole renal cortical cyst. BONES: Mild degenerative changes of the spine and shoulders. IMPRESSION: Interval decrease in size of a small elongated nodule in the anterior leftupper lobe, suspected to represent a focus of small airways mucus plugginggiven the morphology. A few other scattered small nodules areunchanged. -------- FINAL REPORT -------- Dictated By: Sam Cardoso Dictated Date: 12/17/2024 16:28 ET Assigned Physician: Sam Cardoso Reviewed and Electronically Signed By: Sam Cardoso Signed Date: 12/17/2024 16:38 ET Workstation ID: [id number] Transcribed By: Self Edit Transcribed Date: 12/17/2024 16:28 ET Elidia [facility] CT PROCEDURES Final Resul t * (ABNORMAL) Lipid panel (10/03/2024 9:09 AM [...] 10/04/2024 3:06 AM EDT Performed at: 01 - [facility] [address] [id number] Towboat Operator: Mandy Harden MD, Phone: [phone] Greg Key MD LAB BLOOD ORDERABLES F inal Result [facility] 1 from Last 3 Months or Most Recently Relevant to Health [place] [address] [facility] [place] [address] Care Teams Agriculture Laboratory Technician Relationship Specialty Start Date End Date Lobito Garcia MD [facility] [address] [place] [address] [address] [place] [address] PCP - General Internal Medicine 11/22/18
== END 2025-01-07 12:51 | disposition home or self-care (01) ==
LOC: HO.LAB 12:50
PROVIDERS: PCP Physician Assistant; Visit Provider Physician Assistant
DX: J41.0 Simple chronic bronchitis (principal); E78.2 Mixed hyperlipidemia; Z12.5 Encounter for screening for malignant neoplasm of prostate
CPT/HCPCS: 36415; 80053; 80061; 84153; 85027

== ENCOUNTER 2025-01-08 10:07 | Outpatient (AMB) | payer OTHER, SELFPAY ==
--- NOTE | 2025-01-08 10:21 | MHC.PC.OV ---
Vital Signs 01/08/25 10:22 Height 6 ft 2.21 in Weight 232 lb 4 oz BMI 29.6 BP 110/72 Blood Pressure Location Lt brachial Position Sitting Pulse 78 Pulse Source Pulse Oximeter Temp 97.1 F Temp Source Temporal Artery Scan Pulse Oximetry (%) 98 Oxygen Delivery Method Room Air Intake Visit Reasons: 3 month f/u Intake Note: Patient is here to follow up on ADHD, COPD. Care Clinician Required: No Supervisor Purification: Not Required per policy Accompanied by: Self / Same As Patient Allergies clonidine Adverse Reaction (Intermediate, Verified 01/08/25 10:49) Dizziness cyclobenzaprine (From Flexeril) Adverse Reaction (Intermediate, Verified 01/08/25 10:49) Dry mouth Medication List - Last Reconciled 01/08/25 by Armani Avelar PA-C acetaminophen 650 mg (2 x 325 mg) PO Q6H 30 days albuterol sulfate 90 mcg/actuation (Ventolin HFA) 2 puffs inhalation Q4-6H 30 days azelastine 1 spray intranasal BID 30 days [Cane As directed] cholecalciferol (vitamin D3) 50 mcg PO DAILY 90 days [Clamp on tub rail As directed] clonazepam 1 mg PO BID PRN fluticasone propion-salmeterol 250-50 mcg/dose 1 inh inhalation Q12H 90 days hydrocortisone 2.5% 1 appl topical BID PRN hydrocortisone-pramoxine 1-1 % (Proctofoam HC) 1 appl ME QID 14 days ibuprofen 600 mg PO Q6H PRN ipratropium-albuterol 0.5 mg-3 mg(2.5 mg base)/3 mL 3 mL inhalation Q4H PRN [large size adult pull ups As directed] magnesium oxide 250 mg PO BID 30 days montelukast (Singulair) 10 mg PO BEDTIME 90 days nicotine (polacrilex) 4 mg buccal Q8H PRN 30 days omega 1-txd-gaw-fish oil 300-1,000 mg (Fish Oil) 1 cap PO DAILY 90 days psyllium husk (Metamucil) 1 tbsp PO DAILY PRN 30 days [shower chair As directed] sitz bath As directed tiotropium bromide 2.5 mcg/actuation (Spiriva Respimat) 2 puffs inhalation DAILY 30 days [wall grab bar As directed] Tobacco use date assessed: 01/08/25 Dental Screening Dental Screen Date: 10/17/24 HPI 3 month f/u HPI Details Patient is a 64-year-old male here today for follow-up. with a past medical history asthma, COPD, hyperlipidemia, ADHD, anxiety and insomnia. Concern--> The patient presents with symptoms suggestive of a sinus infection, including a frontal headache, significant mucus production, and ocular discharge, which is worse on one side. 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 .. Hyperlipidemia: A recent lab test revealed a total cholesterol of 254 and an LDL of 187, which has worsened. A public speaking instructor had previously recommended rosuvastatin 10 mg, but the patient was unaware of the prescription and has not been taking it. The patient reports confusion over generic medication names and has had difficulty getting clear information from the pharmacy. PLAN: Will immediately started on rosuvastatin 10 mg to help reduce his cardiovascular risk. Goal LDL to be below 130 Pulmonary nodule: The patient has a history of a pulmonary nodule, which was initially concerning but has not shown growth over time. A biopsy was performed, revealing benign lung tissue with atypical cells but no malignancy. The patient opted for surveillance rather than further invasive procedures due to the stability of the nodule. .. Shortness of breath: Has been connected with a public speaking instructor at [facility]. He will be sent for CT angiogram and an echocardiogram for further evaluation. Of note he does have elevated total cholesterol and LDL. We did discuss perhaps starting statin therapy to reduce his cardiovascular risk though will like to hold off on work on dietary modifications, will recheck fasting lipids in 3 months and if LDL above 130 will consider starting statin therapy. .. Asthma COPD overlap syndrome: Continues follow up with [place] pulmonology. He is also followed by cardiac thoracic surgeon for his lung nodules. The patient quit smoking about four weeks ago and surprisingly has not had the urge to smoke since. The patient has noticed an increase in appetite and cravings for greasy, fried foods, butter, and cheese, which the patient feels has substituted the smoking habit and contributed to weight gain. The patient uses nicotine lozenges as a replacement therapy. .. .. Anxiety: He is now seeing a psychiatrist whom is managing his mental health medications at this time. .. Hyperlipidemia: Most recent labs showing elevated total cholesterol and LDL. We did discuss the need to start statin therapy though he declines. He does understand he needs to eat much better as he has a diet follow of fried fatty foods and snacks. He does report often being bloated and is willing to start using a regimen of fiber [facility] Medical History (Updated 01/08/25 @ 11:05 by Armani Avelar PA-C) Allergic rhinitis Asthma-COPD overlap syndrome COPD exacerbation Back pain Peripheral neuropathy Anxiety ADHD (attention deficit hyperactivity disorder) Bronchitis Bleeding hemorrhoids Tubular adenoma of colon (~2018) Nicotine dependence, cigarettes, uncomplicated COPD (chronic obstructive pulmonary disease) Surgical History History of hemorrhoidectomy (~03/16/24) History of colonoscopy (~08/26/23) History of hemorrhoidectomy History of esophagogastroduodenoscopy (EGD) History of colonoscopy Family History Mother Diabetes Father No problems noted. Brother No problems noted. Social History Household Members: None Housing: Apartment Are you a primary youth care professional to a significant other at home: No Do you presently have visiting nurse or other home services: No Alcohol intake: current Alcohol intake frequency: does not drink Patient Tobacco Use Status: Former Tobacco user Tobacco use type: Cigarette Years Smoked: 45 e-Cigarette/Vaping Use: Never Used Second Hand Smoke Exposure: Yes service: No Current occupational status: unemployed and disabled Cognitive needs: No Hearing needs: No Vision needs: No Questionnaire Thrive Questionnaire Date Thrive assessed: 10/17/24 MELINDA-7 AMB Questionnaire MELINDA-7 Date MELINDA - 7 assessed: 10/17/24 Source: Developed by Drs. Hudson Correa, Mami Cordova, Alberto Crockett and colleagues, with an educational bobbi from [employer]. Review of Systems Const Reports fatigue and Reports headache(s) Eyes Denies loss of vision ENT Denies vertigo, Denies dizziness, Reports headache(s), Reports sinus pain and Denies sore throat Card Denies chest pain, Denies leg edema and Denies lightheadedness Resp Denies cough, Denies hemoptysis and Denies wheezing GI Denies abdominal pain, Denies melena, Denies constipation, Denies diarrhea and Denies vomiting Denies dysuria, Denies urinary frequency and Denies urinary urgency Musc Denies arthralgias, Denies joint swelling, Denies numbness and Denies tingling Neuro Denies Abnormal speech present, Denies behavioral changes, Denies vertigo, Denies dizziness, Reports headache(s), Denies loss of vision, Denies memory loss, Denies numbness and Denies tingling Psych Denies anxiety, Denies behavioral changes, Denies depression, Denies memory loss and Denies panic attacks Endo Reports fatigue Chandra/Lymph Denies easy bleeding and Denies easy bruising Aller/Immun Denies wheezing Physical exam (Primary Care) Vital Signs: Last Vital Signs Temp 97.1 F 01/08/25 10:22 Pulse 78 01/08/25 10:22 BP 110/72 01/08/25 10:22 Pulse Ox 98 01/08/25 10:22 Oxygen Delivery Method Room Air 01/08/25 10:22 BMI result Body Mass Index 29.6 Tobacco/Smoking Status: Tobacco use Status Tobacco use date assessed 01/08/25 01/08/25 10:27 Patient Tobacco Use Status Former Tobacco user 01/08/25 10:27 Tobacco use type Cigarette 01/08/25 10:27 e-Cigarette/Vaping Use Never Used 01/08/25 10:27 Thrive Assessment: Date of Thrive Assessment Date Thrive assessed 10/17/24 01/08/25 10:27 Const General: healthy appearing, no acute distress, alert and awake Nutritional Appearance: well nourished Orientation/consciousness: oriented to person, oriented to place and oriented to time HENMT Ears: TM's normal bilaterally General nose exam: Normal nasal mucous membranes and turbinates present Eyes Conjunctivae: conjunctivae normal Sclerae: sclerae normal Pupils: Equal, round and reactive pupils present Neck Neck: Yes no lymphadenopathy and Yes no JVD Thyroid: Thyroid normal Carotids: no bruits Resp Effort & Inspection: normal respiratory effort and not tachypneic Auscultation: no crackles, no rales, no rhonchi and no wheezes Cardio Rate: regular rate Rhythm: regular rhythm Heart sounds: no murmurs and normal S1 and S2 GI Palpation (GI): Soft to palpation, nontender, no hepatomegaly and no splenomegaly Auscultation: normal bowel sounds Skin General skin exam: no rashes or lesions noted and dry skin Neuro General: oriented to person, oriented to place and oriented to time Cranial nerves: Yes Equal, round and reactive pupils present Speech: No Abnormal speech present Gait exam (Neuro): Normal gait present Motor exam (neuro): no tremor noted Extrem Right upper extremity: full ROM Left upper extremity: full ROM Right lower extremity: full ROM; no edema Left lower extremity: full ROM; no edema Psych Mental Status: mental status grossly normal Speech and movement: Normal speech and movement present Affect: normal affect Attitude: cooperative Thought process: Normal thought process present Coding Level of Care Code Est Pt Level 4 (85705) Diagnoses Mixed hyperlipidemia E78.2 Hyperlipidemia type: mixed hyperlipidemia Asthma-COPD overlap syndrome J44.89 Anxiety F41.9 Tobacco use disorder F17.200 Chest pain at rest R07.9 Acute non-recurrent frontal sinusitis J01.10 Chronicity: acute Recurrence: non-recurrent Sinusitis location: frontal Assessment & Plan Assessment & Plan (1) Hyperlipidemia: Code(s): E78.5 - Hyperlipidemia, unspecified Category: Medical Qualifiers: Hyperlipidemia type: mixed hyperlipidemia Qualified Code(s): E78.2 - Mixed hyperlipidemia Plan: For hyperlipidemia, rosuvastatin 10 mg daily will be initiated to manage the elevated LDL of 187. The importance of this medication was stressed for cardiovascular risk reduction, and a prescription will be sent to [facility]. Cholesterol labs will be rechecked in approximately three months with a goal of getting the LDL below 130. (2) Asthma-COPD overlap syndrome: Comment: HE HAS LONGSTANDING HISTORY OF COMBINATION OF ASTHMA AND COPD. ASTHMA IS MAINLY ALLERGIC IN TYPE. AND HIS COPD IS SECONDARY TO HIS LONG-TERM SMOKING. HE HAS BEEN TREATED FOR AN ACUTE EXACERBATION. STILL NOT FEELING BETTER, CLAIMS OF FEELING CONGESTED. HE WAS INSISTENT THAT HE WAS LOW ON OXYGEN. HOWEVER THE O2 SAT IN THE OFFICE WAS BETWEEN 94-96%. WHEN HE CAME WALKING TO THE OFFICE THE O2 SAT WAS STILL IN MID 90S. Code(s): J44.89 - Other specified chronic obstructive pulmonary disease Category: Medical Plan: Patient COPD has been better since he has stopped smoking. He is followed by pulmonology here in [place] and thoracic surgery at [facility] due to his pulmonary nodules He continues to hold off on smoking. Will continue p.r.n. use of his Ventolin inhaler and continued use of his maintenance inhaler daily. (3) Anxiety: Comment: HE HAS AN, ANXIOUS PERSONALITY , ALSO HAS ADHD. RELATIVELY CALMER TODAY . Code(s): F41.9 - Anxiety disorder, unspecified Category: Medical Plan: As per HPI has establish with a mental health med provider whom will be taking over prescribing his mental health medications. He has some stress in his life due to personal issues and some financial issues as well. (4) Tobacco use disorder: Code(s): F17.200 - Nicotine dependence, unspecified, uncomplicated Category: Medical Plan: He reports he quit smoking about a month ago. Does have morning type headaches wondering if this is nicotine withdrawal versus a sinus infection. Will treat for sinus infection (5) Chest pain at rest: Code(s): R07.9 - Chest pain, unspecified Category: Medical Plan: Patient followed by Cardiology at [facility], underwent echocardiogram recently which showed stable results without any regional wall abnormalities and appropriate EF. He does report getting a cardiac exam including a diet which I assume is a CTA angiogram of the coronary arteries though to not have results of this as of yet.. (6) Sinus infection: Code(s): J32.9 - Chronic sinusitis, unspecified Category: Medical Qualifiers: Chronicity: acute Recurrence: non-recurrent Sinusitis location: frontal Qualified Code(s): J01.10 - Acute frontal sinusitis, unspecified Plan: For symptoms of headache, facial pressure, and purulent discharge, the patient will be treated for a presumed acute sinusitis with a seven-day course of an amoxicillin-based antibiotic. It was also noted the headaches may be related to recent nicotine withdrawal. Orders: Orders Lipid Panel Today E78.2 - Mixed hyperlipidemia Complete Blood Count no Diff Today E78.2 - Mixed hyperlipidemia Comprehensive [place]. Panel Fast Today E78.2 - Mixed hyperlipidemia TSH reflex Free T4 Today E78.2 - Mixed hyperlipidemia Medications: New rosuvastatin 10 mg PO DAILY 90 tabs 1RF 90 days E78.2 - Mixed hyperlipidemia amoxicillin 500 mg PO Q8H 21 caps 0RF 7 days J01.10 - Acute frontal sinusitis, unspecified
[2025-01-08 10:22] VITALS: BP 110/72; PULSE 78; TEMP 36.2; O2SAT 98; BMI 29.6
--- OUTSIDE RECORDS SUMMARY | 2025-01-08 11:28 | XMS_ITS | Clinical Summary ---
Author Organization [facility] [address] [facility] Address [address] [place] [address] Phone Care Team Providers Care Adolescent Counselor Name Role Phone Lobito Garcia MD Primary Care Provider [phone] Allergies Active Allergy Reactions Criticality Noted Date [...] of the lung cancer screening program at [facility] who had a CT scan done [...] upper lobe on screening CAT scan at [facility]. Navigational bronchoscopy with biopsy of the [...] surgical resection is a possibility should this bag turner to be an early stage lung cancer. Risks, benefits, and alternative discussed with the patient at length during this visit. Told patient to call should he have any questions or concerns, otherwise we will touch base with him regarding timing of his procedure. We will need a follow-up chest CT as his last one was done July 17, 2022 at [facility] and we need a scan within 30 days of a navigational bronchoscopy procedure. Encounters Date Type Department Care Team Description 12/19/2024 10:30 AM EST Office Visit Thoracic Surgery - [facility] [address] [place] [id number] [place] Pulmonary nodule (Primary Dx) 12/18/2024 Telephone [facility] [address] [facility] [address] [place] [address] Greg Key MD 12/18/2024 Telephone [facility] [address] [facility] [address] [place] [address] Greg Key MD 12/14/2024 10:15 AM EST - 12/14/2024 11:59 PM EST Hospital Encounter [facility] CT Scan [address] [place] [address] Pulmonary nodule Discharge Disposition: Home or Self Care 11/27/2024 Results Follow-Up [facility] [address] [place] [id number] Greg Key MD from Last 3 Months Surgical History Surgery Date Site/Laterality Comments OTHER SURGICAL HISTORY bowel resection x3 CATARACT EXTRACTION OTHER SURGICAL HISTORY 08/31/2024 N/A Navigational Bronch EBUS Medical History Medical History Date Comments COPD (chronic obstructive pulmonary disease) ([facility] S/HCC V24, [facility] V28) Asthma Diverticulitis Pulmonary nodule Diverticulosis hx of Anxiety Seizures ([facility] V24, [facility] V28) hx Arthritis Joint pain multiple Social [...] Laterality Modality Body Computed Tomogra phy 12/17/2024 4:2 8 PM EST Impressions 12/17/2024 4:38 PM EST [...] Signed Date: 12/17/2024 16:38 ET Workstation ID: [id number] Transcribed By: Self Edit Transcribed Date: 12/17/2024 [...] Signed Date: 12/17/2024 16:38 ET Workstation ID: [id number] Transcribed By: Self Edit Transcribed Date: 12/17/2024 16:28 ET us Elidia [facility] CT PROCEDURES Final Resul t * (ABNORMAL) [...] AM EDT Performed at: 01 - [facility] [address] [id number] Stereo Plotter Operator: Mandy Harden MD, Phone: [phone] Greg Key MD LAB BLOOD ORDERABLES F inal Result [facility] 1 from Last 3 Months or Most Recently Relevant to Health [place] [address] [facility] Care Teams Adolescent Counselor Relationship Specialty Start Date End Date Lobito Garcia MD [facility] [address] [place] [address] [address] [place] [address] PCP - General Internal Medicine 11/22/18
== END 2025-01-08 11:27 | disposition home or self-care (01) ==
LOC: HO.HMCH 10:07
PROVIDERS: PCP Physician Assistant; Visit Provider Physician Assistant
DX: E78.2 Mixed hyperlipidemia (principal); J44.89 Other specified chronic obstructive pulmonary disease; F41.9 Anxiety disorder, unspecified; F17.200 Nicotine dependence, unspecified, uncomplicated; R07.9 Chest pain, unspecified; J01.10 Acute frontal sinusitis, unspecified

== ENCOUNTER → 2025-01-08 10:07 | Outpatient (BNVA) | payer OTHER, SELFPAY | PROVIDERS: PCP Physician Assistant; Visit Provider Physician Assistant | DX: J01.10 Acute frontal sinusitis, unspecified (principal); E78.2 Mixed hyperlipidemia; J44.89 Other specified chronic obstructive pulmonary disease; F41.9 Anxiety disorder, unspecified; R07.9 Chest pain, unspecified; Z87.891 Personal history of nicotine dependence | CPT/HCPCS: 99212 ==